=== PATIENT | male | born 1950 | race Caucasian/White ===

== ENCOUNTER 2018-09-22 13:51 | Inpatient (IN) | payer MEDICARE ==
[~2018-09-22] VITALS: Ht 170.2 cm; Wt 103.4 kg
[2018-09-22] MEDS ORDERED: ALBUTEROL/IPRATROPIUM 3 ML NEB ONE (14:19)
[2018-09-22] MEDS ORDERED: METHYLPREDNISOLONE SOD SUCC 125 MG/2ML VIAL IV ONE (14:45)
[2018-09-22] MEDS ORDERED: ALBUTEROL/IPRATROPIUM 3 ML NEB NEB ONE (14:45)
[2018-09-22] MEDS ORDERED: ASPIRIN 81 MG CHEW TAB PO ONE (15:00)
[2018-09-22 15:08] LABS: BASOPHILS % 0.3 % (0.0-1.0); EOSINOPHILS % 0.4 % (0.0-6.0); HEMATOCRIT 51.2 % (38.2-49.6); HEMOGLOBIN 17.2 g/dL (14.0-18.0); LYMPHOCYTES # (AUTO) 0.8 (1.0-3.2); LYMPHOCYTES % 8.3 % (18.0-39.1); MEAN CORPUSCULAR HEMOGLOBIN 30.1 pg (28-32); MEAN CORPUSCULAR HGB CONC 33.6 g/dL (31-35); MEAN CORPUSCULAR VOLUME 89.7 fL (81-99); MONOCYTES # (AUTO) 0.9 (0.2-0.8); MONOCYTES % 9.5 % (4.4-11.3); NEUTROPHILS # (AUTO) 7.4 (2.1-6.9); NEUTROPHILS % 81.2 % (38.7-80.0); PLATELET COUNT 233 x10e3/uL (140-360); RED BLOOD COUNT 5.71 x10e6/uL (4.3-5.7); RED CELL DISTRIBUTION WIDTH 12.4 % (11.7-14.4)
[2018-09-22 15:28] LABS: ALANINE AMINOTRANSFERASE 33 IU/L (0-55); ALBUMIN/GLOBULIN RATIO 1.1 (0.8-2.0); ALKALINE PHOSPHATASE 65 IU/L (40-150); ANION GAP 16.2 mmol/L (8-16); BLOOD UREA NITROGEN 14 mg/dL (7-26); BUN/CREATININE RATIO 16 (6-25); CALCIUM 9.8 mg/dL (8.4-10.2); CARBON DIOXIDE 23 mmol/L (22-29); CHLORIDE 100 mmol/L (98-107); CREATINE KINASE 867 IU/L (30-200); CREATININE, SERUM 0.89 mg/dL (0.72-1.25); EST GLOMERULAR FILTRATION RATE > 60 ML/MIN (60-); GLUCOSE 106 mg/dL (74-118); POTASSIUM 4.2 mmol/L (3.5-5.1); SODIUM 135 mmol/L (136-145)
[2018-09-22] MEDS ORDERED: VANCOMYCIN 1GM/NS 250 ML 250 ML IV ONE (15:30)
[2018-09-22] MEDS: CEFEPIME HCL 1 GM VIAL IV SCH ×2 (16:17→22:30)
--- NOTE | 2018-09-22 16:53 | Diagnostic Imaging Report ---
EXAMINATION: CHEST SINGLE (PORTABLE) INDICATION: ^SHORT OF BREATH ^Y COMPARISON: None available FINDINGS: AP view TUBES and LINES: None. LUNGS: Lungs are well inflated. Mild central vascular congestion. There is no evidence of pneumonia or pulmonary edema. PLEURA: No significant pleural effusion or pneumothorax. HEART AND MEDIASTINUM: The cardiomediastinal silhouette is unremarkable. BONES AND SOFT TISSUES: No acute osseous lesion. Soft tissues are unremarkable. UPPER ABDOMEN: No free air under the diaphragm. IMPRESSION: Mild central vascular congestion. Otherwise, unremarkable. Signed by: Dr. Angel Henriquez MD on 09/22/2018 4:50 PM
[2018-09-22] MEDS: SODIUM CHLORIDE 0.9% 1000ML 1,000 ML IV SCH ×3 (19:30→22:20)
[2018-09-22] MEDS ORDERED: NITROGLYCERIN 0.4 MG SUBL SL PRN (20:45)
[2018-09-22] MEDS ORDERED: MORPHINE SULFATE 2 MG/ML SYR IV PRN (20:45)
[2018-09-22] MEDS ORDERED: ONDANSETRON HCL INJ 2 MG/ML VIAL IV PRN (20:45)
--- OUTSIDE RECORDS SUMMARY | 2018-09-22 21:01 | XMS REPORT ---
Author Author [facility] Address Unknown Phone Unavailable Care Team Providers Care Geotechnical Intern Name Role Phone Jalil LOPEZ Unavailable Unavailable Problems This patient has no known problems. Allergies, Adverse Reactions, Alerts This patient has no known allergies or adverse reactions. Medications This patient has no known medications. Results Test Description Test Time Test Comments Text Results Atomic Results Result Comments CHEST SINGLE (PORTABLE) 2018-09-22 16:49:00 [facility] [address] [address] Patient Name: MICHELLE PITT MR #: [id number] : 1950 Age/Sex: 68/M Req #: [id number] Adm Physician: Ordered by: ANGELES MEANS MACHINE FITTER Report #: [id number] Location: ER Room/Bed: Procedure: [id number] DX/CHEST SINGLE (PORTABLE) Exam Date: Exam Time: REPORT STATUS: Signed EXAMINATION: CHEST SINGLE (PORTABLE) INDICATION: SHORT OF BREATH Y COMPARISON: None available FINDINGS: AP view TUBES and LINES: None. LUNGS: Lungs are well inflated. Mild central vascular congestion. There is no evidence of pneumonia or pulmonary edema. PLEURA: No significant pleural effusion or pneumothorax. HEART AND MEDIASTINUM: The cardiomediastinal silhouette is unremarkable. BONES AND SOFT TISSUES: No acute osseous lesion. Soft tissues are unremarkable. UPPER ABDOMEN: No free air under the diaphragm. IMPRESSION: Mild central vascular congestion. Otherwise, unremarkable. Signed by: Dr. Angel Thompson MD on 09/22/2018 4:50 PM Dictated By: ANGEL THOMPSON MD 48 Transcribed By: DOYLE on 09/22/181649 COPY TO: ANGELES MEANS NP
[2018-09-22 21:40] VITALS: BP 159/100
[2018-09-22 22:00] VITALS: BP 159/100
[2018-09-22 22:02] VITALS: BP 159/104
[2018-09-22] MEDS: LEVALBUTEROL HCL SOLN NEBU 0.63 MG/3 ML NEB INH SCH (22:05)
[2018-09-22] MEDS: IPRATROPIUM BROMIDE 0.02% 2.5 ML NEB NEB SCH (22:05)
[2018-09-22] MEDS: AZITHROMYCIN 500MG/NS 250 ML 250 ML IV SCH (23:10)
[2018-09-22] MEDS: METHYLPREDNISOLONE SOD SUCC 125 MG/2ML VIAL IV SCH (23:22)
[2018-09-23] VITALS (8 sets, daily range): BP systolic 148–167; BP diastolic 73–89
[2018-09-23 01:21] LABS: CREATINE KINASE 1043 IU/L (30-200)
[2018-09-23] MEDS: LEVALBUTEROL HCL SOLN NEBU 0.63 MG/3 ML NEB INH SCH ×3 (01:30→07:38)
[2018-09-23] MEDS: IPRATROPIUM BROMIDE 0.02% 2.5 ML NEB NEB SCH ×5 (01:30→19:00)
[2018-09-23] MEDS: SODIUM CHLORIDE 0.9% 1000ML 1,000 ML IV SCH ×3 (02:28→17:37)
[2018-09-23] MEDS: CEFEPIME HCL 1 GM VIAL IV SCH ×2 (05:44→17:36)
[2018-09-23 05:50] LABS: BASOPHILS % 0.1 % (0.0-1.0); HEMOGLOBIN 17.3 g/dL (14.0-18.0); LYMPHOCYTES # (AUTO) 0.7 (1.0-3.2); LYMPHOCYTES % 8.5 % (18.0-39.1); MEAN CORPUSCULAR HEMOGLOBIN 30.2 pg (28-32); MEAN CORPUSCULAR HGB CONC 32.6 g/dL (31-35); MEAN CORPUSCULAR VOLUME 92.5 fL (81-99); MONOCYTES # (AUTO) 0.1 (0.2-0.8); MONOCYTES % 1.8 % (4.4-11.3); NEUTROPHILS # (AUTO) 6.9 (2.1-6.9); NEUTROPHILS % 87.9 % (38.7-80.0); PLATELET COUNT 249 x10e3/uL (140-360); RED BLOOD COUNT 5.73 x10e6/uL (4.3-5.7); RED CELL DISTRIBUTION WIDTH 12.4 % (11.7-14.4)
[2018-09-23] MEDS: METHYLPREDNISOLONE SOD SUCC 125 MG/2ML VIAL IV SCH ×2 (05:53→17:36)
[2018-09-23 06:25] LABS: CREATINE KINASE 1044 IU/L (30-200)
[2018-09-23 08:16] LABS: ALANINE AMINOTRANSFERASE 36 IU/L (0-55); ALBUMIN 3.9 g/dL (3.5-5.0); ALBUMIN/GLOBULIN RATIO 0.9 (0.8-2.0); ALKALINE PHOSPHATASE 67 IU/L (40-150); ANION GAP 19.3 mmol/L (8-16); BLOOD UREA NITROGEN 22 mg/dL (7-26); BUN/CREATININE RATIO 19 (6-25); CALCIUM 9.9 mg/dL (8.4-10.2); CARBON DIOXIDE 22 mmol/L (22-29); CHLORIDE 100 mmol/L (98-107); CHOL/HDL RATIO 4.7 (3.9-4.7); CHOLESTEROL 210 MD/DL (0-199); CREATININE, SERUM 1.16 mg/dL (0.72-1.25); EST GLOMERULAR FILTRATION RATE > 60 ML/MIN (60-); GLUCOSE 150 mg/dL (74-118); HDL CHOLESTEROL 45 MG/DL (40-60); MAGNESIUM 2.7 MG/DL (1.3-2.1); POTASSIUM 5.3 mmol/L (3.5-5.1); SODIUM 136 mmol/L (136-145)
[2018-09-23 08:32] LABS: LDL CHOLESTEROL 151 MG/DL (60-130); TRIGLYCERIDES 72 MG/DL (0-149)
[2018-09-23] MEDS: AZITHROMYCIN 500MG/NS 250 ML 250 ML IV SCH (08:33)
[2018-09-23] MEDS: ASPIRIN 81 MG ENTERIC COATED PO SCH (08:33)
--- NOTE | 2018-09-23 08:36 | Diagnostic Imaging Report ---
EXAMINATION: CHEST SINGLE (PORTABLE) INDICATION: SOB. Cough. COMPARISON: None FINDINGS: TUBES and LINES: None. LUNGS: Lungs are well inflated. Lungs are clear. There is no evidence of pneumonia or pulmonary edema. PLEURA: No pleural effusion or pneumothorax. HEART AND MEDIASTINUM: The cardiomediastinal silhouette is unremarkable. BONES AND SOFT TISSUES: No acute osseous lesion. UPPER ABDOMEN: Hyperlucency in the left lung base/hemithorax nonspecific. IMPRESSION: No acute thoracic abnormality. Hyperlucency in the left lower hemithorax. Suggest chest PA and lateral views in upright position when patient's condition permits. Signed by: Dr. Yolanda Hidalgo M.D. on 09/23/2018 8:32 AM
[2018-09-23] MEDS ORDERED: FAMOTIDINE 20 MG/2 ML VIAL IV SCH (09:00)
[2018-09-23] MEDS ORDERED: GUAIFENESIN/CODEINE 10 ML CUP PO PRN (09:00)
[2018-09-23] MEDS ORDERED: LEVALBUTEROL HCL SOLN NEBU 0.63 MG/3 ML NEB INH PRN (09:00)
[2018-09-23] MEDS ORDERED: HYDRALAZINE HCL 25 MG TAB PO PRN (09:00)
[2018-09-23] MEDS ORDERED: ACETAMINOPHEN 325 MG TAB PO PRN (09:00)
[2018-09-23] MEDS ORDERED: BENZONATATE 100 MG CAP PO PRN (09:00)
[2018-09-23] MEDS ORDERED: CEFEPIME HCL 1 GM VIAL IV SCH (09:00)
[2018-09-23] MEDS ORDERED: METHYLPREDNISOLONE SOD SUCC 125 MG/2ML VIAL IV SCH (09:15)
[2018-09-23] MEDS: LORATADINE 10 MG TAB PO SCH (10:11)
[2018-09-23] MEDS: DILTIAZEM HCL 180 MG CAP ER PO SCH (10:11)
[2018-09-23] MEDS: BENZONATATE 100 MG CAP PO SCH ×3 (10:11→21:51)
--- NOTE | 2018-09-23 11:27 | History and Physical ---
CHIEF COMPLAINT: Acute exacerbation of COPD, worsening hypoxia and shortness of breath for the past three days. HISTORY: A 68-year-old male with three to four days of increasing shortness of breath and difficulty breathing and failed outpatient nebulizer treatment. Patient was a smoker, quit approximately 5 years ago. He had vrzhfyrp-ij-tgxyrakg stage COPD. Patient is also having increasing shortness of breath chronically, but usually helped with the nebulizer. The patient however, now is with exacerbation. He did receive multiple treatments in the emergency room that did not improve. He has also had multiple steroids given as well. The patient is now on oxygen support. He is on nasal cannula oxygen. PAST MEDICAL HISTORY 1. Yuuxvmvs-dl-ulxjaehd COPD. 2. Overweight. PAST SURGICAL HISTORY: Noncontributory. SOCIAL HISTORY: Patient was a smoker. He quit approximately 4 to 5 years ago. ALLERGIES: NO KNOWN ALLERGIES. HOME MEDICATIONS: Nebulizer medications. REVIEW OF SYSTEMS: Shortness of breath, wheezing. PHYSICAL EXAMINATION VITAL SIGNS: Temperature is 98, blood pressure 164/73, pulse rate 120, respirations 22. GENERAL: The patient is on oxygen support. Nasal cannula oxygen without any distress. HEENT: Normocephalic, atraumatic, and anicteric. NECK: Supple grossly. PULMONARY: Bilateral upper and lower lung field wheezing and . CARDIOVASCULAR: S1 and S2, tachycardia. ABDOMEN: Soft, obese. EXTREMITIES: No cyanosis, no edema. NEUROLOGIC: No gross focal deficits. LABORATORY: Sodium is 135, potassium 4.2, chloride 100, bicarb 23, BUN 14, creatinine 0.89, glucose 106. WBC 7.8, hemoglobin 17.3, hematocrit 53, platelets is 248. Chest x-ray showed some vascular congestion marking. IMPRESSION 1. Acute exacerbation of chronic obstructive pulmonary disease associated with acute hypoxia. 2. Worsening sinus tachycardia. 3. Obesity. PLAN: Continue with nebulizer treatment. I will start the patient on Cardizem gently. I will continue with steroid usage. Add on antibiotics. CT of the chest without contrast. Consultation with . DVT prophylaxis with Lovenox. We will monitor the patient closely. The patient will continue with nebulizer treatments as well, antitussive medication. Job#: [id number] PUN
[2018-09-23] MEDS: LEVALBUTEROL HCL SOLN NEBU 1.25 MG/3 ML NEB INH SCH ×4 (11:30→23:40)
[2018-09-23] MEDS ORDERED: ALPRAZOLAM 0.5 MG TAB PO NR (11:45)
[2018-09-23 12:37] LABS: CREATINE KINASE 1308 IU/L (30-200)
[2018-09-23] MEDS ORDERED: IPRATROPIUM BROMIDE 0.02% 2.5 ML NEB NEB SCH (13:00)
[2018-09-23 16:07] LABS: ABG HCO3 25 mmol/L (23-28); ABG PCO2 46 mmHg (41-51); ABG PH 7.34 (7.31-7.41); ABG PO2 96 mmHg (80-105)
[2018-09-23] MEDS: ENOXAPARIN SOD INJ 40 MG/0.4 ML SYR SC SCH (17:36)
[2018-09-23] MEDS: THEOPHYLLINE 200 MG TABCR PO SCH (17:36)
[2018-09-23] MEDS: MONTELUKAST SODIUM 10 MG TAB PO SCH (21:51)
[2018-09-24] VITALS (8 sets, daily range): BP systolic 130–167; BP diastolic 60–79
[2018-09-24] MEDS: METHYLPREDNISOLONE SOD SUCC 125 MG/2ML VIAL IV SCH (01:42)
[2018-09-24] MEDS: IPRATROPIUM BROMIDE 0.02% 2.5 ML NEB NEB SCH ×7 (03:15→23:00)
[2018-09-24] MEDS: LEVALBUTEROL HCL SOLN NEBU 1.25 MG/3 ML NEB INH SCH ×5 (03:15→21:00)
[2018-09-24] MEDS: SODIUM CHLORIDE 0.9% 1000ML 1,000 ML IV SCH ×2 (04:53→16:47)
[2018-09-24] MEDS: CEFEPIME HCL 1 GM VIAL IV SCH ×2 (05:46→17:55)
[2018-09-24] MEDS ORDERED: ALPRAZOLAM 0.5 MG TAB PO NR ×2 (06:01→18:45)
[2018-09-24 06:25] LABS: BASOPHILS % 0.2 % (0.0-1.0); HEMATOCRIT 50.6 % (38.2-49.6); HEMOGLOBIN 16.1 g/dL (14.0-18.0); LYMPHOCYTES # (AUTO) 0.7 (1.0-3.2); LYMPHOCYTES % 4.1 % (18.0-39.1); MEAN CORPUSCULAR HEMOGLOBIN 29.8 pg (28-32); MEAN CORPUSCULAR HGB CONC 31.8 g/dL (31-35); MEAN CORPUSCULAR VOLUME 93.5 fL (81-99); MONOCYTES # (AUTO) 0.4 (0.2-0.8); MONOCYTES % 2.2 % (4.4-11.3); NEUTROPHILS # (AUTO) 16.7 (2.1-6.9); PLATELET COUNT 272 x10e3/uL (140-360); RED BLOOD COUNT 5.41 x10e6/uL (4.3-5.7); RED CELL DISTRIBUTION WIDTH 12.6 % (11.7-14.4)
[2018-09-24 07:04] LABS: ANION GAP 14.9 mmol/L (8-16); BLOOD UREA NITROGEN 30 mg/dL (7-26); BUN/CREATININE RATIO 29 (6-25); CALCIUM 9.5 mg/dL (8.4-10.2); CARBON DIOXIDE 25 mmol/L (22-29); CHLORIDE 103 mmol/L (98-107); CREATININE, SERUM 1.03 mg/dL (0.72-1.25); EST GLOMERULAR FILTRATION RATE > 60 ML/MIN (60-); GLUCOSE 174 mg/dL (74-118); POTASSIUM 4.9 mmol/L (3.5-5.1); SODIUM 138 mmol/L (136-145); THYROID STIMULATING HORMONE 0.232 uIU/mL (0.350-4.940)
--- NOTE | 2018-09-24 07:26 | Diagnostic Imaging Report ---
EXAMINATION: CT scan of the chest without contrast. TECHNIQUE: Spiral CT images of the chest were performed from the lung apices to the level of the adrenal glands. No intravenous contrast was administered per referring physician request. Coronal and sagittal reformatted images were obtained. COMPARISON: Chest radiograph 09/23/2018 CLINICAL HISTORY:Shortness of breath, history of COPD, bronchitis DISCUSSION: ABSENCE OF INTRAVENOUS CONTRAST DECREASES SENSITIVITY FOR DETECTION OF FOCAL LESIONS AND VASCULAR PATHOLOGY. LINES/TUBES: None. LUNGS AND AIRWAYS: 4 mm right apical pulmonary nodule seen on series 3 image 23. 2 mm nodule laterally right upper lobe series 3 image 29. Linear scar medially within the right middle lobe and in the inferior lingula. Evaluation of the lung bases is slightly limited by respiratory motion artifact. Mild centrilobular emphysematous changes. No airspace consolidation gross fibrotic change, or bronchiectasis. Trachea, mainstem bronchi, and central lobar and segmental bronchi are patent without filling defect. PLEURA: No pneumothorax or pleural effusions. HEART AND MEDIASTINUM: Visualized portions of the thyroid gland are normal. No axillary, hilar, or mediastinal lymphadenopathy. No ectasia or aneurysmal dilatation of the thoracic aorta. Pulmonary outflow tract is of normal caliber. Atherosclerotic calcification of the aortic arch, great vessel origins, and [place] coronary arteries. No pericardial effusion. LYMPH NODES: There is no mediastinal, hilar or axillary lymphadenopathy. ABDOMEN: Visualized portions of the liver, spleen, pancreas, and adrenal glands are unremarkable. 2 cm exophytic simple cyst projects from the upper pole of the left kidney. Nonspecific hyperlucency described over the left lower hemithorax on the comparison examination likely represents air within the gastric fundus. BONES AND SOFT TISSUES: No focal soft tissue abnormalities. Multilevel degenerative disc changes of the thoracolumbar spine. No acute osseous abnormality IMPRESSION: Mild centrilobular emphysematous changes. Scattered foci of linear scar in the lingula and right middle lobe. 4 mm and 2 mm right upper lobe noncalcified pulmonary nodules, likely sequela of prior infectious or inflammatory process. CT scan of the chest without contrast may be considered to assess for stability in 12 months if the patient is at high risk of malignancy per Fleischner Society 2017 guidelines. Atherosclerotic vascular disease. Signed by: Dr. Huy Robbins M.D. on 09/24/2018 7:22 AM
--- NOTE | 2018-09-24 08:26 | Consultation ---
DATE OF CONSULTATION: PULMONARY CONSULTATION PATIENT OF: Dr. uKhn. Charming but unfortunate 68-year-old gentleman admitted with shortness of breath and hypoxic at home, able to walk only 10 feet. 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 He smoked 2 packs a day for 40 years, quit 5 years ago. 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 Has a history of hypertension. Was born in [place], [place]. Anxious white male, sitting upright, declining CT because he is unable to lie supine. Concerned with elevated heart rate, which is apparently be chronic signs of tachycardia. PHYSICAL EXAMINATION VITAL SIGNS: Temperature 96.4, pulse 113, respirations 24, blood pressure 162/66. HEENT: Head normocephalic and atraumatic. Eyes: Extraocular movements are intact. LUNGS: Mildly diminished breath sounds. Bilateral wheezing. HEART: Regular rhythm. ABDOMEN: Nontender, mildly obese. EXTREMITIES: Nonedematous. IMPRESSION: Acute exacerbation of chronic obstructive pulmonary disease and he required home oxygen. We will consider optimize bronchodilators. Elevated CPK, etiology unclear. Patient denies any recent fall. We will attempt optimized bronchodilators, BiPAP at night. Patient may require incentive screening spirometry, arterial blood gas, and CT when patient is bit more comfortable. reported by radiology. Thank you for this kind referral. Job#: [id number] SUB
[2018-09-24 08:50] LABS: FREE T4 (FREE THYROXINE) 1.11 ng/dL (0.9-1.8)
[2018-09-24] MEDS ORDERED: METHYLPREDNISOLONE SOD SUCC 125 MG/2ML VIAL IV SCH (09:00)
[2018-09-24] MEDS: DILTIAZEM HCL 180 MG CAP ER PO SCH (10:15)
[2018-09-24] MEDS: AZITHROMYCIN 500MG/NS 250 ML 250 ML IV SCH (10:15)
[2018-09-24] MEDS: BENZONATATE 100 MG CAP PO SCH ×3 (10:15→21:23)
[2018-09-24] MEDS: LORATADINE 10 MG TAB PO SCH (10:15)
[2018-09-24] MEDS: THEOPHYLLINE 200 MG TABCR PO SCH ×2 (10:15→17:55)
[2018-09-24] MEDS: ASPIRIN 81 MG ENTERIC COATED PO SCH (10:15)
[2018-09-24] MEDS: METHYLPREDNISOLONE SOD SUCC 40 MG/ML VIAL IV SCH ×2 (12:45→21:22)
[2018-09-24] MEDS: ENOXAPARIN SOD INJ 40 MG/0.4 ML SYR SC SCH (17:55)
[2018-09-24] MEDS: MONTELUKAST SODIUM 10 MG TAB PO SCH (21:22)
[2018-09-25] VITALS: BP_SYST 114; BP_SYST 136; BP_DIAS 55; BP_DIAS 75
[2018-09-25] MEDS: LEVALBUTEROL HCL SOLN NEBU 1.25 MG/3 ML NEB INH SCH ×8 (00:30→23:59)
[2018-09-25] MEDS: IPRATROPIUM BROMIDE 0.02% 2.5 ML NEB NEB SCH ×6 (03:00→23:00)
[2018-09-25 04:00] VITALS: BP 162/74
[2018-09-25] MEDS: SODIUM CHLORIDE 0.9% 1000ML 1,000 ML IV SCH (05:15)
[2018-09-25] MEDS: CEFEPIME HCL 1 GM VIAL IV SCH ×2 (06:25→17:13)
[2018-09-25 08:00] VITALS: BP 158/74
[2018-09-25] MEDS: ONDANSETRON HCL 4 MG ORAL DISINTEGRATING TAB PO PRN (08:20)
[2018-09-25] MEDS: THEOPHYLLINE 200 MG TABCR PO SCH ×2 (09:34→17:10)
[2018-09-25] MEDS: DILTIAZEM HCL 180 MG CAP ER PO SCH (09:35)
[2018-09-25] MEDS: ASPIRIN 81 MG ENTERIC COATED PO SCH (09:35)
[2018-09-25] MEDS: BENZONATATE 100 MG CAP PO SCH ×3 (09:35→21:10)
[2018-09-25] MEDS: LORATADINE 10 MG TAB PO SCH (09:35)
[2018-09-25] MEDS: GUAIFENESIN 600 MG TAB PO SCH ×2 (09:35→17:10)
[2018-09-25] MEDS: AZITHROMYCIN 500MG/NS 250 ML 250 ML IV SCH (09:35)
[2018-09-25] MEDS ORDERED: MAGNESIUM HYDROXIDE 30 ML UDC PO ONE (09:45)
[2018-09-25 12:00] VITALS: BP 136/73
--- NOTE | 2018-09-25 15:05 | Pulmonary Function Test ---
DATE OF STUDY: SPIROMETRY REPORT A patient of Dr. Kuhn. Restrictive pattern, pre bronchodilator. Forced vital capacity 0.93 liters, 23% of predicted. FEV1 0.71 liters, 24%. FEV1 FVC ratio 0.76%. FEF 25:75, 25%. There was significant improvement in FVC following inhalation of bronchodilators to 1.06 liters, 27% of predicted. Paradoxical decline in FEV1. FEV1 FVC ratio fell to 0.59 liters. Effort may have been suboptimal. Findings consistent with very severe obstructive pulmonary disease. Concomitant restriction cannot be excluded. Job#: [id number] EV
[2018-09-25] MEDS: METHYLPREDNISOLONE SOD SUCC 40 MG/ML VIAL IV SCH ×2 (15:16→21:10)
[2018-09-25 16:00] VITALS: BP 155/77
[2018-09-25] MEDS: ENOXAPARIN SOD INJ 40 MG/0.4 ML SYR SC SCH (17:12)
[2018-09-25 20:00] VITALS: BP 140/74
[2018-09-25] MEDS: MONTELUKAST SODIUM 10 MG TAB PO SCH (21:10)
[2018-09-26] VITALS (9 sets, daily range): BP systolic 115–162; BP diastolic 68–84
[2018-09-26] MEDS: LEVALBUTEROL HCL SOLN NEBU 1.25 MG/3 ML NEB INH SCH ×6 (02:55→19:55)
[2018-09-26] MEDS: IPRATROPIUM BROMIDE 0.02% 2.5 ML NEB NEB SCH ×6 (03:00→23:00)
[2018-09-26 06:12] LABS: BASOPHILS % 0.2 % (0.0-1.0); HEMOGLOBIN 15.9 g/dL (14.0-18.0); LYMPHOCYTES # (AUTO) 0.7 (1.0-3.2); MEAN CORPUSCULAR HEMOGLOBIN 30.2 pg (28-32); MEAN CORPUSCULAR HGB CONC 33.1 g/dL (31-35); MEAN CORPUSCULAR VOLUME 91.1 fL (81-99); MONOCYTES # (AUTO) 0.7 (0.2-0.8); MONOCYTES % 4.1 % (4.4-11.3); NEUTROPHILS # (AUTO) 14.9 (2.1-6.9); NEUTROPHILS % 90.9 % (38.7-80.0); PLATELET COUNT 240 x10e3/uL (140-360); RED BLOOD COUNT 5.27 x10e6/uL (4.3-5.7); RED CELL DISTRIBUTION WIDTH 12.1 % (11.7-14.4)
[2018-09-26] MEDS: METHYLPREDNISOLONE SOD SUCC 40 MG/ML VIAL IV SCH ×3 (06:35→21:31)
[2018-09-26] MEDS: CEFEPIME HCL 1 GM VIAL IV SCH ×2 (06:35→17:29)
[2018-09-26 07:01] LABS: ANION GAP 11.4 mmol/L (8-16); BLOOD UREA NITROGEN 27 mg/dL (7-26); BUN/CREATININE RATIO 35 (6-25); CARBON DIOXIDE 30 mmol/L (22-29); CHLORIDE 100 mmol/L (98-107); CREATININE, SERUM 0.77 mg/dL (0.72-1.25); EST GLOMERULAR FILTRATION RATE > 60 ML/MIN (60-); GLUCOSE 168 mg/dL (74-118); POTASSIUM 4.4 mmol/L (3.5-5.1); SODIUM 137 mmol/L (136-145)
[2018-09-26] MEDS ORDERED: BISACODYL 10 MG SUPP PR PRN (08:15)
[2018-09-26] MEDS ORDERED: MAGNESIUM HYDROXIDE 30 ML UDC PO ONE (08:15)
[2018-09-26] MEDS ORDERED: MAGNESIUM HYDROXIDE 30 ML UDC PO PRN (08:15)
[2018-09-26] MEDS ORDERED: BISACODYL 10 MG SUPP PR ONE (08:15)
[2018-09-26] MEDS: GUAIFENESIN 600 MG TAB PO SCH ×2 (09:36→17:29)
[2018-09-26] MEDS: THEOPHYLLINE 200 MG TABCR PO SCH ×2 (09:36→17:29)
[2018-09-26] MEDS: DILTIAZEM HCL 180 MG CAP ER PO SCH (09:36)
[2018-09-26] MEDS: SENNOSIDES 8.6 MG TAB PO SCH ×2 (09:36→17:29)
[2018-09-26] MEDS: BENZONATATE 100 MG CAP PO SCH ×3 (09:36→20:43)
[2018-09-26] MEDS: LORATADINE 10 MG TAB PO SCH (09:36)
[2018-09-26] MEDS: ASPIRIN 81 MG ENTERIC COATED PO SCH (09:36)
[2018-09-26] MEDS: AZITHROMYCIN 500MG/NS 250 ML 250 ML IV SCH (09:36)
[2018-09-26] MEDS: ENOXAPARIN SOD INJ 40 MG/0.4 ML SYR SC SCH (17:29)
[2018-09-26] MEDS: MONTELUKAST SODIUM 10 MG TAB PO SCH (20:43)
[2018-09-27] VITALS (7 sets, daily range): BP systolic 132–158; BP diastolic 71–86
[2018-09-27] MEDS: IPRATROPIUM BROMIDE 0.02% 2.5 ML NEB NEB SCH ×5 (03:00→19:00)
[2018-09-27] MEDS: LEVALBUTEROL HCL SOLN NEBU 1.25 MG/3 ML NEB INH SCH ×6 (03:15→23:00)
[2018-09-27] MEDS: METHYLPREDNISOLONE SOD SUCC 40 MG/ML VIAL IV SCH ×3 (05:20→21:28)
[2018-09-27] MEDS: CEFEPIME HCL 1 GM VIAL IV SCH ×2 (05:26→17:30)
[2018-09-27] MEDS: ASPIRIN 81 MG ENTERIC COATED PO SCH (08:00)
[2018-09-27] MEDS: AZITHROMYCIN 500MG/NS 250 ML 250 ML IV SCH (08:00)
[2018-09-27] MEDS: THEOPHYLLINE 200 MG TABCR PO SCH ×2 (08:01→17:30)
[2018-09-27] MEDS: LORATADINE 10 MG TAB PO SCH (08:01)
[2018-09-27] MEDS: GUAIFENESIN 600 MG TAB PO SCH ×2 (08:01→17:00)
[2018-09-27] MEDS: DILTIAZEM HCL 180 MG CAP ER PO SCH (08:01)
[2018-09-27] MEDS: BENZONATATE 100 MG CAP PO SCH ×3 (08:01→21:17)
[2018-09-27] MEDS: SENNOSIDES 8.6 MG TAB PO SCH ×2 (08:01→16:30)
[2018-09-27] MEDS ORDERED: MORPHINE SULFATE INJ 4 MG/ML INJ IV PRN (08:15)
[2018-09-27] MEDS: MAGNESIUM/ALUMINUM/SIMETHICONE 30 ML UDC PO PRN ×2 (09:57→16:30)
[2018-09-27] MEDS ORDERED: FUROSEMIDE INJ 10 MG/ML 2 ML VIAL IV SCH (13:15)
[2018-09-27] MEDS ORDERED: ACETAZOLAMIDE 250 MG TAB PO SCH (13:15)
[2018-09-27] MEDS: ENOXAPARIN SOD INJ 40 MG/0.4 ML SYR SC SCH (17:30)
[2018-09-27] MEDS: MONTELUKAST SODIUM 10 MG TAB PO SCH (21:17)
[2018-09-27] MEDS ORDERED: DIPHENHYDRAMINE HCL INJ 50 MG/ML VIAL IV PRN (21:45)
[2018-09-28] VITALS: BP 148/80
[2018-09-28] MEDS: MAGNESIUM/ALUMINUM/SIMETHICONE 30 ML UDC PO PRN (03:17)
[2018-09-28] MEDS: METHYLPREDNISOLONE SOD SUCC 40 MG/ML VIAL IV SCH (05:52)
[2018-09-28] MEDS: CEFEPIME HCL 1 GM VIAL IV SCH (05:52)
[2018-09-28 06:04] LABS: BASOPHILS # (AUTO) 0.1 (0.0-0.1); BASOPHILS % 0.3 % (0.0-1.0); HEMATOCRIT 49.2 % (38.2-49.6); HEMOGLOBIN 16.6 g/dL (14.0-18.0); LYMPHOCYTES # (AUTO) 0.7 (1.0-3.2); LYMPHOCYTES % 3.2 % (18.0-39.1); MEAN CORPUSCULAR HEMOGLOBIN 30.1 pg (28-32); MEAN CORPUSCULAR HGB CONC 33.7 g/dL (31-35); MEAN CORPUSCULAR VOLUME 89.3 fL (81-99); MONOCYTES # (AUTO) 1.1 (0.2-0.8); NEUTROPHILS # (AUTO) 20.1 (2.1-6.9); NEUTROPHILS % 90.4 % (38.7-80.0); PLATELET COUNT 317 x10e3/uL (140-360); RED BLOOD COUNT 5.51 x10e6/uL (4.3-5.7); RED CELL DISTRIBUTION WIDTH 11.9 % (11.7-14.4)
[2018-09-28 06:05] LABS: ANION GAP 15.2 mmol/L (8-16); BUN/CREATININE RATIO 44 (6-25); CALCIUM 8.9 mg/dL (8.4-10.2); CARBON DIOXIDE 24 mmol/L (22-29); CHLORIDE 102 mmol/L (98-107); CREATININE, SERUM 0.95 mg/dL (0.72-1.25); EST GLOMERULAR FILTRATION RATE > 60 ML/MIN (60-); GLUCOSE 184 mg/dL (74-118); POTASSIUM 4.2 mmol/L (3.5-5.1); SODIUM 137 mmol/L (136-145)
[2018-09-28 06:13] LABS: BLOOD UREA NITROGEN 42 mg/dL (7-26)
[2018-09-28] MEDS: LEVALBUTEROL HCL SOLN NEBU 1.25 MG/3 ML NEB INH SCH ×3 (07:00→15:50)
[2018-09-28] MEDS: ONDANSETRON HCL 4 MG ORAL DISINTEGRATING TAB PO PRN (07:31)
[2018-09-28 09:00] VITALS: BP 159/75
[2018-09-28] MEDS ORDERED: HEPARIN SOD (PORCINE) 5,000 UNIT/ML VIAL SC SCH (09:00)
[2018-09-28] MEDS ORDERED: POTASSIUM CHLORIDE 20 MEQ TAB CR PO SCH (09:00)
[2018-09-28] MEDS: GUAIFENESIN 600 MG TAB PO SCH ×2 (09:00→16:00)
[2018-09-28] MEDS: SENNOSIDES 8.6 MG TAB PO SCH ×2 (09:00→17:00)
[2018-09-28] MEDS ORDERED: METHYLPREDNISOLONE SOD SUCC 40 MG/ML VIAL IV SCH (09:00)
[2018-09-28] MEDS ORDERED: FUROSEMIDE 20 MG TAB PO SCH (09:00)
[2018-09-28 09:18] VITALS: BP 159/75
[2018-09-28] MEDS ORDERED: FLUCONAZOLE 100 MG TAB PO ONE (09:30)
[2018-09-28] MEDS: ASPIRIN 81 MG ENTERIC COATED PO SCH (10:01)
[2018-09-28] MEDS: LORATADINE 10 MG TAB PO SCH (10:01)
[2018-09-28] MEDS: DILTIAZEM HCL 180 MG CAP ER PO SCH (10:02)
[2018-09-28] MEDS: THEOPHYLLINE 200 MG TABCR PO SCH ×2 (10:02→16:00)
[2018-09-28] MEDS: BENZONATATE 100 MG CAP PO SCH ×2 (10:02→16:00)
[2018-09-28 12:00] VITALS: BP 153/95
[2018-09-28] MEDS ORDERED: MINERAL OIL 132 ML BTL PR ONE (12:00)
[2018-09-28] MEDS ORDERED: MINERAL OIL 132 ML BTL PR PRN (12:00)
[2018-09-28] MEDS ORDERED: GUAIFENESIN/CODEINE 10 ML CUP PO PRN (13:00)
[2018-09-28] MEDS ORDERED: TESSALON PERLE100 MG PO (14:29)
[2018-09-28] MEDS ORDERED: SINGULAIR10 MG PO (14:29)
[2018-09-28] MEDS ORDERED: PROAIR HFA INH8.5 GM INH (14:30)
[2018-09-28] MEDS ORDERED: TYLENOL WITH C1 EACH PO (14:30)
[2018-09-28] MEDS ORDERED: SYMBICORT 16010.2 GM INH (14:31)
[2018-09-28] MEDS ORDERED: XOPENEX INH (14:32)
[2018-09-28] MEDS ORDERED: THEOPHYLLINE A200 MG PO (14:32)
[2018-09-28] MEDS ORDERED: DILTIAZEM 24HR180 M1 PO (14:33)
[2018-09-28] MEDS ORDERED: CLARITIN10 MG PO (14:33)
[2018-09-28] MEDS ORDERED: [UNRECOGNIZED DRUG - CODE] PO (14:34)
[2018-09-28] MEDS ORDERED: mucinex PO (14:34)
--- NOTE | 2018-09-28 14:36 | Consultation ---
DATE OF CONSULTATION: WOUND CONSULTATION Thank you, Dr. Kuhn, for asking me to see this patient with blisters to the right foot and bilateral leg edema. HISTORY OF PRESENT ILLNESS: A 68-year-old male patient, history of advanced COPD, cor pulmonale, leg edema, admitted with COPD exacerbation, hypoxemia. Patient is feeling thirsty, drinking copious amount of water. He had some bilateral leg swelling. He developed a blister to the right dorsal foot and right medial ankle. No signs of infection noted. I deroofed the blister and applied Adaptic, ABD, Kerlix and Coban both legs just for gentle compression. Patient advised to restrict the fluid intake. Also complains of constipation. PAST MEDICAL HISTORY: Advanced COPD with possible cor pulmonale. Patient had an echocardiogram, the report pending. MEDICATIONS 1. Theophylline 200 mg b.i.d. 2. Potassium 20 mEq daily. 3. Zofran. 4. Morphine. 5. Bisacodyl. 6. Aspirin. 7. Benzonate. 8. Hydralazine 25 mg q.6 p.r.n. 9. Fluconazole 100 mg daily. 10. Guaifenesin. 11. Acetazolamide 250 mg daily. ALLERGIES: NONE. PHYSICAL EXAMINATION VITAL SIGNS: Height 67 inches, weight 228 pounds. HEENT: Normal. NECK: No JVD. LUNGS: Bilateral air entry diminished. CARDIOVASCULAR: Normal. ABDOMEN: Protuberant. Obese. LOWER EXTREMITIES: Bilateral leg edema present. Right dorsum of the foot patient has a large blister measuring 6 x 6 cm, and right medial ankle patient has a blister opened up. ASSESSMENT: Bullous lesion right leg secondary to edema from most likely pulmonary hypertension, cor pulmonale, chronic obstructive pulmonary disease. PLAN: I deroofed the right foot blister and applied Adaptic, ABD, Kerlix and Coban to both legs. Patient tolerated the procedure. Thank you for consultation. Will follow with you. Discussed with the nurse. Will change the dressing 3 times a week and as needed for saturation. Job#: [id number] EV
--- NOTE | 2018-09-28 14:49 | Discharge Summary ---
STOCK SPECULATOR: Dr. Evelyne Sheikh FINAL DIAGNOSES 1. Acute exacerbation of chronic obstructive pulmonary disease associated with sinus tachycardia, acute hypoxia, obesity and previous smoking. 2. Community-acquired pneumonia with acute bronchitis. 3. Right foot blister. 4. Leukocytosis secondary to steroids given for his chronic obstructive pulmonary disease. 5. Status post rhabdomyolysis, which was mild. SUMMARY: Patient is a 68-year-old male who was having difficulty breathing at home. The patient came in with acute hypoxia, near respiratory failure, and required oxygen support but also multiple nebulizer treatments and high-dose steroids. He also had sinus tachycardia. Diltiazem CD was started, and the patient is doing much better now. The patient is stable. Rhabdomyolysis was mild because he was immobilized due to his difficulty breathing, baseline emphysema and COPD. Patient is doing much better now. He is going to go home today. DISCHARGE MEDICATIONS 1. Tessalon Perles 100 mg t.i.d. 2. Singulair 10 mg nightly. 3. Tylenol No. 3 as needed. 4. ProAir 2 puffs q.6 p.r.n. 5. Symbicort 160 per 4.5 mcg 2 puffs b.i.d. nebulizer for his COPD. 6. Xopenex 1.25-mg nebulizer q.4 p.r.n. 7. Theophylline 200 mg b.i.d. 8. Diltiazem CD 180 mg daily. 9. Claritin 10 mg daily. 10. Senna-S 1 tablet b.i.d. 11. Mucinex 600 mg b.i.d. 12. Diflucan 100 mg daily for 3 days due to yeast secondary to steroids and antibiotic treatment. Patient is stable and will be discharged home today after Dr. Segovia sees the patient for his right foot blister. The patient is stable and discharged home today afterward. Job#: [id number]
[2018-09-28] MEDS ORDERED: CITRATE OF MAGNESIA 300ML BOTTLE PO ONE (16:00)
[2018-09-28] MEDS ORDERED: ENOXAPARIN SOD INJ 40 MG/0.4 ML SYR SC SCH (17:00)
[2018-09-28 17:37] VITALS: BP 143/70
[2018-09-28] MEDS ORDERED: BISACODYL 10 MG SUPP PR NR (18:00)
[2018-09-29] MEDS ORDERED: FLUCONAZOLE 100 MG TAB PO SCH (09:00)
== END 2018-09-28 18:48 | disposition home health service (06) | DRG 190 ==
LOC: ER 13:51 → ERHOLD 20:31 → MED/SURG 21:33
PROVIDERS: ADMIT Internal Medicine; ATTEND Internal Medicine
PROC: 0H9MXZZ Drainage of Right Foot Skin, External Approach (ICD-10-PCS; principal; 2018-09-28)
DX: J44.0 Chronic obstructive pulmonary disease with (acute) lower respiratory infection (principal); J18.9 Pneumonia, unspecified organism; M62.82 Rhabdomyolysis; J44.1 Chronic obstructive pulmonary disease with (acute) exacerbation; J20.9 Acute bronchitis, unspecified; S90.821A Blister (nonthermal), right foot, initial encounter; R09.02 Hypoxemia; E66.9 Obesity, unspecified; Z68.35 Body mass index [BMI] 35.0-35.9, adult; Z79.891 Long term (current) use of opiate analgesic; I27.20 Pulmonary hypertension, unspecified; I27.81 Cor pulmonale (chronic); F10.21 Alcohol dependence, in remission
CPT/HCPCS: 36415; 36600; 71045; 71250; 80048; 80053; 80061; 80198; 82550; 82553; 82805; 83605; 83735; 83880; 84439; 84443; 84479; 84484; 85025; 87040; 87070; 87205; 93005; 93306; 93970; 94060; 94640; 96361; 97139; 99284; J0456; J0692; J1200; J1650; J1940; J2405; J2920; J2930; J3370; J7030

== ENCOUNTER 2019-06-25 09:38 | Inpatient (IN) | payer MEDICARE ==
[~2019-06-25] VITALS: Ht 170.2 cm; Wt 93.5 kg
[~2019-06-25 09:38] MED LIST: CLARITIN10 MG PO; DILTIAZEM 24HR180 M1 PO; PROAIR HFA INH8.5 GM INH; SINGULAIR10 MG PO; SYMBICORT 16010.2 GM INH; TESSALON PERLE100 MG PO; THEOPHYLLINE A200 MG PO; TYLENOL WITH C1 EACH PO; XOPENEX INH; [UNRECOGNIZED DRUG - CODE] PO; mucinex PO
[2019-06-25] MEDS ORDERED: IPRATROPIUM BROMIDE 0.02% 2.5 ML NEB NEB STA (09:56)
[2019-06-25] MEDS ORDERED: METHYLPREDNISOLONE SOD SUCC 125 MG/2ML VIAL IV ONE (10:00)
[2019-06-25 10:27] LABS: BASOPHILS # (AUTO) 0.1 (0.0-0.1); BASOPHILS % 1.3 % (0.0-1.0); EOSINOPHILS # (AUTO) 0.6 (0.0-0.4); EOSINOPHILS % 6.8 % (0.0-6.0); HEMATOCRIT 48.2 % (38.2-49.6); HEMOGLOBIN 15.4 g/dL (14.0-18.0); LYMPHOCYTES % 11.5 % (18.0-39.1); MEAN CORPUSCULAR HEMOGLOBIN 26.3 pg (28-32); MEAN CORPUSCULAR VOLUME 82.4 fL (81-99); MONOCYTES # (AUTO) 0.8 (0.2-0.8); MONOCYTES % 9.4 % (4.4-11.3); NEUTROPHILS # (AUTO) 5.9 (2.1-6.9); NEUTROPHILS % 70.8 % (38.7-80.0); PLATELET COUNT 294 x10e3/uL (140-360); RED BLOOD COUNT 5.85 x10e6/uL (4.3-5.7); RED CELL DISTRIBUTION WIDTH 14.4 % (11.7-14.4)
[2019-06-25] MEDS ORDERED: ALBUTEROL SULF 0.083% NEB SOLN 3 ML NEB NEB ONE (10:30)
[2019-06-25 10:37] LABS: ABG HCO3 27 mmol/L (23-28); ABG PCO2 35 mmHg (41-51); ABG PH 7.48 (7.31-7.41); ABG PO2 209 mmHg (80-105)
[2019-06-25 10:48] LABS: ALANINE AMINOTRANSFERASE 25 IU/L (0-55); ALBUMIN 4.1 g/dL (3.5-5.0); ALBUMIN/GLOBULIN RATIO 1.1 (0.8-2.0); ALKALINE PHOSPHATASE 85 IU/L (40-150); ANION GAP 15.1 mmol/L (8-16); BLOOD UREA NITROGEN 14 mg/dL (7-26); BUN/CREATININE RATIO 14 (6-25); CALCIUM 10.1 mg/dL (8.4-10.2); CARBON DIOXIDE 25 mmol/L (22-29); CHLORIDE 101 mmol/L (98-107); CREATINE KINASE 683 IU/L (30-200); EST GLOMERULAR FILTRATION RATE > 60 ML/MIN (60-); GLUCOSE 113 mg/dL (74-118); POTASSIUM 4.1 mmol/L (3.5-5.1); SODIUM 137 mmol/L (136-145)
--- NOTE | 2019-06-25 11:35 | Diagnostic Imaging Report ---
EXAM: CHEST SINGLE (PORTABLE) DATE: 06/25/2019 9:56 AM INDICATION: Shortness of breath COMPARISON: 09/23/2018 FINDINGS: The trachea is midline. There are mild basilar opacity suggestive of atelectasis. The lungs are otherwise symmetrically expanded without evidence for large focal consolidation, pneumothorax, or significant pleural effusion. The cardiomediastinal silhouette and pulmonary vasculature are within normal limits. No acute osseous abdomen is identified. The surrounding soft tissues are unremarkable. IMPRESSION: No acute cardiopulmonary process identified. Signed by: Dr. Ike Kruse MD on 06/25/2019 11:31 AM
[2019-06-25] MEDS ORDERED: ADVAIR 250-501 EACH INH (11:59)
[2019-06-25] MEDS ORDERED: PREDNISONE20 MG PO (11:59)
[2019-06-25] MEDS ORDERED: ASPIRIN 81 MG CHEW TAB PO ONE (12:15)
--- NOTE | 2019-06-25 12:20 | NUR ---
ambulated patient with personal use o2 tank. patient's sats dropped to 89%. placed patient back on bedside monitor. er md made aware
[2019-06-25] MEDS: AZITHROMYCIN 500MG/SOD CHL 0.9% 250ML BAG IV SCH (12:38)
--- NOTE | 2019-06-25 13:52 | NUR ---
Report Given to LUTHER Pappas Pt hemodynamically stable, speaking in full sentences at time of transfer to [facility]
[2019-06-25] MEDS ORDERED: METHYLPREDNISOLONE SOD SUCC 125 MG/2ML VIAL IV SCH (14:00)
[2019-06-25] MEDS: ALBUTEROL/IPRATROPIUM 3 ML NEB NEB SCH ×3 (14:29→22:35)
--- NOTE | 2019-06-25 15:15 | NUR ---
patient arrived on unit via stretcher. alert and oriented, tele in place. call loving within reach and bed in lowest position.
[2019-06-25 15:28] VITALS: BP 191/90
[2019-06-25] MEDS ORDERED: IPRATROPIU0.2 MG/1 M NEB (15:28)
[2019-06-25] MEDS ORDERED: DIPHENHYDRAMINE25 M2 PO (15:28)
[2019-06-25] MEDS ORDERED: [UNRECOGNIZED DRUG - OTHER] INH (15:28)
[2019-06-25 15:39] VITALS: BP 191/90
[2019-06-25] MEDS: METHYLPREDNISOLONE SOD SUCC 125 MG/2ML VIAL IV SCH (17:13)
[2019-06-25 19:42] LABS: CREATINE KINASE MB 14.8 ng/mL (0-5.0)
[2019-06-25 20:14] VITALS: BP 188/86
[2019-06-25 20:25] VITALS: BP 188/86
[2019-06-26] VITALS (8 sets, daily range): BP systolic 129–164; BP diastolic 77–103
[2019-06-26] MEDS: ALBUTEROL/IPRATROPIUM 3 ML NEB NEB SCH ×2 (02:38→06:49)
[2019-06-26] MEDS: METHYLPREDNISOLONE SOD SUCC 125 MG/2ML VIAL IV SCH ×4 (03:14→20:06)
[2019-06-26 05:29] LABS: BASOPHILS % 0.2 % (0.0-1.0); HEMATOCRIT 46.4 % (38.2-49.6); HEMOGLOBIN 14.5 g/dL (14.0-18.0); LYMPHOCYTES # (AUTO) 0.6 (1.0-3.2); LYMPHOCYTES % 5.1 % (18.0-39.1); MEAN CORPUSCULAR HGB CONC 31.3 g/dL (31-35); MEAN CORPUSCULAR VOLUME 83.3 fL (81-99); MONOCYTES # (AUTO) 0.2 (0.2-0.8); MONOCYTES % 1.8 % (4.4-11.3); NEUTROPHILS # (AUTO) 11.3 (2.1-6.9); NEUTROPHILS % 92.3 % (38.7-80.0); PLATELET COUNT 310 x10e3/uL (140-360); RED BLOOD COUNT 5.57 x10e6/uL (4.3-5.7); RED CELL DISTRIBUTION WIDTH 14.2 % (11.7-14.4)
[2019-06-26 05:49] LABS: ANION GAP 15.1 mmol/L (8-16); BLOOD UREA NITROGEN 21 mg/dL (7-26); BUN/CREATININE RATIO 21 (6-25); CALCIUM 9.9 mg/dL (8.4-10.2); CARBON DIOXIDE 26 mmol/L (22-29); CHLORIDE 98 mmol/L (98-107); CREATININE, SERUM 1.02 mg/dL (0.72-1.25); EST GLOMERULAR FILTRATION RATE > 60 ML/MIN (60-); GLUCOSE 154 mg/dL (74-118); MAGNESIUM 2.2 MG/DL (1.3-2.1); POTASSIUM 4.1 mmol/L (3.5-5.1); SODIUM 135 mmol/L (136-145)
[2019-06-26 06:09] LABS: CREATINE KINASE 598 IU/L (30-200)
--- NOTE | 2019-06-26 09:00 | NUR ---
aware of HR.
[2019-06-26] MEDS ORDERED: BENZONATATE 100 MG CAP PO PRN (09:15)
[2019-06-26] MEDS ORDERED: LEVALBUTEROL HCL SOLN NEBU 1.25 MG/3 ML NEB INH PRN (09:15)
[2019-06-26] MEDS ORDERED: ACETAMINOPHEN/CODEINE 300MG - 30MG TAB PO PRN (09:15)
[2019-06-26] MEDS: LEVALBUTEROL HCL SOLN NEBU 1.25 MG/3 ML NEB INH SCH ×4 (10:05→23:00)
[2019-06-26] MEDS: IPRATROPIUM BROMIDE 0.02% 2.5 ML NEB NEB SCH ×2 (10:05→20:30)
--- NOTE | 2019-06-26 11:08 | Diagnostic Imaging Report ---
CT of the chest, without contrast. History: Shortness of breath, COPD, asthma. Comparison: 09/24/2018. Technique: Multidetector CT scanning of the chest was performed from the level of the apices to the upper abdomen without contrast. Coronal and sagittal multiplanar reformations were obtained. RADIATION DOSE: Total DLP: 488.38 mGy*cm Dose modulation, iterative reconstruction, and/or weight based adjustment of the mA/kV was utilized to reduce the radiation dose to as low as reasonably achievable. FINDINGS: The thyroid and remaining visualized structures within the base of the neck demonstrate no significant abnormalities. The thoracic aorta is normal course and caliber with atherosclerotic calcifications within its course and branch vessels including the coronary arteries. The heart is not enlarged. There is no abnormal pericardial fluid present. There is no abnormal axillary, mediastinal, or hilar lymph node enlargement. The trachea and proximal airways are patent. There are mild centrilobular emphysematous changes present, similar to the prior examination. There is a stable 4 mm pulmonary nodule identified within the right apex (axial image 13). There is an additional stable 3 mm pulmonary nodule identified within the right upper lobe (axial image 17). Stable scarring/atelectasis noted within the right middle lobe and lingula. There is no evidence for consolidation, pneumothorax, new suspicious nodule/mass, or pleural effusion. The visualized upper abdominal contents are unremarkable. There are stable degenerative changes of the thoracolumbar spine. There is no evidence for acute fracture or destructive process. The extrathoracic soft tissues are unremarkable. IMPRESSION: No acute intrathoracic process identified. Stable mild centrilobular emphysematous changes. Stable pulmonary micronodules identified within the right upper lobe. No new nodules identified. Signed by: Dr. Ike Kruse MD on 06/26/2019 11:04 AM
[2019-06-26] MEDS ORDERED: SODIUM CHLORIDE 0.9% 250ML 250 ML ONE (11:23)
[2019-06-26] MEDS: DILTIAZEM HCL 180 MG CAP ER PO SCH (11:29)
[2019-06-26] MEDS: AZITHROMYCIN 500MG/SOD CHL 0.9% 250ML BAG IV SCH (11:29)
[2019-06-26] MEDS: GUAIFENESIN 600 MG TAB PO SCH ×2 (11:29→15:52)
[2019-06-26] MEDS: BENZONATATE 100 MG CAP PO SCH ×2 (15:00→20:06)
[2019-06-26] MEDS: BUDESONIDE/FORMOTEROL 160/4.5MCG INHALER INH SCH (19:00)
--- NOTE | 2019-06-26 19:00 | NUR ---
received report from day nurse. patient is resting comfortably in bed. bed is in lowest position and call loving is within reach. will continue to monitor patient.
--- NOTE | 2019-06-26 19:10 | NUR ---
Report given to oncoming nurse of patient's status. Sitting on recliner. AAOX3 to time, person, place. Respirations even and unlabored. O2 3L NC.Call light within reach.
[2019-06-26] MEDS: MONTELUKAST SODIUM 10 MG TAB PO SCH (20:06)
[2019-06-27] VITALS (8 sets, daily range): BP systolic 133–170; BP diastolic 68–84
[2019-06-27] MEDS: LEVALBUTEROL HCL SOLN NEBU 1.25 MG/3 ML NEB INH SCH ×6 (02:15→23:45)
[2019-06-27] MEDS: IPRATROPIUM BROMIDE 0.02% 2.5 ML NEB NEB SCH ×5 (02:15→23:45)
--- NOTE | 2019-06-27 02:33 | Consultation ---
DATE OF CONSULTATION: Pulmonary Consultation REASON FOR THE CONSULT: Shortness of breath, COPD exacerbation. HISTORY OF PRESENT ILLNESS: Mr. Marquez is a 68-year-old male, presenting to the emergency room with shortness of breath. The patient is a regular patient of Dr. Koenig and has COPD. He reports that the symptoms started 3 days ago, progressively got worse. His last PFT was done in September of 2018, which showed FEV1 of 24% with severe obstructive pulmonary disease. REVIEW OF SYSTEMS: GENERAL: Denies any fever or chills. HEAD: Denies any head trauma. ENT: Denies any earaches. CVS: Denies any chest pain. RESPIRATORY: Shortness of breath. The rest of the review of systems are negative except as in HPI. PAST MEDICAL HISTORY: Hypertension, hyperlipidemia. FAMILY AND SOCIAL HISTORY: He quit smoking 8 years ago, smoked for 40 years, one pack per day. PHYSICAL EXAMINATION: VITAL SIGNS: Temperature 96.7, pulse of 115, blood pressure 151/85, respiratory rate of 18, O2 saturation 94%. HEENT: Head is atraumatic and normocephalic. NECK: Supple. CHEST: Reduced air entry bilaterally and occasional wheezing. HEART: S1 and S2 audible. ABDOMEN: Soft. EXTREMITIES: No pedal edema. NEUROLOGIC: Awake and alert. LABORATORY DATA: White count of 12,000, hemoglobin 14.5, and platelets 310. Chemistries within normal limits. Troponin is zero; however, CK-MB was 14.80. ASSESSMENT AND PLAN: A 68-year-old male with chronic obstructive pulmonary disease exacerbation. CT of the chest, I have reviewed the images. It is not showing any evidence of pneumonia. Continue the patient on IV Solu-Medrol and antibiotics as ordered by you. The patient is improving. I thank, Dr. Kuhn, for this consult. MD VALORIE Leonard/SACHIN /[id number]
[2019-06-27] MEDS: METHYLPREDNISOLONE SOD SUCC 125 MG/2ML VIAL IV SCH ×3 (05:31→20:06)
--- NOTE | 2019-06-27 06:46 | NUR ---
report given to day nurse. patient is resting comfortably in bed. bed is in lowest position and call loving is within reach.
[2019-06-27] MEDS: BUDESONIDE/FORMOTEROL 160/4.5MCG INHALER INH SCH ×2 (07:04→20:00)
[2019-06-27] MEDS: BENZONATATE 100 MG CAP PO SCH ×3 (08:21→20:06)
[2019-06-27] MEDS: GUAIFENESIN 600 MG TAB PO SCH ×2 (08:21→18:23)
[2019-06-27] MEDS: DILTIAZEM HCL 180 MG CAP ER PO SCH (08:21)
[2019-06-27] MEDS: THEOPHYLLINE 200 MG TABCR PO SCH (08:21)
[2019-06-27] MEDS: LORATADINE 10 MG TAB PO SCH (08:21)
[2019-06-27] MEDS: AZITHROMYCIN 500MG/SOD CHL 0.9% 250ML BAG IV SCH (12:21)
--- NOTE | 2019-06-27 19:05 | NUR ---
Report given to oncoming nurse of patient's status. Sitting on recliner. No s/s of acute distress noted.Call light within reach.
[2019-06-27] MEDS: MONTELUKAST SODIUM 10 MG TAB PO SCH (20:06)
[2019-06-28] VITALS (8 sets, daily range): BP systolic 142–156; BP diastolic 72–89
[2019-06-28] MEDS: LEVALBUTEROL HCL SOLN NEBU 1.25 MG/3 ML NEB INH SCH ×6 (03:00→23:10)
[2019-06-28] MEDS: METHYLPREDNISOLONE SOD SUCC 125 MG/2ML VIAL IV SCH (05:12)
[2019-06-28] MEDS: IPRATROPIUM BROMIDE 0.02% 2.5 ML NEB NEB SCH ×4 (06:45→23:10)
--- NOTE | 2019-06-28 06:49 | NUR ---
report given to day nurse. patient is resting comfortably in bed. bed is in lowest position and call light is within reach.
[2019-06-28] MEDS: BUDESONIDE/FORMOTEROL 160/4.5MCG INHALER INH SCH ×2 (06:56→19:49)
[2019-06-28] MEDS: BENZONATATE 100 MG CAP PO SCH (09:00)
[2019-06-28] MEDS: THEOPHYLLINE 200 MG TABCR PO SCH (09:29)
[2019-06-28] MEDS: LORATADINE 10 MG TAB PO SCH (09:29)
[2019-06-28] MEDS: GUAIFENESIN 600 MG TAB PO SCH ×2 (09:29→16:49)
[2019-06-28] MEDS: DILTIAZEM HCL 180 MG CAP ER PO SCH (09:29)
--- NOTE | 2019-06-28 11:26 | NUR ---
EDUCATED ABOUT IMM, SIGNED, FILED IN CHART, WITH COPY LEFT WITH FAMILY AT BEDSIDE.
[2019-06-28] MEDS: AZITHROMYCIN 500MG/SOD CHL 0.9% 250ML BAG IV SCH (14:27)
[2019-06-28] MEDS: METHYLPREDNISOLONE SOD SUCC 40 MG/ML VIAL 1ML IV SCH ×2 (14:27→20:47)
[2019-06-28] MEDS: MONTELUKAST SODIUM 10 MG TAB PO SCH (20:46)
[2019-06-29] VITALS (7 sets, daily range): BP systolic 111–152; BP diastolic 59–88
[2019-06-29] MEDS: LEVALBUTEROL HCL SOLN NEBU 1.25 MG/3 ML NEB INH SCH ×4 (03:00→13:45)
[2019-06-29] MEDS: METHYLPREDNISOLONE SOD SUCC 40 MG/ML VIAL 1ML IV SCH ×2 (06:38→14:27)
[2019-06-29] MEDS: BUDESONIDE/FORMOTEROL 160/4.5MCG INHALER INH SCH (07:10)
[2019-06-29] MEDS: IPRATROPIUM BROMIDE 0.02% 2.5 ML NEB NEB SCH ×2 (07:10→13:45)
[2019-06-29] MEDS: DILTIAZEM HCL 180 MG CAP ER PO SCH (08:55)
[2019-06-29] MEDS: THEOPHYLLINE 200 MG TABCR PO SCH (08:56)
[2019-06-29] MEDS: LORATADINE 10 MG TAB PO SCH (08:56)
[2019-06-29] MEDS: GUAIFENESIN 600 MG TAB PO SCH (08:56)
[2019-06-29] MEDS: AZITHROMYCIN 500MG/SOD CHL 0.9% 250ML BAG IV SCH (14:27)
[2019-06-29] MEDS ORDERED: TRIAMCINOLONE ACET 40 MG/ML VIAL IM ONE (16:15)
[2019-06-29] MEDS ORDERED: TRIAMCINOLONE ACET 40 MG/ML VIAL IM NR (16:30)
[2019-06-29] MEDS ORDERED: LEVAQUIN500 MG PO (16:50)
[2019-06-29] MEDS ORDERED: MEDROL2 MG (16:51)
--- NOTE | 2019-06-30 02:00 | Discharge Summary ---
SCRUBBING MACHINE OPERATOR: Evelyne Sheikh MD. FINAL DIAGNOSES: 1. Acute exacerbation of chronic obstructive pulmonary disease associated with acute hypoxia, cough, and wheezing. 2. Community-acquired pneumonia. SUMMARY: A 68-year-old male came in with hypoxia with wheezing, coughing, and coursing his lung field associated with wheezing on examination. The patient placed on steroids, IV Solu-Medrol, nebulizer treatments. He is doing much better now. The patient is stable. Discharged home with the following medication: 1. Symbicort 160/4.5 mcg two puffs twice a day. 2. Mucinex 600 mg twice a day. 3. Levaquin 250 mg daily for 5 days. 4. Medrol Dosepak take as instructed. The patient is stable. Discharged home today. Follow up with me next week. MD CLIFF Perdue/ANNETTEL /[id number]
== END 2019-06-29 17:21 | disposition home or self-care (01) | DRG 190 ==
LOC: ER 09:38 → ERHOLD 12:23 → MED/SURG2 15:16 → OBSVTOIN 06-26 09:09
PROVIDERS: ADMIT Internal Medicine; ATTEND Internal Medicine
DX: J44.0 Chronic obstructive pulmonary disease with (acute) lower respiratory infection (principal); J18.9 Pneumonia, unspecified organism; J44.1 Chronic obstructive pulmonary disease with (acute) exacerbation; R09.02 Hypoxemia; I10 Essential (primary) hypertension; R00.0 Tachycardia, unspecified
CPT/HCPCS: 36415; 71045; 71250; 80048; 80053; 82550; 82553; 82805; 83605; 83735; 83880; 84484; 85025; 87040; 93005; 94640; 99284; G0378; J0456; J2920; J2930; J3301; J7050

== ENCOUNTER 2019-11-15 19:56 | Inpatient (IN) | payer MEDICARE ==
[~2019-11-15] VITALS: Ht 170.2 cm; Wt 90.3 kg
[~2019-11-15 19:56] MED LIST changes: +ADVAIR 250-501 EACH INH; +DIPHENHYDRAMINE25 M2 PO; +IPRATROPIU0.2 MG/1 M NEB; +LEVAQUIN500 MG PO; +MEDROL2 MG; +PREDNISONE20 MG PO; +[UNRECOGNIZED DRUG - OTHER] INH
[2019-11-15] MEDS ORDERED: ONDANSETRON HCL INJ 2MG/ML 2ML 2 MG/ML VIAL IV STA (20:14)
[2019-11-15] MEDS ORDERED: SODIUM CHLORIDE 0.9% 1000ML 1,000 ML IV STA (20:14)
[2019-11-15] MEDS ORDERED: HYDROMORPHONE 1MG/1ML INJ IV STA (20:14)
[2019-11-15 20:48] LABS: BASOPHILS # (AUTO) 0.1 (0.0-0.1); BASOPHILS % 0.3 % (0.0-1.0); HEMATOCRIT 49.7 % (38.2-49.6); HEMOGLOBIN 16.2 g/dL (14.0-18.0); LYMPHOCYTES # (AUTO) 0.5 (1.0-3.2); LYMPHOCYTES % 3.2 % (18.0-39.1); MEAN CORPUSCULAR HEMOGLOBIN 28.7 pg (28-32); MEAN CORPUSCULAR HGB CONC 32.6 g/dL (31-35); MONOCYTES # (AUTO) 0.9 (0.2-0.8); MONOCYTES % 5.7 % (4.4-11.3); NEUTROPHILS # (AUTO) 13.7 (2.1-6.9); NEUTROPHILS % 90.4 % (38.7-80.0); PLATELET COUNT 277 x10e3/uL (140-360); RED BLOOD COUNT 5.65 x10e6/uL (4.3-5.7)
[2019-11-15 20:56] LABS: BILIRUBIN,URINE 1+ (NEGATIVE); CLARITY,URINE SL CLOUDY (CLEAR); COLOR,URINE YELLOW (YELLOW); KETONES,URINE 2+ (NEGATIVE); LEUKOCYTE ESTERASE ,URINE NEGATIVE (NEGATIVE); NITRITE,URINE NEGATIVE (NEGATIVE); PROTEIN,URINE DIPSTICK TRACE (NEGATIVE); URINE UROBILINOGEN 0.2 mg/dL (0.2 - 1)
[2019-11-15 21:08] LABS: BACTERIA,URINE FEW /HPF
[2019-11-15 21:26] LABS: ALANINE AMINOTRANSFERASE 112 IU/L (0-55); ALBUMIN 3.9 g/dL (3.5-5.0); ALBUMIN/GLOBULIN RATIO 1.4 (0.8-2.0); ALKALINE PHOSPHATASE 86 IU/L (40-150); AMYLASE 1080 U/L (25-125); ANION GAP 19.1 mmol/L (8-16); BLOOD UREA NITROGEN 13 mg/dL (7-26); BUN/CREATININE RATIO 13 (6-25); CALCIUM 9.1 mg/dL (8.4-10.2); CARBON DIOXIDE 21 mmol/L (22-29); CHLORIDE 104 mmol/L (98-107); CREATININE, SERUM 0.98 mg/dL (0.72-1.25); EST GLOMERULAR FILTRATION RATE > 60 ML/MIN (60-); GLUCOSE 135 mg/dL (74-118); POTASSIUM 4.1 mmol/L (3.5-5.1); SODIUM 140 mmol/L (136-145)
[2019-11-15 21:27] LABS: CREATINE KINASE 243 IU/L (30-200)
[2019-11-15 21:47] LABS: LIPASE 1629 U/L (8-78)
--- NOTE | 2019-11-15 23:11 | Diagnostic Imaging Report ---
EXAM: Right Upper Quadrant Ultrasound with Doppler INDICATION: Right upper quadrant pain COMPARISON: None. TECHNIQUE: Transverse and longitudinal images of the right upper abdomen were obtained. Grayscale, color Doppler and spectral waveform analysis of the hepatic vasculature and splenic vein were performed. FINDINGS: Liver: Size: 13.1 cm in the right midclavicular line, normal Appearance: Normal echogenicity, smooth contour Mass: No focal masses Gallbladder: Stones/Sludge: Tiny nonshadowing exophytic cystic focus on the intraluminal aspect of the gallbladder fundal wall is likely a polyp Wall: 0.5 cm, thickened and hyperechoic Appearance: Hydropic, hyperechoic pericholecystic fat. Sonographic Mccrary's Sign: Negative Bile Ducts: Intrahepatic Ducts: Mild intrahepatic dilatation Extrahepatic Ducts: Common bile duct measures 1.1 cm, dilated Pancreas: Not well seen during overlying bowel gas. Right Kidney: Size: 11 cm Echogenicity: Normal Parenchymal thickness: Normal Collecting system: No hydronephrosis Stones: None Cyst/Mass: None Vessels: Main Portal Vein: Diameter: 0.9 cm, normal. Normal flow direction. Aorta: Not well seen due to overlying bowel gas. Inferior Vena Cava: Visualized portions are normal Free Fluid: No ascites or pleural effusion IMPRESSION: Intrahepatic biliary ductal dilation and dilated common bile duct concerning for distal biliary obstruction. Distended gallbladder with gallbladder wall thickening could be due to distal biliary obstruction and/or acute cholecystitis. A 0.5 cm echogenic focus on the intraluminal surface of the gallbladder fundus could be a polyp or an adherent gallstone. Signed by: Junior Shaw DO on 11/15/2019 11:09 PM
[2019-11-15] MEDS: SODIUM CHLORIDE 0.9% 1000ML 1,000 ML IV SCH (23:20)
[2019-11-15] MEDS ORDERED: NASAL SPRAY30 M1 NS (23:27)
[2019-11-15] MEDS ORDERED: IPRAT-ALBUT 0.5-3 ML INH (23:30)
[2019-11-15] MEDS ORDERED: SODIUM CHLORIDE FLUSH 10 ML SYR INJ PRN (23:30)
[2019-11-15] MEDS ORDERED: ASPIRIN325 MG PO (23:32)
[2019-11-15] MEDS: PIPER-TAZ 3.375 GM / NS 50ML IV SCH (23:41)
[2019-11-16] VITALS (9 sets, daily range): BP systolic 125–166; BP diastolic 70–86
--- NOTE | 2019-11-16 00:46 | NUR ---
PATIENT ARRIVED BY HOSPITAL BED TO ROOM 102. PT IS AAOX3, RR EVEN AND NON-LABORED, O2 BY NC AT 3L. ER NURSE AT BEDSIDE REPORTS PATIENT HAS BEEN COUGHING UP PHLEGM, CONNECTED SUCTION FOR THE PATIENT. NO S/SX OF DISTRESS NOTED. ORIENTED PT TO HOSPITAL ROOM, CALL LIGHT, PHONE, BED CONTROLS AND LIGHTS. LEFT PT LAYING SEMI FOWLERS IN BED, BED IN LOW LOCKED POSITION, SIDE RAILS UPX3, CALL LIGHT AND PHONE WITHIN REACH.
[2019-11-16] MEDS: HYDROMORPHONE 1MG/1ML INJ IV PRN ×6 (02:00→23:49)
[2019-11-16] MEDS: ONDANSETRON HCL INJ 2MG/ML 2ML 2 MG/ML VIAL IV PRN ×2 (02:00→06:00)
[2019-11-16] MEDS: SODIUM CHLORIDE 0.9% 1000ML 1,000 ML IV SCH ×4 (04:50→19:15)
[2019-11-16 06:08] LABS: BASOPHILS % 0.2 % (0.0-1.0); EOSINOPHILS % 0.1 % (0.0-6.0); HEMATOCRIT 47.3 % (38.2-49.6); HEMOGLOBIN 15.3 g/dL (14.0-18.0); LYMPHOCYTES # (AUTO) 0.6 (1.0-3.2); LYMPHOCYTES % 2.9 % (18.0-39.1); MEAN CORPUSCULAR HEMOGLOBIN 28.4 pg (28-32); MEAN CORPUSCULAR HGB CONC 32.3 g/dL (31-35); MEAN CORPUSCULAR VOLUME 87.8 fL (81-99); MONOCYTES # (AUTO) 1.2 (0.2-0.8); NEUTROPHILS # (AUTO) 17.6 (2.1-6.9); NEUTROPHILS % 90.2 % (38.7-80.0); PLATELET COUNT 279 x10e3/uL (140-360); RED BLOOD COUNT 5.39 x10e6/uL (4.3-5.7); RED CELL DISTRIBUTION WIDTH 13.2 % (11.7-14.4)
[2019-11-16 06:22] LABS: ALANINE AMINOTRANSFERASE 91 IU/L (0-55); ALBUMIN 3.5 g/dL (3.5-5.0); ALBUMIN/GLOBULIN RATIO 1.3 (0.8-2.0); ALKALINE PHOSPHATASE 76 IU/L (40-150); AMYLASE 828 U/L (25-125); BLOOD UREA NITROGEN 13 mg/dL (7-26); BUN/CREATININE RATIO 15 (6-25); CALCIUM 8.4 mg/dL (8.4-10.2); CARBON DIOXIDE 20 mmol/L (22-29); CHLORIDE 107 mmol/L (98-107); CREATININE, SERUM 0.87 mg/dL (0.72-1.25); EST GLOMERULAR FILTRATION RATE > 60 ML/MIN (60-); GLUCOSE 117 mg/dL (74-118); LIPASE 896 U/L (8-78); SODIUM 139 mmol/L (136-145)
[2019-11-16] MEDS: PIPER-TAZ 3.375 GM / NS 50ML IV SCH ×3 (06:45→22:00)
--- NOTE | 2019-11-16 07:00 | NUR ---
Received patient sitting on the bed. Respiration even and unlabored without SOB. 3L O2 via NC is in used. Family at bedside. Patient is currently NPO at this time. Call light in reach.
--- NOTE | 2019-11-16 08:52 | NUR ---
ASSESSMENT: Spiritual Distress Supervisor [employer] called back because pt requested life skills teacher. Pt fearful concerning procedure. Pt suffering from anxiety because of control issues. Pt states his fears stem from when his father abandoned his family during childhood. Pt's family at bedside. Pt identifies as a "born again Worship." Intervention: Provided unhurried, calming pastoral presence and empathic listening. Facilitated identification of emotions. Provided prayer. Outcome: Pt & family expressed appreciation for support. HONG Guzmán Spiritual Care Department O: [phone] Pager: [phone] ([phone] number calling from)
[2019-11-16] MEDS ORDERED: ALBUTEROL/IPRATROPIUM 3 ML NEB NEB SCH (09:30)
[2019-11-16] MEDS ORDERED: LORAZEPAM INJ 2 MG/ML VIAL IV NR (09:30)
[2019-11-16] MEDS ORDERED: ALBUTEROL/IPRATROPIUM 3 ML NEB NEB PRN (09:30)
--- NOTE | 2019-11-16 09:32 | NUR ---
Orders given by Dr. Cortes, covering for Dr. Gonzalez this weekend to do Stat HIDA scan on this patient.
--- NOTE | 2019-11-16 09:53 | NUR ---
Patient is transported for MRCP at this time.
[2019-11-16] MEDS: BUDESONIDE/FORMOTEROL 160/4.5MCG INHALER INH SCH ×3 (10:00→19:45)
[2019-11-16] MEDS ORDERED: PROMETHAZINE 12.5MG/ NACL 0.9% 12.5 MG/50 ML BAG IV PRN (10:00)
[2019-11-16] MEDS ORDERED: ACETAMINOPHEN 1000 MG/100 ML IV PRN (10:00)
[2019-11-16] MEDS ORDERED: HYDROMORPHONE 1MG/1ML INJ IV PRN (10:15)
--- NOTE | 2019-11-16 10:38 | NUR ---
Patient is back from MRCP at this time.
[2019-11-16] MEDS: PANTOPRAZOLE 40 MG 10ML VIAL IV SCH (11:46)
--- NOTE | 2019-11-16 11:52 | NUR ---
Patient is lying in bed with eyes closed. O2 at 3L NC in placed. Respiration even and unlabored without SOB. Patient responds to verbal command. finger stick blood sugar is 96. Call light in reach.
--- NOTE | 2019-11-16 11:54 | Consultation ---
DATE OF CONSULTATION: 11/16/2019 HISTORY OF PRESENT ILLNESS: The patient is a 69-year-old male with history of chronic obstructive pulmonary disease, presents with complaints of epigastric abdominal pain. The patient says the pain started three days ago. He has associated nausea and vomiting. He says the pain is a little bit less now. Evaluation in the emergency room revealed elevated lipase, suggested of pancreatitis as well as dilated bile ducts and polyp in the gallbladder. The patient denies alcohol use. There is no history of hyperlipidemia. He has not had any fever. PAST MEDICAL HISTORY: Significant for hypertension, chronic obstructive pulmonary disease. MEDICATIONS: At home were aspirin, Symbicort, Cardizem, ipratropium, albuterol, Claritin, Singulair, oxymetazoline and theophylline. ALLERGIES: HE HAS ALLERGY TO LATEX. FAMILY HISTORY: Noncontributory. SOCIAL HISTORY: The patient is a former smoker, but quit many years ago. Does not drink alcohol at all. REVIEW OF SYSTEMS: He has not had any fever. No diarrhea. PHYSICAL EXAMINATION: GENERAL: The patient is awake and alert. VITAL SIGNS: Heart rate around 100. He is afebrile. Blood pressure is normal. HEENT: The sclerae is not icteric. NECK: Had no masses. LUNGS: Decreased breath sounds throughout. CARDIAC: Regular rate and rhythm. ABDOMEN: Tender in the epigastrium and distended. There is no umbilical hernia present. There are no signs of peritonitis. EXTREMITIES: Have no edema. NEUROLOGIC: Grossly intact. LABORATORY DATA: White blood count on arrival was 15,000 repeat today is 19.5, hemoglobin and hematocrit are normal. Chemistries on arrival, amylase is well over 1000, lipase over 1600, bilirubin is 1.1. Repeat showed decrease in amylase and lipase but still elevated. ASSESSMENT: A 69-year-old male with history of chronic obstructive pulmonary disease with pancreatitis likely secondary to gallbladder disease. He is to be evaluated further with MRCP and he likely would benefit from cholecystectomy once his pancreatitis has resolved, this was explained to the patient. PLAN: To consult with Dr. Koenig for management of the chronic obstructive pulmonary disease. There are no signs of peritonitis. No findings that would warrant immediate surgical intervention. Thank you for asking me to see Mr. Marquez. MD DINH Gamez/SACHIN /[id number]
--- NOTE | 2019-11-16 12:04 | Diagnostic Imaging Report ---
EXAM: MRI of the abdomen without contrast with MRCP INDICATION: Choledocholithiasis.. COMPARISON: Correlation with ultrasound gallbladder dated 11/15/2019.. TECHNIQUE: Multiplanar and multisequence imaging was performed of the abdomen. T1 and T2-weighted images were obtained with and without contrast. T1-weighted in and [id number] M.R.C.P. technique: Multiplanar, multisequence MRCP was performed, with sequences including coronal turbo spin-echo T1-weighted scans, [facility] MRCP scans, coronal spin, coronal MPR 2, SMRCP 3D HR, [facility] MRCP JUSTIN. Discussion: Examination severely limited due to image degradation by breathing motion artifact. LOWER THORAX: Unremarkable. HEPATOBILIARY: No focal hepatic lesions. Mild central intrahepatic biliary dilatation. There is moderate dilatation of the common bile duct up to 9 mm in diameter. Linear hyperintense signal within the proximal CBD on coronal image 30 series 9 is likely to represent artifact. No large filling defect within the common bile duct on 3D images, as seen on image 1 series 10. GALLBLADDER: Heterogeneity of the gallbladder and motion artifact limiting evaluation for calculi or wall thickening, however, there appears to be a 5 mm calculus within the gallbladder neck on images 52 and 53 series 4. No wall thickening. SPLEEN: No splenomegaly. PANCREAS: Marked diffuse peripancreatic fat stranding and small volume fluid, consistent with pancreatitis. Cannot evaluate for pancreatic necrosis due to the lack of contrast. ADRENALS: No adrenal nodules KIDNEYS/URETERS: Kidneys enhance symmetrically. No hydronephrosis. 2.4 cm hyperintense lesion exophytic of the anterior upper pole of the left kidney. 6 mm hyperintense lesion in the lower pole of the right kidney. GI TRACT: No abnormal distention to suggest obstruction. LYMPH NODES: No lymphadenopathy. VESSELS: Unremarkable. PERITONEUM / RETROPERITONEUM: No free air or fluid. BONES: Unremarkable. SOFT TISSUES: Unremarkable. IMPRESSION: Markedly limited examination. Within those limitations, no significant choledocholithiasis. Mild diffuse dilatation of the common bile duct and mild central intrahepatic biliary dilatation. Acute edematous pancreatitis Signed by: Dr. Yolanda Hidalgo M.D. on 11/16/2019 12:02 PM
--- NOTE | 2019-11-16 13:38 | NUR ---
Patient is transported for HIDA scan at this time via room bed.
--- NOTE | 2019-11-16 13:58 | Diagnostic Imaging Report ---
EXAMINATION: CHEST SINGLE (PORTABLE) INDICATION: COMPARISON: None FINDINGS: TUBES and LINES: None. LUNGS: Lungs are well inflated. There is mild bibasilar atelectasis left greater than right. There is no evidence of pneumonia or pulmonary edema. PLEURA: No pleural effusion or pneumothorax. HEART AND MEDIASTINUM: The cardiomediastinal silhouette is unremarkable. BONES AND SOFT TISSUES: No acute osseous lesion. 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 UPPER ABDOMEN: No free air beneath the diaphragm. IMPRESSION: Bibasilar subsegmental atelectasis, left greater right. Signed by: Dr. Yolanda Hidalgo M.D. on 11/16/2019 1:56 PM
[2019-11-16] MEDS: ALBUTEROL/IPRATROPIUM 3 ML NEB NEB SCH ×3 (15:00→23:30)
--- NOTE | 2019-11-16 15:20 | NUR ---
patient is back from HIDA scan.
[2019-11-16 15:48] LABS: ABG PH 7.34 (7.31-7.41)
[2019-11-16 15:49] LABS: ABG HCO3 23 mmol/L (23-28); ABG PCO2 42 mmHg (41-51); ABG PO2 105 mmHg (80-105)
--- NOTE | 2019-11-16 16:00 | History and Physical ---
CHIEF COMPLAINT: Acute cholecystitis associated with biliary obstruction, dilated common bile duct and pancreatitis due to stones. HISTORY OF PRESENT ILLNESS: The patient is a 69-year-old male who was in [place] when he developed severe abdominal pain. He went into a local hospital emergency room and was found to have cholecystitis on CT scan associated with evidence of dilated common bile duct and cholecystitis. The patient was recommended to have surgical intervention and evaluation in [place], but the patient refused therefore he wanted to travel back to [place] for evaluation and treatment. The patient arrived here at [facility] and workup pursued. The patient had leukocytosis. He has lab work done showed his WBC was 19,000 along with that his imaging gallbladder ultrasound showed that he has intrahepatic ductal dilatation, dilated common bile duct and also distended gallbladder with gallbladder wall thickening consistent with acute cholecystitis. He has also had 0.5 cm echogenic focus on the intraluminal surface of the gallbladder fundus, maybe adhere gallstone and polyp. The patient was in pain, pain medication was given. He had a temperature of 100. Blood pressure is elevated due to pain. At baseline, the patient is oxygen-dependent with COPD, but otherwise he is stable. PAST MEDICAL HISTORY: 1. COPD. 2. Advanced emphysema with oxygen dependency. 3. Hypertension. PAST SURGICAL HISTORY: Noncontributory. SOCIAL HISTORY: The patient was an ex-smoker. He does not drink alcohol, no regular drug use. ALLERGIES: LATEX. HOME MEDICATIONS: As follows. 1. ProAir. 2. DuoNeb. 3. Aspirin. 4. Symbicort. 5. Diltiazem. 6. Loratadine. 7. Montelukast. 8. Nasal spray. 9. Theophylline. PHYSICAL EXAMINATION: VITAL SIGNS: Temperature was 99.6, blood pressure 173/88, pulse rate 104, and respirations 22. GENERAL: The patient is in pain, but is not in any distress. HEENT: Normocephalic and atraumatic. Anicteric. NECK: Supple grossly. No JVD. PULMONARY: Good air entry bilaterally without any wheezing. The patient has diminished breath sound due to emphysema, but otherwise there are no courses. No rales at the bases. CARDIOVASCULAR: Tachycardia. No S3. ABDOMEN: Soft. Umbilical hernia. Tenderness with palpation. No guarding. EXTREMITIES: No cyanosis or edema. NEUROLOGIC: No gross focal deficit. Awake and alert x4. LABORATORY DATA: WBC 19.5. Hemoglobin 15.3, hematocrit is 47.3, and platelets 279. Sodium is 140, potassium 4.1, chloride 104, bicarb 21, BUN 13, and creatinine 0.9. Glucose is 135. AST 96 and ALT 112. Amylase 1080, lipase 1629, and total bilirubin is 1.1. Imaging as mentioned above. IMPRESSION: 1. Acute cholecystitis. 2. Dilated common bile duct with pancreatitis secondary to gallstone pancreatitis. 3. Stable chronic obstructive pulmonary disease. 4. Stable oxygen dependent. 5. Umbilical hernia. PLAN: MRCP today. Continue with antibiotics. Supportive. N.p.o. except for medication and ice or subsequent clear liquids if stable. Pain control. Repeat lab work. Consultation with Dr. Huy Koenig, Dr. Richardson Gonzalez, and Dr. Huy Camacho. We will monitor the patient closely at this time. The patient is on telemetry. MD CLIFF Perdue/SACHIN /[id number]
--- NOTE | 2019-11-16 16:40 | Consultation ---
DATE OF CONSULTATION: 11/16/2019 CHIEF COMPLAINT: Abdominal pain. HISTORY OF PRESENT ILLNESS: Very pleasant, elderly, 69-year-old white man, who comes with epigastric pain for the last two days. The patient also has some nausea. He had a CT scan done at [place] that showed pancreatitis and possible cholecystitis. He underwent a white count, no fever reported. LFTs are close to normal. PAST MEDICAL HISTORY: See old records, that includes hypertension, COPD, emphysema. MEDICATIONS: See list. ALLERGIES: NO SIGNIFICANT. REVIEW OF SYSTEMS: Abdominal pain, otherwise negative. PHYSICAL EXAMINATION: VITAL SIGNS: Blood pressure 140/80, pulse 70, and temperature 98. GENERAL: Well-nourished white man in no distress. HEENT: No pallor. ABDOMEN: Soft, tender. EXTREMITIES: No edema. ASSESSMENT AND PLAN: Acute pancreatitis, possible cholecystitis, possible bile duct stone. However, MRCP, HIDA scan. Surgical consult, antibiotics. We will consider the ERCP depending on the MRCP results and he probably will also require cholecystectomy. We will do a HIDA scan to assess the possibility of acute cholecystitis or acalculous cholecystitis. Uziel Cortes MD HSO/MODL /[id number] cc: MD Uziel Perdue MD
--- NOTE | 2019-11-16 16:50 | Consultation ---
DATE OF CONSULTATION: 11/16/2019 Pulmonary Consultation The patient of Dr. Kuhn and Dr. Camacho. SUBJECTIVE: Charming but unfortunate 69-year-old gentleman ill in [place] with abdominal pain for approximately three days, went to an outpatient ER and was found to have pancreatitis and cholecystitis. He declined admission there and was driven to the Patients ER. He has a history of severe COPD on home oxygen at baseline. FEV1 was 24% in 2018. History of hypertension, hyperlipidemia. He is able to get out of the house with his oxygen. ALLERGIES: HE IS ALLERGIC TO LATEX ACCORDING TO FAMILY. MEDICATIONS: In addition to supplemental oxygen medications include albuterol, aspirin, DuoNeb, Symbicort, diltiazem, loratadine, montelukast, Afrin, theophylline. PAST SURGICAL HISTORY: He has had wisdom teeth removed, meniscectomy. SOCIAL HISTORY: Ex-smoker, quit in 1999. Smoked two packs a day for 40 years. Worked . PHYSICAL EXAMINATION: GENERAL: He is a burly white male, who is sedated, snoring. VITAL SIGNS: Temperature 97.7, pulse 122, respirations 20, blood pressure 147/70. HEAD: Normocephalic, atraumatic. LUNGS: Few rhonchi posteriorly. HEART: Regular rhythm. ABDOMEN: Obese. Umbilical hernia noted. EXTREMITIES: Nonedematous. IMPRESSION: Pancreatitis, cholecystitis, severe COPD, O2 dependent. The patient does represent increased surgical risk. Check arterial blood gases. Chest x-ray. Theophylline level. Reduced dose of Dilaudid. Consider prophylactic heparin if surgery is not imminent. Thank you for this kind referral. Huy Koenig MD DS/MODL /[id number]
--- NOTE | 2019-11-16 16:53 | Diagnostic Imaging Report ---
Hepatobiliary Scan with Gallbladder Ejection Fraction Clinical information: R10.11: RUQ pain Technique: Following intravenous administration of 6.1 millicuries of Tc-99m mebrofenin, dynamic images of the abdomen in the anterior projection were obtained through 40 minutes. Sincalide (CCK analog) 1.9 micrograms was administered intravenously over 30 minutes with additional imaging for determination of gallbladder ejection fraction. Discussion: Perfusion of the liver is normal. Extraction of tracer by the liver parenchyma is normal. Tracer appears promptly within the biliary tract. The gallbladder begins to fill by 24 minutes post injection of tracer and fills adequately. Tracer is seen in the small bowel during the sincalide infusion. The gallbladder ejection fraction with sincalide is 35% (normal greater than 40%). Impression: 1. Filling of the gallbladder excludes acute cystic duct obstruction/acute cholecystitis. 2. The decreased gallbladder ejection fraction of 35% supports the clinical diagnosis of chronic cholecystitis/gallbladder dyskinesia. Signed by: Dr. Jeana Mathew M.D. on 11/16/2019 4:51 PM
[2019-11-16] MEDS: THEOPHYLLINE 200 MG TABCR PO SCH (17:00)
--- NOTE | 2019-11-16 19:00 | NUR ---
Report given to maintenance technician 2nd shift. Respiration even and unlabored, patient is sitting at the side of the bed. O2 3L NC. Call light in reach.Family at bedside.
--- NOTE | 2019-11-16 19:54 | NUR ---
RECEIVED PT IN BED AOX3 .RESPIRATIONS ARE EVEN AND UNLABORED C/O PAIN .CALL LIGHT WITH IN REACH FAMILY AT THE BEDSIDE.CONTINUE TO MONITOR
[2019-11-16] MEDS: HEPARIN SOD (PORCINE) 5,000 UNIT/ML VIAL SC SCH (21:00)
[2019-11-16] MEDS: MONTELUKAST SODIUM 10 MG TAB PO SCH (21:00)
[2019-11-16] MEDS: OXYMETAZOLINE HCL 0.05% NAS 1 SPRAY BTL SCH (22:33)
[2019-11-17] VITALS (8 sets, daily range): BP systolic 139–153; BP diastolic 72–96
[2019-11-17] MEDS: SODIUM CHLORIDE 0.9% 1000ML 1,000 ML IV SCH ×4 (00:15→18:48)
[2019-11-17] MEDS: ALBUTEROL/IPRATROPIUM 3 ML NEB NEB SCH ×6 (03:45→19:45)
--- NOTE | 2019-11-17 05:52 | NUR ---
PT C/O PAIN AND GIVEN ORDERED PAIN MEDICATION .CALL LIGHT WITH IN REACH .CONTINUE TO MONITOR
[2019-11-17 05:53] LABS: HEMATOCRIT 44.1 % (38.2-49.6); HEMOGLOBIN 13.7 g/dL (14.0-18.0); MEAN CORPUSCULAR HEMOGLOBIN 28.4 pg (28-32); MEAN CORPUSCULAR HGB CONC 31.1 g/dL (31-35); MEAN CORPUSCULAR VOLUME 91.3 fL (81-99); PLATELET COUNT 216 x10e3/uL (140-360); RED BLOOD COUNT 4.83 x10e6/uL (4.3-5.7); RED CELL DISTRIBUTION WIDTH 13.4 % (11.7-14.4)
[2019-11-17] MEDS: PIPER-TAZ 3.375 GM / NS 50ML IV SCH ×3 (06:00→22:00)
[2019-11-17 06:16] LABS: ALANINE AMINOTRANSFERASE 61 IU/L (0-55); ALBUMIN 3.1 g/dL (3.5-5.0); ALBUMIN/GLOBULIN RATIO 1.1 (0.8-2.0); ALKALINE PHOSPHATASE 66 IU/L (40-150); ANION GAP 14.1 mmol/L (8-16); BLOOD UREA NITROGEN 19 mg/dL (7-26); BUN/CREATININE RATIO 18 (6-25); CALCIUM 8.8 mg/dL (8.4-10.2); CARBON DIOXIDE 23 mmol/L (22-29); CHLORIDE 108 mmol/L (98-107); CREATININE, SERUM 1.07 mg/dL (0.72-1.25); EST GLOMERULAR FILTRATION RATE > 60 ML/MIN (60-); GLUCOSE 102 mg/dL (74-118); LIPASE 264 U/L (8-78); POTASSIUM 4.1 mmol/L (3.5-5.1); SODIUM 141 mmol/L (136-145)
[2019-11-17] MEDS: BUDESONIDE/FORMOTEROL 160/4.5MCG INHALER INH SCH ×2 (07:00→19:25)
--- NOTE | 2019-11-17 07:00 | NUR ---
Received patient lying in bed with eyes open. Respiration even and unlabored without SOB. Call light in reach. Family at bedside.
--- NOTE | 2019-11-17 07:14 | NUR ---
BEDSIDE REPORT GIVEN TO THE ONCOMING NURSE
--- NOTE | 2019-11-17 07:14 | NUR ---
BEDSIDE REPORT GIVEN TO THE ONCOMING NURSE
[2019-11-17] MEDS: LEVALBUTEROL HCL SOLN NEBU 0.63 MG/3 ML NEB INH PRN ×4 (07:28→23:05)
[2019-11-17] MEDS: PANTOPRAZOLE 40 MG 10ML VIAL IV SCH (08:05)
[2019-11-17] MEDS: HYDROMORPHONE 1MG/1ML INJ IV PRN ×4 (08:06→20:25)
[2019-11-17] MEDS: DILTIAZEM HCL 180 MG CAP ER PO SCH (09:13)
[2019-11-17] MEDS: HEPARIN SOD (PORCINE) 5,000 UNIT/ML VIAL SC SCH ×2 (09:14→20:25)
[2019-11-17] MEDS: LORATADINE 10 MG TAB PO SCH (09:14)
[2019-11-17] MEDS: THEOPHYLLINE 200 MG TABCR PO SCH ×2 (09:17→16:33)
--- NOTE | 2019-11-17 15:15 | NUR ---
Visit made by the Spiritual Care Department Pastoral Visitor, Paul Hinkle. PV provided pastoral presence, hospitality, and supportive listening. Pastoral Visitor informed pt/family of the scope of [employer] and availability. HONG SAVAGE Senior Business Broker Spiritual Care Department O: [phone] Pager: [phone] ([phone] number calling from)
[2019-11-17] MEDS: MAGNESIUM/ALUMINUM/SIMETHICONE 30 ML UDC PO PRN (17:25)
--- NOTE | 2019-11-17 19:00 | NUR ---
Report given to night nurse. Respiration even and unlabored without SOB. O2 3L via NC in placed. Call light tin reach.
--- NOTE | 2019-11-17 19:27 | NUR ---
RECEIVED PT IN BED AOX3 . REQUESTED PAIN MEDICATION AT 8PM .CALL LIGHT WITH IN REACH.CONTINUE TO MONITOR
[2019-11-17] MEDS: MONTELUKAST SODIUM 10 MG TAB PO SCH (20:24)
[2019-11-17] MEDS: OXYMETAZOLINE HCL 0.05% NAS 1 SPRAY BTL SCH (20:24)
[2019-11-18] VITALS (8 sets, daily range): BP systolic 122–155; BP diastolic 59–75
[2019-11-18] MEDS: HYDROMORPHONE 1MG/1ML INJ IV PRN ×7 (00:13→21:35)
[2019-11-18] MEDS: SODIUM CHLORIDE 0.9% 1000ML 1,000 ML IV SCH ×2 (02:48→08:14)
[2019-11-18] MEDS: ALBUTEROL/IPRATROPIUM 3 ML NEB NEB SCH ×2 (03:00→06:50)
[2019-11-18] MEDS: LEVALBUTEROL HCL SOLN NEBU 0.63 MG/3 ML NEB INH PRN (03:55)
[2019-11-18] MEDS: PIPER-TAZ 3.375 GM / NS 50ML IV SCH ×3 (05:39→21:45)
[2019-11-18 05:44] LABS: BASOPHILS % 0.2 % (0.0-1.0); EOSINOPHILS % 0.3 % (0.0-6.0); HEMATOCRIT 37.9 % (38.2-49.6); HEMOGLOBIN 12.2 g/dL (14.0-18.0); LYMPHOCYTES # (AUTO) 0.5 (1.0-3.2); LYMPHOCYTES % 3.1 % (18.0-39.1); MEAN CORPUSCULAR HEMOGLOBIN 29.3 pg (28-32); MEAN CORPUSCULAR HGB CONC 32.2 g/dL (31-35); MEAN CORPUSCULAR VOLUME 90.9 fL (81-99); MONOCYTES # (AUTO) 1.2 (0.2-0.8); MONOCYTES % 7.8 % (4.4-11.3); NEUTROPHILS # (AUTO) 13.7 (2.1-6.9); NEUTROPHILS % 87.8 % (38.7-80.0); PLATELET COUNT 184 x10e3/uL (140-360); RED BLOOD COUNT 4.17 x10e6/uL (4.3-5.7); RED CELL DISTRIBUTION WIDTH 13.2 % (11.7-14.4)
--- NOTE | 2019-11-18 06:03 | NUR ---
PT C/O PAIN AND GIVEN ORDERED PAIN MEDICATION .CALL LIGHT WITH IN REACH .CONTINUE TO MONITOR
[2019-11-18 06:08] LABS: ALANINE AMINOTRANSFERASE 46 IU/L (0-55); ALBUMIN 2.7 g/dL (3.5-5.0); ALBUMIN/GLOBULIN RATIO 0.9 (0.8-2.0); ALKALINE PHOSPHATASE 68 IU/L (40-150); ANION GAP 14.6 mmol/L (8-16); BLOOD UREA NITROGEN 13 mg/dL (7-26); BUN/CREATININE RATIO 16 (6-25); CALCIUM 8.6 mg/dL (8.4-10.2); CARBON DIOXIDE 23 mmol/L (22-29); CHLORIDE 105 mmol/L (98-107); CREATININE, SERUM 0.82 mg/dL (0.72-1.25); EST GLOMERULAR FILTRATION RATE > 60 ML/MIN (60-); GLUCOSE 76 mg/dL (74-118); LIPASE 39 U/L (8-78); POTASSIUM 3.6 mmol/L (3.5-5.1); SODIUM 139 mmol/L (136-145)
[2019-11-18] MEDS: BUDESONIDE/FORMOTEROL 160/4.5MCG INHALER INH SCH ×2 (07:05→19:19)
--- NOTE | 2019-11-18 07:18 | NUR ---
BEDSIDE REPORT GIVEN TO THE ONCOMING NURSE
--- NOTE | 2019-11-18 07:19 | NUR ---
received bedside shift report from night time nanny RN; pt in stable condition, no signs of distress. will continue to monitor.
[2019-11-18] MEDS ORDERED: METOPROLOL TARTRATE INJ 1 MG/ML VIAL IV PRN (08:30)
--- NOTE | 2019-11-18 09:10 | NUR ---
ASSESSMENT: Spiritual concern Follow up visit. Pt more accepting of procedure. Pt's and daughter at bedside. Pt states his procedure should be "tomorrow." Intervention: Provided empathic listening and prayer. Reminded pt/family of how to reach resident care technician, if needed. Outcome: Pt & family expressed appreciation for visit. No need to follow at this time. HONG SAVAGE Equipment Mechanic Spiritual Care Department O: [phone] Pager: [phone] ([phone] number calling from)
[2019-11-18] MEDS: HEPARIN SOD (PORCINE) 5,000 UNIT/ML VIAL SC SCH (09:50)
[2019-11-18] MEDS: DILTIAZEM HCL 180 MG CAP ER PO SCH (10:24)
[2019-11-18] MEDS: PANTOPRAZOLE 40 MG 10ML VIAL IV SCH (10:24)
[2019-11-18] MEDS: THEOPHYLLINE 200 MG TABCR PO SCH ×2 (10:25→18:26)
[2019-11-18] MEDS: LEVALBUTEROL HCL SOLN NEBU 1.25 MG/3 ML NEB INH SCH ×4 (10:25→23:57)
[2019-11-18] MEDS: LORATADINE 10 MG TAB PO SCH (10:25)
[2019-11-18] MEDS: IPRATROPIUM BROMIDE 0.02% 2.5 ML NEB NEB SCH ×3 (14:50→23:57)
--- NOTE | 2019-11-18 19:00 | NUR ---
RECEIVED PATIENT IN BEDSIDE SHIFT REPORT. PATIENT SITTING ON SIDE OF BED. PAIN 01/30, RECENTLY RECEIVED PAIN MEDICATION. IV RUNNING TO R HAND 20G ASYMPTOMATIC, INTACT, AND PATENT, RUNNING NS AT 50ML/HR. NO S&S OF DISTRESS NOTED. BED LOCKED IN LOWEST POSITION, SIDE RAILS UPX2, CALL LIGHT IN REACH.
[2019-11-18] MEDS: MONTELUKAST SODIUM 10 MG TAB PO SCH (21:35)
[2019-11-18] MEDS: OXYMETAZOLINE HCL 0.05% NAS 1 SPRAY BTL SCH (21:45)
--- NOTE | 2019-11-18 23:47 | NUR ---
PATIENT HEARD TO CALL OUT FOR HELP. UPON ENTERING ROOM, PATIENT FOUND ON HIS KNEES, WITH PANTS AROUND KNEES. PATIENT STATED HE WOKE UP TO URINATE, STOOD UP TO USE THE URINAL, LOST BALANCE AND FELL TO HIS KNEES. PATIENT ASSISTED TO STAND, TURN, AND SIT ON COUCH IN ROOM. CALLED RESPIRATORY FOR EXTENSION TUBING FOR O2, ANOTHER NURSE BROUGHT IN PORTABLE OXYGEN, SET TO 3L, UNTIL EXTENSION TUBING BROUGHT BY RESPIRATORY. UPON ASSESSMENT, IV NOTED TO HAVE PULLED OUT OF HAND, REMOVED, CATHETER TIP INTACT, PRESSURE DRESSING APPLIED. SMALL SKIN TEAR NOTED TO R ELBOW, BLEEDING, CLEANSED WITH NS AND WRAPPED WITH KERLIX AND SECURED WITH TAPE. KNEES CHECKED, NO SKIN TEARING, NO REDNESS NOTED. UPON ATTEMPT TO PUT NON-SKID FOOTWEAR BACK IN PLACE ( PATIENT HAD TAKEN THEM OFF), PATIENT REPORTED HE DOES NOT WANT TO WEAR THEM BECAUSE HE "HAD A BAD EXPERIENCE WITH THEM LAST TIME I WAS IN A HOSPITAL." ASSISTED PATIENT TO PUT HIS SHOES BACK ON. ASSISTED PATIENT BACK TO BED WITH WALKER AND STANDBY ASSIST. BED ALARM PUT BACK ON. TOLD PATIENT HE MUST CALL BEFORE STANDING TO URINATE SO SAFETY CAN BE ASSURED. PATIENT VERBALIZED UNDERSTANDING. PATIENT REPORTED HE DID NOT WANT FAMILY INFORMED OF FALL D/T "PERSONAL ISSUES."
[2019-11-19] VITALS (8 sets, daily range): BP systolic 124–139; BP diastolic 60–87
[2019-11-19] MEDS: LEVALBUTEROL HCL SOLN NEBU 1.25 MG/3 ML NEB INH SCH ×6 (00:05→20:00)
--- NOTE | 2019-11-19 00:11 | NUR ---
CALLED MD VAUGHAN TO INFORM OF PATIENT'S FALL. INSTRUCTED TO PROVIDE ICE PACK TO R ELBOW, NO OTHER ORDERS RECEIVED.
[2019-11-19] MEDS: HYDROMORPHONE 1MG/1ML INJ IV PRN ×3 (01:17→07:37)
--- NOTE | 2019-11-19 02:19 | NUR ---
ASSISTED PATIENT TO STANDING TO USE URINAL. PATIENT BEGAN TO LOSE BALANCE WHEN PULLING UP PANTS. ASSISTED PATIENT TO REMOVE CLOTHING FROM HOME AND CHANGE INTO HOSPITAL GOWN TO MAKE USING URINAL EASIER. PATIENT BACK IN BED, BED ALARM ON.
[2019-11-19] MEDS: SODIUM CHLORIDE 0.9% 1000ML 1,000 ML IV SCH (02:53)
[2019-11-19] MEDS: PIPER-TAZ 3.375 GM / NS 50ML IV SCH ×3 (05:39→21:25)
[2019-11-19 05:48] LABS: ALANINE AMINOTRANSFERASE 38 IU/L (0-55); ALBUMIN 2.6 g/dL (3.5-5.0); ALBUMIN/GLOBULIN RATIO 0.8 (0.8-2.0); ALKALINE PHOSPHATASE 68 IU/L (40-150); ANION GAP 14.7 mmol/L (8-16); BLOOD UREA NITROGEN 10 mg/dL (7-26); BUN/CREATININE RATIO 13 (6-25); CALCIUM 8.7 mg/dL (8.4-10.2); CARBON DIOXIDE 23 mmol/L (22-29); CHLORIDE 104 mmol/L (98-107); CREATININE, SERUM 0.79 mg/dL (0.72-1.25); EST GLOMERULAR FILTRATION RATE > 60 ML/MIN (60-); GLUCOSE 71 mg/dL (74-118); POTASSIUM 3.7 mmol/L (3.5-5.1); SODIUM 138 mmol/L (136-145)
--- NOTE | 2019-11-19 06:30 | NUR ---
HCG BATH PERFORMED AT THIS TIME. DRESSING TO R ELBOW REMOVED, CLEANSED SKIN TEAR, REAPPLIED STERILE 4X4, COVERED WITH TEGADERM. PATIENT TOLERATED BATHING WELL.
[2019-11-19] MEDS: BUDESONIDE/FORMOTEROL 160/4.5MCG INHALER INH SCH ×2 (07:00→19:00)
[2019-11-19] MEDS: IPRATROPIUM BROMIDE 0.02% 2.5 ML NEB NEB SCH ×3 (07:04→20:00)
--- NOTE | 2019-11-19 07:18 | NUR ---
DR. VAUGHAN AT BEDSIDE WITH PT; INFORMED DR VAUGHAN OF PT'S ELEVATED TEMPERATURE. HE STATES GIVE PT ORAL MEDS WITH SIP OF WATER, SURGERY IS SCHEDULED FOR 1100 TODAY.
[2019-11-19] MEDS: DILTIAZEM HCL 180 MG CAP ER PO SCH (08:49)
[2019-11-19] MEDS: LORATADINE 10 MG TAB PO SCH (08:49)
[2019-11-19] MEDS: THEOPHYLLINE 200 MG TABCR PO SCH ×2 (08:49→17:35)
[2019-11-19] MEDS: PANTOPRAZOLE 40 MG 10ML VIAL IV SCH (08:53)
[2019-11-19] MEDS ORDERED: BUPIVACAINE HCL 0.5% INJ 30 ML VIAL INJ ONE (10:02)
--- NOTE | 2019-11-19 10:10 | NUR ---
OR team arrived at bedside; pt taken for surgery via stretcher. pt left in stable condition.
[2019-11-19] MEDS ORDERED: ONDANSETRON HCL INJ 2MG/ML 2ML 2 MG/ML VIAL IV PRN (11:15)
[2019-11-19] MEDS ORDERED: MORPHINE SULFATE INJ 4 MG/ML INJ 1ML IV PRN (11:15)
[2019-11-19] MEDS ORDERED: SUGAMMADEX SODIUM 200 MG/2 ML VIAL IV ONE (11:20)
--- NOTE | 2019-11-19 12:01 | Operative Report ---
DATE OF PROCEDURE: 11/19/2019 SURGEON: Huy Camacho MD PREOPERATIVE DIAGNOSES: Acute pancreatitis, cholelithiasis, and umbilical hernia. POSTOPERATIVE DIAGNOSES: Acute pancreatitis, cholelithiasis, and umbilical hernia. PROCEDURES: Diagnostic laparoscopy, laparoscopic cholecystectomy, repair of umbilical hernia. MARINE EQUIPMENT PRESERVATION INSPECTOR: None. ANESTHESIA: General endotracheal. INDICATIONS AND FINDINGS: The patient is a 69-year-old male, admitted with complaints of abdominal pain. Workup revealed pancreatitis as well as gallstones seen on MRI. Had surgery based on the gallbladder was very distended, somewhat edematous. Cystic duct was about 3 mm in diameter. Common bile duct was about 6 mm in diameter. Liver appeared normal. There were a few areas of fat necrosis, secondary to pancreatitis. The bowel appeared mildly distended. There was umbilical hernia with a fascial defect, approximately 2.5 cm. TECHNIQUE: After adequate general endotracheal anesthesia, the patient in supine position, and the abdomen was prepped and draped in sterile fashion with ChloraPrep solution. Transverse first incision was made just below the umbilicus, carried down through subcutaneous tissue. The umbilicus was dissected free of underlying herniated mass. Herniated mass is dissected free down to the fascia and freed from the fascia throughout circumference of the hernia defect. Hernia sac was opened, Dolores blunt-tipped trocar was introduced through the hernia defect and pneumoperitoneum was then created. Laparoscopic camera was introduced. Initial laparoscopy revealed the gallbladder to be distended, somewhat edematous. Liver appeared normal. There were few areas of fat necrosis. Some bowel appeared moderately dilated. A 10 mm trocar and cannula was placed in the epigastrium and two 5 mm trocars and cannulas were placed in the right upper quadrant, these were placed under direct vision. Fundus of the gallbladder was grasped, retracted superiorly. Neck of the gallbladder was grasped, retracted laterally. Peritoneum over the neck of the gallbladder was incised. The gallbladder cystic duct junction was dissected free. Cystic artery was also dissected free. The neck of the gallbladder completely dissected free. Cystic artery was divided between hemoclips close to the gallbladder. Cystic duct was also divided between hemoclips with three clips being left on the common bile duct side. There was a posterior branch of cystic artery, which was also divided between hemoclips close to the gallbladder. The gallbladder was dissected free from the liver using scissors and electrocautery. Once it was entirely free, it was placed into an Endopouch and brought through the epigastric cannula. There were no stones definitely palpable. Gallbladder bed was inspected for hemostasis, which was seen to be adequate. It was irrigated with saline. All fluid aspirated and inspected once again for hemostasis, which was seen to be adequate. Instruments and cannulas were removed. Pneumoperitoneum was evacuated. Wounds were then closed. The umbilical hernia was repaired, closed transversely, repairing with a running suture of #0 Prolene. The umbilicus was sutured to the fascia using 0 Vicryl. The fascia in the epigastric wounds closed with 0 Vicryl. Skin to all wounds closed with donavon. Sterile dressings applied to each wound. The patient tolerated the procedure well. Estimated blood loss was 20 mL. There were no complications. All counts were correct and the patient was taken to the recovery room in satisfactory condition. MD DINH Gamez/ANNETTEL /[id number] cc: Jose Alberto Kuhn MD
[2019-11-19] MEDS ORDERED: ALBUTEROL SULF 0.083% NEB SOLN 3 ML NEB ONE (12:13)
--- NOTE | 2019-11-19 12:41 | NUR ---
pt returned from surgery, pt awake, talking full sentences, drowsy but oriented X3, speaking full sentences. no signs of distress. will continue to monitor.
[2019-11-19] MEDS ORDERED: SEVOFLURANE INHAL SOLN 250 ML PEN BTL ONE (14:09)
[2019-11-19] MEDS ORDERED: LIDOCAINE HCL 2% LOCAL INJ 5 ML SDV VIAL INJ ONE (14:09)
[2019-11-19] MEDS ORDERED: ACETAMINOPHEN 1000 MG/100 ML IV ONE (14:09)
[2019-11-19] MEDS ORDERED: ROCURONIUM BROMIDE 10 MG/ML 5ML VIAL ONE (14:09)
[2019-11-19] MEDS ORDERED: ONDANSETRON HCL INJ 2MG/ML 2ML 2 MG/ML VIAL ONE (14:09)
[2019-11-19] MEDS ORDERED: PROPOFOL IV EMULSION 10 MG/ML 20 ML VIAL ONE (14:09)
[2019-11-19] MEDS ORDERED: DEXAMETHASONE SOD PHOS INJ 4 MG/ML VIAL ONE (14:09)
[2019-11-19] MEDS: HYDROCODONE/APAP 5MG-325MG TAB PO PRN ×2 (14:28→19:02)
--- NOTE | 2019-11-19 19:00 | NUR ---
RECEIVED PATIENT IN BEDSIDE SHIFT REPORT. PATIENT RESTING IN BED AT THIS TIME, RECEIVING PAIN MEDICATION AT THIS TIME. PATIENT A&OX3. 4 TROCHAR SITES TO ABDOMEN C/D/I. NO S&S OF DISTRESS NOTED. O2@3L VIA NC. IV TO L HAND 20G RUNNING NS @ 50ML/HR. PATIENT REPORTS HE TOLERATED DINNER WELL, NO N/V. BED ALARM ON. BED LOCKED IN LOWEST POSITION, SIDE RAILS UPX2, CALL LIGHT IN REACH. ANTISLIP SOCKS ON. WILL CONTINUE TO MONITOR CLOSELY.
[2019-11-19] MEDS ORDERED: MIDAZOLAM HCL 2 MG/2 ML VIAL INJ ONE (19:13)
[2019-11-19] MEDS ORDERED: FENTANYL CITRATE/PF 100MCG/2 ML INJ IV ONE (19:13)
[2019-11-20] VITALS (8 sets, daily range): BP systolic 107–142; BP diastolic 56–73
[2019-11-20] MEDS: HYDROCODONE/APAP 5MG-325MG TAB PO PRN ×6 (00:25→21:27)
[2019-11-20] MEDS: MONTELUKAST SODIUM 10 MG TAB PO SCH ×2 (00:25→21:26)
[2019-11-20] MEDS: MAGNESIUM/ALUMINUM/SIMETHICONE 30 ML UDC PO PRN (00:25)
[2019-11-20] MEDS: OXYMETAZOLINE HCL 0.05% NAS 1 SPRAY BTL SCH ×2 (00:25→21:25)
[2019-11-20] MEDS: IPRATROPIUM BROMIDE 0.02% 2.5 ML NEB NEB SCH ×4 (03:35→20:10)
[2019-11-20] MEDS: LEVALBUTEROL HCL SOLN NEBU 1.25 MG/3 ML NEB INH SCH ×6 (03:35→23:50)
[2019-11-20] MEDS: SODIUM CHLORIDE 0.9% 1000ML 1,000 ML IV SCH ×2 (04:37→22:48)
[2019-11-20] MEDS: PIPER-TAZ 3.375 GM / NS 50ML IV SCH ×3 (05:34→22:12)
[2019-11-20 05:36] LABS: BASOPHILS % 0.2 % (0.0-1.0); EOSINOPHILS % 0.1 % (0.0-6.0); HEMATOCRIT 38.8 % (38.2-49.6); LYMPHOCYTES # (AUTO) 0.5 (1.0-3.2); MEAN CORPUSCULAR HGB CONC 30.9 g/dL (31-35); MEAN CORPUSCULAR VOLUME 90.4 fL (81-99); MONOCYTES # (AUTO) 0.8 (0.2-0.8); MONOCYTES % 5.4 % (4.4-11.3); NEUTROPHILS # (AUTO) 14.1 (2.1-6.9); NEUTROPHILS % 90.3 % (38.7-80.0); PLATELET COUNT 194 x10e3/uL (140-360); RED BLOOD COUNT 4.29 x10e6/uL (4.3-5.7); RED CELL DISTRIBUTION WIDTH 13.2 % (11.7-14.4)
[2019-11-20 06:00] LABS: ALANINE AMINOTRANSFERASE 48 IU/L (0-55); ALBUMIN 2.5 g/dL (3.5-5.0); ALBUMIN/GLOBULIN RATIO 0.7 (0.8-2.0); ALKALINE PHOSPHATASE 71 IU/L (40-150); ANION GAP 16.5 mmol/L (8-16); BLOOD UREA NITROGEN 14 mg/dL (7-26); BUN/CREATININE RATIO 18 (6-25); CALCIUM 8.8 mg/dL (8.4-10.2); CARBON DIOXIDE 20 mmol/L (22-29); CHLORIDE 106 mmol/L (98-107); CREATININE, SERUM 0.78 mg/dL (0.72-1.25); EST GLOMERULAR FILTRATION RATE > 60 ML/MIN (60-); GLUCOSE 110 mg/dL (74-118); POTASSIUM 3.5 mmol/L (3.5-5.1); SODIUM 139 mmol/L (136-145)
[2019-11-20] MEDS: BUDESONIDE/FORMOTEROL 160/4.5MCG INHALER INH SCH ×2 (06:55→19:00)
--- NOTE | 2019-11-20 07:00 | NUR ---
RECEIVED PATIENT AWAKE RESTING IN BED NO S/S OF DISTRESS. BED LOW, WHEELS LOCKED, SIDE RAILS X2. CALL LIGHT IN REACH WILL CONTINUE TO MONITOR PATIENT.
[2019-11-20] MEDS ORDERED: ONDANSETRON HCL 4 MG ORAL DISINTEGRATING TAB PO PRN (08:45)
[2019-11-20] MEDS: PANTOPRAZOLE SOD 40 MG TABEC PO SCH (09:13)
[2019-11-20] MEDS: THEOPHYLLINE 200 MG TABCR PO SCH ×2 (09:13→16:43)
[2019-11-20] MEDS: LORATADINE 10 MG TAB PO SCH (09:13)
[2019-11-20] MEDS: DILTIAZEM HCL 180 MG CAP ER PO SCH (09:13)
--- NOTE | 2019-11-20 10:15 | NUR ---
PATIENT A/O X3, EVEN RESPIRATIONS ON 3LNC. LUNG SOUNDS DIMINISHED TO AUSCULTATION. BOWEL SOUNDS PRESENT. 4 TROCAR SITES TO ABDOMEN CLEAN, DRY, AND INTACT. PATIENT TOLERATED FULL LIQUID DIET FOR BREAKFAST. SCD'S BILATERALLY. PATIENT NEEDS ASSISTANCE WITH AMBULATION. VOIDS IN URINAL. FAMILY AT BEDSIDE. CALL LIGHT IN REACH WILL CONTINUE TO MONITOR PATIENT.
--- NOTE | 2019-11-20 19:00 | NUR ---
RECEIVED PATIENT IN BEDSIDE SHIFT REPORT. PATIENT RESTING IN BED AT THIS TIME, NO PAIN REPORTED AT THIS TIME. 4 TROCHAR SITES TO ABDOMEN ARE C/D/I. SURROUNDING SKIN NORMAL. PATIENT REPORTS HE HAS PASSED GAS, NO BM YET. SCDS ON, ALTERNATING PRESSURE MATTRESS ACTIVE. BED ALARM ON. PATIENT REFUSES NONSKID SOCKS AT THIS TIME. R HAND 22G IV ASYMPTOMATIC, INTACT, AND PATENT, RUNNING NS @ 50ML/HR. BED LOCKED IN LOWEST POSITION, SIDE RAILS UPX2, CALL LIGHT IN REACH.
[2019-11-21] VITALS (7 sets, daily range): BP systolic 141–157; BP diastolic 72–83
[2019-11-21] MEDS: LEVALBUTEROL HCL SOLN NEBU 1.25 MG/3 ML NEB INH SCH ×6 (00:15→20:20)
[2019-11-21] MEDS: HYDROCODONE/APAP 5MG-325MG TAB PO PRN ×5 (02:20→21:55)
[2019-11-21] MEDS: IPRATROPIUM BROMIDE 0.02% 2.5 ML NEB NEB SCH ×4 (03:15→20:20)
[2019-11-21] MEDS: PIPER-TAZ 3.375 GM / NS 50ML IV SCH ×3 (06:06→21:55)
[2019-11-21] MEDS: BUDESONIDE/FORMOTEROL 160/4.5MCG INHALER INH SCH ×2 (07:00→19:00)
--- NOTE | 2019-11-21 07:00 | NUR ---
RECEIVED PATIENT AWAKE RESTING IN BED NO S/S OF DISTRESS. BED LOW, WHEELS LOCKED, SIDE RAILS X2. CALL LIGHT IN REACH WILL CONTINUE TO MONITOR PATIENT.
[2019-11-21] MEDS ORDERED: BISACODYL 10 MG SUPP PR PRN (08:15)
[2019-11-21] MEDS ORDERED: MAGNESIUM HYDROXIDE 30 ML UDC PO PRN (08:15)
[2019-11-21] MEDS ORDERED: ACETAMINOPHEN 325 MG TAB PO PRN (08:15)
--- NOTE | 2019-11-21 08:15 | NUR ---
NOTIFIED DR. SIMEON OF MORNING TEMPERATURE 101.3 NEW PT EVAL ORDER ENCOURAGE PATIENT TO USE I.S. HAD PATIENT DEMONSTRATE USING I.S. WILL CONTINUE TO MONITOR PATIENT
[2019-11-21] MEDS: LORATADINE 10 MG TAB PO SCH (08:35)
[2019-11-21] MEDS: PANTOPRAZOLE SOD 40 MG TABEC PO SCH (08:35)
[2019-11-21] MEDS: THEOPHYLLINE 200 MG TABCR PO SCH ×2 (08:35→17:00)
[2019-11-21] MEDS: SENNOSIDES 8.6 MG TAB PO SCH ×3 (08:35→17:00)
[2019-11-21] MEDS: DILTIAZEM HCL 180 MG CAP ER PO SCH (08:35)
[2019-11-21] MEDS ORDERED: POTASSIUM CHLORIDE 10MEQ EA PO ONE (09:30)
--- NOTE | 2019-11-21 17:37 | NUR ---
Nutrition Screen Note RD Recommendation for Physician: -Continue current diet as ordered Plan of Care: RD following, monitoring for tolerance and adequacy Nutrition reason for involvement: Length of stay Primary Diagnose(s): pancreatitis due to biliary obstruction PMH: COPD, HTN Ht: 67 in Wt:204 lb BMI: 32 kg/m2 IBW:[address] Assessment: (11/21/2019) Chart reviewed. Labs and meds reviewed. Pt was admitted with pancreatitis due to biliary obstruction. Pt reports he usually eats most of his meals. It is documented that pt has been consuming 50-100% of meals during admission. No N/V or chewing/swallowing issues. Will continue to monitor. Current Diet: Cardiac diet Malnutrition Evaluation (11/21/2019) The patient does not meet criteria for a specified degree of malnutrition at this time. Will re-evaluate at follow-up as appropriate. Diet Education Needs Assessment: Pt was not interested in diet education materials. Nutrition Care Level: low Signed: Selene Singh, RD, LD
[2019-11-21] MEDS: OXYMETAZOLINE HCL 0.05% NAS 1 SPRAY BTL SCH (21:55)
[2019-11-21] MEDS: MONTELUKAST SODIUM 10 MG TAB PO SCH (21:55)
[2019-11-22] VITALS (8 sets, daily range): BP systolic 126–167; BP diastolic 58–81
[2019-11-22] MEDS: LEVALBUTEROL HCL SOLN NEBU 1.25 MG/3 ML NEB INH SCH ×6 (03:20→23:15)
[2019-11-22] MEDS: IPRATROPIUM BROMIDE 0.02% 2.5 ML NEB NEB SCH ×4 (03:20→19:45)
[2019-11-22 05:48] LABS: BASOPHILS # (AUTO) 0.1 (0.0-0.1); BASOPHILS % 0.3 % (0.0-1.0); EOSINOPHILS # (AUTO) 0.1 (0.0-0.4); EOSINOPHILS % 0.4 % (0.0-6.0); HEMATOCRIT 38.9 % (38.2-49.6); HEMOGLOBIN 12.2 g/dL (14.0-18.0); LYMPHOCYTES # (AUTO) 0.7 (1.0-3.2); LYMPHOCYTES % 4.1 % (18.0-39.1); MEAN CORPUSCULAR HEMOGLOBIN 28.1 pg (28-32); MEAN CORPUSCULAR HGB CONC 31.4 g/dL (31-35); MEAN CORPUSCULAR VOLUME 89.6 fL (81-99); MONOCYTES # (AUTO) 1.2 (0.2-0.8); MONOCYTES % 7.1 % (4.4-11.3); NEUTROPHILS # (AUTO) 14.6 (2.1-6.9); NEUTROPHILS % 85.1 % (38.7-80.0); PLATELET COUNT 222 x10e3/uL (140-360); RED BLOOD COUNT 4.34 x10e6/uL (4.3-5.7); RED CELL DISTRIBUTION WIDTH 13.4 % (11.7-14.4)
[2019-11-22] MEDS: PIPER-TAZ 3.375 GM / NS 50ML IV SCH (05:49)
[2019-11-22 06:23] LABS: ANION GAP 14.1 mmol/L (8-16); BLOOD UREA NITROGEN 7 mg/dL (7-26); BUN/CREATININE RATIO 10 (6-25); CALCIUM 8.6 mg/dL (8.4-10.2); CARBON DIOXIDE 27 mmol/L (22-29); CHLORIDE 102 mmol/L (98-107); CREATININE, SERUM 0.69 mg/dL (0.72-1.25); EST GLOMERULAR FILTRATION RATE > 60 ML/MIN (60-); GLUCOSE 107 mg/dL (74-118); POTASSIUM 3.1 mmol/L (3.5-5.1); SODIUM 140 mmol/L (136-145)
[2019-11-22 06:38] LABS: MAGNESIUM 1.7 MG/DL (1.3-2.1)
[2019-11-22] MEDS: BUDESONIDE/FORMOTEROL 160/4.5MCG INHALER INH SCH ×2 (07:00→19:00)
--- NOTE | 2019-11-22 07:05 | NUR ---
Received patient lying in bed with eyes open. Respiration even and unlabored without SOB. O2 at 3L NC in placed. Call light in reach.
[2019-11-22] MEDS ORDERED: MAGNESIUM SULFATE 2GM/50ML IV ONE (09:15)
[2019-11-22] MEDS: DILTIAZEM HCL 180 MG CAP ER PO SCH (09:30)
[2019-11-22] MEDS: PANTOPRAZOLE SOD 40 MG TABEC PO SCH (09:31)
[2019-11-22] MEDS: THEOPHYLLINE 200 MG TABCR PO SCH ×2 (09:31→17:12)
[2019-11-22] MEDS: SENNOSIDES 8.6 MG TAB PO SCH ×2 (09:31→17:12)
[2019-11-22] MEDS: LORATADINE 10 MG TAB PO SCH (09:31)
[2019-11-22] MEDS: POTASSIUM CHLORIDE 10MEQ EA PO SCH ×2 (09:37→17:00)
--- NOTE | 2019-11-22 09:48 | NUR ---
Patient is transported for radiology at this time.
[2019-11-22] MEDS ORDERED: MAGNESIUM SULFATE 2GM/50ML 50 ML IV ONE ×2 (10:00→15:00)
[2019-11-22] MEDS ORDERED: POTASSIUM PHOSPHATE 20 MM in SODIUM CHLORIDE 0.9% 250ML 250 ML IV ONE (10:00)
--- NOTE | 2019-11-22 10:08 | NUR ---
Patient is back from radiology.
--- NOTE | 2019-11-22 10:56 | Diagnostic Imaging Report ---
Abdomen, 1 view. History: Ileus. Findings: Air is scattered throughout nondilated small and large bowel. Cholecystectomy clips are noted in the right upper quadrant. Surgical donavon are present in the lower abdomen. There are no masses or abnormal calcifications. Degenerative changes are present throughout the lumbar spine. The osseous structures are intact. IMPRESSION: Non-specific bowel gas pattern. Signed by: Will Francois on 11/22/2019 10:53 AM
[2019-11-22] MEDS: POLYETHYLENE GLYCOL 3350 17 GM PACK PO SCH (18:01)
--- NOTE | 2019-11-22 19:20 | NUR ---
Report given to vocational rehabilitation administrator. Respiration even and unlabored without SOb. Call llight in reach.
[2019-11-22] MEDS: OXYMETAZOLINE HCL 0.05% NAS 1 SPRAY BTL SCH (20:40)
[2019-11-22] MEDS: MONTELUKAST SODIUM 10 MG TAB PO SCH (20:40)
[2019-11-22] MEDS ORDERED: POTASSIUM CHLORIDE 10MEQ EA PO ONE (21:00)
[2019-11-23] VITALS (9 sets, daily range): BP systolic 112–176; BP diastolic 53–94
[2019-11-23] MEDS: IPRATROPIUM BROMIDE 0.02% 2.5 ML NEB NEB SCH ×5 (03:14→23:16)
[2019-11-23] MEDS: LEVALBUTEROL HCL SOLN NEBU 1.25 MG/3 ML NEB INH SCH ×6 (03:14→23:25)
[2019-11-23 05:32] LABS: BASOPHILS # (AUTO) 0.1 (0.0-0.1); BASOPHILS % 0.4 % (0.0-1.0); EOSINOPHILS # (AUTO) 0.1 (0.0-0.4); EOSINOPHILS % 0.6 % (0.0-6.0); HEMOGLOBIN 12.5 g/dL (14.0-18.0); LYMPHOCYTES # (AUTO) 0.7 (1.0-3.2); LYMPHOCYTES % 4.5 % (18.0-39.1); MEAN CORPUSCULAR HEMOGLOBIN 28.3 pg (28-32); MEAN CORPUSCULAR HGB CONC 31.3 g/dL (31-35); MEAN CORPUSCULAR VOLUME 90.5 fL (81-99); MONOCYTES # (AUTO) 1.3 (0.2-0.8); MONOCYTES % 7.8 % (4.4-11.3); NEUTROPHILS # (AUTO) 13.5 (2.1-6.9); NEUTROPHILS % 83.8 % (38.7-80.0); PLATELET COUNT 233 x10e3/uL (140-360); RED BLOOD COUNT 4.42 x10e6/uL (4.3-5.7); RED CELL DISTRIBUTION WIDTH 13.5 % (11.7-14.4)
[2019-11-23 05:50] LABS: ALBUMIN 2.3 g/dL (3.5-5.0); BILIRUBIN,DIRECT 0.3 mg/dL (0.0-0.5)
[2019-11-23 05:50] LABS: ANION GAP 15.9 mmol/L (8-16); BLOOD UREA NITROGEN 8 mg/dL (7-26); BUN/CREATININE RATIO 12 (6-25); CALCIUM 8.8 mg/dL (8.4-10.2); CARBON DIOXIDE 26 mmol/L (22-29); CHLORIDE 103 mmol/L (98-107); CREATININE, SERUM 0.67 mg/dL (0.72-1.25); EST GLOMERULAR FILTRATION RATE > 60 ML/MIN (60-); GLUCOSE 107 mg/dL (74-118); POTASSIUM 3.9 mmol/L (3.5-5.1); SODIUM 141 mmol/L (136-145)
[2019-11-23 06:06] LABS: MAGNESIUM 2.1 MG/DL (1.3-2.1); PHOSPHORUS 2.4 MG/DL (2.3-4.7)
[2019-11-23] MEDS: BUDESONIDE/FORMOTEROL 160/4.5MCG INHALER INH SCH ×2 (06:55→19:00)
--- NOTE | 2019-11-23 07:00 | NUR ---
bedside rounds done. pt is alert resting in bed and receiving breathing treatment. no s/s of distress. call light within reach and instructed pt to call RN for help.
[2019-11-23] MEDS: SENNOSIDES 8.6 MG TAB PO SCH ×2 (09:00→17:00)
[2019-11-23] MEDS: THEOPHYLLINE 200 MG TABCR PO SCH ×2 (09:24→17:10)
[2019-11-23] MEDS: PANTOPRAZOLE SOD 40 MG TABEC PO SCH (09:24)
[2019-11-23] MEDS: LORATADINE 10 MG TAB PO SCH (09:24)
[2019-11-23] MEDS: DILTIAZEM HCL 180 MG CAP ER PO SCH (09:24)
[2019-11-23] MEDS: POLYETHYLENE GLYCOL 3350 17 GM PACK PO SCH ×2 (09:28→17:00)
[2019-11-23] MEDS: SPIRONOLACTONE 25 MG TAB PO SCH (17:10)
[2019-11-23] MEDS: FUROSEMIDE INJ 10 MG/ML 2 ML VIAL IV SCH (17:10)
--- NOTE | 2019-11-23 19:12 | NUR ---
Received bedside report from day nurse. Patient resting in bed, no s/s of distress or c/o pain at this time. All safety measures in place. Will continue to monitor.
--- NOTE | 2019-11-23 20:25 | NUR ---
Patient refusing bed alarm at this time. Provided education on safety precautions including proper use of call light. Demonstrated and verbalized understanding. All safety measures in place. Bed locked and in low position, side rails up x3, call light placed within reach. Instructed to call for assistance if needed. Verbalized understanding. Will continue to monitor.
[2019-11-23] MEDS: MONTELUKAST SODIUM 10 MG TAB PO SCH (21:12)
[2019-11-23] MEDS: OXYMETAZOLINE HCL 0.05% NAS 1 SPRAY BTL SCH (21:12)
--- NOTE | 2019-11-23 21:24 | NUR ---
Bed alarm on. Patient instructed to call for assistance if needed. All safety measures in place. Will continue to monitor.
[2019-11-23] MEDS: HYDROCODONE/APAP 5MG-325MG TAB PO PRN (23:20)
[2019-11-24] VITALS (8 sets, daily range): BP systolic 120–153; BP diastolic 69–89
[2019-11-24] MEDS: LEVALBUTEROL HCL SOLN NEBU 1.25 MG/3 ML NEB INH SCH ×6 (03:14→23:06)
[2019-11-24] MEDS: IPRATROPIUM BROMIDE 0.02% 2.5 ML NEB NEB SCH ×4 (06:30→23:06)
[2019-11-24] MEDS: BUDESONIDE/FORMOTEROL 160/4.5MCG INHALER INH SCH ×2 (06:45→19:00)
[2019-11-24 06:48] LABS: INR 1.01; PROTHROMBIN TIME 13.5 seconds (11.9-14.5)
--- NOTE | 2019-11-24 07:00 | NUR ---
BEDSIDE ROUNDS DONE. PT IS ALERT RESTING IN BED, NO S/S OF DISTRESS. CALL LIGHT WITHIN REACH AND INSTRUCTED PT TO CALL RN FOR HELP
--- NOTE | 2019-11-24 07:04 | NUR ---
Report given to day nurse. Patient resting in bed, no s/s of distress or c/o pain at this time. All safety measures in place.
[2019-11-24 07:12] LABS: ALANINE AMINOTRANSFERASE 55 IU/L (0-55); ALBUMIN 2.2 g/dL (3.5-5.0); ALBUMIN/GLOBULIN RATIO 0.6 (0.8-2.0); ALKALINE PHOSPHATASE 77 IU/L (40-150); ANION GAP 17.1 mmol/L (8-16); CALCIUM 8.9 mg/dL (8.4-10.2); CARBON DIOXIDE 27 mmol/L (22-29); CHLORIDE 101 mmol/L (98-107); EST GLOMERULAR FILTRATION RATE > 60 ML/MIN (60-); GLUCOSE 103 mg/dL (74-118); POTASSIUM 4.1 mmol/L (3.5-5.1); SODIUM 141 mmol/L (136-145)
[2019-11-24 07:31] LABS: BLOOD UREA NITROGEN 10 mg/dL (7-26); BUN/CREATININE RATIO 14 (6-25)
[2019-11-24] MEDS: FUROSEMIDE INJ 10 MG/ML 2 ML VIAL IV SCH ×2 (08:26→17:01)
[2019-11-24] MEDS: SPIRONOLACTONE 25 MG TAB PO SCH ×2 (08:26→17:01)
[2019-11-24] MEDS: SENNOSIDES 8.6 MG TAB PO SCH ×2 (08:27→17:00)
[2019-11-24] MEDS: LORATADINE 10 MG TAB PO SCH (08:27)
[2019-11-24] MEDS: POLYETHYLENE GLYCOL 3350 17 GM PACK PO SCH ×2 (08:27→17:00)
[2019-11-24] MEDS: THEOPHYLLINE 200 MG TABCR PO SCH ×2 (08:27→17:01)
[2019-11-24] MEDS: PANTOPRAZOLE SOD 40 MG TABEC PO SCH (08:27)
[2019-11-24] MEDS: DILTIAZEM HCL 180 MG CAP ER PO SCH (08:27)
[2019-11-24] MEDS: HYDROCODONE/APAP 5MG-325MG TAB PO PRN ×2 (13:00→21:32)
--- NOTE | 2019-11-24 14:45 | NUR ---
Visit made by the Spiritual Care Department Pastoral Visitor, Paul Hinkle. PV provided pastoral presence, hospitality, and supportive listening. Pastoral Visitor reminded pt/family of the scope of [employer] and availability. [employer] Spiritual Care Department O: [phone] Pager: [phone] ([phone] number calling from)
[2019-11-24] MEDS: OXYMETAZOLINE HCL 0.05% NAS 1 SPRAY BTL SCH (21:32)
[2019-11-24] MEDS: MONTELUKAST SODIUM 10 MG TAB PO SCH (21:32)
[2019-11-25 00:26] VITALS: BP 117/53
[2019-11-25] MEDS: LEVALBUTEROL HCL SOLN NEBU 1.25 MG/3 ML NEB INH SCH ×4 (03:45→14:45)
[2019-11-25 04:00] VITALS: BP 136/65
[2019-11-25 06:02] LABS: BASOPHILS # (AUTO) 0.1 (0.0-0.1); BASOPHILS % 0.6 % (0.0-1.0); EOSINOPHILS # (AUTO) 0.3 (0.0-0.4); EOSINOPHILS % 1.6 % (0.0-6.0); HEMOGLOBIN 13.6 g/dL (14.0-18.0); LYMPHOCYTES # (AUTO) 1.1 (1.0-3.2); LYMPHOCYTES % 7.1 % (18.0-39.1); MEAN CORPUSCULAR HEMOGLOBIN 28.4 pg (28-32); MEAN CORPUSCULAR HGB CONC 32.4 g/dL (31-35); MEAN CORPUSCULAR VOLUME 87.7 fL (81-99); MONOCYTES # (AUTO) 1.4 (0.2-0.8); MONOCYTES % 8.9 % (4.4-11.3); NEUTROPHILS # (AUTO) 12.5 (2.1-6.9); PLATELET COUNT 319 x10e3/uL (140-360); RED BLOOD COUNT 4.79 x10e6/uL (4.3-5.7); RED CELL DISTRIBUTION WIDTH 13.3 % (11.7-14.4)
[2019-11-25 06:21] LABS: ANION GAP 16.4 mmol/L (8-16); BLOOD UREA NITROGEN 10 mg/dL (7-26); BUN/CREATININE RATIO 14 (6-25); CALCIUM 9.3 mg/dL (8.4-10.2); CARBON DIOXIDE 27 mmol/L (22-29); CHLORIDE 98 mmol/L (98-107); CREATININE, SERUM 0.72 mg/dL (0.72-1.25); EST GLOMERULAR FILTRATION RATE > 60 ML/MIN (60-); GLUCOSE 112 mg/dL (74-118); POTASSIUM 3.4 mmol/L (3.5-5.1); SODIUM 138 mmol/L (136-145)
[2019-11-25] MEDS: HYDROCODONE/APAP 5MG-325MG TAB PO PRN (06:29)
--- NOTE | 2019-11-25 06:55 | NUR ---
Received patient lying in bed with eyes open. Respiration even and unlabored without SOB. Call light in reach. Denies pain at this time.
--- NOTE | 2019-11-25 07:15 | NUR ---
Bedside report given to day nurse. Patient resting in bed, no s/s of distress or c/o pain at this time. All safety measures in place.
[2019-11-25] MEDS: IPRATROPIUM BROMIDE 0.02% 2.5 ML NEB NEB SCH ×2 (07:44→14:45)
[2019-11-25 07:56] VITALS: BP 123/67
[2019-11-25] MEDS: BUDESONIDE/FORMOTEROL 160/4.5MCG INHALER INH SCH (08:01)
[2019-11-25] MEDS: SENNOSIDES 8.6 MG TAB PO SCH ×2 (09:00→09:21)
[2019-11-25] MEDS: POLYETHYLENE GLYCOL 3350 17 GM PACK PO SCH ×2 (09:00→09:20)
[2019-11-25 09:05] VITALS: BP 123/67
[2019-11-25] MEDS: SPIRONOLACTONE 25 MG TAB PO SCH (09:18)
[2019-11-25] MEDS: FUROSEMIDE INJ 10 MG/ML 2 ML VIAL IV SCH (09:18)
[2019-11-25] MEDS: DILTIAZEM HCL 180 MG CAP ER PO SCH (09:20)
[2019-11-25] MEDS: LORATADINE 10 MG TAB PO SCH (09:20)
[2019-11-25] MEDS: THEOPHYLLINE 200 MG TABCR PO SCH (09:21)
[2019-11-25] MEDS: PANTOPRAZOLE SOD 40 MG TABEC PO SCH (09:21)
--- NOTE | 2019-11-25 10:00 | NUR ---
Patient is to transfer to room 208. Report given to LUTHER Hall.
--- NOTE | 2019-11-25 10:24 | NUR ---
Transported patient via wheelchair to room 208. All personal belongings are taken by spouse. Received by LUTHER Hall.
[2019-11-25 11:00] VITALS: BP 123/67
--- NOTE | 2019-11-25 11:24 | NUR ---
ARRIVED FROM 1ST FLOOR WITH AT BEDSIDE. IN [employer], STATES HE IS GOING HOME TODAY. AWAITING MD TO VISIT FOR D/C ORDERS.
[2019-11-25 12:09] VITALS: BP 116/76
[2019-11-25] MEDS ORDERED: CIPRO500 MG PO (14:50)
[2019-11-25] MEDS ORDERED: FLAGYL250 MG PO (14:52)
--- NOTE | 2019-11-26 06:32 | Discharge Summary ---
FINAL DISCHARGE DIAGNOSES: 1. Gallstone pancreatitis status post laparoscopic cholecystectomy. 2. Status post umbilical hernia repair. 3. Ileus-resolved. 4. Leukocytosis, presumed to be secondary to underlying antibiotics-the patient is afebrile, normotensive, tolerating diet well, ambulating, has no complaints. This is all likely secondary to be reactive and possibly underlying antibiotics. Also could be due to resolving inflammation of the pancreas. CONSULTANTS: Pulmonary, General Surgery, and GI. VITAL SIGNS: Temperature is 97.9, pulse 97, respiratory rate is 20, blood pressure 116/76, and pulse ox 98% on room air. LABORATORY DATA: Labs show white count is 15, hemoglobin 13, hematocrit 42, and platelets of 319. Sodium 138, potassium is 3.4, chloride 98, bicarb 27, anion gap is 10, BUN is 0.72, PT is 13.5, INR is 1. LFT shows a total bilirubin is 0.4, AST is 62, ALT is 55, and alk phos is 97. Troponins were negative. Lipase was 33. Urine cultures were found to be negative. Theophylline level was low. MICROBIOLOGY: Urine cultures were negative. IMAGING STUDIES: Gallbladder ultrasound shows intrahepatic biliary duct dilatation and dilated common bile duct concerning for distal biliary obstruction. Distended gallbladder with gallbladder wall thickening could be due to distal biliary obstruction and/or acute cholecystitis. There is evidence of gallstones. HIDA scan shows a filling of the gallbladder excludes the acute cystic duct obstruction or acute cholecystitis. The EF of 35% shows evidence of gallbladder dyskinesia. Chest x-ray shows bibasilar subsegmental atelectasis, left greater than right. MRCP shows markedly limited examination. Within those limitations, no significant choledocholithiasis. Mild diffuse dilatation of the common bile duct and mild intrahepatic biliary dilatation. There is some acute edematous pancreatitis. Abdominal x-ray shows nonspecific bowel gas pattern. HOSPITAL COURSE: This is a 69-year-old male, morbidly obese, who apparently came into the emergency room on 11/16/2019 with complaints of underlying abdominal pain, found to have concerns for acute cholecystitis and dilated common bile duct on imaging studies as well as pancreatitis in which was admitted in which GI and General surgery were consulted. As per General surgery, the patient underwent status post laparoscopic cholecystectomy after a HIDA scan showed biliary dyskinesia. The patient also underwent an umbilical hernia repair that was performed simultaneously during the operation of the cholecystectomy. GI was consulted as well and further imaging studies were performed. MRCP was performed shows concerns for underlying acute cholecystitis. There is also evidence of acute pancreatitis as well. The patient's white count was slightly elevated, and despite that continued to maintain at a plateau of a white count of 15 upon discharge. The patient was on antibiotics. The patient's white count despite being here several days, stayed, maintained at 15, but has been afebrile, normotensive, eating well, has no complaints. The patient was cleared for discharge by also Pulmonary including GI and General Surgery. There was no other workup needed by all the consultants. Postoperatively, the patient was doing well. He had no complaints. He was cleared for discharge by all consultants. I spoke with the patient at bedside including the with the nursing staff present. Since he is afebrile and has been afebrile for several days now, tolerating diet well, blood pressure is stable, all his electrolytes are stable and he is ambulating with no complications and also complains of no pain that his white count could be all reactive secondary to pancreatitis, possible also underlying antibiotics and since he is doing well and he is ready to be discharged, he can be discharged, but will need a repeat CBC in the next 2-3 days. I will go ahead and just discharge him on some underlying antibiotics as well in which he will follow up with his PCP in 2-3 days, Dr. Kuhn. I did discuss this with him very thoroughly despite that he did not want to stay any longer and he was cleared with me that he wanted to be discharged as well as his and they seem to be very reliable in which they will follow up and I told them in the event if there is any fever or any symptoms, please come back to the ER for further evaluation. He stated that he is fine and he is okay to be discharged and he has been cleared by the consultants and he wants to go home. I educated him. He will be discharged since he has been cleared by the consultants. On the day of discharge, vital signs were stable, labs reviewed and stable. The patient was seen, evaluated, examined thoroughly on the day of discharge. No other complaints. The patient verbalized understanding and agrees to plan of care to follow up accordingly as an outpatient with primary care physician in 2-3 days. Repeat CBC as well as the consultants in the next 1 week time. MEDICATIONS: See med reconciliation form. DISPOSITION: Home. CONDITION: Stable. DIET: Heart healthy. In the event of any worsening symptoms, the patient was advised to come back to the ED for further evaluation. Discharge summary took greater than 35 minutes. Once again, the patient was eager to being discharged. He has been cleared for discharge by all consultants. I tried to convince him that he may need to stay another day to monitor white count, but he has been afebrile, doing well and his white count has been pretty consistent while he is here in the hospital. Despite that he does not want to stay. His does not want to stay and they seem to be very responsible in which I will discharge him with oral antibiotics and he will follow up with the PCP in 2-3 days for repeat CBC. Nurse was present throughout the entire conversation, Isabel, during this whole entire conversation. He verbalized understanding as well as the and understands recommendations. MD AMANDA Gomez/SACHIN /[id number]
== END 2019-11-25 15:03 | disposition home or self-care (01) | DRG 418 ==
LOC: ER 19:56 → ERHOLD 23:32 → MED/SURG 11-16 00:47 → MED/SURG2 11-25 10:27
PROVIDERS: ADMIT Internal Medicine; ATTEND Internal Medicine
PROC: 0FT44ZZ Resection of Gallbladder, Percutaneous Endoscopic Approach (ICD-10-PCS; principal; 2019-11-19 12:30)
PROC: 0WQF4ZZ Repair Abdominal Wall, Percutaneous Endoscopic Approach (ICD-10-PCS; 2019-11-19 12:30)
DX: K85.10 Biliary acute pancreatitis without necrosis or infection (principal); K80.12 Calculus of gallbladder with acute and chronic cholecystitis without obstruction; K56.7 Ileus, unspecified; K42.9 Umbilical hernia without obstruction or gangrene; D72.828 Other elevated white blood cell count; T36.95XA Adverse effect of unspecified systemic antibiotic, initial encounter; E78.5 Hyperlipidemia, unspecified; Z99.81 Dependence on supplemental oxygen; J43.9 Emphysema, unspecified; K82.8 Other specified diseases of gallbladder
CPT/HCPCS: 36415; 36600; 71045; 74018; 74181; 76705; 78227; 80048; 80053; 80076; 80198; 81001; 82150; 82550; 82553; 82805; 82948; 83690; 83735; 84100; 84484; 85007; 85025; 85027; 85610; 87086; 88304; 93005; 94640; 94664; 96374; 97139; 99284; A9537; J1100; J1170; J1644; J1940; J2001; J2060; J2250; J2405; J2543; J3010; J3475; J7030; J7050

== ENCOUNTER 2019-11-27 07:13 | Inpatient (IN) | payer MEDICARE ==
[2019-11-27] VITALS (17 sets, daily range): BP systolic 106–146; BP diastolic 65–85
[~2019-11-27] VITALS: Ht 170.2 cm; Wt 94.8 kg
[~2019-11-27 07:13] MED LIST changes: +ASPIRIN325 MG PO; +CIPRO500 MG PO; +FLAGYL250 MG PO; +IPRAT-ALBUT 0.5-3 ML INH; +NASAL SPRAY30 M1 NS
[2019-11-27] MEDS ORDERED: SODIUM CHLORIDE 0.9% 1000ML 1,000 ML IV STA (07:27)
[2019-11-27] MEDS ORDERED: ACETAMINOPHEN 325 MG TAB PO ONE (07:30)
[2019-11-27] MEDS ORDERED: CEFEPIME 2 GM/NS 0.9% 100 ML 100 ML IV SCH (07:45)
--- NOTE | 2019-11-27 07:48 | Diagnostic Imaging Report ---
EXAMINATION: CHEST SINGLE (PORTABLE) INDICATION: Fever and cough. Shortness of breath. COMPARISON: 11/16/2019 FINDINGS: TUBES and LINES: None. LUNGS: Increasing patchy density in the left lung base may reflect developing pneumonia. PLEURA: No pleural effusion or pneumothorax. HEART AND MEDIASTINUM: The cardiomediastinal silhouette is unremarkable. BONES AND SOFT TISSUES: No acute osseous lesion. Soft tissues are unremarkable. UPPER ABDOMEN: Hyperlucency in the left lung base/hemithorax nonspecific. IMPRESSION: Increasing patchy density in the left lung base may reflect developing pneumonia in this clinical setting. Signed by: Dr. Yolanda Hidalgo M.D. on 11/27/2019 7:46 AM
[2019-11-27 07:50] LABS: BASOPHILS # (AUTO) 0.1 (0.0-0.1); BASOPHILS % 0.3 % (0.0-1.0); HEMATOCRIT 42.9 % (38.2-49.6); HEMOGLOBIN 13.9 g/dL (14.0-18.0); LYMPHOCYTES # (AUTO) 0.3 (1.0-3.2); LYMPHOCYTES % 1.4 % (18.0-39.1); MEAN CORPUSCULAR HEMOGLOBIN 28.3 pg (28-32); MEAN CORPUSCULAR HGB CONC 32.4 g/dL (31-35); MEAN CORPUSCULAR VOLUME 87.4 fL (81-99); MONOCYTES % 4.2 % (4.4-11.3); NEUTROPHILS # (AUTO) 21.5 (2.1-6.9); NEUTROPHILS % 91.8 % (38.7-80.0); PLATELET COUNT 362 x10e3/uL (140-360); RED BLOOD COUNT 4.91 x10e6/uL (4.3-5.7); RED CELL DISTRIBUTION WIDTH 13.4 % (11.7-14.4)
[2019-11-27] MEDS ORDERED: IBUPROFEN 800MG/ 200ML 200 ML IV ONE (08:00)
[2019-11-27 08:02] LABS: INR 1.07; PROTHROMBIN TIME 14.2 seconds (11.9-14.5)
[2019-11-27 08:03] LABS: PARTIAL THROMBOPLASTIN TIME 29.7 seconds (23.8-35.5)
[2019-11-27 08:12] LABS: ALANINE AMINOTRANSFERASE 62 IU/L (0-55); ALBUMIN 2.6 g/dL (3.5-5.0); ALBUMIN/GLOBULIN RATIO 0.6 (0.8-2.0); ALKALINE PHOSPHATASE 84 IU/L (40-150); AMYLASE 50 U/L (25-125); ANION GAP 17.8 mmol/L (8-16); BLOOD UREA NITROGEN 11 mg/dL (7-26); BUN/CREATININE RATIO 10 (6-25); CALCIUM 8.9 mg/dL (8.4-10.2); CARBON DIOXIDE 22 mmol/L (22-29); CHLORIDE 101 mmol/L (98-107); CREATINE KINASE 175 IU/L (30-200); CREATININE, SERUM 1.09 mg/dL (0.72-1.25); EST GLOMERULAR FILTRATION RATE > 60 ML/MIN (60-); GLUCOSE 136 mg/dL (74-118); LIPASE 43 U/L (8-78); MAGNESIUM 1.7 MG/DL (1.3-2.1); POTASSIUM 3.8 mmol/L (3.5-5.1); SODIUM 137 mmol/L (136-145)
[2019-11-27] MEDS ORDERED: LEVALBUTEROL HCL SOLN NEBU 1.25 MG/3 ML NEB INH ONE (08:15)
[2019-11-27] MEDS ORDERED: DEXAMETHASONE SOD PHOS 10 MG/1 ML VIAL INH ONE (08:15)
[2019-11-27] MEDS ORDERED: LEVOFLOXACIN 750MG/D5W 150ML 150 ML IV SCH (08:30)
[2019-11-27] MEDS ORDERED: IPRATROPIUM BROMIDE 0.02% 2.5 ML NEB NEB SCH (08:30)
[2019-11-27] MEDS ORDERED: ACETAMINOPHEN 325 MG TAB PO PRN (08:30)
[2019-11-27 08:43] LABS: STREPTOCOCCUS GRP A ANTIGEN NEGATIVE (NEGATIVE)
[2019-11-27 08:52] LABS: LYMPHOCYTES % (MANUAL) 2 % (19-48); MONOCYTES % (MANUAL) 6 % (3.4-9.0); NEUTROPHILS % (MANUAL) 92 % (40-74); PLATELET ESTIMATE ADEQUATE; PLATELET MORPHOLOGY COMMENT NORMAL; RBC MORPHOLOGY COMMENT NORMAL
[2019-11-27 08:55] LABS: INFLUENZAE A&B ANTIGEN (RAPID) POSITIVE FLU A (NEGATIVE)
[2019-11-27] MEDS ORDERED: VANCOMYCIN 1GM/NS 250 ML 250 ML IV SCH (09:00)
[2019-11-27] MEDS ORDERED: IPRATROPIUM BROMIDE 0.02% 2.5 ML NEB NEB ONE (09:00)
[2019-11-27] MEDS ORDERED: DEXAMETHASONE SOD PHOS 10 MG/1 ML VIAL IV ONE (09:00)
[2019-11-27] MEDS: OSELTAMIVIR PHOSPHATE 75 MG CAP PO SCH ×2 (09:41→17:26)
[2019-11-27 09:43] LABS: ABG PCO2 33 mmHg (41-51); ABG PH 7.48 (7.31-7.41)
[2019-11-27 09:44] LABS: ABG HCO3 24 mmol/L (23-28); ABG PO2 83 mmHg (80-105)
--- NOTE | 2019-11-27 10:37 | Diagnostic Imaging Report ---
CT of the chest, abdomen, and pelvis, with contrast, 11/27/2019. History: Shortness of breath, fever, cough, abdominal distention. Abnormal chest x-ray. Comparison: Chest x-ray from earlier today. CT chest 06/26/2019. Technique: Technique: Multidetector CT scanning of the chest, abdomen, and pelvis was performed from the level of the lung apices to the inferior pubic rami after intravenous administration of contrast. No oral contrast was given. Coronal and sagittal multiplanar reformations were obtained. RADIATION DOSE: Total DLP: 1294 mGy*cm Dose modulation, iterative reconstruction, and/or weight based adjustment of the mA/kV was utilized to reduce the radiation dose to as low as reasonably achievable. Discussion: CHEST: The atria, ventricles, aorta, and main pulmonary artery are normal in size. There is calcification of the coronary arteries. The thyroid is unremarkable. There is no evidence of axillary or mediastinal adenopathy. There is patchy consolidation in the posterior and medial aspect of the left lower lobe. Linear opacities are present in the lingula, right middle lobe, and right lower lobe. There is no pleural effusion. ABDOMEN: There is diffuse ill-defined peripancreatic fat stranding and fluid. There is normal enhancement of the pancreas. Cholecystectomy clips are present. There is no biliary or pancreatic ductal dilatation. A simple benign 2.6 cm left renal cyst is present. Additional 4 to 6 mm cortical hypodensities are noted in both kidneys which are too small to characterize. A 4 mm stone is present in the lower pole of the left kidney. There is no evidence of hydronephrosis. The liver, biliary tree, spleen, and adrenal glands are normal. The hepatic vein, portal vein, and splenic vein are patent. The abdominal aorta is calcified but within normal limits for size. Evaluation of bowel is limited without oral contrast. There is no bowel dilatation. Multiple colonic diverticuli are present without evidence of adjacent inflammation. There is no evidence of adenopathy or free fluid. PELVIS: The bladder, prostate, and seminal vesicles are normal in appearance. There is no evidence of free fluid or adenopathy. BONES AND SOFT TISSUES: Degenerative changes are present throughout the lumbar spine without evidence of lytic or sclerotic lesion. IMPRESSION: 1. Left lower lobe patchy consolidation consistent with pneumonia. 2. Findings consistent with acute pancreatitis without evidence of pancreatic necrosis or pseudocyst. Correlate with laboratory values. 3. Simple benign left renal cyst with additional subcentimeter hypodensities which are too small to characterize. A 4 mm nonobstructing left renal calculus is also noted. 4. Colonic diverticulosis without evidence of diverticulitis. Signed by: Will Francois on 11/27/2019 10:34 AM
[2019-11-27] MEDS: SODIUM CHLORIDE 0.9% 1000ML 1,000 ML IV SCH ×2 (10:39→22:31)
[2019-11-27] MEDS: ALBUTEROL/IPRATROPIUM 3 ML NEB NEB SCH ×4 (11:00→23:00)
[2019-11-27] MEDS ORDERED: IOPAMIDOL 370 MG/ML 200 ML INFUS..BTL INJ ONE (11:01)
[2019-11-27] MEDS ORDERED: SODIUM CHLORIDE 0.9% 50ML 50 ML ONE (11:01)
[2019-11-27] MEDS: HYDROCODONE/APAP 10MG-325MG TAB PO PRN ×2 (15:18→22:04)
[2019-11-27 15:19] LABS: CLARITY,URINE CLEAR (CLEAR); COLOR,URINE YELLOW (YELLOW); LEUKOCYTE ESTERASE ,URINE NEGATIVE (NEGATIVE); NITRITE,URINE NEGATIVE (NEGATIVE)
[2019-11-27 15:20] LABS: BILIRUBIN,URINE NEGATIVE (NEGATIVE); KETONES,URINE 1+ (NEGATIVE); PROTEIN,URINE DIPSTICK NEGATIVE (NEGATIVE); URINE UROBILINOGEN 0.2 mg/dL (0.2 - 1)
--- NOTE | 2019-11-27 15:23 | NUR ---
CASSANDRA REMOVED FROM ABDOMEN AT THIS TIME STERI STRIP APPLIED. PT TOLERATED WELL
[2019-11-27 15:34] LABS: EPITHELIAL CELLS,URINE RARE /LPF; RBC,URINE 0-5 /HPF (0-5)
[2019-11-27 17:19] LABS: CREATINE KINASE MB 8.2 ng/mL (0-5.0)
[2019-11-27] MEDS: METHYLPREDNISOLONE SOD SUCC 40 MG/ML VIAL 1ML IV SCH ×2 (17:26→22:12)
[2019-11-27] MEDS: MEROPENEM 1GM 100 ML IV SCH ×2 (17:26→23:44)
--- NOTE | 2019-11-27 19:00 | NUR ---
Report received. Assumed care. Assessment done. See interventions. O2 per NC @ 3L. Awaiting PICC line insertion.
--- NOTE | 2019-11-27 21:11 | Consultation ---
DATE OF CONSULTATION: 11/27/2019 HISTORY OF PRESENT ILLNESS: The patient is a 69-year-old male known to me. He was admitted to the hospital with pancreatitis. About two weeks ago, he underwent laparoscopic cholecystectomy, repair of umbilical hernia eight days ago. He was discharged in the hospital recently, but apparently was developed fever with generalized weakness and cough. He came back to the emergency room. CT of the abdomen and pelvis was done, which revealed some mild residual inflammation around the pancreas, but findings of a left lower lobe infiltrate suggestive of pneumonia. The patient has no complaints of abdominal pain at this time. No nausea or vomiting. PAST MEDICAL HISTORY: Significant for chronic obstructive pulmonary disease, hypertension. MEDICATIONS: Listed in the chart. SURGERIES: As above. ALLERGIES: HE HAS ALLERGY TO LATEX. FAMILY HISTORY: Noncontributory. SOCIAL HISTORY: The patient is a former cigarette smoker does not smoke now. Does not drink alcohol. REVIEW OF SYSTEMS: As above, otherwise was negative. He denies any chest pain or abdominal pain. PHYSICAL EXAMINATION: GENERAL: The patient is awake and alert. VITAL SIGNS: At this time are normal. Temperature 102 on arrival. HEENT: Sclerae is not icteric. NECK: No masses. LUNGS: Decreased breath sounds at the bases bilaterally. CARDIAC: Regular rate and rhythm. ABDOMEN: Soft. There is slight distention. Surgical wounds are clean. There is no tenderness, no mass. EXTREMITIES: No edema. NEUROLOGIC: Grossly intact. ASSESSMENT: A 69-year-old male with findings suggestive of pneumonia seems to be healing adequately from surgery with no signs of a significant intraabdominal process. There are some inflammatory changes seen on CT of the abdomen around the pancreas. This is likely some residual inflammation from the pancreatitis that he had on arrival. There is no signs of a pancreatic necrosis or abscess or pseudocyst development. I think the patient is started on liquid diet. Recommend continue the patient on antibiotics. There are no findings that would warrant surgical intervention at this time. Thank you for asking me to see Mr. Marquez. MD DINH Gamez/SACHIN /[id number]
--- NOTE | 2019-11-27 22:05 | NUR ---
medicated for c/o pain.
--- NOTE | 2019-11-27 22:19 | Diagnostic Imaging Report ---
EXAMINATION: CHEST SINGLE (PORTABLE) INDICATION: PICC placement. COMPARISON: 11/27/2019. FINDINGS: TUBES and LINES: Interval placement of a right upper extremity PICC with distal tip projected on the SVC proximal to the cavoatrial junction, which is an adequate position. LUNGS: Patchy density in the left lung base again observed. PLEURA: No pleural effusion or pneumothorax. HEART AND MEDIASTINUM: The cardiomediastinal silhouette is unremarkable. BONES AND SOFT TISSUES: No acute osseous lesion. Soft tissues are unremarkable. UPPER ABDOMEN: Hyperlucency in the left lung base/hemithorax nonspecific. IMPRESSION: Interval placement of a right upper extremity PICC with distal tip projected on the SVC proximal to the cavoatrial junction, which is an adequate position. Left basilar patchy consolidation again observed. Signed by: Dr. Yolanda Hidalgo M.D. on 11/27/2019 10:17 PM
--- NOTE | 2019-11-27 22:22 | History and Physical ---
PRIMARY CARE PHYSICIAN: Jose Alberto Kuhn MD CONSULTING PHYSICIANS: 1. Huy Camacho MD. 2. Huy Koenig MD. 3. Alisha Chavis MD. CHIEF COMPLAINT: Respiratory insufficiency, coughing, high fever, influenza A, left lower lobe consolidation. HISTORY OF PRESENT ILLNESS: The patient is a 69-year-old male, recently discharged from the hospital after he has gallstone pancreatitis and subsequent laparoscopic cholecystectomy. The patient also has status post umbilical hernia repair. He was discharged home on November 25, 2019. The patient was seen yesterday on November 26, 2019 on followup visit. He was doing well, breathing much better. The patient has some loose stool, but nothing major. The patient now came into the hospital with high-grade fever, influenza A positive, and then CT scan of the chest showing that the patient had left lower lobe consolidation. The patient is stable. He is in the ICU now. IV antibiotic initiated. The patient is admitted for healthcare-acquired pneumonia, recent hospitalization, and an influenza A positive as well. The patient is given nebulizer treatment and antibiotics and some IV fluids. He is feeling slightly better. His abdomen is much soft compared to previously prior to his discharge from the hospital. PAST MEDICAL HISTORY: Status post ileus. Status post laparoscopic cholecystectomy and status post umbilical hernia repair. Leukocytosis previously resolved. COPD with oxygen dependency. SOCIAL HISTORY: The patient was a smoker. He quit. He does not drink alcohol. No regular drugs. ALLERGIES: LATEX. HOME MEDICATIONS: List is reviewed. REVIEW OF SYSTEMS: Cough, fever, shortness of breath even with oxygen support. PHYSICAL EXAMINATION: VITAL SIGNS: Temperature is 101, blood pressure 126/64, pulse rate is 138, respirations 22. GENERAL: The patient is not in acute distress. HEENT: Normocephalic and atraumatic. Sclerae anicteric. NECK: Supple grossly. PULMONARY: Diminished breath sounds bilaterally without any courses, but there is some wheezing and fine rhonchi. No rales at the bases. CARDIOVASCULAR: S1 and S2. Tachycardia. ABDOMEN: Softer than previously. No rebound tenderness. No guarding. EXTREMITIES: No cyanosis or edema. NEUROLOGIC: No gross focal deficit. LABORATORY DATA: WBC 23.4, hemoglobin 13.9, hematocrit is 42.9, and platelets 362. Urinalysis unremarkable. Chemistry; sodium 137, potassium 3.8, chloride 101, bicarb 22. BUN is 11, creatinine 1.1, glucose is 136. Strep A screen negative. Influenza A positive. Coagulation 1.07, INR. IMAGING TESTS: Abdominal and pelvic CT and chest CT showed left lower lobe consolidation. There was some inflammatory pancreas, secondary to previous pancreatitis, but no cyst or complication. IMPRESSION: 1. Healthcare-acquired pneumonia associated with fever and leukocytosis, much elevation compared to previously. 2. Influenza A. 3. Respiratory insufficiency, secondary to above, improving. 4. Recent laparoscopic cholecystectomy, umbilical hernia repair. 5. Baseline chronic obstructive pulmonary disease with mild acute exacerbation due to pneumonia and influenza. 6. Baseline oxygen dependency and mildly obese. 7. Medical debility. PLAN: Consultation with Dr. Chavis, Dr. Sheikh, and Dr. Camacho for surgical followup. Continue to monitor the patient closely. Repeated lab work. Pain control. Nebulizer treatment. Meropenem, antibiotics. Tamiflu influenza treatment. Oxygen support. Incentive spirometry. PT, OT starting tomorrow. Check the patient's blood culture. We will monitor the patient closely. MD CLIFF Perdue/ANNETTEL /[id number]
[2019-11-28] VITALS (23 sets, daily range): BP systolic 117–158; BP diastolic 76–99
--- NOTE | 2019-11-28 01:37 | Consultation ---
DATE OF CONSULTATION: Pulmonary Consultation REASON FOR CONSULT: Shortness of breath. HISTORY OF PRESENT ILLNESS: Mr. Marquez is a 69-year-old male was discharged from the hospital on November 25, came in because of worsening shortness of breath. He has severe COPD and uses home oxygen. He denies any complaints of chest pain, nausea, vomiting. His CT of the chest showed left lower lobe consolidation with pneumonia. He developed hospital-acquired pneumonia. The patient also was tested positive for influenza. IV antibiotics, the patient was started on meropenem and he received a dose of vancomycin. He denies any complaints of chest pain, nausea, vomiting. His breathing has improved. He reports that he was extremely weak, lethargic, shortness of breath was getting worse on exertion, was not relieved by anything associated with cough. REVIEW OF SYSTEMS: GENERAL: Having fever, chills. HEAD: Denies any head trauma. ENT: Denies any earaches. CVS: Denies any chest pain. RESPIRATORY: Shortness of breath. GI: Denies any nausea or vomiting. The rest of the review of systems are negative except as in HPI. PAST MEDICAL HISTORY: COPD. FAMILY AND SOCIAL HISTORY: He is an ex-smoker. Does not drink. PHYSICAL EXAMINATION: VITAL SIGNS: Temperature 99, pulse of 102, blood pressure 133/73. CHEST: Decreased air entry bilaterally. HEART: S1, S2 audible. ABDOMEN: Soft. EXTREMITIES: No pedal edema. NEUROLOGIC: Awake, alert. No focal neurologic deficits. LABORATORY DATA: [place] [address] Chemistry [address] chest reviewed consistent with pneumonia. ASSESSMENT: Mr. Marquez was recently discharged after laparoscopic cholecystectomy. He has history of chronic obstructive pulmonary disease, came in with worsening shortness of breath. CT chest consistent with pneumonia. PLAN: Continue the patient on IV meropenem. Vancomycin two doses were given. We will resume vancomycin, low-dose IV steroids, oxygen as needed. The patient has developed healthcare associated pneumonia. Thank you for this consult. MD VALORIE Leonard/SACHIN /[id number]
[2019-11-28] MEDS: ALBUTEROL/IPRATROPIUM 3 ML NEB NEB SCH ×6 (02:30→23:30)
[2019-11-28] MEDS: HYDROCODONE/APAP 10MG-325MG TAB PO PRN ×2 (04:07→21:04)
--- NOTE | 2019-11-28 04:07 | NUR ---
Medicated for c/o pain.
[2019-11-28] MEDS: METHYLPREDNISOLONE SOD SUCC 40 MG/ML VIAL 1ML IV SCH ×3 (05:42→21:04)
[2019-11-28 06:01] LABS: BASOPHILS % 0.1 % (0.0-1.0); HEMATOCRIT 38.4 % (38.2-49.6); HEMOGLOBIN 12.2 g/dL (14.0-18.0); LYMPHOCYTES # (AUTO) 0.3 (1.0-3.2); LYMPHOCYTES % 2.1 % (18.0-39.1); MEAN CORPUSCULAR HEMOGLOBIN 27.9 pg (28-32); MEAN CORPUSCULAR HGB CONC 31.8 g/dL (31-35); MEAN CORPUSCULAR VOLUME 87.9 fL (81-99); MONOCYTES # (AUTO) 0.4 (0.2-0.8); MONOCYTES % 2.6 % (4.4-11.3); NEUTROPHILS # (AUTO) 13.1 (2.1-6.9); NEUTROPHILS % 93.2 % (38.7-80.0); PLATELET COUNT 319 x10e3/uL (140-360); RED BLOOD COUNT 4.37 x10e6/uL (4.3-5.7); RED CELL DISTRIBUTION WIDTH 13.2 % (11.7-14.4)
--- NOTE | 2019-11-28 06:10 | Diagnostic Imaging Report ---
EXAMINATION: CHEST SINGLE (PORTABLE) INDICATION: Fever, cough. Pneumonia. COMPARISON: 11/27/2019. FINDINGS: TUBES and LINES: Right upper extremity PICC with distal tip projected on the SVC proximal to the cavoatrial junction, which is an adequate position. LUNGS: Patchy density in the left lung base again observed. PLEURA: No pleural effusion or pneumothorax. HEART AND MEDIASTINUM: The cardiomediastinal silhouette is unremarkable. Mild prominence of the pulmonary hilum bilaterally suggestive of enlarged pulmonary arteries. BONES AND SOFT TISSUES: No acute osseous lesion. Soft tissues are unremarkable. UPPER ABDOMEN: Unremarkable. IMPRESSION: No significant interval change. Patchy density in the left lung base. Signed by: Dr. Yolanda Hidalgo M.D. on 11/28/2019 6:07 AM
[2019-11-28 06:20] LABS: ALANINE AMINOTRANSFERASE 54 IU/L (0-55); ALBUMIN 2.2 g/dL (3.5-5.0); ALBUMIN/GLOBULIN RATIO 0.6 (0.8-2.0); ALKALINE PHOSPHATASE 68 IU/L (40-150); ANION GAP 14.8 mmol/L (8-16); BLOOD UREA NITROGEN 15 mg/dL (7-26); BUN/CREATININE RATIO 20 (6-25); CALCIUM 8.5 mg/dL (8.4-10.2); CARBON DIOXIDE 22 mmol/L (22-29); CHLORIDE 107 mmol/L (98-107); CREATININE, SERUM 0.76 mg/dL (0.72-1.25); EST GLOMERULAR FILTRATION RATE > 60 ML/MIN (60-); GLUCOSE 157 mg/dL (74-118); POTASSIUM 3.8 mmol/L (3.5-5.1); SODIUM 140 mmol/L (136-145)
[2019-11-28 07:52] LABS: CREATINE KINASE MB 7.5 ng/mL (0-5.0)
[2019-11-28] MEDS: MEROPENEM 1GM 100 ML IV SCH ×2 (08:00→16:00)
[2019-11-28] MEDS: OSELTAMIVIR PHOSPHATE 75 MG CAP PO SCH ×2 (09:00→17:00)
[2019-11-28] MEDS ORDERED: DILTIAZEM HCL 180 MG CAP ER PO ONE (12:32)
[2019-11-28] MEDS: DILTIAZEM HCL 180 MG CAP ER PO SCH (12:35)
[2019-11-28] MEDS: ENOXAPARIN SOD INJ 40 MG/0.4 ML SYR SC SCH (17:00)
--- NOTE | 2019-11-28 19:26 | Consultation ---
DATE OF CONSULTATION: REASON FOR CONSULTATION: Influenza, pneumonia; recommendation antibiotic. HISTORY OF PRESENT ILLNESS: Unfortunately, the computer systems are down. The patient was seen and examined. The patient is currently in the intensive care unit. The patient is lying in bed comfortably. The patient tells me he has been sick for a few days when he came here with shortness of breath, fever, chills, not feeling well, generalized aches and pain. Earlier, he saw his physician, who gave him some oral antibiotic as an outpatient without any improvement. The patient was admitted and started on antibiotic. I am asked to see him. He is currently lying in bed comfortably. PAST MEDICAL HISTORY: As above. PAST SURGICAL HISTORY: As above. ALLERGIES: NKA. SOCIAL HISTORY: There is no smoking, drug abuse, or alcohol abuse. FAMILY HISTORY: Otherwise unremarkable. REVIEW OF SYSTEMS: HEENT: Negative. PULMONARY: Negative. CARDIAC: Negative. : Negative. SKIN: There is no other rash. The patient's laboratory data reviewed, chart reviewed in the chart. Please refer to the note in the chart. Also, refer to what was available to me. PHYSICAL EXAMINATION: GENERAL: He is currently alert and oriented. Does not seem to be in acute distress. VITAL SIGNS: Stable, currently afebrile. HEENT: He is not icteric. NECK: Supple. CHEST: Clear. HEART: S1 and S2. No S3, S4, or murmur. ABDOMEN: Soft. Bowel sounds present. No tenderness. EXTREMITIES: No edema. SKIN: No rash. IMPRESSION: Influenza. Recommend Tamiflu 75 mg p.o. b.i.d. for at least 7 days. Concerned about superimposed bacterial infection. Recommend Rocephin and azithromycin. Recheck chest x-ray. Check CBC and check chem panel. We will follow with you. Discussed with medical team. Discussed with the patient at length. Discussed with the primary care. MD VIOLETTA Cho/SACHIN /[id number]
[2019-11-29] VITALS (16 sets, daily range): BP systolic 112–152; BP diastolic 62–99
[2019-11-29] MEDS: MEROPENEM 1GM 100 ML IV SCH ×4 (00:06→23:46)
[2019-11-29] MEDS: HYDROCODONE/APAP 10MG-325MG TAB PO PRN ×3 (02:47→20:40)
[2019-11-29] MEDS: ALBUTEROL/IPRATROPIUM 3 ML NEB NEB SCH ×6 (03:18→23:25)
[2019-11-29] MEDS: METHYLPREDNISOLONE SOD SUCC 40 MG/ML VIAL 1ML IV SCH (05:20)
[2019-11-29] MEDS: DILTIAZEM HCL 180 MG CAP ER PO SCH (08:19)
[2019-11-29] MEDS: OSELTAMIVIR PHOSPHATE 75 MG CAP PO SCH ×2 (08:19→17:22)
--- NOTE | 2019-11-29 09:02 | NUR ---
PATIENT SITTING TO EDGE OF BED FOR BREAKFAST INDEPENDENTLY.
--- NOTE | 2019-11-29 09:33 | NUR ---
PATIENT AMBULATED TO BATHROOM WITH WALKER INDEPENDENTLY
[2019-11-29] MEDS: BUDESONIDE/FORMOTEROL 160/4.5MCG INHALER INH SCH ×2 (11:38→18:45)
[2019-11-29] MEDS: VANCOMYCIN 1GM/NS 250 ML 250 ML IV SCH (12:32)
[2019-11-29] MEDS: ENOXAPARIN SOD INJ 40 MG/0.4 ML SYR SC SCH (17:22)
--- NOTE | 2019-11-29 18:36 | Consultation ---
DATE OF CONSULTATION: ADDENDUM: Mr. Marquez, who was seen on November 28 for shortness of breath and cough and pneumonia. He is a very pleasant 69-year-old. He was recently in the hospital and discharged. He comes in with shortness of breath and cough. He does have underlying history of COPD. He was diagnosed with pneumonia. The patient was diagnosed with influenza. When I saw him, the computer system was down. The patient recently underwent laparoscopic cholecystectomy. He has history of COPD, history of cholecystitis. The patient with no shortness of breath. When I saw him, he said he is feeling better, but the review of system continued to have shortness of breath and cough and some back pain. PAST MEDICAL HISTORY: 1. Cholecystitis. 2. COPD. 3. Respiratory insufficiency. 4. Pneumonia. 5. Status post recent laparoscopic cholecystectomy. 6. Hernia repair. 7. Obesity. 8. Debility. PAST SURGICAL HISTORY: As above. ALLERGIES: NKA. SOCIAL HISTORY: There is no smoking, drug abuse, or alcohol abuse. FAMILY HISTORY: Noncontributory. REVIEW OF SYSTEMS: At present time, he has shortness of breath and cough. IMPRESSION: 1. Healthcare-associated pneumonia. He is currently on meropenem. We will add Vanco. 2. Pancreatitis, continue with meropenem. 3. Influenza, continue with Tamiflu as ordered. 4. Debility. 5. History of chronic obstructive pulmonary disease. 6. Recheck CBC and recheck Chem panel. 7. We will follow with you. MD VIOLETTA Cho/SACHIN /[id number]
--- NOTE | 2019-11-29 19:29 | NUR ---
walking rounds complete, pt stable at this time.
[2019-11-29] MEDS ORDERED: SODIUM CHLORIDE 0.9% 250ML 250 ML ONE (23:52)
[2019-11-30] VITALS (9 sets, daily range): BP systolic 126–148; BP diastolic 72–86
[2019-11-30] MEDS: VANCOMYCIN 1GM/NS 250 ML 250 ML IV SCH ×2 (00:30→11:36)
[2019-11-30] MEDS: ALBUTEROL/IPRATROPIUM 3 ML NEB NEB SCH ×5 (02:40→19:55)
[2019-11-30] MEDS: HYDROCODONE/APAP 10MG-325MG TAB PO PRN ×3 (03:25→21:08)
[2019-11-30] MEDS: BUDESONIDE/FORMOTEROL 160/4.5MCG INHALER INH SCH ×2 (06:45→19:55)
--- NOTE | 2019-11-30 07:08 | NUR ---
Received bedside report from LUTHER Gray. Patient awake, sitting up in chair at bedside. Denies pain with no visible signs of distress or discomfort noted. Call light within reach.
[2019-11-30] MEDS: MEROPENEM 1GM 100 ML IV SCH ×3 (09:23→23:58)
[2019-11-30] MEDS: OSELTAMIVIR PHOSPHATE 75 MG CAP PO SCH ×2 (09:24→17:44)
[2019-11-30] MEDS: DILTIAZEM HCL 180 MG CAP ER PO SCH (09:24)
[2019-11-30] MEDS: FUROSEMIDE INJ 10 MG/ML 4 ML VIAL IV SCH (11:35)
[2019-11-30] MEDS: ENOXAPARIN SOD INJ 40 MG/0.4 ML SYR SC SCH (17:44)
--- NOTE | 2019-11-30 19:25 | NUR ---
SBAR REPORT RECEIVED FROM DAYSHIFT PT REMAINS ON DROPLET PRECAUTIONS, PATIENT SEEN SITTING IN CHAIR IN ROOM, ADVISED FROM RN THAT PATIENT COMPLETED TAMIFLU FULL DOSE AND POSSIBLE DISCONTINUATION OF ISOLATION PENDING MD ORDER, PATIENT MADE AWARE AT SHIFT REPORT, AOX3, NO DISTRESS NOTED, SKIN WARM DRY, NO DISTRESS NOTED, CALL LIGHT WITHIN REACH
[2019-12-01] VITALS (14 sets, daily range): BP systolic 110–159; BP diastolic 66–107
--- NOTE | 2019-12-01 00:13 | NUR ---
SCHEDULED IV ABX GIVEN VIA OVI PICC LINE TRIPLE LUMEN, ALL LUMENS FLUSH WELL, GOOD BLOOD RETURN, DRESSING C/D/I PATIENT DENIES PAIN AT SITE
--- NOTE | 2019-12-01 00:14 | NUR ---
IV ABT CONTINUED VIA MD ORDER VANCOMYCIN q12h, AND MERREM q8h, PATIENT TOLERATING WELL, NO REACTION NOTED
[2019-12-01] MEDS: VANCOMYCIN 1GM/NS 250 ML 250 ML IV SCH ×2 (00:45→12:17)
[2019-12-01] MEDS: ALBUTEROL/IPRATROPIUM 3 ML NEB NEB SCH ×7 (03:55→23:40)
--- NOTE | 2019-12-01 06:17 | NUR ---
LUIS MCINTYRE REPORTING TEMP 96.6, VITALS RETAKEN, TEMP 97.1, PATIENT REPORTS DRINKING WATER PRIOR TO VITALS, WILL CONTINUE TO MONITOR
[2019-12-01 06:39] LABS: BASOPHILS % 0.2 % (0.0-1.0); HEMATOCRIT 42.7 % (38.2-49.6); HEMOGLOBIN 13.4 g/dL (14.0-18.0); LYMPHOCYTES # (AUTO) 0.6 (1.0-3.2); LYMPHOCYTES % 4.4 % (18.0-39.1); MEAN CORPUSCULAR HEMOGLOBIN 28.2 pg (28-32); MEAN CORPUSCULAR HGB CONC 31.4 g/dL (31-35); MEAN CORPUSCULAR VOLUME 89.7 fL (81-99); MONOCYTES # (AUTO) 0.7 (0.2-0.8); MONOCYTES % 5.4 % (4.4-11.3); NEUTROPHILS # (AUTO) 11.4 (2.1-6.9); NEUTROPHILS % 89.3 % (38.7-80.0); PLATELET COUNT 385 x10e3/uL (140-360); RED BLOOD COUNT 4.76 x10e6/uL (4.3-5.7); RED CELL DISTRIBUTION WIDTH 13.2 % (11.7-14.4)
[2019-12-01] MEDS: BUDESONIDE/FORMOTEROL 160/4.5MCG INHALER INH SCH ×2 (07:00→19:55)
[2019-12-01 07:05] LABS: ANION GAP 14.2 mmol/L (8-16); BLOOD UREA NITROGEN 19 mg/dL (7-26); BUN/CREATININE RATIO 25 (6-25); CALCIUM 9.2 mg/dL (8.4-10.2); CARBON DIOXIDE 27 mmol/L (22-29); CHLORIDE 100 mmol/L (98-107); CREATININE, SERUM 0.75 mg/dL (0.72-1.25); EST GLOMERULAR FILTRATION RATE > 60 ML/MIN (60-); GLUCOSE 128 mg/dL (74-118); POTASSIUM 4.2 mmol/L (3.5-5.1); SODIUM 137 mmol/L (136-145)
--- NOTE | 2019-12-01 07:10 | NUR ---
BSSR GIVEN TO ONCOMING SHIFT RN, PATIENT IN BED, NO DISTRESS NOTED, SKIN WARM DRY CALL LIGHT WITHIN REACH, UPDATED WITH PATIENT PLAN OF CARE
--- NOTE | 2019-12-01 07:45 | NUR ---
Received patient, alert and responsive, no apparent distress at this time, call light within reach, bed alarms in place, will monitor.
[2019-12-01] MEDS: MEROPENEM 1GM 100 ML IV SCH ×3 (08:00→23:09)
[2019-12-01] MEDS: FUROSEMIDE INJ 10 MG/ML 4 ML VIAL IV SCH (09:20)
[2019-12-01] MEDS: DILTIAZEM HCL 180 MG CAP ER PO SCH (09:20)
[2019-12-01] MEDS: OSELTAMIVIR PHOSPHATE 75 MG CAP PO SCH ×2 (09:20→16:51)
--- NOTE | 2019-12-01 10:21 | NUR ---
Patient continues on O2 at 2.5 L NC, scattered wheezing bilaterally, no resp distress, OOB and ambulating, Picc in place, tolerated IV abx, no reaction, will monitor.
[2019-12-01] MEDS: HYDROCODONE/APAP 10MG-325MG TAB PO PRN (10:42)
[2019-12-01] MEDS ORDERED: INFLUENZA VIRUS VAC SPLIT INJ 0.5 ML SYR IM SCH (11:00)
--- NOTE | 2019-12-01 12:18 | NUR ---
Reported Vanco trough to MAO Michael and to continue same dose of vancomycin
[2019-12-01] MEDS: ENOXAPARIN SOD INJ 40 MG/0.4 ML SYR SC SCH (16:51)
--- NOTE | 2019-12-01 18:30 | NUR ---
Patient still presenting with some cough, bilateral wheezing, no resp distress, continues on O2 3L NC, afebrile, continues on abx, OOB and ambulating in the room, will monitor.
--- NOTE | 2019-12-01 23:21 | NUR ---
SEEN SLEEPING, DENIES PAIN AT THIS TIME, IV ABT GIVEN SCHEDULED
[2019-12-02] VITALS (13 sets, daily range): BP systolic 109–151; BP diastolic 69–89
[2019-12-02] MEDS: VANCOMYCIN 1GM/NS 250 ML 250 ML IV SCH ×2 (00:30→15:21)
[2019-12-02] MEDS: ALBUTEROL/IPRATROPIUM 3 ML NEB NEB SCH ×6 (03:45→23:35)
[2019-12-02] MEDS: HYDROCODONE/APAP 10MG-325MG TAB PO PRN ×3 (04:10→23:57)
[2019-12-02] MEDS: BUDESONIDE/FORMOTEROL 160/4.5MCG INHALER INH SCH ×2 (06:43→19:47)
--- NOTE | 2019-12-02 07:20 | NUR ---
bedside shift report received from shift boss RN. pt sitting up in bed, awake, alert, no signs of distress noted. pt has no complaints at this time.
[2019-12-02] MEDS: MEROPENEM 1GM 100 ML IV SCH ×3 (09:55→23:57)
[2019-12-02] MEDS: DILTIAZEM HCL 180 MG CAP ER PO SCH (09:56)
[2019-12-02] MEDS: FUROSEMIDE INJ 10 MG/ML 4 ML VIAL IV SCH (11:08)
--- NOTE | 2019-12-02 11:17 | NUR ---
ASSESSMENT: Spiritual concern Pt feels vulnerable concerning illness. Pt desires to return to "security" of home. Pt states illness has caused loss of strength. Intervention: Provided unhurried empathic listening. Facilitated illness review and review of resources. Provided prayer. Outcome: Will continue to follow as able. HONG SAVAGE Shirt Creaser Spiritual Care Department O: [phone]
[2019-12-02] MEDS: ENOXAPARIN SOD INJ 40 MG/0.4 ML SYR SC SCH (16:34)
--- NOTE | 2019-12-02 19:12 | NUR ---
BEDSIDE SHIFT REPORT GIVEN TO DONATO RN, PATIENT SEEN SITTING IN CHAIR, NO DISTRESS NOTED, REPORT PAIN LEVEL 3/10, TOLERABLE, NO PAIN MEDICATION NEEDED FOR CHRONIC BACK PAIN AT THIS TIME, SKIN WARM DRY, GAIT UNSTEADY, WALKER USED FOR AMBULATION, CALL LIGHT WITHIN REACH, PLAN OF CARE DISCUSSED WITH PATIENT
--- NOTE | 2019-12-02 19:15 | NUR ---
BSSR RECEIVED FROM LUTHER SEWELL, PATIENT SEEN SITTING IN CHAIR IN ROOM, AOX3, NO DISTRESS NOTED, REPORT PAIN LEVEL 6/10, PRN PAIN MEDICATION GIVEN BY LUTHER SEWELL, PATIENT INFORMED OF THE NEXT PRN DOSE AVAILABLE TIME, CALL LIGHT PLACED WITHIN REACH
[2019-12-03] VITALS (12 sets, daily range): BP systolic 100–143; BP diastolic 75–91
[2019-12-03] MEDS: ONDANSETRON HCL INJ 2MG/ML 2ML 2 MG/ML VIAL IV PRN
--- NOTE | 2019-12-03 00:05 | NUR ---
SCHEDULE IV ABT THERAPY GIVEN ORDERED VIA PICC, OVI PICC LINE PATENT, GOOD BLOOD RETURN NOTED, DRESSING C/D/I,
[2019-12-03] MEDS: ALBUTEROL/IPRATROPIUM 3 ML NEB NEB SCH ×6 (03:20→22:30)
[2019-12-03] MEDS: BUDESONIDE/FORMOTEROL 160/4.5MCG INHALER INH SCH ×2 (06:40→19:00)
[2019-12-03] MEDS: HYDROCODONE/APAP 10MG-325MG TAB PO PRN ×2 (10:37→19:40)
[2019-12-03] MEDS: MEROPENEM 1GM 100 ML IV SCH ×2 (10:38→17:29)
[2019-12-03] MEDS: DILTIAZEM HCL 180 MG CAP ER PO SCH (10:38)
[2019-12-03] MEDS: FUROSEMIDE INJ 10 MG/ML 4 ML VIAL IV SCH (11:49)
[2019-12-03 12:24] LABS: BASOPHILS % 0.1 % (0.0-1.0); EOSINOPHILS # (AUTO) 0.1 (0.0-0.4); EOSINOPHILS % 0.6 % (0.0-6.0); HEMATOCRIT 47.9 % (38.2-49.6); HEMOGLOBIN 15.3 g/dL (14.0-18.0); LYMPHOCYTES % 5.1 % (18.0-39.1); MEAN CORPUSCULAR HEMOGLOBIN 28.1 pg (28-32); MEAN CORPUSCULAR HGB CONC 31.9 g/dL (31-35); MEAN CORPUSCULAR VOLUME 88.1 fL (81-99); NEUTROPHILS # (AUTO) 17.2 (2.1-6.9); NEUTROPHILS % 88.4 % (38.7-80.0); PLATELET COUNT 425 x10e3/uL (140-360); RED BLOOD COUNT 5.44 x10e6/uL (4.3-5.7); RED CELL DISTRIBUTION WIDTH 13.1 % (11.7-14.4)
[2019-12-03] MEDS: VANCOMYCIN 1GM/NS 250 ML 250 ML IV SCH ×2 (13:54)
--- NOTE | 2019-12-03 13:55 | NUR ---
Nutrition Screen Note RD Recommendation for Physician: - Continue Cardiac diet Plan of Care: RD following, monitoring for tolerance and adequacy Nutrition reason for involvement: LOS Primary Diagnose(s): COPD exacerbation, PNA, Flu A PMH: COPD, cholecystectomy Ht: 67 in Wt: 198 lb BMI: 31 kg/m2 IBW: [address] Assessment: (12/03) 69 YOM admitted for COPD exacerbation, PNA, and Flu A. Pt seen today for LOS. 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 Noted fluctuating po intake since admit, pt reports taste changes 2/2 IV medications and flushes given. Pt declined all supplements offered, stated "this happens every time I come to the hospital." Pt with no questions or concerns at time of visit. Chart reviewed. Labs and meds reviewed. Will continue to monitor. Current Diet: Cardiac Malnutrition Evaluation (12/02/19) The patient does not meet criteria for a specified degree of malnutrition at this time. Will re-evaluate at follow-up as appropriate. Diet Education Needs Assessment: Diet education not indicated. Diet tolerance: tolerating po, however reports significant taste changes due to medication Nutrition Care Level: low Signed: Salud Escobar RD, LD, CNSC
--- NOTE | 2019-12-03 14:10 | Progress Note ---
DATE: SUBJECTIVE: Mr. Marquez is feeling better. He is still having some abdominal discomfort. There is no pain. His breathing is better. REVIEW OF SYSTEMS: Otherwise unremarkable. LABORATORY DATA: His white count last time was 12.74, down from 23. Cultures remain negative. PHYSICAL EXAMINATION: GENERAL: He is currently alert, oriented, does not seem to be in acute distress. VITAL SIGNS: Stable, currently afebrile. HEENT: Not icteric. NECK: Supple. No JVD. No lymphadenopathy. No thyromegaly. CHEST: Clear bilateral. HEART: S1, S2. No S3, S4, or murmur. ABDOMEN: Soft and distended. Bowel sounds present. No tenderness. EXTREMITIES: No edema. SKIN: No rash. IMPRESSION: 1. Influenza. Clinically, better treated to finish seven days of Tamiflu. 2. Superimposed bacterial pneumonia. Also, clinically seems to be doing better. 3. Pancreatitis, the plan is to check chest x-ray. Recheck CBC, continue IV antibiotic as ordered, low-fat diet. We will follow. MD VIOLETTA Cho/SACHIN /[id number]
[2019-12-03] MEDS: ENOXAPARIN SOD INJ 40 MG/0.4 ML SYR SC SCH (17:29)
--- NOTE | 2019-12-03 19:08 | NUR ---
Bedside shift report is complete with day nurse. Patient is resting on the chair by the bedside. Patient has complaint of indigestion. Will follow up with MD.
--- NOTE | 2019-12-03 19:53 | NUR ---
Patient is complaining of indigestion. MD paged, and voice message left on MD's phone awaiting call back from MD.
--- NOTE | 2019-12-03 19:56 | NUR ---
has returned call and given orders for maalox 30cc every 6 hours as needed for indigestion.
[2019-12-03] MEDS: MAGNESIUM/ALUMINUM/SIMETHICONE 30 ML UDC PO PRN (20:24)
--- NOTE | 2019-12-03 23:27 | NUR ---
Received report from nurse. Walking rounds completed.
[2019-12-04] VITALS (7 sets, daily range): BP systolic 129–153; BP diastolic 77–97
--- NOTE | 2019-12-04 00:30 | NUR ---
Report on this patient received from Yovani SLOAN. Care of this patient taken over at this time. patient received lying quietly in bed. no signs of pain/discomfort noted at this time. ivf continue to infuse without difficulty. ngt remains to liws with drk green secretions noted. hob elevated 40 degrees. respirations even and unlabored. close monitoring continues. bed alarm remains on for safety and call loving placed within reach.
[2019-12-04] MEDS: ALBUTEROL/IPRATROPIUM 3 ML NEB NEB SCH ×6 (02:30→23:00)
--- NOTE | 2019-12-04 04:36 | NUR ---
Patient sitting up in chair sleeping. C/O nausea and vomitting. Called Dr Kuhn received order for augusto. aware of patient condition. Continue monitor.
[2019-12-04] MEDS: ONDANSETRON HCL INJ 2MG/ML 2ML 2 MG/ML VIAL IV PRN ×2 (05:20)
[2019-12-04 05:24] LABS: BASOPHILS % 0.2 % (0.0-1.0); EOSINOPHILS # (AUTO) 0.1 (0.0-0.4); EOSINOPHILS % 0.5 % (0.0-6.0); HEMATOCRIT 48.5 % (38.2-49.6); HEMOGLOBIN 14.9 g/dL (14.0-18.0); LYMPHOCYTES # (AUTO) 0.7 (1.0-3.2); LYMPHOCYTES % 3.6 % (18.0-39.1); MEAN CORPUSCULAR HEMOGLOBIN 27.6 pg (28-32); MEAN CORPUSCULAR HGB CONC 30.7 g/dL (31-35); MONOCYTES # (AUTO) 1.1 (0.2-0.8); MONOCYTES % 5.6 % (4.4-11.3); NEUTROPHILS # (AUTO) 17.1 (2.1-6.9); NEUTROPHILS % 89.4 % (38.7-80.0); PLATELET COUNT 358 x10e3/uL (140-360); RED BLOOD COUNT 5.39 x10e6/uL (4.3-5.7); RED CELL DISTRIBUTION WIDTH 13.1 % (11.7-14.4)
--- NOTE | 2019-12-04 05:40 | NUR ---
Patient received zofran x2. He states that it last for short period of time but continue to have vomitting episodes. Called Dr hernandez to request other med.. Left message for MD to return call.
[2019-12-04 05:47] LABS: ANION GAP 21.1 mmol/L (8-16); BLOOD UREA NITROGEN 23 mg/dL (7-26); BUN/CREATININE RATIO 28 (6-25); CALCIUM 9.1 mg/dL (8.4-10.2); CARBON DIOXIDE 24 mmol/L (22-29); CHLORIDE 96 mmol/L (98-107); CREATININE, SERUM 0.82 mg/dL (0.72-1.25); EST GLOMERULAR FILTRATION RATE > 60 ML/MIN (60-); GLUCOSE 103 mg/dL (74-118); POTASSIUM 4.1 mmol/L (3.5-5.1); SODIUM 137 mmol/L (136-145)
[2019-12-04] MEDS: BUDESONIDE/FORMOTEROL 160/4.5MCG INHALER INH SCH ×2 (07:00→20:00)
--- NOTE | 2019-12-04 07:05 | NUR ---
RCD PT AT BED PT IS ALERT AND ORIENTED PT RESTING ON BED IV PATENT BY SALINE FLUSH FAMILY AT BED SIDE BED LOW AND LOCKED CALL LIGHT IN REACH
[2019-12-04] MEDS ORDERED: MAGNESIUM HYDROXIDE 30 ML UDC PO PRN (08:00)
[2019-12-04] MEDS: MEROPENEM 1GM 100 ML IV SCH ×3 (08:00→16:00)
--- NOTE | 2019-12-04 08:45 | NUR ---
AC TO RADIOLOGY NURSE PAGED AND TALKED DR VAUGHAN AND ASKED REGARDING IV CONTRAST FOR CT ABDOMEN HE SAID NO IV CONTRAST NOTIFIED RADIOLOGY
[2019-12-04] MEDS ORDERED: PANTOPRAZOLE 40 MG 10ML VIAL IV ONE (08:55)
[2019-12-04] MEDS: DILTIAZEM HCL 180 MG CAP ER PO SCH (09:00)
[2019-12-04] MEDS ORDERED: BISACODYL 10 MG SUPP PR ONE (09:00)
[2019-12-04] MEDS: PROMETHAZINE 12.5MG/ NACL 0.9% 12.5 MG/50 ML BAG IV PRN ×2 (09:10→19:49)
--- NOTE | 2019-12-04 09:39 | NUR ---
PT WENT TO PROCEDURE IN SAFE CONDITION
--- NOTE | 2019-12-04 10:18 | NUR ---
ASSESSMENT: Spiritual concern Pt not feeling well and unable to hold conversation. Pt's at bedside. Intervention: Provided prayer. Outcome: Pt & expressed appreciation for visit. Will follow as able. HONG SAVAGE Processing Technologist Spiritual Care Department O: [phone]
--- NOTE | 2019-12-04 11:03 | Diagnostic Imaging Report ---
EXAM: CT Abdomen and Pelvis WITHOUT contrast INDICATION: Nausea and vomiting COMPARISON: CT abdomen pelvis 11/27/2019 TECHNIQUE: Abdomen and pelvis were scanned utilizing a multidetector helical scanner from the lung base to the pubic symphysis without administration of IV contrast. Absence of intravenous contrast decreases sensitivity for detection of focal lesions and vascular pathology. Coronal and sagittal reformations were obtained. Routine protocol was performed. IV CONTRAST: None ORAL CONTRAST: None COMPLICATIONS: None RADIATION DOSE: Total DLP: 650 mGy*cm Estimated effective dose: (DLP x 0.015 x size factor) mSv CTDIvol has been reviewed. It is below the limits set by the Radiation Protocol Committee (RPC). Dose modulation, iterative reconstruction, and/or weight based adjustment of the mA/kV was utilized to reduce the radiation dose to as low as reasonably achievable. FINDINGS: LINES and TUBES: None. LOWER THORAX: Interval improvement in left lower lobe airspace disease. Only a small amount of patchy consolidation persists. Now visible is an 8 mm ill-defined nodular opacity within the left lower lobe (image 13). No pleural effusion. HEPATOBILIARY: Grossly unremarkable when allowing for lack of intravenous contrast. GALLBLADDER: Surgically absent. SPLEEN: No splenomegaly. PANCREAS: Suboptimal evaluation due to lack of intravenous contrast. Persistent edematous appearance of the pancreas with ill-defined peripancreatic fat stranding and patchy fluid. No discrete solid pancreatic mass. No ductal dilatation. ADRENALS: No adrenal nodules KIDNEYS/URETERS: Unchanged appearance. No hydronephrosis. Unchanged left renal simple cyst and small nonobstructing calculus. GI TRACT: Interval development of multiple loops of dilated small bowel that measure up to 3.7 cm in maximum caliber, with associated air-fluid levels. There is transition from dilated small bowel to decompressed small bowel within the right abdomen. The stomach is distended with air and fluid. No pneumatosis. Colonic diverticulosis again noted. PELVIC ORGANS/BLADDER: The urinary bladder is distended. The prostate gland is grossly unremarkable. LYMPH NODES: No gross adenopathy. VESSELS: Scattered basilar calcifications. PERITONEUM / RETROPERITONEUM: No distinct free intraperitoneal air or fluid. Unchanged nodular stranding in the right retroperitoneum. BONES: No acute osseous abnormality. SOFT TISSUES: Unremarkable. IMPRESSION: 1. Interval development of a high-grade small bowel obstruction since the previous CT scan on 11/27/2019, with a transition point located in the right abdomen. Continued follow-up is recommended. 2. Persistent pancreatic inflammatory changes and peripancreatic fluid consistent with acute pancreatitis. No drainable fluid collection. 3. Interval improvement in left lower lobe aspiration or pneumonia. A residual 8 mm left lower lobe nodular opacity likely reflects residual infection; however, a follow-up chest CT is recommended in 3 to 6 months to document full resolution. Signed by: Flavio Tan MD on 12/04/2019 11:00 AM
--- NOTE | 2019-12-04 11:39 | Progress Note ---
DATE: SUBJECTIVE: Mr. Marquez has been having abdominal discomfort, nausea, vomiting, bowel type of material. CAT scan of abdomen and pelvis. The at the bedside, discussed with her. LABORATORY DATA: Reviewed. White count 19.12. His sodium 137, potassium of 4.1, creatinine 0.82. PHYSICAL EXAMINATION: GENERAL: He is currently alert, complaining of nausea, abdominal discomfort. There is no fever. VITAL SIGNS: Stable otherwise. HEENT: Not icteric. NECK: Supple. CHEST: Few crackles. COR: S1, S2. No S3, S4 or murmur. ABDOMEN: Soft. Bowel sounds present. Diffuse discomfort. IMPRESSION: 1. Nausea, vomiting, concerned about small-bowel obstruction. Agree with CT scan. 2. Influenza. 3. Pneumonia, bacterial. 4. Pancreatitis. 5. Debility. We will reassess. Continue with antibiotic for the time being. We will see what the CT scan show. MD VIOLETTA Cho/MODLudin /[id number]
[2019-12-04] MEDS: VANCOMYCIN 1GM/NS 250 ML 250 ML IV SCH ×3 (11:56→23:38)
--- NOTE | 2019-12-04 12:15 | NUR ---
PAGED DR VAUGHAN TO NOTIFY THE CT ABDOMEN AND PELVIS REPORT AND LEFT THE MESSAGE
--- NOTE | 2019-12-04 12:33 | NUR ---
AC TO THE CHARGE NURSE PAGED DR SIMEON TO NOTIFY THE CT REPORT
--- NOTE | 2019-12-04 12:41 | NUR ---
DR SIMEON RETURNED THE CALL GOT NEW ORDERS
--- NOTE | 2019-12-04 13:00 | NUR ---
NG TUBE IS WORKING WELL STOMACH CONTENTS DRAINED ALL OVER THE ROOM
--- NOTE | 2019-12-04 13:15 | NUR ---
14 FR NG TUBE ON THE RIGHT NOSTRIL
--- NOTE | 2019-12-04 14:54 | NUR ---
AGAIN PAGED AND TALKED DR VAUGHAN HE SAID NO IV FLUID AND GOT THE ORDER FOR PAIN MEDS
--- NOTE | 2019-12-04 15:00 | NUR ---
NG TUBE CONNECTED TO LOW INTERMITTENT SUCTION WORKING GOOD
[2019-12-04] MEDS: MORPHINE SULFATE INJ 4 MG/ML INJ 1ML IV PRN (15:07)
--- NOTE | 2019-12-04 15:44 | Diagnostic Imaging Report ---
Exam: KUB Clinical history: NG tube placement Findings: Moderately dilated small bowel loops are noted in the upper mid abdomen with air-fluid level which may represent obstruction. Per history the patient has an NG tube, however, it is not visualized on the KUB. Clinical correlation is recommended to confirm its placement. Signed by: Dr. Richardson Bullard MD on 12/04/2019 3:41 PM
[2019-12-04] MEDS: DEXTROSE 5%/0.45% SOD CHL 1,000 ML IV SCH (16:00)
[2019-12-04] MEDS: ENOXAPARIN SOD INJ 40 MG/0.4 ML SYR SC SCH (17:00)
--- NOTE | 2019-12-04 18:30 | NUR ---
600 ML GREEN COLOR STOMACH CONTENTS IN THE SUCTION BOTTLE
--- NOTE | 2019-12-04 18:46 | NUR ---
PT RESTING ON BED BED SIDE REPORT GIVEN TO ONCOMING NURSE
--- NOTE | 2019-12-04 19:52 | NUR ---
Received report from AM nurse. Walkiing rounds completed.
--- NOTE | 2019-12-04 20:00 | NUR ---
Patient requested pain and nausea med. Meds given as ordered by .
--- NOTE | 2019-12-04 20:40 | NUR ---
Dr Sheikh on the floor to see patient. Patient is very depressed. S/W MD regarding the depression. MD agree.
--- NOTE | 2019-12-04 23:30 | NUR ---
Report on this patient received from Yovani SLOAN. Care of this patient taken over by me at this time. ivf continue to infuse without difficulty. ngt to liws draining green drainage. patient denies pain at this time. bed alarm on for safety and call loving within reach. close monitoring continues.
[2019-12-05] VITALS (9 sets, daily range): BP systolic 124–146; BP diastolic 67–90
[2019-12-05] MEDS: ALBUTEROL/IPRATROPIUM 3 ML NEB NEB SCH ×6 (02:45→23:15)
--- NOTE | 2019-12-05 03:00 | NUR ---
patient ambulates to bathroom with walker with standby assistance. patient voids without difficulty. no bm noted.
[2019-12-05] MEDS: MORPHINE SULFATE INJ 4 MG/ML INJ 1ML IV PRN ×3 (03:20→20:55)
--- NOTE | 2019-12-05 03:20 | NUR ---
patient medicated with morphine 3 mg ivp for throat pain 05/01 at this time.
[2019-12-05 05:28] LABS: BASOPHILS % 0.2 % (0.0-1.0); EOSINOPHILS # (AUTO) 0.1 (0.0-0.4); EOSINOPHILS % 0.7 % (0.0-6.0); HEMATOCRIT 43.6 % (38.2-49.6); LYMPHOCYTES # (AUTO) 0.5 (1.0-3.2); LYMPHOCYTES % 4.1 % (18.0-39.1); MEAN CORPUSCULAR HEMOGLOBIN 28.6 pg (28-32); MEAN CORPUSCULAR HGB CONC 32.1 g/dL (31-35); MONOCYTES # (AUTO) 1.1 (0.2-0.8); MONOCYTES % 8.8 % (4.4-11.3); NEUTROPHILS # (AUTO) 10.4 (2.1-6.9); NEUTROPHILS % 85.8 % (38.7-80.0); PLATELET COUNT 379 x10e3/uL (140-360); RED CELL DISTRIBUTION WIDTH 13.1 % (11.7-14.4)
[2019-12-05] MEDS: PANTOPRAZOLE 40 MG 10ML VIAL IV SCH (05:35)
[2019-12-05 05:46] LABS: ALANINE AMINOTRANSFERASE 61 IU/L (0-55); ALBUMIN 2.7 g/dL (3.5-5.0); ALBUMIN/GLOBULIN RATIO 0.8 (0.8-2.0); ALKALINE PHOSPHATASE 82 IU/L (40-150); ANION GAP 13.2 mmol/L (8-16); BLOOD UREA NITROGEN 26 mg/dL (7-26); BUN/CREATININE RATIO 26 (6-25); CALCIUM 9.1 mg/dL (8.4-10.2); CARBON DIOXIDE 32 mmol/L (22-29); CHLORIDE 96 mmol/L (98-107); CREATININE, SERUM 0.99 mg/dL (0.72-1.25); EST GLOMERULAR FILTRATION RATE > 60 ML/MIN (60-); GLUCOSE 163 mg/dL (74-118); MAGNESIUM 2.4 MG/DL (1.3-2.1); POTASSIUM 4.2 mmol/L (3.5-5.1); SODIUM 137 mmol/L (136-145)
[2019-12-05] MEDS: BUDESONIDE/FORMOTEROL 160/4.5MCG INHALER INH SCH ×2 (06:35→20:00)
--- NOTE | 2019-12-05 07:00 | NUR ---
RCD PT AT BED PT IS ALERT AND ORIENTED PT RESTING ON BED IV PATENT AND RUNNING 100 ML /HR PT ON NG TUBE WORKING WELL AND NPO FAMILY AT BED SIDE BED LOW AND LOCKED CALL LIGHT IN REACH
[2019-12-05] MEDS: MEROPENEM 1GM 100 ML IV SCH ×4 (08:00→23:15)
[2019-12-05] MEDS: DILTIAZEM HCL 180 MG CAP ER PO SCH (09:00)
--- NOTE | 2019-12-05 09:00 | NUR ---
PT HAVE NO BOWEL MOVEMENT FOR LAST 4 DAYS HE REFUSED SUPPOSITORY
--- NOTE | 2019-12-05 09:00 | NUR ---
Patient has refused physical therapy for 3 consecutive days (12/03/19, 12/04/19, and 12/05/19). He was educated on the benefits of mobility and detriments of prolonged bed rest. Pt repeatedly refused. Per RN, pt is getting up and walking to the bathroom for toileting with supervision from nursing. Placed recliner chair next to bed and encouraged pt to sit up to minimize the risk of developing pneumonia. Pt will be discharge from PT services due to 3 consecutive refusals to participate. This was explained to the pt and he verbalized agreement and understanding. Addendum: 12/05/19 at 0903 by Ghazala Donahue PT Amended: Links added.
[2019-12-05] MEDS: DEXTROSE 5%/0.45% SOD CHL 1,000 ML IV SCH (10:59)
--- NOTE | 2019-12-05 11:09 | Diagnostic Imaging Report ---
EXAM: ABDOMEN 2 VIEW DATE: 12/05/2019 6:35 AM INDICATION: Small bowel traction COMPARISON: Radiograph from 12/04/2019, CT/pelvis from 12/04/2019. FINDINGS: Enteric tube identified are stable the diaphragm with distal tip terminating within the left upper quadrant at the level of the gastric body. Again identified are diffusely distended air-filled loops of small bowel measuring up to 6 cm. No intraperitoneal free air is appreciated. No abnormal intra-abdominal calcification is appreciated. Cholecystectomy clips noted within the right upper quadrant. No acute osseous abnormality is identified. IMPRESSION: Diffusely distended loops of small bowel identified compatible with the patient's history of small bowel obstruction. Signed by: Dr. Ike Kruse MD on 12/05/2019 11:06 AM
--- NOTE | 2019-12-05 11:44 | NUR ---
PAGED TO DR CAMACHO AND NOTIFIED THE [facility] LEVEL 13.5 GOT THE ORDER TO CONTINUE THE SAME
[2019-12-05] MEDS: VANCOMYCIN 1GM/NS 250 ML 250 ML IV SCH (12:00)
[2019-12-05] MEDS: ONDANSETRON HCL INJ 2MG/ML 2ML 2 MG/ML VIAL IV PRN (12:22)
--- NOTE | 2019-12-05 13:12 | NUR ---
ASSESSMENT: Spiritual distress Pt lamenting regrets in life. Pt recounting poor decisions and their consequences. Intervention: Provided unhurried pastoral presence. Facilitated storytelling. Provided prayer. Outcome: Pt states "your visits are a ray of sunshine on a gloomy day." Will continue to follow as able. HONG SAVAGE Life Scientist Spiritual Care Department O: [phone] Pager: [phone] ([phone] number calling from)
--- NOTE | 2019-12-05 16:00 | NUR ---
PT REQUESTED TO TAKE THE NG TUBE OUT HIS THROAT IS HURTING PAGED AND NOTIFIED DR SIMEON ABOUT BOWEL MOVEMENT AND PASSING OF GAS NO HE DIDN'T DO ANYTHING HE ASKED ABDOMEN XRAY REPORT NOTIFIED HE SAID HE CANNOT ORDER TO DC THE NG TUBE NOTIFIED THE PT AND FAMILY
[2019-12-05] MEDS: BISACODYL 10 MG SUPP PR PRN (17:51)
--- NOTE | 2019-12-05 18:50 | NUR ---
PT RESTING ON BED BED SIDE REPORT GIVEN TO ONCOMING NURSE
[2019-12-06] VITALS (10 sets, daily range): BP systolic 125–161; BP diastolic 73–96
[2019-12-06] MEDS: VANCOMYCIN 1GM/NS 250 ML 250 ML IV SCH ×2 (00:50→12:45)
[2019-12-06] MEDS: DEXTROSE 5%/0.45% SOD CHL 1,000 ML IV SCH ×2 (03:17→15:15)
[2019-12-06] MEDS: MORPHINE SULFATE INJ 4 MG/ML INJ 1ML IV PRN ×4 (03:40→23:45)
[2019-12-06] MEDS: ALBUTEROL/IPRATROPIUM 3 ML NEB NEB SCH ×6 (03:40→23:03)
[2019-12-06] MEDS: PANTOPRAZOLE 40 MG 10ML VIAL IV SCH (05:13)
--- NOTE | 2019-12-06 06:41 | NUR ---
0550 - MD SIMEON ROUNDING, PLAN OF CARE FOR TODAY, FU CXR, AND AM LABS, PATIENT TALKED WITH MD, BUT AFTER HE LEFT STATED "I WANNA KNOW IF I CAN HAVE FLUID A CUP OR SOMETHING, IM DYING" 0600 SEARCH UNABLE TO FIND MD SIMEON IN FACILITY, WILL ENDORSE TO NEXT SHIFT TO FU ON FLUID REQUEST, FOR NOW ORDERED PATIENT NPO, PATIENT SEEN ASKING OTHER STAFF FOR ICE AND WATER I.E. RT, SENIOR DRUPAL DEVELOPER, HEALTH SCIENCES PROGRAM COORDINATOR, REEDUCATED PATIENT ON IMPORTANCE OF BOWEL REST
[2019-12-06 06:45] LABS: HEMATOCRIT 42.4 % (38.2-49.6); HEMOGLOBIN 13.1 g/dL (14.0-18.0); MEAN CORPUSCULAR HEMOGLOBIN 27.9 pg (28-32); MEAN CORPUSCULAR HGB CONC 30.9 g/dL (31-35); MEAN CORPUSCULAR VOLUME 90.4 fL (81-99); PLATELET COUNT 352 x10e3/uL (140-360); RED BLOOD COUNT 4.69 x10e6/uL (4.3-5.7); RED CELL DISTRIBUTION WIDTH 13.2 % (11.7-14.4)
[2019-12-06] MEDS: BUDESONIDE/FORMOTEROL 160/4.5MCG INHALER INH SCH ×2 (07:00→19:00)
[2019-12-06 07:02] LABS: ANION GAP 16.1 mmol/L (8-16); BLOOD UREA NITROGEN 18 mg/dL (7-26); BUN/CREATININE RATIO 22 (6-25); CALCIUM 8.9 mg/dL (8.4-10.2); CARBON DIOXIDE 30 mmol/L (22-29); CHLORIDE 99 mmol/L (98-107); CREATININE, SERUM 0.81 mg/dL (0.72-1.25); EST GLOMERULAR FILTRATION RATE > 60 ML/MIN (60-); GLUCOSE 116 mg/dL (74-118); POTASSIUM 4.1 mmol/L (3.5-5.1); SODIUM 141 mmol/L (136-145)
--- NOTE | 2019-12-06 07:26 | NUR ---
SBBR GIVEN TO DAYSHIFT RN, PATIENT SEEN IN BED AOX3, ASSISTED TO BEDSIDE CHAIR PER HIS REQUEST, REQUESTING PAIN MEDICATION, ONCOMING SHIFT WILL GIVEN IV PRN PAIN MEDICATION WHEN APPROPRIATE PER MD ORDER, PATIENT NG PATENT, INTERMITTENT LOW SUCTIONING GREEN BILE, OUTPUT THIS SHIFT NOTED @1000CC, PATIENT REMAINS NPO, CONTINUE TO ASK ALL STAFF FOR WATER, CUP NOTED AT BEDSIDE WITH SMALL AMOUNT OF WATER, PATIENT REFUSING TO THROW OUT, CONTINUES TO ASK FOR MD SIMEON TO BE CONTACTED FOR ORDER FOR WATER FOR ORAL GRATIFICATION, ADVISED PATIENT HE IS NPO UNTIL DOCTOR STATES OTHERWISE, CALL LIGHT WITHIN REACH
[2019-12-06] MEDS: DILTIAZEM HCL 180 MG CAP ER PO SCH (09:00)
[2019-12-06] MEDS: MEROPENEM 1GM 100 ML IV SCH ×3 (09:02→23:21)
--- NOTE | 2019-12-06 09:58 | NUR ---
Pt unavailable at this time. Transporter preparing to take pt for testing. Will follow up as able. HONG SAVAGE Head Baggage Porter Spiritual Care Department O: [phone]
--- NOTE | 2019-12-06 10:18 | Diagnostic Imaging Report ---
Abdomen, 2 views. History: Small bowel obstruction. Comparison: 12/05/2019. Findings: NG tube terminates in the region of the stomach. Multiple dilated air-filled loops of small bowel are again seen diffusely with multiple air-fluid levels. Cholecystectomy clips are present in the right upper quadrant. There is no evidence of free air. There are no masses or abnormal calcifications. Degenerative changes are noted throughout the lumbar spine. IMPRESSION: Persistent small bowel obstruction. Signed by: Will Francois on 12/06/2019 10:15 AM
[2019-12-06] MEDS: ONDANSETRON HCL INJ 2MG/ML 2ML 2 MG/ML VIAL IV PRN (23:45)
[2019-12-07] VITALS (8 sets, daily range): BP systolic 105–140; BP diastolic 60–81
[2019-12-07] MEDS: VANCOMYCIN 1GM/NS 250 ML 250 ML IV SCH ×2 (00:36→12:00)
[2019-12-07] MEDS: ALBUTEROL/IPRATROPIUM 3 ML NEB NEB SCH ×6 (03:00→23:15)
[2019-12-07] MEDS: DEXTROSE 5%/0.45% SOD CHL 1,000 ML IV SCH ×2 (04:35→16:20)
[2019-12-07] MEDS: MORPHINE SULFATE INJ 4 MG/ML INJ 1ML IV PRN ×3 (05:45→19:50)
[2019-12-07] MEDS: ONDANSETRON HCL INJ 2MG/ML 2ML 2 MG/ML VIAL IV PRN (05:45)
[2019-12-07] MEDS: PANTOPRAZOLE 40 MG 10ML VIAL IV SCH (05:59)
[2019-12-07 06:15] LABS: ANION GAP 14.6 mmol/L (8-16); BLOOD UREA NITROGEN 14 mg/dL (7-26); BUN/CREATININE RATIO 20 (6-25); CALCIUM 8.4 mg/dL (8.4-10.2); CARBON DIOXIDE 31 mmol/L (22-29); CHLORIDE 100 mmol/L (98-107); CREATININE, SERUM 0.71 mg/dL (0.72-1.25); EST GLOMERULAR FILTRATION RATE > 60 ML/MIN (60-); GLUCOSE 108 mg/dL (74-118); POTASSIUM 3.6 mmol/L (3.5-5.1); SODIUM 142 mmol/L (136-145)
[2019-12-07 06:57] LABS: PHOSPHORUS 1.7 MG/DL (2.3-4.7)
--- NOTE | 2019-12-07 07:30 | NUR ---
Received patient, a/ox3, rounds completed, in bed, no distress, call light within reach, will monitor.
[2019-12-07] MEDS: BUDESONIDE/FORMOTEROL 160/4.5MCG INHALER INH SCH ×2 (08:30→19:30)
[2019-12-07] MEDS: DILTIAZEM HCL 180 MG CAP ER PO SCH (09:00)
[2019-12-07] MEDS: MEROPENEM 1GM 100 ML IV SCH (10:26)
--- NOTE | 2019-12-07 14:54 | Diagnostic Imaging Report ---
Exam: Abdominal film Clinical History: Small bowel obstruction Comparison: 12/06/2019 DISCUSSION: Enteric tube tip is partially visualized, projecting over the gastric fundus. Multiple dilated loops of small bowel to a maximum caliber of approximately 5 cm are again noted. The degree of distention is similar to 12/06/2019. Regional skeletal structures are intact. Right upper quadrant surgical clips likely related to prior cholecystectomy. IMPRESSION: Stable findings of small bowel obstruction relative to 12/06/2019. Enteric tube tip projects over the gastric fundus. Signed by: Dr. Huy Robbins M.D. on 12/07/2019 2:51 PM
--- NOTE | 2019-12-07 18:19 | Progress Note ---
DATE: SUBJECTIVE: Mr. Marquez is feeling better. NG tube in. He is weak. No new complaints. PHYSICAL EXAMINATION: GENERAL: He is currently alert, oriented, does not seem to be in acute distress. VITAL SIGNS: Stable. Currently afebrile. HEENT: Not icteric. NECK: Supple. CHEST: Clear. HEART: S1 and S2. ABDOMEN: Soft. Bowel sounds present. EXTREMITIES: No edema. IMPRESSION: 1. Small bowel obstruction. The patient is being followed by Surgery. 2. History of pneumonia, better. 3. History of influenza, better. The patient is currently on meropenem and vancomycin for his pneumonia. We will probably stop it on Monday. We will follow. MD VIOLETTA Cho/MODL /[id number]
--- NOTE | 2019-12-07 19:00 | NUR ---
Bedside nursing shift report with morning nurse. Pt alert and oriented to name, sitting in chair at bedside. Denies pain at this time. O2@3L via [place] Call light within reach. Will continue to monitor.
--- NOTE | 2019-12-07 19:20 | NUR ---
Report given to on coming nurse and rounds completed, patient stable and call light within reach,
[2019-12-08] VITALS (8 sets, daily range): BP systolic 112–125; BP diastolic 58–81
[2019-12-08] MEDS: VANCOMYCIN 1GM/NS 250 ML 250 ML IV SCH ×2 (00:30→12:00)
[2019-12-08] MEDS: ALBUTEROL/IPRATROPIUM 3 ML NEB NEB SCH ×6 (02:54→23:28)
[2019-12-08] MEDS: PANTOPRAZOLE 40 MG 10ML VIAL IV SCH (06:00)
[2019-12-08] MEDS: MORPHINE SULFATE INJ 4 MG/ML INJ 1ML IV PRN ×4 (06:20→22:45)
[2019-12-08 06:34] LABS: BASOPHILS % 0.1 % (0.0-1.0); EOSINOPHILS # (AUTO) 0.1 (0.0-0.4); EOSINOPHILS % 0.9 % (0.0-6.0); HEMATOCRIT 38.4 % (38.2-49.6); LYMPHOCYTES # (AUTO) 0.8 (1.0-3.2); LYMPHOCYTES % 5.3 % (18.0-39.1); MEAN CORPUSCULAR HEMOGLOBIN 28.4 pg (28-32); MEAN CORPUSCULAR HGB CONC 31.3 g/dL (31-35); MONOCYTES # (AUTO) 1.2 (0.2-0.8); MONOCYTES % 7.7 % (4.4-11.3); NEUTROPHILS # (AUTO) 12.9 (2.1-6.9); NEUTROPHILS % 85.3 % (38.7-80.0); PLATELET COUNT 244 x10e3/uL (140-360); RED BLOOD COUNT 4.22 x10e6/uL (4.3-5.7); RED CELL DISTRIBUTION WIDTH 13.3 % (11.7-14.4)
[2019-12-08 06:52] LABS: MAGNESIUM 1.9 MG/DL (1.3-2.1)
[2019-12-08 06:53] LABS: ANION GAP 13.6 mmol/L (8-16); BLOOD UREA NITROGEN 11 mg/dL (7-26); BUN/CREATININE RATIO 15 (6-25); CALCIUM 8.6 mg/dL (8.4-10.2); CARBON DIOXIDE 29 mmol/L (22-29); CHLORIDE 100 mmol/L (98-107); CREATININE, SERUM 0.75 mg/dL (0.72-1.25); EST GLOMERULAR FILTRATION RATE > 60 ML/MIN (60-); GLUCOSE 104 mg/dL (74-118); POTASSIUM 3.6 mmol/L (3.5-5.1); SODIUM 139 mmol/L (136-145)
--- NOTE | 2019-12-08 07:15 | NUR ---
received pt, a&o x 3. call light within reach, will continue to monitor
[2019-12-08] MEDS: BUDESONIDE/FORMOTEROL 160/4.5MCG INHALER INH SCH ×2 (07:21→19:42)
--- NOTE | 2019-12-08 07:28 | NUR ---
Bedside nursing shift report to morning nurse. Pt sitting in recliner at bedside. Denies pain at this time. No acute distress noted.
--- NOTE | 2019-12-08 08:14 | Diagnostic Imaging Report ---
EXAM: ABDOMEN-1VIEW (KUB), DATE: 12/08/2019 8:00 AM INDICATION: COMPARISON: 12/07/2019. FINDINGS: LINES/TUBES: NG/orogastric tube with the distal tip projected on the gastric fundus. BOWEL PATTERN: No change in moderate dilatation of multiple bowel loops with air-fluid levels, with posterior bowel gas and rectum. Moderate volume of stool within the colon. SOFT TISSUES: Cholecystectomy clips. LUNG BASES: Clear. BONES: No acute findings. IMPRESSION: No interval change in Exam: Abdominal film Clinical History: Small bowel obstruction Comparison: 12/06/2019 DISCUSSION: Enteric tube tip is partially visualized, projecting over the gastric fundus. Multiple dilated loops of small bowel to a maximum caliber of approximately 5 cm are again noted. The degree of distention is similar to 12/06/2019. Regional skeletal structures are intact. Right upper quadrant surgical clips likely related to prior cholecystectomy. IMPRESSION: No interval change in obstructive bowel gas pattern. Large volume of stool within the colon. Signed by: Dr. Yolanda Hidalgo M.D. on 12/08/2019 8:12 AM
[2019-12-08] MEDS: DEXTROSE 5%/0.45% SOD CHL 1,000 ML IV SCH (09:20)
[2019-12-08] MEDS: DILTIAZEM HCL 180 MG CAP ER PO SCH (09:20)
[2019-12-08] MEDS ORDERED: MINERAL OIL 132 ML BTL PR ONE (11:00)
[2019-12-08] MEDS ORDERED: POTASSIUM PHOSPHATE 20 MM in SODIUM CHLORIDE 0.9% 250ML 250 ML IV ONE (11:00)
--- NOTE | 2019-12-08 11:00 | NUR ---
Dr. Kuhn is here making rounds. I explained that digital forensic examiner is not here on Monday for consultation for TPN and lipid requirement and that it will be on Monday12/09/19. He said t"hat is fine"
[2019-12-08] MEDS: METOPROLOL TARTRATE INJ 1 MG/ML VIAL IV SCH ×2 (12:17→17:31)
--- NOTE | 2019-12-08 13:17 | NUR ---
fleet enema administered. Pt had little liquid stool after 15mins. No bowel discomfort reported. Rectal area is intact
--- NOTE | 2019-12-08 18:08 | Consultation ---
DATE OF CONSULTATION: CHIEF COMPLAINT: Constipation, abdominal distention. HISTORY OF PRESENT ILLNESS: Very pleasant 69-year-old man, coming with abdominal distention. The patient had a KUB consistent with small bowel obstruction. He has small bowel obstruction as well as a lot of stool in his colon. PAST MEDICAL HISTORY: Lung disease. All other medical history, see old records. FAMILY HISTORY: Noncontributory. The patient admitted with pneumonia. MEDICATIONS: See list. SOCIAL HISTORY: The patient lives at home. No toxic habits. He is retired. REVIEW OF SYSTEMS: Abdominal distention and nausea. PHYSICAL EXAMINATION: . GENERAL: Well-nourished white man. HEENT: No pallor. ABDOMEN: Soft, distended. EXTREMITIES: 1+ edema. ASSESSMENT/PLAN: Abdominal distention. He has multiple x-rays consistent with a small bowel obstruction. He has an NG tube in place. I will recommend TPN at this time. He is being on n.p.o. status for over a week. He also needs to be reassessed by Surgery regarding need for an exploration. We also benefit from some enemas, cannot be given any laxatives by mouth as he has a significant small bowel obstruction versus ileus. MD WAYLON GonzalezO/MODL /[id number]
--- NOTE | 2019-12-08 18:55 | NUR ---
Completed bedside nursing shift report with morning nurse. Pt sitting in chair at bedside. c/o moderate lower back. Call light within reach. Will continue to monitor.
--- NOTE | 2019-12-08 19:17 | NUR ---
report given to britney li in stable condition
[2019-12-09] VITALS (8 sets, daily range): BP systolic 110–148; BP diastolic 53–82
[2019-12-09] MEDS: VANCOMYCIN 1GM/NS 250 ML 250 ML IV SCH
[2019-12-09] MEDS: MORPHINE SULFATE INJ 4 MG/ML INJ 1ML IV PRN ×7 (02:10→21:30)
[2019-12-09] MEDS: ALBUTEROL/IPRATROPIUM 3 ML NEB NEB SCH ×6 (03:05→23:00)
[2019-12-09] MEDS: METOPROLOL TARTRATE INJ 1 MG/ML VIAL IV SCH ×4 (05:34→18:16)
[2019-12-09] MEDS: PANTOPRAZOLE 40 MG 10ML VIAL IV SCH (05:34)
[2019-12-09] MEDS: DEXTROSE 5%/0.45% SOD CHL 1,000 ML IV SCH ×2 (06:03→19:45)
--- NOTE | 2019-12-09 06:55 | NUR ---
Bedside nursing shift report to morning nurse. Pt sitting in chair. No acute distress noted.
[2019-12-09] MEDS: BUDESONIDE/FORMOTEROL 160/4.5MCG INHALER INH SCH ×2 (07:02→21:15)
--- NOTE | 2019-12-09 07:20 | NUR ---
PATIENT OUT OF BED TO RECLINING CHAIR WATCHING TV, NO DISTRESS NOTED. NG TUBE TO RIGHT NARE TO SUCTION. CALL LIGHT AT EASY REACH.
--- NOTE | 2019-12-09 09:10 | NUR ---
Nutrition Intervention Note RD Recommendation(s) for Physician: Standard Central TPN recommendation via PICC line: Rate at 42 ml/hr, 1008 ml/day, Dextrose 30% 500 ml/day (150 grams a day), AA 10% 500 ml (50 g/day), Lipids 25 g/day, Sodium chloride 60 mEq/L, potassium chloride 20 mEq/liter, potassium phosphate 12 mM/liter, calcium gluconate 4.6 mEq/liter, magnesium sulfate 12 mEq/liter. Addition of trace elements and M/ (to provide 935 kcal, 50 grams protein). Advance TPN as tolerated. -Recommend to d/c current IVF when TPN is initiated. - Additional fluid/IVF management per MD. -Please monitor BMP with Mag and Phos daily and replace low lytes as needed. -Check TF and LFTs weekly-draw LFTs, Mg, Phos with next AM labs. -ADAT to cardiac , Gi soft per MD. Plan of Care: RD following, monitoring for tolerance and adequacy. TPN recs. Monitor for adequacy and tolerance. Nutrition reason for involvement: MD Consult-TPN RD Assessment (12/09): Follow up/Consult: Received consult to initiate TPN and lipids. Pt had a KUB that showed a SBO and a lot of stool in his colon per MD. MD recommended TPN, pt has been NPO since 12/04 (5 days). Recommendations are provided above and reported to nurse. Pts labs appear WNL from 12/08 besides a low phos, will recommend starting the pt on standard and changing to custom if necessary and advancing as appropriate. Phos was replaced yesterday. Pt has NGT in place and has a PICC line per EMR, TPN is appropriate. No new labs recorded for 12/09. MD also reported within his note to use enemas for constipation. Pt reported he is hungry and he denies N/V, and state he had a small bowel movement. Surgery scheduled for tmrw per nurse. Will continue to monitor. (12/03) 69 YOM admitted for COPD exacerbation, PNA, and Flu A. Pt seen today for LOS. Pt reports good appetite and po intake [employer] and denies any wt loss. Noted fluctuating po intake since admit, pt reports taste changes 2/2 IV medications and flushes given. Pt declined all supplements offered, stated "this happens every time I come to the hospital." Pt with no questions or concerns at time of visit. Chart reviewed. Labs and meds reviewed. Will continue to monitor. Principal Problems/Diagnoses: COPD exacerbation, PNA, and Flu PMH: Status post ileus. Status post laparoscopic cholecystectomy and status post umbilical hernia repair. Leukocytosis previously resolved. COPD with oxygen dependency, Lung disease GI: Abd: round, distended, NG Tube (output 600 ml), LBM: not recorded Skin: no pressure ulcer recorded Labs: 12/08: Na 139, K 3.6, Cl 100, CO2 29, BUN 13.6, Creat 11, Gluc 104, Phos 2.0, Mg 1.9, tbili, 0.8 Meds: protonix, abx, zofran, dulcolax, milk of magnesium, potassium phos given), enema given IVF: D51/2NS at 75 ml/hr (90 grams of dex, 309 kcal) Ht: 67 in Wt: 198 lbs BMI: 31.0 kg/m^2 IBW:148lbs Malnutrition Evaluation 12/09 The patient does not meet criteria for a specified degree of malnutrition at this time. Will re-evaluate at follow-up as appropriate. Energy intake: <50% of estimated energy requirements for >5 days Weight loss: -no weight loss recorded Nutrition Prescription (Diet Order): NPO Estimated Nutritional Needs: Calories: 1478-1680kcal/day (22-25 kcal/kg/day) Weight used : IBW (67.2 kg) Protein : 80-134protein/day (1.2-2 gram/kg/day ) Weight used: IBW Diet Adequacy: Not meeting calorie needs, Not meeting protein needs Diet Education Needs Assessment: Diet education not indicated, patient on temporary/transition diet. Nutrition Care Level: high Nutrition Diagnosis: Inadequate energy intake related to medical condition as evidenced by the pt having SBO, need for NGT and TPN (Npo for 5 days) Goal: Patient will meet 75-100% of estimated needs by follow up Progress: N/A Interventions: - sodium mineral, fiber, fat, cholesterol. -modified diet, Composition, Rate, Route, IVF, Prescription medications, Collaboration with other providers Monitoring/Evaluation: Total energy intake, Total protein intake, Formula/Solution, IVF, Prescription medication, Modified diet Signed: Sussy Abbott RD, LD
[2019-12-09] MEDS ORDERED: BENZOCAINE 20% SPR 60 ML CAN MT ONE (10:15)
[2019-12-09] MEDS ORDERED: LIDOCAINE VISC 2% SOLN 15 ML UDC PO ONE (10:15)
--- NOTE | 2019-12-09 12:14 | NUR ---
PATIENT PULLED HIS NG TUBE OUT. NOTIFIED, NEW ORDER RECEIVED TO REINSERT IT. ORDER IMPLEMENTED ORDERED. IN CHAIR WITH CALL LIGHT AT REACH.
--- NOTE | 2019-12-09 12:21 | Diagnostic Imaging Report ---
Exam: KUB - 2 views Indication: Enteric tube placement Comparison: KUB of 12/08/2019 Findings: No enteric tube is visualized in the [id number]. If the tube has been recently placed, it is likely in the esophagus or coiled more superiorly. Again seen are dilated loops of small bowel, now measuring up to 6 cm maximum diameter. No acute osseous injury. Degenerative changes of the visualized spine. No free air. Status post cholecystectomy. Impression: Enteric tube not visualized in the [id number] and likely terminates or is coiled more superiorly. Findings of small bowel obstruction with dilated loops measuring up to 6 cm. No free air. Signed by: Alethea Ferguson MD on 12/09/2019 12:19 PM
[2019-12-09] MEDS: MAGNESIUM/ALUMINUM/SIMETHICONE 30 ML UDC PO PRN (14:08)
--- NOTE | 2019-12-09 16:02 | NUR ---
CONSENT SIGNED FOR TOMORROW PROCEDURE. PATIENT SITTING IN RECLINING CHAIR TALKING TO FAMILY MEMBER VISITING. CALL LIGHT AT REACH.
--- NOTE | 2019-12-09 16:32 | NUR ---
SPOKE TO INFECTION CONTROL NURSE REGARDING PATIENT ON ISOLATION FOR FLU AFTER TREATMENT. NO S/S OF DISCOMFORT, NO FEVER. ORDER RECEIVED TO TAKE PATIENT OFF ISOLATION.
--- NOTE | 2019-12-09 18:33 | Progress Note ---
DATE: SUBJECTIVE: Mr. Marquez is feeling better. There is no new complaint. He still has an NG tube in, it fell earlier, but now it is back in. His abdominal pain is improving. PHYSICAL EXAMINATION: GENERAL: He is currently alert, oriented, does not seem to be in acute distress. VITAL SIGNS: Stable, currently afebrile. HEENT: Normocephalic, not icteric. NECK: Supple. CHEST: Clear. HEART: S1-S2. No S4 or murmur. ABDOMEN: Soft and distended. Bowel sounds hypoactive. EXTREMITIES: No edema. IMPRESSION AND PLAN: 1. Small bowel obstruction. 2. History of pancreatitis. 3. History of pneumonia, probably aspiration. 4. Debility. 5. Leukocytosis is getting worse today at 15.1 with recheck. 6. He is currently off antibiotic. We will observe him clinically. Reassess. MD VIOLETTA Cho/SACHIN /[id number]
--- NOTE | 2019-12-09 19:26 | NUR ---
BED SIDE SHIFT REPORT GIVEN TO ON COMING NURSE.
[2019-12-09] MEDS: CENTRAL TPN FORMULA 1 BAG IV SCH (20:55)
[2019-12-10] VITALS (16 sets, daily range): BP systolic 95–127; BP diastolic 56–81
[2019-12-10] MEDS: METOPROLOL TARTRATE INJ 1 MG/ML VIAL IV SCH ×5 (00:30→23:30)
[2019-12-10] MEDS: MORPHINE SULFATE INJ 4 MG/ML INJ 1ML IV PRN ×2 (00:45→07:26)
[2019-12-10] MEDS: ALBUTEROL/IPRATROPIUM 3 ML NEB NEB SCH ×6 (03:50→23:12)
[2019-12-10] MEDS: PANTOPRAZOLE 40 MG 10ML VIAL IV SCH (06:00)
[2019-12-10] MEDS: BUDESONIDE/FORMOTEROL 160/4.5MCG INHALER INH SCH ×2 (07:00→19:00)
--- NOTE | 2019-12-10 07:10 | NUR ---
Bedside nursing shift report to morning nurse. Pt sitting in chair at bedside. Informed of surgery scheduled today. No acute distress noted.
--- NOTE | 2019-12-10 09:30 | NUR ---
GOT READY FOR SURGERY, FAMILY AT BEDSIDE. TPN CONTINUES, IN NO APPARENT DISTRESS.
[2019-12-10] MEDS ORDERED: BUPIVACAINE HCL 0.5% INJ 30 ML VIAL INJ ONE (09:31)
[2019-12-10] MEDS ORDERED: ALBUTEROL SULF 0.083% NEB SOLN 3 ML NEB ONE (09:35)
[2019-12-10] MEDS: SODIUM CHLORIDE 0.9% 250ML IRRIG IR SCH ×4 (11:15→23:41)
[2019-12-10] MEDS ORDERED: ONDANSETRON HCL INJ 2MG/ML 2ML 2 MG/ML VIAL IV PRN (11:15)
[2019-12-10] MEDS: CEFOXITIN SODIUM 2 G in SODIUM CHLORIDE 0.9% 50ML 50 ML IV SCH ×2 (11:54→17:18)
[2019-12-10] MEDS ORDERED: CEFOXITIN 2GM/ D5W 50ML 50 ML IV SCH (12:00)
[2019-12-10] MEDS: DEXTROSE 5%/0.45% SOD CHL 1,000 ML IV SCH (12:35)
[2019-12-10] MEDS ORDERED: FENTANYL CITRATE INJ 2,000 MCG in SODIUM CHLORIDE 0.9% 250ML 210 ML IV PRN (13:00)
[2019-12-10] MEDS ORDERED: PROPOFOL IV EMULSION 10MG/ML 100 ML IV PRN (13:00)
[2019-12-10] MEDS ORDERED: MIDAZOLAM HCL 2 MG/2 ML VIAL ONE ×2 (13:18→18:19)
[2019-12-10] MEDS ORDERED: SODIUM CHLORIDE 0.9% 1000ML 1,000 ML ONE (13:36)
[2019-12-10] MEDS ORDERED: ROCURONIUM BROMIDE 10 MG/ML 5ML VIAL ONE (13:59)
[2019-12-10] MEDS ORDERED: LIDOCAINE HCL 2% LOCAL INJ 5 ML SDV VIAL INJ ONE (13:59)
[2019-12-10] MEDS ORDERED: PHENYLEPHRINE HCL 1% 10 MG/ML VIAL ONE (13:59)
[2019-12-10] MEDS ORDERED: PROPOFOL IV EMULSION 10 MG/ML 20 ML VIAL ONE (13:59)
[2019-12-10] MEDS ORDERED: ONDANSETRON HCL INJ 2MG/ML 2ML 2 MG/ML VIAL ONE (13:59)
[2019-12-10] MEDS ORDERED: DEXAMETHASONE SOD PHOS INJ 4 MG/ML VIAL ONE (13:59)
[2019-12-10] MEDS ORDERED: SUCCINYLCHOLINE CHLORIDE 20 MG/ML 10ML VIAL ONE (13:59)
[2019-12-10] MEDS ORDERED: SEVOFLURANE INHAL SOLN 250 ML PEN BTL ONE (13:59)
--- NOTE | 2019-12-10 14:07 | Diagnostic Imaging Report ---
EXAMINATION: CHEST SINGLE (PORTABLE) INDICATION: Intubation COMPARISON: None FINDINGS: LINES/TUBES:Endotracheal tube terminates approximately 6.5 cm above the guevara. Enteric tube with tip and side-port in the stomach. EKG leads overlie the chest. LUNGS:The lungs are moderately inflated. No focal consolidation or pulmonary edema. Mild bibasilar subsegmental atelectasis. PLEURA:No pleural effusion or pneumothorax. MEDIASTINUM:The cardiomediastinal silhouette appears normal in size and shape. BONES/SOFT TISSUES:No acute osseous injury. ABDOMEN:No free air under the diaphragm. IMPRESSION: Lines and tubes as above. No focal pneumonia or pulmonary edema. Bibasilar subsegmental atelectasis. Signed by: Alethea Ferguson MD on 12/10/2019 2:04 PM
[2019-12-10 14:28] LABS: ABG HCO3 28 mmol/L (23-28); ABG PCO2 47 mmHg (41-51); ABG PH 7.38 (7.31-7.41); ABG PO2 99 mmHg (80-105)
--- NOTE | 2019-12-10 16:18 | Operative Report ---
DATE OF PROCEDURE: 12/10/2019 SURGEON: Huy Camacho MD PREOPERATIVE DIAGNOSIS: Small bowel obstruction. POSTOPERATIVE DIAGNOSIS: Small bowel obstruction secondary to adhesions PROCEDURES: Diagnostic laparoscopy, exploratory laparotomy, lysis of adhesions with release of small bowel obstruction. ANESTHESIA: General endotracheal. INDICATIONS AND FINDINGS: The patient is a 69-year-old male, admitted to the hospital with pneumonia, developed abdominal distention with nausea and vomiting. Workup revealed small bowel obstruction. Symptoms persisted. Surgery was found to have a small bowel obstruction with dilated proximal bowel, collapsed distal bowel with the point of obstruction being adhesive band at the root of the transverse mesocolon area, where he had previous pancreatitis. The bowel all appeared viable during the course of the dissection. Enterotomy was made requiring open surgery and repair. TECHNIQUE: After adequate general endotracheal anesthesia, the patient in supine position, the abdomen was prepped and draped in sterile fashion with ChloraPrep solution on the left side of the abdomen away from the area of previous surgeries. Transverse incision was made, carried down through the subcutaneous tissue to the fascia was seen under direct vision. The fascia was opened. The peritoneal cavity entered and Dolores blunt-tipped trocar was introduced. Pneumoperitoneum was then created. Laparoscopic camera was introduced. Initial laparoscopy revealed dilated small bowel. There was a small amount of free fluid in the abdomen. The bowel all appeared viable. A 5 mm trocar and cannula was placed in the left lower quadrant under direct vision. The dilated bowel was retracted away and distal bowel was noted to be collapsed. Additional 5 mm trocar and cannula was placed in the left upper quadrant. This distal bowel was followed, however, the point of obstruction could not be identified. The dilated bowel also was retracted away from the lower abdomen, but the point of obstruction could not be easily identified and as the bowel was being retracted, there was found to be a small enterotomy. Because of this, surgery was changed to open surgery. A lower midline incision was made. The peritoneal cavity entered. The small bowel delivered up into the wound. The enterotomy was identified, repaired in 2 layers using 3-0 Vicryl and 3-0 silk. Once this was done, the distal bowel was followed starting at the terminal ileum. This was followed proximally and the point of obstruction identified at the base of the transverse mesocolon, where the patient had previous pancreatitis. There was an adhesive band, which was lysed freeing the bowel completely, where the adhesion had been. There was a seromuscular tear. This was repaired with interrupted sutures of 3-0 silk. This was the point of obstruction. The bowel proximal at this point was dilated. Distal bowel was collapsed. Small bowel was then examined in its entirety. There were no other enterotomies. The bowel all appeared viable. No other points of obstruction. The peritoneal cavity was irrigated with large volume of warm saline. Inspected for hemostasis, which was seen to be adequate. Irrigated once again with saline. All fluid aspirated. Inspected for hemostasis, which was seen to be adequate. The fascia in the lower midline wound was closed with running suture of #1 PDS. Subcutaneous tissue was irrigated with saline. Fascia at the larger trocar wound site was closed with a [id number] suture of 0 Vicryl. Skin to all wounds closed with donavon. Sterile dressings applied to each wound. The patient tolerated the procedure well. Estimated blood loss was 40 mL. There were no complications. All counts were correct and the patient was taken to the recovery room in satisfactory condition. Huy Camacho MD DWG/MODL /[id number] cc: MD Alisha Perdue MD David Stein, MD
[2019-12-10] MEDS: SODIUM CHLORIDE 0.9% 1000ML 1,000 ML IV SCH ×2 (17:18→21:04)
[2019-12-10] MEDS ORDERED: MORPHINE SULFATE INJ 10 MG/ML ONE (18:19)
[2019-12-10] MEDS ORDERED: FENTANYL CITRATE/PF 100MCG/2 ML INJ ONE (18:19)
[2019-12-10] MEDS ORDERED: MIDAZOLAM HCL 5MG/ML 2ML VIAL ONE (18:19)
[2019-12-10] MEDS: CENTRAL TPN FORMULA 1 BAG IV SCH (20:14)
[2019-12-11] VITALS (21 sets, daily range): BP systolic 101–153; BP diastolic 60–89
[2019-12-11] MEDS: CEFOXITIN SODIUM 2 G in SODIUM CHLORIDE 0.9% 50ML 50 ML IV SCH ×2 (00:22→06:00)
[2019-12-11] MEDS: METOPROLOL TARTRATE INJ 1 MG/ML VIAL IV SCH ×6 (00:40→23:30)
[2019-12-11] MEDS: DEXTROSE 5%/0.45% SOD CHL 1,000 ML IV SCH ×2 (01:09→15:15)
[2019-12-11] MEDS: SODIUM CHLORIDE 0.9% 250ML IRRIG IR SCH ×6 (03:30→23:30)
[2019-12-11] MEDS: ALBUTEROL/IPRATROPIUM 3 ML NEB NEB SCH ×6 (03:42→23:00)
[2019-12-11 05:07] LABS: BASOPHILS % 0.2 % (0.0-1.0); HEMATOCRIT 38.1 % (38.2-49.6); HEMOGLOBIN 11.8 g/dL (14.0-18.0); LYMPHOCYTES # (AUTO) 0.9 (1.0-3.2); LYMPHOCYTES % 4.7 % (18.0-39.1); MEAN CORPUSCULAR HEMOGLOBIN 27.8 pg (28-32); MEAN CORPUSCULAR VOLUME 89.9 fL (81-99); MONOCYTES # (AUTO) 1.7 (0.2-0.8); MONOCYTES % 9.2 % (4.4-11.3); NEUTROPHILS # (AUTO) 15.9 (2.1-6.9); NEUTROPHILS % 85.1 % (38.7-80.0); PLATELET COUNT 290 x10e3/uL (140-360); RED BLOOD COUNT 4.24 x10e6/uL (4.3-5.7); RED CELL DISTRIBUTION WIDTH 13.3 % (11.7-14.4)
[2019-12-11 05:31] LABS: ANION GAP 12.1 mmol/L (8-16); BLOOD UREA NITROGEN 10 mg/dL (7-26); BUN/CREATININE RATIO 13 (6-25); CALCIUM 8.1 mg/dL (8.4-10.2); CARBON DIOXIDE 25 mmol/L (22-29); CHLORIDE 108 mmol/L (98-107); CREATININE, SERUM 0.76 mg/dL (0.72-1.25); EST GLOMERULAR FILTRATION RATE > 60 ML/MIN (60-); GLUCOSE 137 mg/dL (74-118); POTASSIUM 4.1 mmol/L (3.5-5.1); SODIUM 141 mmol/L (136-145)
[2019-12-11] MEDS: PANTOPRAZOLE 40 MG 10ML VIAL IV SCH (06:01)
[2019-12-11] MEDS: BUDESONIDE/FORMOTEROL 160/4.5MCG INHALER INH SCH ×2 (07:00→20:00)
--- NOTE | 2019-12-11 07:00 | Diagnostic Imaging Report ---
EXAMINATION: CHEST SINGLE (PORTABLE) COMPARISON: Chest x-ray 12/10/2019 INDICATION: ^intubated ^[id number] ^[id number] DISCUSSION: Frontal view of the chest obtained at 0557 hours. HEART AND MEDIASTINUM: The cardiomediastinal silhouette is unremarkable. LINES: Endotracheal tube tip is poorly visualized due to underpenetration of the image and superimposed medical devices. Enteric tube extends past the diaphragm LUNGS: Symmetric inflation and better aeration of the lung bases. No consolidation. No interstitial edema. PLEURA: No pleural effusion or pneumothorax. BONES AND SOFT TISSUES: No focal osseous lesion. The soft tissues are normal. IMPRESSION: Poor visualization of endotracheal tube. Improved bibasilar atelectasis. Signed by: Dr. Vika Garza MD on 12/11/2019 6:58 AM
[2019-12-11] MEDS: SODIUM CHLORIDE 0.9% 1000ML 1,000 ML IV SCH ×2 (09:01→19:10)
[2019-12-11] MEDS ORDERED: CEFEPIME HCL 1 GM VIAL IV SCH (09:15)
[2019-12-11] MEDS: MORPHINE SULFATE INJ 4 MG/ML INJ 1ML IV PRN ×5 (09:51→22:35)
--- NOTE | 2019-12-11 10:20 | NUR ---
ASSESSMENT: Spiritual distress Pt feels powerless and overwhelmed following procedure. Pt's at bedside. Pt states "If I'm not going to get better I'd just as soon go on." Intervention: Provided non-judgemental empathic listening and pastoral presence. Provided prayer and encouragement. Outcome: Will continue to follow as able. HONG SAVAGE Radioisotope Technician Spiritual Care Department O: [phone] Pager: [phone] ([phone] number calling from)
[2019-12-11] MEDS: CEFEPIME 1GM/NS 0.9% 50 ML 50 ML IV SCH ×2 (11:57→23:30)
[2019-12-11] MEDS: METRONIDAZOLE 500MG/NS 100ML 100 ML IV SCH ×2 (11:57→17:30)
--- NOTE | 2019-12-11 12:26 | Progress Note ---
DATE: SUBJECTIVE: Mr. Marquez is currently in the intensive care unit. He had surgery done by Dr. Camacho on . The patient underwent surgery for small bowel obstruction, had exploratory laparotomy, lysis of adhesions, and release of small bowel obstruction. Today, he is in intensive care unit. He looks comfortable. His white count went up to 18.66 with hemoglobin of 11.8. Sodium 141, potassium 4.1 with a creatinine 0.76. Urine cultures and blood cultures are negative. PHYSICAL EXAMINATION: GENERAL: He is currently alert, comfortable. VITAL SIGNS: Stable. Temperature 100.2, heart rate 101, respirations 13, and blood pressure 119/62. HEENT: He is not icteric. NECK: Supple. CHEST: Few crackles. COR: S1 and S2. ABDOMEN: Soft. IMPRESSION: Peritonitis, sepsis, concerned about new infection. We will put him on cefepime 1 g q.12 and Flagyl 500 q.6. Recheck CBC. Recheck chem panel. Follow up clinically. We will follow. MD VIOLETTA Cho/MODL /[id number]
--- NOTE | 2019-12-11 14:21 | NUR ---
Nutrition Intervention Note RD Recommendation(s) for Physician: - TPN Rec's: Increase rate to 65 ml/hr, add lipids 25 g/day, and add thiamine. Continue dextrose and AA percentage, lytes, MVI, and trace per current order. - Recommend converting to non dextrose IVF and decreasing rate of IVF with increase in TPN rate. - Please monitor BMP with Mag and Phos daily and replace low lytes as needed. Check Phos and Mg with am labs. - Check TF and LFTs weekly. - When feasible, ADAT to cardiac, GI soft per surgery discretion. Plan of Care: RD following, monitoring for tolerance and adequacy. TPN recs. Monitor for adequacy and tolerance. Nutrition reason for involvement: follow up RD Assessment 12/11: Follow up. Pt on TPN at 43 ml/hr and continues with NGT in place. Pt denies any abdominal pain, nausea, or hunger. Pt POD#1 for small bowel obstruction, exploratory laparotomy, lysis of adhesions, and release of small bowel obstruction. TPN discussed with RN and rec's placed in chart, ordered TPN for this evening. TPN per current rec's to meet > 75% of kcal and protein needs. Chart reviewed. Will continue to monitor. (12/09): Follow up/Consult: Received consult to initiate TPN and lipids. Pt had a KUB that showed a SBO and a lot of stool in his colon per MD. MD recommended TPN, pt has been NPO since 12/04 (5 days). Recommendations are provided above and reported to nurse. Pts labs appear WNL from 12/08 besides a low phos, will recommend starting the pt on standard and changing to custom if necessary and advancing as appropriate. Phos was replaced yesterday. Pt has NGT in place and has a PICC line per EMR, TPN is appropriate. No new labs recorded for 12/09. MD also reported within his note to use enemas for constipation. Pt reported he is hungry and he denies N/V, and state he had a small bowel movement. Surgery scheduled for tmrw per nurse. Will continue to monitor. (12/03) 69 YOM admitted for COPD exacerbation, PNA, and Flu A. Pt seen today for LOS. 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 Noted fluctuating po intake since admit, pt reports taste changes 2/2 IV medications and flushes given. Pt declined all supplements offered, stated "this happens every time I come to the hospital." Pt with no questions or concerns at time of visit. Chart reviewed. Labs and meds reviewed. Will continue to monitor. Principal Problems/Diagnoses: COPD exacerbation, PNA, and Flu PMH: Status post ileus. Status post laparoscopic cholecystectomy and status post umbilical hernia repair. Leukocytosis previously resolved. COPD with oxygen dependency, Lung disease GI: Abd: round, distended, NG Tube 450 ml output yesterday, LBM: not recorded Skin: no pressure ulcer recorded Labs: 12/11: Na 141, K 4.1, Cl 108, CO2 25, BUN 10, Cr 0.76, Gluc 137 12/08: Na 139, K 3.6, Cl 100, CO2 29, BUN 13.6, Creat 11, Gluc 104, Phos 2.0, Mg 1.9, tbili, 0.8 Meds: protonix, abx, zofran, dulcolax IVF: D51/2NS at 75 ml/hr (90 grams of dex, 309 kcal) Ht: 67 in Wt: 198 lbs BMI: 31.0 kg/m^2 IBW:148lbs Malnutrition Evaluation 12/09 The patient does not meet criteria for a specified degree of malnutrition at this time. Will re-evaluate at follow-up as appropriate. Energy intake: <50% of estimated energy requirements for >5 days Weight loss: -no weight loss recorded Nutrition Prescription (Diet Order): NPO TPN: 1032 ml, Dextrose 30%/500 ml, AA10%/500 ml, NaCl 60 mEq/L, KCl 20 mEq/L, KPhos 12 mmol/L, Ca Gluconate 4.6 mEq/L, Mg Sulfate 10 mEq/L, MVi, trace. 155 gm dextrose, 52 gm protein, 733 kcal. Estimated Nutritional Needs: Calories: 1478-1680kcal/day (22-25 kcal/kg/day) Weight used : IBW (67.2 kg) Protein : 80-134protein/day (1.2-2 gram/kg/day ) Weight used: IBW Diet Adequacy: Not meeting calorie needs, Not meeting protein needs Diet Education Needs Assessment: Diet education not indicated, patient on temporary/transition diet. Nutrition Care Level: high Nutrition Diagnosis: Inadequate energy intake related to medical condition as evidenced by the pt having SBO, need for NGT and TPN (Npo for 5 days) Goal: Patient will meet 75-100% of estimated needs by follow up Progress: Progressing Interventions: - sodium mineral, fiber, fat, cholesterol. -modified diet, Composition, Rate, Route, IVF, Prescription medications, Collaboration with other providers Monitoring/Evaluation: Total energy intake, Total protein intake, Formula/Solution, IVF, Prescription medication, Modified diet Signed: Salud Escobar RD, LD, [facility]
[2019-12-11] MEDS ORDERED: ALTEPLASE RECOMBINANT 2 MG/2 ML VIAL IV PRN (18:45)
--- NOTE | 2019-12-11 20:06 | NUR ---
Notified Dr. Camacho of fever 102.3 and HR 120- New orders received.
[2019-12-11] MEDS ORDERED: ACETAMINOPHEN 325 MG SUPP PR PRN (20:15)
--- NOTE | 2019-12-11 20:25 | NUR ---
Notified Dr. Chavis of fever 102.3, HR 120s, and positive sepsis screen. New orders received.
[2019-12-11] MEDS ORDERED: ACETAMINOPHEN 650 MG SUPP PR PRN (20:30)
[2019-12-11] MEDS ORDERED: VANCOMYCIN 1GM/NS 250 ML 250 ML IV ONE (20:35)
[2019-12-11] MEDS: CENTRAL TPN FORMULA 1 BAG IV SCH (21:31)
[2019-12-12] VITALS (16 sets, daily range): BP systolic 98–134; BP diastolic 59–86
[2019-12-12] MEDS: METRONIDAZOLE 500MG/NS 100ML 100 ML IV SCH ×3 (00:37→16:44)
[2019-12-12] MEDS: MORPHINE SULFATE INJ 4 MG/ML INJ 1ML IV PRN ×2 (01:30→07:37)
[2019-12-12] MEDS: ALBUTEROL/IPRATROPIUM 3 ML NEB NEB SCH ×6 (02:30→23:30)
[2019-12-12] MEDS: SODIUM CHLORIDE 0.9% 250ML IRRIG IR SCH ×6 (03:15→23:00)
[2019-12-12] MEDS: DEXTROSE 5%/0.45% SOD CHL 1,000 ML IV SCH (04:35)
[2019-12-12] MEDS: SODIUM CHLORIDE 0.9% 1000ML 1,000 ML IV SCH (05:21)
[2019-12-12 05:30] LABS: BASOPHILS # (AUTO) 0.1 (0.0-0.1); BASOPHILS % 0.3 % (0.0-1.0); EOSINOPHILS # (AUTO) 0.3 (0.0-0.4); EOSINOPHILS % 1.6 % (0.0-6.0); HEMATOCRIT 33.2 % (38.2-49.6); HEMOGLOBIN 10.2 g/dL (14.0-18.0); LYMPHOCYTES # (AUTO) 1.1 (1.0-3.2); LYMPHOCYTES % 7.1 % (18.0-39.1); MEAN CORPUSCULAR HEMOGLOBIN 28.1 pg (28-32); MEAN CORPUSCULAR HGB CONC 30.7 g/dL (31-35); MEAN CORPUSCULAR VOLUME 91.5 fL (81-99); MONOCYTES # (AUTO) 1.4 (0.2-0.8); MONOCYTES % 8.9 % (4.4-11.3); NEUTROPHILS % 81.1 % (38.7-80.0); PLATELET COUNT 212 x10e3/uL (140-360); RED BLOOD COUNT 3.63 x10e6/uL (4.3-5.7); RED CELL DISTRIBUTION WIDTH 13.7 % (11.7-14.4)
[2019-12-12 06:02] LABS: ANION GAP 8.5 mmol/L (8-16); BLOOD UREA NITROGEN 8 mg/dL (7-26); BUN/CREATININE RATIO 12 (6-25); CALCIUM 7.8 mg/dL (8.4-10.2); CARBON DIOXIDE 27 mmol/L (22-29); CHLORIDE 108 mmol/L (98-107); CREATININE, SERUM 0.67 mg/dL (0.72-1.25); EST GLOMERULAR FILTRATION RATE > 60 ML/MIN (60-); GLUCOSE 114 mg/dL (74-118); MAGNESIUM 1.9 MG/DL (1.3-2.1); PHOSPHORUS 2.4 MG/DL (2.3-4.7); POTASSIUM 3.5 mmol/L (3.5-5.1); SODIUM 140 mmol/L (136-145)
[2019-12-12] MEDS: PANTOPRAZOLE 40 MG 10ML VIAL IV SCH (06:02)
[2019-12-12] MEDS: METOPROLOL TARTRATE INJ 1 MG/ML VIAL IV SCH ×4 (06:02→23:31)
[2019-12-12] MEDS: BUDESONIDE/FORMOTEROL 160/4.5MCG INHALER INH SCH ×2 (07:17→19:15)
[2019-12-12] MEDS: CEFEPIME 1GM/NS 0.9% 50 ML 50 ML IV SCH ×2 (08:50→22:00)
[2019-12-12] MEDS: VANCOMYCIN 1GM/NS 250 ML 250 ML IV SCH ×2 (10:18→21:15)
[2019-12-12] MEDS: HYDROMORPHONE 1MG/1ML INJ IV PRN ×5 (10:57→23:30)
[2019-12-12] MEDS: MICAFUNGIN SODIUM 100 ML IV SCH (12:30)
[2019-12-12] MEDS: CENTRAL TPN FORMULA 1 BAG IV SCH (20:30)
[2019-12-12] MEDS: HEPARIN SOD (PORCINE) 5,000 UNIT/ML VIAL SC SCH (20:30)
[2019-12-12] MEDS ORDERED: SODIUM CHLORIDE 0.9% 1000ML 1,000 ML ONE (20:32)
[2019-12-13] VITALS (24 sets, daily range): BP systolic 110–165; BP diastolic 61–100
[2019-12-13] MEDS: METRONIDAZOLE 500MG/NS 100ML 100 ML IV SCH ×3 (00:50→18:13)
[2019-12-13] MEDS: HYDROMORPHONE 1MG/1ML INJ IV PRN ×7 (02:53→21:13)
[2019-12-13] MEDS: SODIUM CHLORIDE 0.9% 250ML IRRIG IR SCH ×4 (03:00→15:15)
[2019-12-13] MEDS: ALBUTEROL/IPRATROPIUM 3 ML NEB NEB SCH ×6 (03:15→22:40)
[2019-12-13 05:04] LABS: BASOPHILS # (AUTO) 0.1 (0.0-0.1); BASOPHILS % 0.4 % (0.0-1.0); EOSINOPHILS # (AUTO) 0.6 (0.0-0.4); EOSINOPHILS % 3.8 % (0.0-6.0); HEMATOCRIT 33.7 % (38.2-49.6); HEMOGLOBIN 10.4 g/dL (14.0-18.0); LYMPHOCYTES # (AUTO) 0.8 (1.0-3.2); LYMPHOCYTES % 5.5 % (18.0-39.1); MEAN CORPUSCULAR HGB CONC 30.9 g/dL (31-35); MEAN CORPUSCULAR VOLUME 90.8 fL (81-99); MONOCYTES # (AUTO) 1.1 (0.2-0.8); MONOCYTES % 7.2 % (4.4-11.3); NEUTROPHILS # (AUTO) 12.6 (2.1-6.9); NEUTROPHILS % 82.4 % (38.7-80.0); PLATELET COUNT 172 x10e3/uL (140-360); RED BLOOD COUNT 3.71 x10e6/uL (4.3-5.7); RED CELL DISTRIBUTION WIDTH 13.6 % (11.7-14.4)
[2019-12-13 05:35] LABS: ALANINE AMINOTRANSFERASE 22 IU/L (0-55); ALBUMIN 1.6 g/dL (3.5-5.0); ALBUMIN/GLOBULIN RATIO 0.4 (0.8-2.0); ALKALINE PHOSPHATASE 63 IU/L (40-150); ANION GAP 7.5 mmol/L (8-16); BLOOD UREA NITROGEN 8 mg/dL (7-26); BUN/CREATININE RATIO 11 (6-25); CALCIUM 7.9 mg/dL (8.4-10.2); CARBON DIOXIDE 27 mmol/L (22-29); CHLORIDE 106 mmol/L (98-107); EST GLOMERULAR FILTRATION RATE > 60 ML/MIN (60-); GLUCOSE 117 mg/dL (74-118); MAGNESIUM 1.9 MG/DL (1.3-2.1); PHOSPHORUS 2.7 MG/DL (2.3-4.7); POTASSIUM 3.5 mmol/L (3.5-5.1); SODIUM 137 mmol/L (136-145)
[2019-12-13] MEDS: METOPROLOL TARTRATE INJ 1 MG/ML VIAL IV SCH ×3 (05:57→18:13)
[2019-12-13] MEDS: PANTOPRAZOLE 40 MG 10ML VIAL IV SCH (05:57)
--- NOTE | 2019-12-13 06:03 | Diagnostic Imaging Report ---
EXAMINATION: CHEST SINGLE (PORTABLE) COMPARISON: Chest x-ray 12/01/2019 INDICATION: ^PNA ^[id number] ^0525 ^Y DISCUSSION: Frontal view of the chest obtained at 0537 hours. HEART AND MEDIASTINUM: The cardiomediastinal silhouette is unremarkable. LINES: Endotracheal tube terminates 3 to 4 cm above the guevara. Right PICC line terminates in the SVC. LUNGS: Diffuse hyperinflation consistent with small airways disease. New airspace opacity in the base of the left lung. PLEURA: No pleural effusion or pneumothorax. BONES AND SOFT TISSUES: No focal osseous lesion. The soft tissues are normal. IMPRESSION: Endotracheal tube as described above. New left basilar airspace opacity may represent atelectasis or pneumonia. Signed by: Dr. Vika Garza MD on 12/13/2019 6:00 AM
[2019-12-13] MEDS: BUDESONIDE/FORMOTEROL 160/4.5MCG INHALER INH SCH ×2 (07:00→18:30)
[2019-12-13] MEDS: HEPARIN SOD (PORCINE) 5,000 UNIT/ML VIAL SC SCH ×2 (09:29→22:00)
--- NOTE | 2019-12-13 09:50 | NUR ---
Pt sleeping soundly and no family present. HONG SAVAGE Studio Coordinator Spiritual Care Department O: [phone] Pager: [phone] ([phone] number calling from)
[2019-12-13] MEDS: CEFEPIME 1GM/NS 0.9% 50 ML 50 ML IV SCH ×2 (10:37→22:14)
[2019-12-13] MEDS: VANCOMYCIN 1GM/NS 250 ML 250 ML IV SCH ×2 (10:38→21:55)
[2019-12-13] MEDS: MICAFUNGIN SODIUM 100 ML IV SCH (15:14)
--- NOTE | 2019-12-13 15:25 | NUR ---
dr. spaulding rounded. removed ngt and okayed for patient to have ice chips. I notified dr. spaulding of abdominal dressing drainage and dsg change. dr. spaulding stated okay to change dsg bid. dry dsg change bid to abdominal wound
--- NOTE | 2019-12-13 18:26 | NUR ---
Nutrition Intervention Note RD Recommendation(s) for Physician: - Recommend to continue standard TPN @ goal rate of 65 mL/hr and lipids 25 g/day (1560 mL total volume, Dextrose 30% 500 ml/day (234 grams a day), AA 10% 500 ml (78 g/day), with standard electrolytes and thiamine. (provides 1332 kcal and 78 g protein) . Plan of Care: RD following, monitoring for tolerance and adequacy. TPN recs. Monitor for adequacy and tolerance. Nutrition reason for involvement: follow up RD Assessment 12/13: Follow up. Pt continues to receive TPN and it was increased to 65 mL/hr today. Pt was discussed during rounds and RN reported pts abdomen is still distended. Current TPN order meets > 75% of estimated kcal and protein needs. Will continue to monitor. 12/11: Follow up. Pt on TPN at 43 ml/hr and continues with NGT in place. Pt denies any abdominal pain, nausea, or hunger. Pt POD#1 for small bowel obstruction, exploratory laparotomy, lysis of adhesions, and release of small bowel obstruction. TPN discussed with RN and rec's placed in chart, MD ordered TPN for this evening. TPN per current rec's to meet > 75% of kcal and protein needs. Chart reviewed. Will continue to monitor. (12/09): Follow up/Consult: Received consult to initiate TPN and lipids. Pt had a KUB that showed a SBO and a lot of stool in his colon per MD. MD recommended TPN, pt has been NPO since 12/04 (5 days). Recommendations are provided above and reported to nurse. Pts labs appear WNL from 12/08 besides a low phos, will recommend starting the pt on standard and changing to custom if necessary and advancing as appropriate. Phos was replaced yesterday. Pt has NGT in place and has a PICC line per EMR, TPN is appropriate. No new labs recorded for 12/09. MD also reported within his note to use enemas for constipation. Pt reported he is hungry and he denies N/V, and state he had a small bowel movement. Surgery scheduled for tmrw per nurse. Will continue to monitor. (12/03) 69 YOM admitted for COPD exacerbation, PNA, and Flu A. Pt seen today for LOS. 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 Noted fluctuating po intake since admit, pt reports taste changes 2/2 IV medications and flushes given. Pt declined all supplements offered, stated "this happens every time I come to the hospital." Pt with no questions or concerns at time of visit. Chart reviewed. Labs and meds reviewed. Will continue to monitor. Principal Problems/Diagnoses: COPD exacerbation, PNA, and Flu PMH: Status post ileus. Status post laparoscopic cholecystectomy andstatus post umbilical hernia repair. Leukocytosis previously resolved. COPD with oxygen dependency, Lung disease GI: soft, large, distended abdomen, Gastric drainage output of 650 ml recorded this morning, LBM: not recorded Skin: no pressure ulcer recorded Labs: 12/13: Na 137, K 3.5, BUN , Cr 0.70, Glu 117 12/11: Na 141, K 4.1, Cl 108, CO2 25, BUN 10, Cr 0.76, Gluc 137 12/08: Na 139, K 3.6, Cl 100, CO2 29, BUN 13.6, Creat 11, Gluc 104, Phos 2.0, Mg 1.9, tbili, 0.8 Meds: NaCl, vancomycin, heparin, metroprolol, zofran, milk of magnesia Ht: 67 in Wt: 196 lbs (12/13), 198 lbs (12/10) BMI: 30.7 kg/m^2 IBW:148lbs Malnutrition Evaluation 12/09 The patient does not meet criteria for a specified degree of malnutrition at this time. Will re-evaluate at follow-up as appropriate. Energy intake: <50% of estimated energy requirements for >5 days Weight loss: -no weight loss recorded Nutrition Prescription (Diet Order): NPO Standard TPN @ goal rate of 65 mL/hr and lipids 25 g/day (1560 mL total volume, Dextrose 30% 500 ml/day (234 grams a day), AA 10% 500 ml (78 g/day), with standard electrolytes and thiamine. (provides 1332 kcal and 78 g protein) Estimated Nutritional Needs: Calories: 7403-1844 kcal/day (22-25 kcal/kg/day) Weight used : IBW (67.2 kg) Protein : 80-134 protein/day (1.2-2 gram/kg/day ) Weight used: IBW Diet Adequacy: Current TPN order meets >75% of estimated needs Diet Education Needs Assessment: Diet education not indicated, patient on temporary/transition diet. Nutrition Care Level: high Nutrition Diagnosis: Altered GI function related to SBO as evidenced by need for TPN Goal: Patient will meet 75-100% of estimated needs by follow up Progress: Progressing Interventions: - TPN - Composition, Rate, Route, Collaboration with other providers Monitoring/Evaluation: Total energy intake, Total protein intake, Formula/Solution Signed: Selene Singh RD, LD
[2019-12-13] MEDS ORDERED: CENTRAL TPN FORMULA 1 BAG IV SCH (20:00)
--- NOTE | 2019-12-13 22:00 | NUR ---
INFORMED DR PLEITEZ OF ELEVATED TEMP, NO CHANGES TO MEDS. ORDERS TO GET BLOOD CULTURES IN AM.
[2019-12-14] VITALS (21 sets, daily range): BP systolic 94–148; BP diastolic 50–101
[2019-12-14] MEDS: METOPROLOL TARTRATE INJ 1 MG/ML VIAL IV SCH ×3 (00:03→12:42)
[2019-12-14] MEDS: METRONIDAZOLE 500MG/NS 100ML 100 ML IV SCH ×3 (00:31→17:44)
[2019-12-14] MEDS: ALBUTEROL/IPRATROPIUM 3 ML NEB NEB SCH ×6 (03:10→22:35)
[2019-12-14] MEDS: HYDROMORPHONE 1MG/1ML INJ IV PRN ×4 (03:27→18:11)
[2019-12-14 05:10] LABS: BASOPHILS # (AUTO) 0.1 (0.0-0.1); BASOPHILS % 0.3 % (0.0-1.0); EOSINOPHILS # (AUTO) 0.5 (0.0-0.4); EOSINOPHILS % 3.7 % (0.0-6.0); HEMATOCRIT 34.6 % (38.2-49.6); HEMOGLOBIN 10.7 g/dL (14.0-18.0); LYMPHOCYTES # (AUTO) 0.7 (1.0-3.2); LYMPHOCYTES % 4.6 % (18.0-39.1); MEAN CORPUSCULAR HEMOGLOBIN 27.9 pg (28-32); MEAN CORPUSCULAR HGB CONC 30.9 g/dL (31-35); MEAN CORPUSCULAR VOLUME 90.3 fL (81-99); MONOCYTES # (AUTO) 0.9 (0.2-0.8); MONOCYTES % 6.3 % (4.4-11.3); NEUTROPHILS # (AUTO) 12.2 (2.1-6.9); NEUTROPHILS % 84.1 % (38.7-80.0); PLATELET COUNT 185 x10e3/uL (140-360); RED BLOOD COUNT 3.83 x10e6/uL (4.3-5.7); RED CELL DISTRIBUTION WIDTH 13.5 % (11.7-14.4)
[2019-12-14 05:32] LABS: ALANINE AMINOTRANSFERASE 15 IU/L (0-55); ALBUMIN 1.6 g/dL (3.5-5.0); ALBUMIN/GLOBULIN RATIO 0.4 (0.8-2.0); ALKALINE PHOSPHATASE 100 IU/L (40-150); ANION GAP 9.5 mmol/L (8-16); BLOOD UREA NITROGEN 8 mg/dL (7-26); BUN/CREATININE RATIO 11 (6-25); CARBON DIOXIDE 27 mmol/L (22-29); CHLORIDE 106 mmol/L (98-107); EST GLOMERULAR FILTRATION RATE > 60 ML/MIN (60-); GLUCOSE 150 mg/dL (74-118); PHOSPHORUS 2.6 MG/DL (2.3-4.7); POTASSIUM 3.5 mmol/L (3.5-5.1); SODIUM 139 mmol/L (136-145)
[2019-12-14] MEDS: PANTOPRAZOLE 40 MG 10ML VIAL IV SCH (06:06)
--- NOTE | 2019-12-14 06:12 | Diagnostic Imaging Report ---
EXAMINATION: CHEST SINGLE (PORTABLE) COMPARISON: Chest x-ray 12/13/2019 INDICATION: ^PNA ^[id number] ^0500 ^Y DISCUSSION: Frontal view of the chest obtained at 0527 hours. HEART AND MEDIASTINUM: The cardiomediastinal silhouette is unremarkable. LINES: Right PICC line terminus in the SVC. Endotracheal tube is no longer visualized. LUNGS: Left basilar airspace opacity is similar. No new findings in the right lung. PLEURA: No pleural effusion or pneumothorax. BONES AND SOFT TISSUES: No focal osseous lesion. The soft tissues are normal. IMPRESSION: Stable left basilar airspace opacity. No new cardiopulmonary findings. Signed by: Dr. Vika Garza MD on 12/14/2019 6:10 AM
--- NOTE | 2019-12-14 07:22 | NUR ---
offered to assist patient to get out of bed into a chair. pt declined at this time. "i am in no pain right now" wound dsg changed to abdominal incision. pain medication given per patient request for "severe back pain" .
--- NOTE | 2019-12-14 07:25 | NUR ---
pt getting forgetful at times. calling for assistance multiple times in short periods of time for same request(pt states he forgot)
[2019-12-14] MEDS: HEPARIN SOD (PORCINE) 5,000 UNIT/ML VIAL SC SCH ×2 (09:45→21:00)
[2019-12-14] MEDS: BISACODYL 5 MG TAB EC PO PRN (10:00)
[2019-12-14] MEDS: VANCOMYCIN 1GM/NS 250 ML 250 ML IV SCH ×2 (10:16→21:52)
[2019-12-14] MEDS: HYDROCODONE/APAP 5MG-325MG TAB PO SCH ×3 (10:16→21:52)
[2019-12-14] MEDS: CEFEPIME 1GM/NS 0.9% 50 ML 50 ML IV SCH ×2 (10:16→21:52)
[2019-12-14] MEDS: KETOROLAC TROMETHAMINE 30 MG/ML VIAL IV PRN ×2 (10:17→17:45)
[2019-12-14] MEDS: POTASSIUM CHLORIDE 20MEQ/100ML 100 ML IV SCH ×2 (10:27→12:42)
[2019-12-14] MEDS: BISACODYL 10 MG SUPP PR PRN (10:32)
[2019-12-14] MEDS: BUDESONIDE/FORMOTEROL 160/4.5MCG INHALER INH SCH ×2 (10:50→18:55)
[2019-12-14] MEDS: MICAFUNGIN SODIUM 100 ML IV SCH (12:47)
--- NOTE | 2019-12-14 14:55 | NUR ---
attempted to discontinue rachel catheter this morning and again this afternoon. pt refusing to remove rachel at this time due to his incontinence. pt stated he "cant feel when he has to urinate" and he does not feel strong enough to have linens changed every time he urinates. pt declines brief. and prefers to wait another 24hr to remove rachel.
--- NOTE | 2019-12-14 17:09 | NUR ---
pt refusing 2 x today but was assisted to sit uic , f/u on monday Addendum: 12/14/19 at 1709 by Jose Alberto Casey PTA Amended: Links added.
[2019-12-14] MEDS ORDERED: SODIUM CHLORIDE 0.9% 250ML 250 ML ONE (17:14)
[2019-12-14] MEDS ORDERED: CENTRAL TPN FORMULA 1 BAG IV SCH (20:00)
[2019-12-14] MEDS: METOPROLOL TARTRATE 50 MG TAB PO SCH (21:00)
[2019-12-15] VITALS (7 sets, daily range): BP systolic 114–146; BP diastolic 64–83
[2019-12-15] MEDS: HYDROMORPHONE 1MG/1ML INJ IV PRN ×3 (01:45→20:45)
[2019-12-15] MEDS: METRONIDAZOLE 500MG/NS 100ML 100 ML IV SCH ×3 (01:47→18:03)
[2019-12-15] MEDS: ALBUTEROL/IPRATROPIUM 3 ML NEB NEB SCH ×6 (03:00→23:00)
[2019-12-15] MEDS: KETOROLAC TROMETHAMINE 30 MG/ML VIAL IV PRN ×2 (03:07→18:03)
[2019-12-15 05:06] LABS: BASOPHILS # (AUTO) 0.1 (0.0-0.1); BASOPHILS % 0.4 % (0.0-1.0); EOSINOPHILS # (AUTO) 1.5 (0.0-0.4); EOSINOPHILS % 8.9 % (0.0-6.0); HEMATOCRIT 33.7 % (38.2-49.6); HEMOGLOBIN 10.4 g/dL (14.0-18.0); LYMPHOCYTES # (AUTO) 0.6 (1.0-3.2); LYMPHOCYTES % 3.5 % (18.0-39.1); MEAN CORPUSCULAR HGB CONC 30.9 g/dL (31-35); MEAN CORPUSCULAR VOLUME 90.6 fL (81-99); MONOCYTES # (AUTO) 0.8 (0.2-0.8); MONOCYTES % 4.7 % (4.4-11.3); NEUTROPHILS # (AUTO) 13.6 (2.1-6.9); NEUTROPHILS % 81.7 % (38.7-80.0); PLATELET COUNT 157 x10e3/uL (140-360); RED BLOOD COUNT 3.72 x10e6/uL (4.3-5.7); RED CELL DISTRIBUTION WIDTH 13.5 % (11.7-14.4)
[2019-12-15 05:22] LABS: ALANINE AMINOTRANSFERASE 22 IU/L (0-55); ALBUMIN 1.6 g/dL (3.5-5.0); ALBUMIN/GLOBULIN RATIO 0.4 (0.8-2.0); ALKALINE PHOSPHATASE 76 IU/L (40-150); ANION GAP 9.5 mmol/L (8-16); BLOOD UREA NITROGEN 14 mg/dL (7-26); BUN/CREATININE RATIO 21 (6-25); CALCIUM 7.9 mg/dL (8.4-10.2); CARBON DIOXIDE 25 mmol/L (22-29); CHLORIDE 107 mmol/L (98-107); CREATININE, SERUM 0.67 mg/dL (0.72-1.25); EST GLOMERULAR FILTRATION RATE > 60 ML/MIN (60-); GLUCOSE 153 mg/dL (74-118); MAGNESIUM 2.2 MG/DL (1.3-2.1); POTASSIUM 3.5 mmol/L (3.5-5.1); SODIUM 138 mmol/L (136-145)
[2019-12-15] MEDS: HYDROCODONE/APAP 5MG-325MG TAB PO SCH (06:03)
[2019-12-15] MEDS: PANTOPRAZOLE 40 MG 10ML VIAL IV SCH (06:03)
--- NOTE | 2019-12-15 06:19 | Diagnostic Imaging Report ---
EXAMINATION: CHEST SINGLE (PORTABLE) COMPARISON: Chest x-ray 12/14/2019 INDICATION: Pneumonia ^PNA ^[id number] ^0530 ^Y DISCUSSION: Frontal view of the chest obtained at 0553 hours. HEART AND MEDIASTINUM: The cardiomediastinal silhouette is unremarkable. LINES: None. LUNGS: Stable left basilar airspace opacity. No new findings in the right lung. No pneumonia or pulmonary edema. PLEURA: No pleural effusion or pneumothorax. BONES AND SOFT TISSUES: No focal osseous lesion. The soft tissues are normal. IMPRESSION: Stable left basilar airspace opacity. Recommend correlation with PA and lateral chest x-ray if clinically feasible to exclude atelectasis. Signed by: Dr. Vika Garza MD on 12/15/2019 6:17 AM
[2019-12-15] MEDS: BUDESONIDE/FORMOTEROL 160/4.5MCG INHALER INH SCH ×2 (07:55→20:10)
[2019-12-15] MEDS: METOPROLOL TARTRATE 50 MG TAB PO SCH ×2 (09:08→20:04)
[2019-12-15] MEDS: HEPARIN SOD (PORCINE) 5,000 UNIT/ML VIAL SC SCH ×2 (09:09→21:00)
[2019-12-15] MEDS: CEFEPIME 1GM/NS 0.9% 50 ML 50 ML IV SCH ×2 (10:32→22:30)
[2019-12-15] MEDS: VANCOMYCIN 1GM/NS 250 ML 250 ML IV SCH ×2 (10:32→22:00)
[2019-12-15] MEDS ORDERED: HYDROCODONE/APAP 10MG-325MG TAB PO SCH (12:00)
[2019-12-15] MEDS: MICAFUNGIN SODIUM 100 ML IV SCH (12:28)
[2019-12-15] MEDS: HYDROCODONE/APAP 10MG-325MG TAB PO SCH ×2 (13:48→22:00)
--- NOTE | 2019-12-15 14:05 | NUR ---
informed dr hicks of patients elevated temperature and heart rate. orders received and entered
[2019-12-15 14:12] LABS: AMYLASE 21 U/L (25-125); LIPASE 19 U/L (8-78)
[2019-12-15 15:33] LABS: BASOPHILS % 0.2 % (0.0-1.0); EOSINOPHILS # (AUTO) 1.2 (0.0-0.4); EOSINOPHILS % 7.1 % (0.0-6.0); HEMATOCRIT 34.8 % (38.2-49.6); LYMPHOCYTES # (AUTO) 0.4 (1.0-3.2); LYMPHOCYTES % 2.3 % (18.0-39.1); MEAN CORPUSCULAR HEMOGLOBIN 28.3 pg (28-32); MEAN CORPUSCULAR HGB CONC 31.6 g/dL (31-35); MEAN CORPUSCULAR VOLUME 89.5 fL (81-99); MONOCYTES # (AUTO) 0.6 (0.2-0.8); MONOCYTES % 3.6 % (4.4-11.3); NEUTROPHILS # (AUTO) 14.5 (2.1-6.9); NEUTROPHILS % 86.2 % (38.7-80.0); PLATELET COUNT 173 x10e3/uL (140-360); RED BLOOD COUNT 3.89 x10e6/uL (4.3-5.7); RED CELL DISTRIBUTION WIDTH 13.7 % (11.7-14.4)
--- NOTE | 2019-12-15 15:46 | Progress Note ---
DATE: SUBJECTIVE: Mr. Marquez is not feeling well. He is having some abdominal discomfort still. He is out of ICU and telemetry. Having lots of gas. All his cultures so far have been negative. LABORATORY DATA: Reviewed. His white count is 16.6, hemoglobin of 10.4, hematocrit 33 with a platelet of 457. His vancomycin trough was 8.2. Sodium 138, potassium 3.5, and creatinine 0.67. Total protein 5.5 and albumin of 1.6. Chest x-ray showed stable left basilar airspace opacity. REVIEW OF SYSTEMS: He is still weak, not feeling well. A lot of gas as mentioned above, diffuse abdominal discomfort. PHYSICAL EXAMINATION: GENERAL: He is currently alert, comfortable. VITAL SIGNS: Stable, currently afebrile. T-max 100.0, 102.5 on December 13, but nothing since then. HEENT: He is not icteric. Normocephalic. NECK: Supple. CHEST: Few crackles at the bases. COR: S1 and S2. No S3, S4, or murmur. ABDOMEN: Soft. Bowel sounds present. No tenderness. EXTREMITIES: No edema. IMPRESSION: 1. Healthcare-associated pneumonia with probably aspiration pneumonia. Clinically doing better. 2. Small bowel obstruction, status post diagnostic laparoscopy, exploratory laparotomy with lysis of adhesion and release of small bowel obstruction on December [address] Camacho. Seems little bit better. 3. History of pneumonia, on admission; history of influenza, present on admission, treated. 4. Debility. 5. Malnutrition with albumin of 1.6. Currently on vancomycin, micafungin, cefepime, and metronidazole. His fever has resolved. PLAN: To give him 5 days of current choice of antibiotic. Consider PT, OT, and ambulation. Concerned that he is still having sensation of gas. We will get KUB. Recheck CBC. Recheck chem panel, amylase, lipase, and liver enzyme. Alisha Chavis MD ZS/MODL /[id number]
[2019-12-15] MEDS ORDERED: IOPAMIDOL 370 MG/ML 200 ML INFUS..BTL INJ ONE (16:48)
[2019-12-15] MEDS ORDERED: SODIUM CHLORIDE 0.9% 50ML 50 ML ONE (16:48)
--- NOTE | 2019-12-15 18:07 | Diagnostic Imaging Report ---
EXAM: CT Abdomen and Pelvis WITH contrast INDICATION: ^pain,fever ^[id number] ^1655 ^Y COMPARISON: None. TECHNIQUE: Abdomen and pelvis were scanned utilizing a multidetector helical scanner from the lung base to the pubic symphysis after administration of IV contrast. Coronal and sagittal reformations were obtained. Dose modulation, iterative reconstruction, and/or weight based adjustment of the mA/kV was utilized to reduce the radiation dose to as low as reasonably achievable. Routine protocol was performed. Scan was performed when during portal venous phase. IV CONTRAST: 150 mL of Omnipaque 300 ORAL CONTRAST: Water COMPLICATIONS: None RADIATION DOSE: Total DLP: 650.02 mGy-cm Estimated effective dose: (DLP x 0.015 x size factor) mSv CTDIvol has been reviewed. It is below the limits set by the Radiation Protocol Committee (RPC). FINDINGS: LINES and TUBES: None. LOWER THORAX: Subsegmental atelectasis/consolidations are seen in lung bases. HEPATOBILIARY: No focal hepatic lesions. No biliary ductal dilation. GALLBLADDER: There are cholecystectomy clips. SPLEEN: No splenomegaly. PANCREAS: There is a slight hazy infiltration surrounding the pancreatic head (series 2, image 37) with adjacent inflammatory stranding and fluid compatible with focal pancreatitis. ADRENALS: No adrenal nodules KIDNEYS/URETERS: Kidneys enhance symmetrically. No hydronephrosis. There are scattered too small to characterize hypodensities, likely benign. There is a 2.6 cm simple cyst arising from the upper pole of the left kidney. No stones. GI TRACT: There is dilatation of multiple loops of small bowel with a transition point seen in the right lower quadrant (series 2, image 72) compatible with obstruction. . PELVIC ORGANS/BLADDER: The urinary bladder is collapsed around a Stevens catheter.. LYMPH NODES: No lymphadenopathy. VESSELS: Unremarkable. PERITONEUM /MESENTERY: There is hazy infiltration of mesentery which could be postoperative or due to inflammation. BONES: Unremarkable. SOFT TISSUES: Skin donavon are seen in the ventral abdominal wall related to closure of recent surgery. There is underlying trauma loop of small bowel which is obstructed (series 300, image 61). IMPRESSION: 1. Status post surgery with closure of ventral abdominal wall surgery which contains loop of obstructive bowel. 2. Additionally there is dilatation of multiple loops of small bowel with a transition point seen in the right lower quadrant compatible with obstruction. 3. Slight hazy infiltration surrounding the pancreatic head with adjacent inflammatory stranding and fluid compatible with focal pancreatitis. 4. Subsegmental atelectasis/consolidations are seen in lung bases. Signed by: Ming Coelho MD on 12/15/2019 6:04 PM
--- NOTE | 2019-12-15 18:48 | NUR ---
informed dr hicks of CT results, orders given to insert NGT to LIWS and keep patient NPO if ok with Dr. Camacho, call placed to Dr. Camacho at this time
--- NOTE | 2019-12-15 18:54 | NUR ---
received call from Dr. Camacho and informed of CT results. orders received to keep patient NPO at this time.
--- NOTE | 2019-12-15 19:00 | NUR ---
Received patient from day nurse, patient is alert and oriented x3. patient was made aware of his npo status by day nurse and was emphasized during shift change. safety and fall precautions maintained, patient in a recliner and refusing to go into his bed at this time, patient encouraged to call for help.
[2019-12-15] MEDS ORDERED: CENTRAL TPN FORMULA 1 BAG IV SCH (20:00)
--- NOTE | 2019-12-15 22:00 | NUR ---
Patient uses the call light but when I go into his room he states he has forgotten what he wants.
[2019-12-16] VITALS (8 sets, daily range): BP systolic 110–132; BP diastolic 66–76
--- NOTE | 2019-12-16 | NUR ---
patient stated the room is too cold and needs blankets, gave him warm blanket and the temp. in the room was reduced.
--- NOTE | 2019-12-16 01:00 | NUR ---
PATIENT ENCOURAGED TO GO TO BED, HE REFUSED, ANGRY AND FURIOUSLY REFUSED
[2019-12-16] MEDS: METRONIDAZOLE 500MG/NS 100ML 100 ML IV SCH ×3 (01:35→17:43)
[2019-12-16] MEDS: HYDROMORPHONE 1MG/1ML INJ IV PRN ×5 (01:45→22:56)
--- NOTE | 2019-12-16 02:00 | NUR ---
patient called and angry, using f word that rn is frying him. The temp in the room was reduced and blankets was removed.
[2019-12-16] MEDS: ALBUTEROL/IPRATROPIUM 3 ML NEB NEB SCH ×6 (02:45→23:25)
--- NOTE | 2019-12-16 04:00 | NUR ---
PATIENT IN CHAIR
[2019-12-16 05:28] LABS: BASOPHILS # (AUTO) 0.1 (0.0-0.1); BASOPHILS % 0.3 % (0.0-1.0); EOSINOPHILS # (AUTO) 1.2 (0.0-0.4); EOSINOPHILS % 7.5 % (0.0-6.0); HEMATOCRIT 34.3 % (38.2-49.6); HEMOGLOBIN 10.6 g/dL (14.0-18.0); LYMPHOCYTES # (AUTO) 0.6 (1.0-3.2); LYMPHOCYTES % 3.7 % (18.0-39.1); MEAN CORPUSCULAR HEMOGLOBIN 27.5 pg (28-32); MEAN CORPUSCULAR HGB CONC 30.9 g/dL (31-35); MEAN CORPUSCULAR VOLUME 89.1 fL (81-99); MONOCYTES # (AUTO) 0.6 (0.2-0.8); MONOCYTES % 3.6 % (4.4-11.3); NEUTROPHILS # (AUTO) 13.1 (2.1-6.9); PLATELET COUNT 170 x10e3/uL (140-360); RED BLOOD COUNT 3.85 x10e6/uL (4.3-5.7); RED CELL DISTRIBUTION WIDTH 13.8 % (11.7-14.4)
[2019-12-16 05:51] LABS: ALANINE AMINOTRANSFERASE 30 IU/L (0-55); ALBUMIN 1.6 g/dL (3.5-5.0); ALBUMIN/GLOBULIN RATIO 0.4 (0.8-2.0); ALKALINE PHOSPHATASE 120 IU/L (40-150); ANION GAP 9.8 mmol/L (8-16); BLOOD UREA NITROGEN 12 mg/dL (7-26); BUN/CREATININE RATIO 17 (6-25); CALCIUM 7.5 mg/dL (8.4-10.2); CARBON DIOXIDE 22 mmol/L (22-29); CHLORIDE 107 mmol/L (98-107); CREATININE, SERUM 0.72 mg/dL (0.72-1.25); EST GLOMERULAR FILTRATION RATE > 60 ML/MIN (60-); GLUCOSE 129 mg/dL (74-118); MAGNESIUM 2.1 MG/DL (1.3-2.1); PHOSPHORUS 2.6 MG/DL (2.3-4.7); POTASSIUM 3.8 mmol/L (3.5-5.1); SODIUM 135 mmol/L (136-145)
[2019-12-16] MEDS: HYDROCODONE/APAP 10MG-325MG TAB PO SCH ×3 (06:00→22:00)
--- NOTE | 2019-12-16 06:00 | NUR ---
Patient had elevated temp, Dr. Chavis office was called and made aware.
--- NOTE | 2019-12-16 06:16 | NUR ---
sputum collected and sent to lab
--- NOTE | 2019-12-16 07:20 | NUR ---
0720: Dr. Chavis CONSULTING TECHNICAL MANAGER was here and ordered tylenol iv
[2019-12-16] MEDS: PANTOPRAZOLE 40 MG 10ML VIAL IV SCH (07:33)
[2019-12-16] MEDS: BUDESONIDE/FORMOTEROL 160/4.5MCG INHALER INH SCH ×2 (07:35→19:00)
[2019-12-16] MEDS ORDERED: ACETAMINOPHEN 1000 MG/100 ML 100 ML IV ONE (07:36)
[2019-12-16] MEDS ORDERED: ACETAMINOPHEN 1000 MG/100 ML IV ONE (07:55)
--- NOTE | 2019-12-16 08:50 | NUR ---
MD VAUGHAN INTO SEE PT, DISCUSSED POC
[2019-12-16] MEDS: METOPROLOL TARTRATE 50 MG TAB PO SCH ×2 (09:00→21:00)
[2019-12-16] MEDS ORDERED: GUAIFENESIN/CODEINE 10 ML CUP PO PRN (09:15)
--- NOTE | 2019-12-16 09:17 | NUR ---
SITTING IN CHAIR, REFUSES TO GET UP AT THIS TIME FOR NURSE TO ASSESS HIS BOTTOM, MEDICATED PER MD ORDER FOR 9 "SACRAL, BOTTOM" PAIN, DENIES ABDOMINAL PAIN AT THIS TIME, ABDOMINAL DRESSING HANGING HALF OFF, REMOVED, AND PLACED NEW DRESSING OVER OPEN INCISION ON BOTTOM OF INCISION, PT TOLERATED WELL, CALL LIGHT WITHIN REACH, TELEPHONED PT'S HENRIQUE @ [phone] TO MAKE AWARE THAT PT IS GOING BACK TO SURGERY TODAY TO CLOSE OPEN INCISION SITE, PT VERBALIZED UNDERSTANDING
[2019-12-16] MEDS: VANCOMYCIN 1GM/NS 250 ML 250 ML IV SCH ×2 (10:00→22:57)
[2019-12-16] MEDS: CEFEPIME 1GM/NS 0.9% 50 ML 50 ML IV SCH ×2 (10:30→22:04)
--- NOTE | 2019-12-16 11:14 | NUR ---
WHEELED OFF UNIT VIA WC FOR XRAY, NO CHANGE IN CONDITION
--- NOTE | 2019-12-16 11:33 | Diagnostic Imaging Report ---
EXAMINATION: CHEST 2 VIEWS INDICATION: Cough COMPARISON: Chest radiograph 12/15/2019 FINDINGS: LINES/TUBES:Right PICC line terminates in the superior vena cava. EKG leads overlie the chest. LUNGS:The lungs are hyperinflated. There is perihilar fullness and indistinctness of the pulmonary vasculature. Left basilar subsegmental atelectasis. PLEURA:Trace left pleural effusion. No pneumothorax. MEDIASTINUM:The cardiomediastinal silhouette appears unchanged in size and shape. BONES/SOFT TISSUES:No acute osseous injury. ABDOMEN:No free air under the diaphragm. IMPRESSION: No significant interval change. Signed by: Alethea Ferguson MD on 12/16/2019 11:31 AM
[2019-12-16] MEDS ORDERED: SODIUM CHLORIDE 0.9% 250ML 250 ML ONE (11:42)
--- NOTE | 2019-12-16 11:45 | NUR ---
Follow-up visit Pt's at bedside. Pt expressed frustration concerning illness. Provided emotional/spiritual support. Facilitated illness review and storytelling. Provided prayer. 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 Will continue to follow as able. HONG SAVAGE Area Coordinator Spiritual Care Department O: [phone] Pager: [phone] ([phone] number calling from)
[2019-12-16] MEDS ORDERED: BACITRACIN 50,000 UNIT VIAL ONE (11:52)
--- NOTE | 2019-12-16 11:55 | NUR ---
WHEELED OFF UNIT VIA BED FOR OR, FAMILY AT SIDE
[2019-12-16] MEDS: MICAFUNGIN SODIUM 100 ML IV SCH (12:00)
[2019-12-16] MEDS: BENZONATATE 100 MG CAP PO SCH ×2 (12:00→18:00)
[2019-12-16] MEDS ORDERED: ALBUTEROL SULF 0.083% NEB SOLN 3 ML NEB ONE ×2 (12:40→13:53)
--- NOTE | 2019-12-16 15:26 | NUR ---
BACK IN ROOM VIA BED, AWAKE, BIPAP IN PLACE NOW DUE TO "TROUBLE BREATHING WELL AFTER SURGERY", PT MADE AWARE HE IS NPO PENDING MD ORDER, PT SHAKING HEAD, VERBALIZING UNDERSTANDING, ABD DRESSING CDI, ABD BINDER IN PLACE, MONTALVO STILL INTACT DRAINING DARK URINE, VS WNL , CALL LIGHT WITHIN REACH, AT BEDSIDE
--- NOTE | 2019-12-16 15:28 | NUR ---
Pt will be placed on PT hold now that pt is in surgery for abdominal incision dehiscence. Pt will need new PT orders to resume skilled PT. Thank you. Addendum: 12/16/19 at 1533 by DALLAS OLSON PTA Amended: Links added.
[2019-12-16 15:44] LABS: ABG PCO2 45 mmHg (41-51); ABG PH 7.33 (7.31-7.41)
[2019-12-16 15:45] LABS: ABG HCO3 24 mmol/L (23-28); ABG PO2 130 mmHg (80-105)
--- NOTE | 2019-12-16 17:30 | NUR ---
PT AWAKENS EASILY TO VOICE, BIPAP IN PLACE, CALL TPN INFUSING , CALL LIGHT WITHIN REACH
[2019-12-16] MEDS ORDERED: ROCURONIUM BROMIDE 10 MG/ML 5ML VIAL ONE (18:10)
[2019-12-16] MEDS ORDERED: SUCCINYLCHOLINE CHLORIDE 20 MG/ML 10ML VIAL ONE (18:10)
[2019-12-16] MEDS ORDERED: MIDAZOLAM HCL 2 MG/2 ML VIAL ONE (18:10)
[2019-12-16] MEDS ORDERED: NEOSTIGMINE 1 MG/ML 10ML VIAL ONE (18:10)
[2019-12-16] MEDS ORDERED: DEXAMETHASONE SOD PHOS INJ 4 MG/ML VIAL ONE (18:10)
[2019-12-16] MEDS ORDERED: ATROPINE SULFATE 1 MG/ML VIAL ONE (18:10)
[2019-12-16] MEDS ORDERED: PROPOFOL IV EMULSION 10 MG/ML 20 ML VIAL ONE (18:10)
[2019-12-16] MEDS ORDERED: SEVOFLURANE INHAL SOLN 250 ML PEN BTL ONE (18:10)
[2019-12-16] MEDS ORDERED: LIDOCAINE HCL 2% LOCAL INJ 5 ML SDV VIAL INJ ONE (18:10)
[2019-12-16] MEDS ORDERED: KETOROLAC TROMETHAMINE 30 MG/ML VIAL ONE (18:10)
[2019-12-16] MEDS ORDERED: FENTANYL CITRATE/PF 100MCG/2 ML INJ ONE (18:10)
[2019-12-16] MEDS ORDERED: ONDANSETRON HCL INJ 2MG/ML 2ML 2 MG/ML VIAL ONE (18:10)
--- NOTE | 2019-12-16 18:30 | NUR ---
ICU CHARGE ASSESSED PT WITH NURSE, AWAKENS EASILY TO VOICE, BIPAP IN PLACE, CALL LIGHT WITHIN REACH
--- NOTE | 2019-12-16 19:12 | Operative Report ---
DATE OF PROCEDURE: 12/16/2019 SURGEON: Huy Camacho MD PREOPERATIVE DIAGNOSIS: Abdominal wound dehiscence. POSTOPERATIVE DIAGNOSIS: Abdominal wound dehiscence. PROCEDURE: Closure of abdominal wound dehiscence. DIE SETTER: None. ANESTHESIA: General endotracheal. INDICATIONS AND FINDINGS: The patient is a 69-year-old male, who had surgery about a week ago for small bowel obstruction. He had some drainage from the wound, where the wound was opened initially, but fascia was intact, but today it was found to have that the fascia had dehisced with bowel at the base of the wound, but no evisceration. At surgery, the patient had bile that was within the wound to the level of fascia where the fascia had dehisced. All appeared viable within the abdomen. There were some thin adhesions, but no obstruction. The bowel all appeared viable. No abscess. No evidence of any perforation. The small bowel was completely free all the way to the cecum. TECHNIQUE: After adequate general endotracheal anesthesia, the abdomen was prepped and draped in sterile fashion with Betadine solution. The donavon were removed from the midline wound. There was a bowel that was adherent to the fascia, not eviscerated. The bowel was freed from the thin adhesions and examined throughout his length. There was no point of obstruction. The bowel was mildly dilated and all appeared viable. There was no evidence of perforation. Peritoneal cavity was irrigated with antibiotic solution and the wound was then closed using #1 Mersilene sutures. Vertical mattress retention sutures were placed interrupted along the length of the wound. Total of four were used. The fascia was then closed with running suture of #1 PDS. Retention suture each tied over bolsters of Xeroform gauze. Skin and subcutaneous tissue were left open and wound was dressed with a dry sterile dressing. The patient tolerated the procedure well. Estimated blood loss was 10 mL. There were no complications. All counts were correct. The patient was taken to the recovery room in satisfactory condition. MD IVETH GamezG/MODL /[id number]
[2019-12-16] MEDS: CENTRAL TPN FORMULA 1 BAG IV SCH (19:47)
--- NOTE | 2019-12-16 21:14 | NUR ---
DRAW BLOOD, AND SENT TO LAB FOR VANCO TROUGH.PATIENT IS AWAKEN, BUT STILL LOOKS DROWSY.
--- NOTE | 2019-12-16 22:45 | NUR ---
PATIENT CALLED AND ASKED FOR PAIN MEDICINE. CALLED AND SPOKE TO DR PLEITEZ, PER MD CEDILLO TO GIVE PRN DILAUDID.
[2019-12-17] VITALS (8 sets, daily range): BP systolic 102–151; BP diastolic 65–85
[2019-12-17] MEDS: ALBUTEROL/IPRATROPIUM 3 ML NEB NEB SCH ×6 (00:20→23:15)
[2019-12-17] MEDS: METRONIDAZOLE 500MG/NS 100ML 100 ML IV SCH ×3 (01:36→18:01)
[2019-12-17 05:18] LABS: BASOPHILS % 0.2 % (0.0-1.0); EOSINOPHILS # (AUTO) 0.1 (0.0-0.4); EOSINOPHILS % 0.5 % (0.0-6.0); HEMATOCRIT 32.9 % (38.2-49.6); LYMPHOCYTES # (AUTO) 0.5 (1.0-3.2); LYMPHOCYTES % 3.1 % (18.0-39.1); MEAN CORPUSCULAR HEMOGLOBIN 27.8 pg (28-32); MEAN CORPUSCULAR HGB CONC 30.4 g/dL (31-35); MEAN CORPUSCULAR VOLUME 91.4 fL (81-99); MONOCYTES # (AUTO) 0.6 (0.2-0.8); MONOCYTES % 3.8 % (4.4-11.3); NEUTROPHILS # (AUTO) 15.4 (2.1-6.9); NEUTROPHILS % 91.4 % (38.7-80.0); PLATELET COUNT 169 x10e3/uL (140-360)
[2019-12-17] MEDS: PANTOPRAZOLE 40 MG 10ML VIAL IV SCH (05:22)
[2019-12-17] MEDS: HYDROMORPHONE 1MG/1ML INJ IV PRN ×5 (05:23→21:05)
[2019-12-17] MEDS: HYDROCODONE/APAP 10MG-325MG TAB PO SCH ×3 (06:00→22:33)
[2019-12-17] MEDS: BENZONATATE 100 MG CAP PO SCH ×4 (06:00→18:04)
[2019-12-17 06:32] LABS: ANION GAP 6.5 mmol/L (8-16); BLOOD UREA NITROGEN 15 mg/dL (7-26); BUN/CREATININE RATIO 22 (6-25); CALCIUM 7.6 mg/dL (8.4-10.2); CARBON DIOXIDE 27 mmol/L (22-29); CHLORIDE 109 mmol/L (98-107); CREATININE, SERUM 0.68 mg/dL (0.72-1.25); EST GLOMERULAR FILTRATION RATE > 60 ML/MIN (60-); GLUCOSE 157 mg/dL (74-118); SODIUM 138 mmol/L (136-145)
[2019-12-17 06:34] LABS: POTASSIUM 4.5 mmol/L (3.5-5.1)
[2019-12-17] MEDS: BUDESONIDE/FORMOTEROL 160/4.5MCG INHALER INH SCH ×2 (08:37→20:15)
[2019-12-17] MEDS: METOPROLOL TARTRATE 50 MG TAB PO SCH ×2 (09:00→20:08)
[2019-12-17] MEDS: VANCOMYCIN HCL 1.25 GM in SODIUM CHLORIDE 0.9% 250ML 250 ML IV SCH ×2 (09:56→22:30)
[2019-12-17] MEDS ORDERED: SODIUM CHLORIDE 0.9% 250ML 250 ML ONE (10:17)
--- NOTE | 2019-12-17 13:11 | NUR ---
Nutrition Intervention Note RD Recommendation(s) for Physician: - TPN Rec's: Increase TPN rate to 75 ml/hr. To provide 270 gm Dextrose, 90 gm protein, and 1528 kcal. - Please check Mg and Phos with am lab draw. Monitor BMP with Mg and Phos closely. Check TG and LFTs weekly. - Additional IVF/fluid management per MD. - When feasible, ADAT to goal of GI Soft. Plan of Care: RD following, monitoring for tolerance and adequacy. TPN recs. Monitor for adequacy and tolerance. Nutrition reason for involvement: follow up RD Assessment 12/17: Follow up. Pt continues on TPN at 65 ml/hr and remains NPO. Pt discussed during am MDR, per RN plan to start clear liquid diet today. TPN rec's placed in chart for , RN notified of recommendations. Pt with surgery yesterday, resting at time of visit. Chart reviewed. Will continue to monitor. 12/13: Follow up. Pt continues to receive TPN and it was increased to 65 mL/hr today. Pt was discussed during rounds and RN reported pts abdomen is still distended. Current TPN order meets > 75% of estimated kcal and protein needs. Will continue to monitor. 12/11: Follow up. Pt on TPN at 43 ml/hr and continues with NGT in place. Pt denies any abdominal pain, nausea, or hunger. Pt POD#1 for small bowel obstruction, exploratory laparotomy, lysis of adhesions, and release of small bowel obstruction. TPN discussed with RN and rec's placed in chart, ordered TPN for this evening. TPN per current rec's to meet > 75% of kcal and protein needs. Chart reviewed. Will continue to monitor. (12/09): Follow up/Consult: Received consult to initiate TPN and lipids. Pt had a KUB that showed a SBO and a lot of stool in his colon per MD. MD recommended TPN, pt has been NPO since 12/04 (5 days). Recommendations are provided above and reported to nurse. Pts labs appear WNL from 12/08 besides a low phos, will recommend starting the pt on standard and changing to custom if necessary and advancing as appropriate. Phos was replaced yesterday. Pt has NGT in place and has a PICC line per EMR, TPN is appropriate. No new labs recorded for 12/09. also reported within his note to use enemas for constipation. Pt reported he is hungry and he denies N/V, and state he had a small bowel movement. Surgery scheduled for tmrw per nurse. Will continue to monitor. (12/03) 69 YOM admitted for COPD exacerbation, PNA, and Flu A. Pt seen today for LOS. 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 Noted fluctuating po intake since admit, pt reports taste changes 2/2 IV medications and flushes given. Pt declined all supplements offered, stated "this happens every time I come to the hospital." Pt with no questions or concerns at time of visit. Chart reviewed. Labs and meds reviewed. Will continue to monitor. Principal Problems/Diagnoses: COPD exacerbation, PNA, and Flu PMH: Status post ileus. Status post laparoscopic cholecystectomy andstatus post umbilical hernia repair. Leukocytosis previously resolved. COPD with oxygen dependency, Lung disease GI: LBM: not recorded Skin: abdominal incision Labs: 12/17: Na 138, K 4.5, Cl 109, CO2 27, BUN 15, Cr 0.68, Gluc 157, POC Gluc 138-145 Meds: abx, norco, dilaudid, protonix, dulcolax, micafungin (no + blood cultures for fungemia/candidemia noted) Ht: 67 in Wt: 196 lbs (12/13), 198 lbs (12/10) BMI: 30.7 kg/m^2 IBW:148lbs Malnutrition Evaluation 12/09 The patient does not meet criteria for a specified degree of malnutrition at this time. Will re-evaluate at follow-up as appropriate. Energy intake: <50% of estimated energy requirements for >5 days Weight loss: -no weight loss recorded Nutrition Prescription (Diet Order): NPO Standard TPN @ goal rate of 65 mL/hr and lipids 25 g/day (1560 mL total volume, Dextrose 30% 500 ml/day (234 grams a day), AA 10% 500 ml (78 g/day), with standard electrolytes and thiamine. (provides 1332 kcal and 78 g protein) Estimated Nutritional Needs: Calories: 8313-0051 kcal/day (22-25 kcal/kg/day) Weight used : IBW (67.2 kg) Protein : 80-134 protein/day (1.2-2 gram/kg/day ) Weight used: IBW Diet Adequacy: Current TPN order meets >75% of estimated needs Diet Education Needs Assessment: Diet education not indicated, patient on temporary/transition diet. Nutrition Care Level: high Nutrition Diagnosis: Altered GI function related to SBO as evidenced by need for TPN Goal: Patient will meet 75-100% of estimated needs by follow up Progress: Progressing Interventions: - TPN - Composition, Rate, Route, Collaboration with other providers Monitoring/Evaluation: Total energy intake, Total protein intake, Formula/Solution Signed: Salud Escobar RD, LD, CNSC
--- NOTE | 2019-12-17 13:25 | NUR ---
placed call to Dr. Kuhn to obtain orders for TPN and per nutrition recommendations to increase TPN to 75cc/hr, wating test preparation tutor back
[2019-12-17] MEDS: MICAFUNGIN SODIUM 100 ML IV SCH (13:29)
[2019-12-17] MEDS: CEFEPIME 1GM/NS 0.9% 50 ML 50 ML IV SCH ×2 (13:38→21:46)
[2019-12-17] MEDS: CENTRAL TPN FORMULA 1 BAG IV SCH (19:56)
[2019-12-17] MEDS: ACETAMINOPHEN 325 MG TAB PO PRN (20:09)
[2019-12-18] VITALS (12 sets, daily range): BP systolic 91–153; BP diastolic 56–85
[2019-12-18] MEDS: BENZONATATE 100 MG CAP PO SCH ×4 (01:13→17:09)
[2019-12-18] MEDS: METRONIDAZOLE 500MG/NS 100ML 100 ML IV SCH ×3 (01:13→17:09)
[2019-12-18] MEDS: HYDROMORPHONE 1MG/1ML INJ IV PRN ×4 (01:14→12:17)
[2019-12-18] MEDS: ALBUTEROL/IPRATROPIUM 3 ML NEB NEB SCH (03:15)
[2019-12-18] MEDS: ACETAMINOPHEN 325 MG TAB PO PRN ×2 (03:59→11:40)
[2019-12-18] MEDS: HYDROCODONE/APAP 10MG-325MG TAB PO SCH ×3 (06:03→21:57)
[2019-12-18] MEDS: PANTOPRAZOLE 40 MG 10ML VIAL IV SCH (06:03)
[2019-12-18] MEDS: BUDESONIDE/FORMOTEROL 160/4.5MCG INHALER INH SCH ×2 (07:30→19:00)
[2019-12-18 08:36] LABS: BASOPHILS % 0.3 % (0.0-1.0); EOSINOPHILS # (AUTO) 1.1 (0.0-0.4); HEMOGLOBIN 10.1 g/dL (14.0-18.0); LYMPHOCYTES # (AUTO) 0.5 (1.0-3.2); MEAN CORPUSCULAR HEMOGLOBIN 27.8 pg (28-32); MEAN CORPUSCULAR HGB CONC 30.6 g/dL (31-35); MEAN CORPUSCULAR VOLUME 90.9 fL (81-99); MONOCYTES # (AUTO) 0.6 (0.2-0.8); MONOCYTES % 4.2 % (4.4-11.3); NEUTROPHILS # (AUTO) 12.8 (2.1-6.9); NEUTROPHILS % 84.3 % (38.7-80.0); PLATELET COUNT 237 x10e3/uL (140-360); RED BLOOD COUNT 3.63 x10e6/uL (4.3-5.7); RED CELL DISTRIBUTION WIDTH 14.3 % (11.7-14.4)
[2019-12-18 08:38] LABS: ALANINE AMINOTRANSFERASE 52 IU/L (0-55); ALBUMIN 1.6 g/dL (3.5-5.0); ALBUMIN/GLOBULIN RATIO 0.4 (0.8-2.0); ALKALINE PHOSPHATASE 170 IU/L (40-150); ANION GAP 9.4 mmol/L (8-16); BLOOD UREA NITROGEN 17 mg/dL (7-26); BUN/CREATININE RATIO 23 (6-25); CALCIUM 7.8 mg/dL (8.4-10.2); CARBON DIOXIDE 24 mmol/L (22-29); CHLORIDE 108 mmol/L (98-107); CREATININE, SERUM 0.74 mg/dL (0.72-1.25); EST GLOMERULAR FILTRATION RATE > 60 ML/MIN (60-); GLUCOSE 115 mg/dL (74-118); POTASSIUM 4.4 mmol/L (3.5-5.1); SODIUM 137 mmol/L (136-145)
[2019-12-18] MEDS ORDERED: ALPRAZOLAM 0.25 MG TAB PO PRN (08:45)
[2019-12-18] MEDS ORDERED: LEVALBUTEROL HCL SOLN NEBU 1.25 MG/3 ML NEB INH PRN (08:45)
--- NOTE | 2019-12-18 09:00 | NUR ---
PT REFUSING BIPAP, ONLY WANTS NC
--- NOTE | 2019-12-18 09:30 | NUR ---
ASSESSMENT: Spiritual distress Pt anxious and worried concerning illness. Intervention: Provided calming pastoral presence and empathic listening. Provided prayer. Outcome: Pt expressed appreciation for support. Followed up with RN and pt's . Will continue to follow as able. HONG SAVAGE [employer] Technician Spiritual Care Department O: [phone] Pager: [phone] ([phone] number calling from)
[2019-12-18] MEDS: METOPROLOL TARTRATE 50 MG TAB PO SCH ×2 (10:14→21:00)
[2019-12-18] MEDS: CEFEPIME 1GM/NS 0.9% 50 ML 50 ML IV SCH ×2 (10:48→22:04)
[2019-12-18] MEDS: VANCOMYCIN HCL 1.25 GM in SODIUM CHLORIDE 0.9% 250ML 250 ML IV SCH ×2 (10:48→22:52)
--- NOTE | 2019-12-18 10:54 | Diagnostic Imaging Report ---
EXAM: ABDOMEN-1VIEW (KUB), CHEST 2 VIEWS DATE: 12/18/2019 8:13 AM INDICATION: Shortness of breath, abdominal distention COMPARISON: Chest radiograph from 12/16/2019, CT abdomen/pelvis from 12/15/2019 FINDINGS: Right PICC line identified in stable position. The trachea is midline. There is minimal left basilar opacity suggestive of atelectasis, improved from the prior examination. There is no evidence for large focal consolidation, pneumothorax, or significant pleural effusion. The cardiomediastinal silhouette is stable in appearance. Diffusely distended air-filled loops of bowel are identified throughout the abdomen measuring up to 5.8 cm in caliber. No intraperitoneal free air is appreciated on this single view examination. No abnormal intra-abdominal calcification is identified. Cholecystectomy clips noted within the right upper quadrant. No acute osseous abnormality is identified. IMPRESSION: No acute cardiopulmonary process. Diffusely distended air-filled loops small bowel identified throughout the abdomen compatible with obstruction as noted on the prior CT examination. Signed by: Dr. Ike Kruse MD on 12/18/2019 10:51 AM
[2019-12-18] MEDS: IPRATROPIUM BROMIDE 0.02% 2.5 ML NEB NEB SCH ×4 (11:20→23:25)
[2019-12-18] MEDS: LEVALBUTEROL HCL SOLN NEBU 1.25 MG/3 ML NEB INH SCH ×4 (11:20→23:25)
--- NOTE | 2019-12-18 12:00 | NUR ---
pt remains tachycardic and increased respirations. ed on bipap. pt refusing. had respiratory assess. was placed on nonrebreather. o2 sats and vs remained stable.
[2019-12-18] MEDS: MICAFUNGIN SODIUM 100 ML IV SCH (12:16)
[2019-12-18] MEDS ORDERED: LEVALBUTEROL HCL SOLN NEBU 1.25 MG/3 ML NEB INH ONE (18:00)
[2019-12-18] MEDS ORDERED: METHYLPREDNISOLONE SOD SUCC 40 MG/ML VIAL 1ML IV SCH (18:00)
[2019-12-18] MEDS ORDERED: DEXTROSE 10% 1,000 ML IV SCH (18:15)
[2019-12-18 18:27] LABS: ABG PCO2 51 mmHg (41-51); ABG PO2 248 mmHg (80-105)
[2019-12-18 18:28] LABS: ABG HCO3 25 mmol/L (23-28)
[2019-12-18] MEDS ORDERED: IPRATROPIUM BROMIDE 0.02% 2.5 ML NEB NEB ONE (18:30)
[2019-12-18] MEDS: METHYLPREDNISOLONE SOD SUCC 40 MG/ML VIAL 1ML IV SCH ×2 (18:30→22:04)
--- NOTE | 2019-12-18 18:43 | NUR ---
Attempted to call patients x3, no answer. Notified primary RN
[2019-12-18] MEDS ORDERED: HEPARIN SOD (PORCINE) 5,000 UNIT/ML VIAL IV ONE (18:45)
--- NOTE | 2019-12-18 19:00 | NUR ---
Limited bedside report received from Ebonie SLOAN as pt is just returning from CT scans. Ebonie SLOAN to call pts and document the MDs that were notified. Ebonie SLOAN changed pts ABD dressing at this time. Glidesheet and paper pads changed at this time and meatal care provided. Pt repositioned per protocol. Bed in lowest and locked position, call light in reach of the pt, bed alarm engaged, yellow socks on the pt. Pts chart to be reviewed.
--- NOTE | 2019-12-18 19:18 | NUR ---
pt was assessed throughout shift by all MDs. MDs made aware of pt status. at approx 1700 pt was requesting items and was sob. ed pt he is to work with PT, IS, and to participate in recovery. assisted pt to bedside at request. pt was stable but sob. pt demanded he go to bathroom for bm. ed pt he was possible fall risk at this time due to weakness and sob but would get bedpan. pt was at bedside with table to assist for support. when returned to room, pt was on floor. pt was able to be placed in sitting condition but unable to stand, AAOx4, remained on o2. went for assistance and returned to pt hunched over on floor. pt has remained with distended abdomen. unable to sit up or turn on back without further assistance and pt noticebly becoming dusky/blue to face and non responsive. rapid response called. pt was placed on bipap and regained orientation, stable vs, continued sob. ER MD placed orders, he also spoke with Dr Purdy regarding pt status and events. Dr Koenig rounded for MD. orders placed. left for Dr Kuhn and Dr Camacho regarding pt change in status and moving to ICU. Per Dr Purdy, pt is not to be downgraded from ICU without his approval. accompanied pt with RT to CT, report given to ICU nurse. pt alert and vs stable. also called to update, no answer.
[2019-12-18] MEDS: KETOROLAC TROMETHAMINE 30 MG/ML VIAL IV PRN (19:25)
[2019-12-18] MEDS: ACETYLCYSTEINE 200 MG/ML 4ML VIAL INH SCH (19:35)
--- NOTE | 2019-12-18 19:50 | Diagnostic Imaging Report ---
History:Fall Comparison studies:None Technique: Axial images were obtained from the skull base to the vertex. Coronal and sagittal images reconstructed from the axial data. Intravenous contrast: None Dose modulation, iterative reconstruction, and/or weight based adjustment of the mA/kV was utilized to reduce the radiation dose to as low as reasonably achievable. Findings: Scalp/skull: No abnormalities. Extra-axial spaces: No masses. No fluid collections. Brain sulci: Mildly prominent. Ventricles: Moderate compensatory dilatation. No hydrocephalus. Parenchyma: Subtle hypodensities in the supratentorial white matter are small vessel ischemic changes. No masses, hemorrhage, acute or chronic cortical vascular insults. Sellar/suprasellar region: No abnormalities. Craniocervical junction: Patent foramen magnum. No Chiari one malformation. Incidental findings: Atherosclerotic calcifications in the carotid siphons . Partial opacification of the right mastoid air cells. Impression: No acute abnormalities. Chronic findings: 1. Moderate ventriculomegaly out of portion for widening of subarachnoid space, this could be related to central volume loss or normal pressure hydrocephalus. 2. Mild supratentorial white matter small vessel ischemic changes. Signed by: DR Benito Barton M.D. on 12/18/2019 7:47 PM
--- NOTE | 2019-12-18 19:53 | Diagnostic Imaging Report ---
EXAMINATION: CT scan of the chest without contrast. TECHNIQUE: Spiral CT images of the chest were performed from the lung apices to the level of the adrenal glands. No intravenous contrast was administered per physician's request. Coronal and sagittal reformatted images were obtained. COMPARISON: None. CLINICAL HISTORY:Postop abdominal surgery, COPD exacerbation, shortness of breath DISCUSSION: ABSENCE OF INTRAVENOUS CONTRAST DECREASES SENSITIVITY FOR DETECTION OF FOCAL LESIONS AND VASCULAR PATHOLOGY. Exam limited as the scan was acquired during expiratory phase, patient unable to hold breath. LINES/TUBES: None. LUNGS AND AIRWAYS: Increased attenuation of the pulmonary parenchyma, secondary to scan obtained during expiratory phase. Patchy nodular and groundglass opacities scattered in the upper lobes (for example series 4, images 23, 27 and 42) and to a lesser degree lower lobes (series 4, images 56) and lingula (series 4, image 72). Ill-defined 8 mm pulmonary nodule in the medial right upper lobe (series 4, image 41). 1.2 cm pulmonary nodule in the posterior right upper lobe (series 4, image 42). 6 mm pulmonary nodule in the lingula (series 4, image 72). 6 and 7 mm pulmonary nodules in the left lower lobe (series 4, image 64). Scattered areas of tree-in-bud opacities in the posterior lower lobes (example series 4, images 62). Intralobular septal thickening noted predominantly in the upper lobes (for example series 4, image 26). Mild compressive atelectasis of bilateral lower lobes, right greater than left. Multiple linear opacities in bilateral lower lungs system with subsegmental atelectasis or scarring. Bilateral upper and lower lobe bronchial wall thickening. Focal triangular-shaped opacity extending along the bronchovascular bundle in the superior segment of the right lower lobe (series 4, image 56). Central airways are clear, without endobronchial lesions. PLEURA: Small bilateral pleural effusions, right greater than left. HEART AND MEDIASTINUM: The thyroid gland is normal. Heart size is normal. No pericardial effusion. Atherosclerotic calcification of the coronary arteries and thoracic aorta. Aorta is nonaneurysmal. Main pulmonary artery is enlarged, measuring 3.1 cm. LYMPH NODES: Enlarged right upper paratracheal lymph node, which measures 1.2 cm in short axis. Enlarged subcarinal lymph node which measures 1.1 cm in short axis. No axillary adenopathy. Difficult to assess for hilar adenopathy given the lack of intravenous contrast. ABDOMEN: Please see CT abdomen and pelvis performed same day for further detail. BONES AND SOFT TISSUES: No aggressive lytic lesions. Degenerative changes in the thoracic spine. Soft tissues are grossly unremarkable. IMPRESSION: 1. Limited exam, as it was acquired during expiratory phase, as the patient was unable to breath. 2. Findings in bilateral lungs including patchy nodular and groundglass opacities, areas of tree-in-bud opacities in the posterior lower lobes and a focal triangular-shaped opacity extending along the bronchovascular bundle in the superior segment of the right lower lobe are suspicious for infectious etiology. No definite consolidation is identified. 3. Indeterminate pulmonary nodules as described. These may also be infectious, however, follow-up chest CT in 3-6 months is recommended to document stability or resolution. 4. Intralobular septal thickening predominantly in the upper lobes, which may reflect mild fluid overload. 5. Small bilateral pleural effusions and compressive atelectasis of bilateral lower lobes. 6. Enlarged right upper paratracheal and subcarinal lymph nodes, likely reactive. Signed by: Dr. Pteer Espinoza M.D. on 12/18/2019 7:51 PM
[2019-12-18 20:00] LABS: BASOPHILS % 0.3 % (0.0-1.0); EOSINOPHILS # (AUTO) 0.5 (0.0-0.4); EOSINOPHILS % 4.7 % (0.0-6.0); HEMATOCRIT 26.9 % (38.2-49.6); HEMOGLOBIN 8.2 g/dL (14.0-18.0); LYMPHOCYTES # (AUTO) 0.5 (1.0-3.2); LYMPHOCYTES % 4.1 % (18.0-39.1); MEAN CORPUSCULAR HEMOGLOBIN 27.9 pg (28-32); MEAN CORPUSCULAR HGB CONC 30.5 g/dL (31-35); MEAN CORPUSCULAR VOLUME 91.5 fL (81-99); MONOCYTES # (AUTO) 0.7 (0.2-0.8); MONOCYTES % 5.9 % (4.4-11.3); NEUTROPHILS # (AUTO) 9.4 (2.1-6.9); PLATELET COUNT 221 x10e3/uL (140-360); RED BLOOD COUNT 2.94 x10e6/uL (4.3-5.7); RED CELL DISTRIBUTION WIDTH 14.5 % (11.7-14.4)
[2019-12-18 20:13] LABS: INR 1.25; PROTHROMBIN TIME 16.5 seconds (11.9-14.5)
[2019-12-18 20:14] LABS: PARTIAL THROMBOPLASTIN TIME 34.9 seconds (23.8-35.5)
[2019-12-18 20:15] LABS: ALANINE AMINOTRANSFERASE 46 IU/L (0-55); ALBUMIN 1.4 g/dL (3.5-5.0); ALBUMIN/GLOBULIN RATIO 0.3 (0.8-2.0); ALKALINE PHOSPHATASE 137 IU/L (40-150); ANION GAP 9.5 mmol/L (8-16); BLOOD UREA NITROGEN 17 mg/dL (7-26); BUN/CREATININE RATIO 23 (6-25); CALCIUM 7.7 mg/dL (8.4-10.2); CARBON DIOXIDE 24 mmol/L (22-29); CHLORIDE 109 mmol/L (98-107); CREATININE, SERUM 0.73 mg/dL (0.72-1.25); EST GLOMERULAR FILTRATION RATE > 60 ML/MIN (60-); GLUCOSE 129 mg/dL (74-118); POTASSIUM 4.5 mmol/L (3.5-5.1); SODIUM 138 mmol/L (136-145)
--- NOTE | 2019-12-18 20:31 | Diagnostic Imaging Report ---
EXAMINATION: CT of the abdomen and pelvis without contrast. TECHNIQUE: Spiral CT images of the abdomen and pelvis were performed from the lung bases to the lesser trochanters. No intravenous contrast was given per physician's request. Coronal and sagittal reformatted images were obtained. COMPARISON: CT abdomen and pelvis 12/15/2019, 12/04/2019 CLINICAL HISTORY:Status post fall, status post surgery DISCUSSION: ABSENCE OF INTRAVENOUS CONTRAST DECREASES SENSITIVITY FOR DETECTION OF FOCAL LESIONS AND VASCULAR PATHOLOGY. ABDOMEN/PELVIS: LOWER THORAX: Please see CT chest performed same day for further detail HEPATOBILIARY: No focal hepatic lesions. No intra or extrahepatic biliary ductal dilation. GALLBLADDER: Cholecystectomy clips. SPLEEN: No splenomegaly. PANCREAS: No ductal dilation. No interval change in ill-defined peripancreatic fluid density structures adjacent to the pancreatic body (for example axial images 38 and 37). There is mild associated peripancreatic surrounding stranding ADRENALS: No adrenal nodules. KIDNEYS/URETERS: Stable 5 mm nonobstructing calculus in the left inferior pole (axial image 48). No ureteral calculi, hydronephrosis or obstruction. Stable 2.4 cm mostly exophytic left superior pole simple cyst. Stable mild bilateral perinephric stranding. PELVIC ORGANS/BLADDER: Bladder is decompressed and there is a Stevens catheter in place. PERITONEUM/RETROPERITONEUM: No free air or fluid. LYMPH NODES: No intra-abdominal,retroperitoneal, pelvic or inguinal lymphadenopathy. VESSELS: Moderate atherosclerotic calcification of the abdominal aorta and proximal iliac vessels. GI TRACT: No significant interval change in multiple mildly dilated loops of small bowel with a maximal measurement of 4 cm, with transition point in the right lower quadrant (axial image 76). Rest of the bowel shows normal caliber. Descending and sigmoid colon diverticulosis, without diverticulitis. BONES AND SOFT TISSUES: No aggressive lytic lesions. Multilevel degenerative disks in the lower thoracic and lumbosacral spine. No acute, displaced fracture or dislocation. Moderate generalized soft tissue edema. Open abdominal wound in the infraumbilical midline region. IMPRESSION: 1. No significant interval change in small bowel obstruction with transition point in the right lower quadrant, which may be due to adhesions. 2. No acute, displaced fracture or dislocation. 3. No interval change in ill-defined peripancreatic fluid density structures, which may represent developing pseudocysts. Normal 4. Stable 5 mm nonobstructing left renal calculus. Signed by: Dr. Peter Espinoza M.D. on 12/18/2019 8:28 PM
--- NOTE | 2019-12-18 20:33 | Diagnostic Imaging Report ---
Examination: Single AP view of the chest. COMPARISON: Chest two views 12/18/2019 INDICATION: Status post rapid response, low O2 sats IMPRESSION: 1. Lines and Tubes: Right-sided PICC line. Tip is not clearly visualized. 2. Central venous congestion and perihilar interstitial edema. No definite consolidation. 3. Stable cardiac silhouette. 4. No acute bony abnormalities. Signed by: Dr. Peter Espinoza M.D. on 12/18/2019 8:30 PM
--- NOTE | 2019-12-18 20:35 | NUR ---
Pts called and notified her of the pts fall. She was upset that she hadn't been previously notified and I explained to her that we had taken the pt for CT scans of his head/chest/ and pelvis and completed additional lab work and that is why I was previously occupied with the pts direct care. Pts state she is going to see if her son can drive her up here to see the pt. Addendum: 12/19/19 at 0316 by Kiah Foster RN Pts called the hospital, upon receiving her call I updated her and notified her of the pts fall. Per previous shifts nurse, attempts to contact the pts were made and no one answered the phone.
--- NOTE | 2019-12-18 21:00 | NUR ---
Dr. Koenig notified of the pts CT head/chest/pelvis and labs results. He said okay to starting the heparin gtt per his previous order.
--- NOTE | 2019-12-18 21:15 | NUR ---
Pt and 2 other family members present at the bedside. Discussed pt fall, post fall testing and results, and updated plan of care. No family plans to stay the night at this time. Bed alarm engaged, bed in lowest and locked position, call light in reach of the pt, yellow socks on the pt.
[2019-12-18] MEDS ORDERED: HEPARIN 25,000 UNIT DRIP IV ONE (21:17)
[2019-12-18] MEDS: HEPARIN 25,000 UNIT 1,400 UNIT in DEXTROSE 5% 250ML 250 ML IV SCH (21:38)
[2019-12-18 22:17] LABS: CREATINE KINASE MB 4.9 ng/mL (0-5.0)
[2019-12-19] VITALS (25 sets, daily range): BP systolic 101–161; BP diastolic 57–121
[2019-12-19] MEDS: CENTRAL TPN FORMULA 1 BAG IV SCH ×2 (00:12→20:57)
[2019-12-19] MEDS: METRONIDAZOLE 500MG/NS 100ML 100 ML IV SCH ×3 (01:12→16:29)
--- NOTE | 2019-12-19 01:20 | NUR ---
Pt awake and calling for nurse. Noted improvement in pts alertness and speech. Pt oriented to situation post fall/loss of consciousness. Pts questions appropriate. Pt updated on care plan for the rest of then night and MD request to keep him on BIPAP until in the morning.
[2019-12-19] MEDS: KETOROLAC TROMETHAMINE 30 MG/ML VIAL IV PRN (01:37)
[2019-12-19] MEDS: IPRATROPIUM BROMIDE 0.02% 2.5 ML NEB NEB SCH ×6 (02:40→22:50)
[2019-12-19] MEDS: LEVALBUTEROL HCL SOLN NEBU 1.25 MG/3 ML NEB INH SCH ×6 (02:40→22:50)
--- NOTE | 2019-12-19 02:40 | NUR ---
Heparin gtt on hold for 1 hour d/t current aPTT level. After the 1 hour the drip is to be restarted with a decrease of 200 units/hr, new rate will be 1200 units/hr or 12ml/hr.
--- NOTE | 2019-12-19 03:00 | NUR ---
Pt resting with eyes closed. VSS to pt. Bed in lowest and locked position, call light in reach of the pt, and bed alarm engaged.
--- NOTE | 2019-12-19 05:00 | NUR ---
Bed bath completed with CHG wipes and shower cap. Dressing change to ABD per Dr. Camacho's order for dry sterile dressing. New [employer] Life Sacral Patch applied to pts sacrum. Linens and gown changed.
[2019-12-19] MEDS: HYDROCODONE/APAP 10MG-325MG TAB PO SCH ×3 (05:33→21:54)
[2019-12-19] MEDS: BENZONATATE 100 MG CAP PO SCH ×4 (05:33→17:06)
[2019-12-19] MEDS: SODIUM CHLORIDE 0.9% 250ML IRRIG IR SCH ×5 (06:00→21:53)
--- NOTE | 2019-12-19 06:00 | NUR ---
Pt refusing insertion of NGT at this time stating, "That damn thing hurts too much and you ain't putting another one in me!" Pt did allow me to explain why the doctor wanted us to insert one but the pt stated, "If I ain't eating or drinking then there is nothing in my stomach."
[2019-12-19] MEDS: PANTOPRAZOLE 40 MG 10ML VIAL IV SCH (06:08)
[2019-12-19] MEDS: HYDROMORPHONE 1MG/1ML INJ IV PRN ×4 (07:09→23:30)
[2019-12-19] MEDS: ACETYLCYSTEINE 200 MG/ML 4ML VIAL INH SCH ×2 (07:10→19:00)
[2019-12-19] MEDS: BUDESONIDE/FORMOTEROL 160/4.5MCG INHALER INH SCH ×2 (07:15→19:00)
[2019-12-19 07:22] LABS: BASOPHILS % 0.2 % (0.0-1.0); EOSINOPHILS # (AUTO) 0.1 (0.0-0.4); EOSINOPHILS % 0.5 % (0.0-6.0); HEMATOCRIT 29.9 % (38.2-49.6); HEMOGLOBIN 9.3 g/dL (14.0-18.0); LYMPHOCYTES # (AUTO) 0.4 (1.0-3.2); LYMPHOCYTES % 3.2 % (18.0-39.1); MEAN CORPUSCULAR HEMOGLOBIN 28.2 pg (28-32); MEAN CORPUSCULAR HGB CONC 31.1 g/dL (31-35); MEAN CORPUSCULAR VOLUME 90.6 fL (81-99); MONOCYTES # (AUTO) 0.3 (0.2-0.8); MONOCYTES % 2.3 % (4.4-11.3); NEUTROPHILS # (AUTO) 12.3 (2.1-6.9); NEUTROPHILS % 92.9 % (38.7-80.0); PLATELET COUNT 237 x10e3/uL (140-360); RED CELL DISTRIBUTION WIDTH 14.4 % (11.7-14.4)
[2019-12-19 07:40] LABS: CREATINE KINASE 33 IU/L (30-200)
[2019-12-19 07:55] LABS: ALANINE AMINOTRANSFERASE 50 IU/L (0-55); ALBUMIN 1.4 g/dL (3.5-5.0); ALBUMIN/GLOBULIN RATIO 0.3 (0.8-2.0); ALKALINE PHOSPHATASE 138 IU/L (40-150); ANION GAP 9.6 mmol/L (8-16); BLOOD UREA NITROGEN 19 mg/dL (7-26); BUN/CREATININE RATIO 27 (6-25); CALCIUM 8.2 mg/dL (8.4-10.2); CARBON DIOXIDE 24 mmol/L (22-29); CHLORIDE 110 mmol/L (98-107); CREATININE, SERUM 0.71 mg/dL (0.72-1.25); EST GLOMERULAR FILTRATION RATE > 60 ML/MIN (60-); GLUCOSE 240 mg/dL (74-118); POTASSIUM 4.6 mmol/L (3.5-5.1); SODIUM 139 mmol/L (136-145)
[2019-12-19] MEDS: METHYLPREDNISOLONE SOD SUCC 40 MG/ML VIAL 1ML IV SCH ×4 (08:12→21:00)
[2019-12-19] MEDS: METOPROLOL TARTRATE 50 MG TAB PO SCH ×2 (08:17→21:00)
[2019-12-19] MEDS: VANCOMYCIN HCL 1.25 GM in SODIUM CHLORIDE 0.9% 250ML 250 ML IV SCH ×2 (09:28→21:53)
--- NOTE | 2019-12-19 09:48 | NUR ---
Holding skilled PT services since patient is moved to higher level of care ( from IMCU to ICU). Please write new PT orders when appropriate. Thank you. Addendum: 12/19/19 at 0949 by Brian bell PT Amended: Links added.
--- NOTE | 2019-12-19 11:03 | NUR ---
Follow Up Visit Provided calming presence and prayer. Will continue to visit as able. Reminded pt of availability of bread jockey. HONG SAVAGE [employer] Spiritual Care Department O: [phone] Pager: [phone] ([phone] number calling from)
[2019-12-19] MEDS: CEFEPIME 1GM/NS 0.9% 50 ML 50 ML IV SCH ×2 (11:06→21:54)
--- NOTE | 2019-12-19 12:34 | NUR ---
dr mckoy notified that pt refused vqscan
--- NOTE | 2019-12-19 13:00 | NUR ---
WOUND CARE CONSULT FOR 69 YO MALE HX OF_COPD, PNEUMONIA, RESPIRATORY DISTRESS NYLA 11 ON MODERATE PUP STATUS AND INTERVENTIONS AND ALTERNATING PRESSURE MATTRESS LABS: WBC-11.11 HGB_8.2 GLUCOSE-129 SKIN ASSESSMENT COMPLETE PATIENT PRESENTS WITH RIGHT LATERAL ABDOMINAL PARTIAL THICKNESS WOUND R/T TAPE DERMATITIS 8CM X4CM X.1CM POST SURGICAL SCOPE SITES WITH XEROFORM IN PLACE X4 MID QUAD ABDOMEN LEFT LATERAL ABDOMINAL PARTIAL THICKNESS WOUND R/T TAPE DERMATITIS 10CM X5CM X.1CM MIDLINE OPEN INCISION GLANDULAR 14CM X 2CM X 2CM RIGHT BUTTOCKS STAGE 2 ULCERATION .5CM X.5CM X.1CM RECOMMENDATIONS: NURSING TO CONTINUE TO MAINTAIN MODERATE PUP STATUS AND INTERVENTIONS AND ALTERNATING_ MATTRESS NURSING TO CONTINUE TO ASSIST PATIENT OUT OF BED FOR MEALS AND MUCH TOLERATED NURSING TO CONTINUE TO ASSIST PATIENT NEEDED WITH MEALS AND NUTRITIONAL SUPPLEMENTS TO ENSURE PROPER REQUIREMENTS FOR HEALING NURSING TO CONTINUE TO OFFLOAD FEET AND HEELS NEEDED WITH PILLOW SUSPENSION WHEN IN BED NURSING TO CLEAN RIGHT BUTTOCKS WITH NORMAL SALINE DAILY AND APPLY VENELEX OINTMENT AND ALLEVYN FOAM DRESSING NURSING TO CLEAN RIGHT AND LEFT LATERAL ABDOMEN PARTIAL THICKNESS WOUNDS WITH NORMAL SALINE DAILY AND APPLY XEROFORM ZOYA AND ALLEVYN FOAM DRESSING NURSING TO CLEAN MIDLINE OPEN SURGICAL WOUND WITH NORMAL SALINE DAILY AND PACK WITH MAXSORB [employer] COVER WITH 4X4S AND ABD PAD USE MINIMAL TAPE ON SKIN JUST TO PREVENT DISPLACEMENT OF TOP COVER SECURE WITH ABDOMINAL BINDER Addendum: 12/19/19 at 1329 by Miguel A Prajapati RN Amended: Links added.
--- NOTE | 2019-12-19 17:09 | Progress Note ---
DATE: SUBJECTIVE: Mr. Marquez remains in intensive care unit. However, he is feeling better. He has no complaints. The patient have the following chronic medical problems, COPD. He was here with influenza A complicated with pneumonia, bacteria, and then had small bowel obstruction, had pancreatitis, COPD with COPD exacerbation, currently in intensive care unit. He is currently on Tylenol, DuoNeb, Xanax, Symbicort, cefepime, Lasix, Dilaudid, Atrovent, Xopenex, milk of magnesia, Solu-Medrol, and Lopressor. His blood cultures, sputum cultures, all remained negative. Reviewed all of them. His white count today is 13.2, hemoglobin 9.3, hematocrit 29 with a platelet 237. His sodium 139, potassium 4.6, creatinine 0.71, total bilirubin 0.4. MEDICATION LIST: Today, he is on methylprednisolone 40 q.i.d., Xopenex, cefepime 1 g q.12, vancomycin 1.25 q.12 hours and Flagyl 500 q.6. Also he is on TPN, heparin subcu, and Zofran. PHYSICAL EXAMINATION: GENERAL: He is currently alert, comfortable, does not seem to be in acute distress. VITALS: Stable. Afebrile. Temperature 97. HEENT: Normocephalic. NECK: Supple. CHEST: Few rhonchi bilateral at the bases. HEART: S1, S2. No S3, S4, or murmur. ABDOMEN: Soft. Bowel sounds present. No tenderness. EXTREMITIES: No edema. His last chest x-ray showed stable. IMPRESSION: 1. Sepsis, clinically seems to be getting better. 2. Status post small bowel obstruction, status post surgery on December 16 for abdominal wound dehiscence with close abdominal wound by Dr. Camacho. 3. Status post pancreatitis. 4. Status post Healthcare associated pneumonia with aspiration. 5. Small bowel obstruction that was diagnostic laparoscopic exploratory laparotomy on December 10, seems better. 6. Debility. 7. Nutrition. 8. Influenza A treated. 9. Pneumonia treated. 10. Anemia of chronic disease. PLAN: To finish 14 days of the current choice of antibiotic discussed with medical team. We will follow. MD VIOLETTA Cho/SACHIN /[id number]
[2019-12-19] MEDS ORDERED: HEPARIN 25,000 UNIT DRIP IV ONE (20:28)
[2019-12-19] MEDS: HEPARIN 25,000 UNIT 1,400 UNIT in DEXTROSE 5% 250ML 250 ML IV SCH (20:57)
[2019-12-19 21:31] LABS: CREATINE KINASE 34 IU/L (30-200)
[2019-12-20] VITALS (26 sets, daily range): BP systolic 121–170; BP diastolic 68–105
[2019-12-20] MEDS: METRONIDAZOLE 500MG/NS 100ML 100 ML IV SCH ×3 (00:11→16:09)
[2019-12-20] MEDS: BENZONATATE 100 MG CAP PO SCH ×5 (00:11→23:28)
[2019-12-20] MEDS: SODIUM CHLORIDE 0.9% 250ML IRRIG IR SCH ×3 (01:17→08:06)
[2019-12-20] MEDS: HYDROMORPHONE 1MG/1ML INJ IV PRN ×4 (02:33→16:10)
[2019-12-20] MEDS: IPRATROPIUM BROMIDE 0.02% 2.5 ML NEB NEB SCH ×6 (03:00→22:05)
[2019-12-20] MEDS: LEVALBUTEROL HCL SOLN NEBU 1.25 MG/3 ML NEB INH SCH ×6 (03:00→23:08)
[2019-12-20] MEDS: PANTOPRAZOLE 40 MG 10ML VIAL IV SCH (05:21)
[2019-12-20] MEDS: HYDROCODONE/APAP 10MG-325MG TAB PO SCH ×3 (05:21→21:57)
[2019-12-20] MEDS: ACETYLCYSTEINE 200 MG/ML 4ML VIAL INH SCH ×2 (07:25→18:56)
[2019-12-20] MEDS: METHYLPREDNISOLONE SOD SUCC 40 MG/ML VIAL 1ML IV SCH ×4 (08:06→21:36)
[2019-12-20] MEDS: METOPROLOL TARTRATE 50 MG TAB PO SCH ×2 (08:06→21:36)
[2019-12-20] MEDS: VANCOMYCIN HCL 1.25 GM in SODIUM CHLORIDE 0.9% 250ML 250 ML IV SCH ×2 (09:39→23:00)
[2019-12-20] MEDS: BUDESONIDE/FORMOTEROL 160/4.5MCG INHALER INH SCH ×2 (09:44→18:56)
[2019-12-20] MEDS: CEFEPIME 1GM/NS 0.9% 50 ML 50 ML IV SCH ×2 (09:49→21:40)
[2019-12-20] MEDS: MAGNESIUM/ALUMINUM/SIMETHICONE 30 ML UDC PO PRN (10:02)
--- NOTE | 2019-12-20 10:45 | NUR ---
ASSESSMENT: Spiritual concern Follow up visit. Pt's at bedside. Pt frustrated and insecure from illness. Intervention: Provided non-judgemental empathic presence, scripture reading and prayer. Outcome: Will continue to follow as able. HONG SAVAGE Supervisor [employer] Spiritual Care Department O: [phone] Pager: [phone] ([phone] number calling from)
[2019-12-20] MEDS: ACETAMINOPHEN 325 MG TAB PO PRN (10:46)
[2019-12-20] MEDS: ONDANSETRON HCL 4 MG ORAL DISINTEGRATING TAB PO PRN (11:50)
[2019-12-20] MEDS: INSULIN LISPRO 100 UNIT/1 ML 3ML VIAL SQ SCH ×3 (12:15→21:34)
[2019-12-20] MEDS ORDERED: DEXTROSE 50% SYRINGE 50 ML IV PRN (12:15)
[2019-12-20] MEDS ORDERED: CENTRAL TPN FORMULA 1 BAG IV SCH ×2 (13:00→20:00)
--- NOTE | 2019-12-20 14:38 | NUR ---
CALLED HENRIQUE SHE AGREED VIA PHONE TO [facility], FAXED CLINICALS CALL AND CONFIRMED WITH [place] THE WERE IN PROCESS OF COMING THROUGH.
[2019-12-20] MEDS: PROMETHAZINE 12.5MG/ NACL 0.9% 12.5 MG/50 ML BAG IV PRN (15:00)
--- NOTE | 2019-12-20 15:01 | NUR ---
Nutrition Intervention Note RD Recommendation(s) for Physician: - Continue TPN @ 75 ml/hr and 25 g/day lipids with standard electrolytes as medically appropriate (1800 mL total volume, Dextrose 30% 500 ml/day, 270 gm Dextrose, AA 10% 500 ml, 90 gm protein/day) -provides 1528 kcal and 90 g protein - Additional IVF/fluid management per MD. - When medically appropriate, advance to GI soft diet Plan of Care: RD following, monitoring for tolerance and adequacy. TPN recs. Monitor for adequacy and tolerance. Nutrition reason for involvement: follow up RD Assessment 12/20: Follow up. Pt is still on TPN at a rate of 75 mL/hr. Pt is also on a clear liquid diet, pt but reports he has been having N/V. Insulin was ordered due to elevated blood glucose. Will continue to monitor. 12/17: Follow up. Pt continues on TPN at 65 ml/hr and remains NPO. Pt discussed during am MDR, per RN plan to start clear liquid diet today. TPN rec's placed in chart for , RN notified of recommendations. Pt with surgery yesterday, resting at time of visit. Chart reviewed. Will continue to monitor. 12/13: Follow up. Pt continues to receive TPN and it was increased to 65 mL/hr today. Pt was discussed during rounds and RN reported pts abdomen is still distended. Current TPN order meets > 75% of estimated kcal and protein needs. Will continue to monitor. 12/11: Follow up. Pt on TPN at 43 ml/hr and continues with NGT in place. Pt denies any abdominal pain, nausea, or hunger. Pt POD#1 for small bowel obstruction, exploratory laparotomy, lysis of adhesions, and release of small bowel obstruction. TPN discussed with RN and rec's placed in chart, ordered TPN for this evening. TPN per current rec's to meet > 75% of kcal and protein needs. Chart reviewed. Will continue to monitor. (12/09): Follow up/Consult: Received consult to initiate TPN and lipids. Pt had a KUB that showed a SBO and a lot of stool in his colon per MD. MD recommended TPN, pt has been NPO since 12/04 (5 days). Recommendations are provided above and reported to nurse. Pts labs appear WNL from 12/08 besides a low phos, will recommend starting the pt on standard and changing to custom if necessary and advancing as appropriate. Phos was replaced yesterday. Pt has NGT in place and has a PICC line per EMR, TPN is appropriate. No new labs recorded for 12/09. also reported within his note to use enemas for constipation. Pt reported he is hungry and he denies N/V, and state he had a small bowel movement. Surgery scheduled for tmrw per nurse. Will continue to monitor. (12/03) 69 YOM admitted for COPD exacerbation, PNA, and Flu A. Pt seen today for LOS. Pt reports good appetite and po intake [employer]TE [employer] and denies any wt loss. Noted fluctuating po intake since admit, pt reports taste changes 2/2 IV medications and flushes given. Pt declined all supplements offered, stated "this happens every time I come to the hospital." Pt with no questions or concerns at time of visit. Chart reviewed. Labs and meds reviewed. Will continue to monitor. Principal Problems/Diagnoses: COPD exacerbation, PNA, and Flu PMH: Status post ileus. Status post laparoscopic cholecystectomy andstatus post umbilical hernia repair. Leukocytosis previously resolved. COPD with oxygen dependency, Lung disease GI: LBM: not recorded Skin: abdominal incision Labs: 12/19 Na 139, K 4.6, Cl 110, BUN 19, Cr 0.71, Glu 240: 12/17: Na 138, K 4.5, Cl 109, CO2 27, BUN 15, Cr 0.68, Gluc 157, POC Gluc 138-145 Meds: insulin, zofran, vancomycin, metroprolol, protonix, dulcolax, milk of magnesia Ht: 67 in Wt: 207 lbs (12/20) 196 lbs (12/13), 198 lbs (12/10) BMI: 32.5 kg/m^2 IBW:148lbs Malnutrition Evaluation 12/20 The patient does not meet criteria for a specified degree of malnutrition at this time. Will re-evaluate at follow-up as appropriate. Energy intake: TPN is meeting >75% of estimated energy needs Weight loss: -no weight loss recorded Nutrition Prescription (Diet Order): clear liquids TPN @ 75 ml/hr and 25 g/day lipids with standard electrolytes (1800 mL total volume, Dextrose 30% 500 ml/day, 270 gm Dextrose, AA 10% 500 ml, 90 gm protein/day) - provides 1528 kcal and 90 g protein Estimated Nutritional Needs: Calories: 4920-6078 kcal/day (22-25 kcal/kg/day) Weight used : IBW (67.2 kg) Protein : 80-134 g protein/day (1.2-2 gram/kg/day ) Weight used: IBW Diet Adequacy: Current TPN order meets >75% of estimated needs Diet Education Needs Assessment: Diet education not indicated, patient on temporary/transition diet. Nutrition Care Level: high Nutrition Diagnosis: Altered GI function related to SBO as evidenced by need for TPN Goal: Patient will meet 75-100% of estimated needs by follow up Progress: Progressing Interventions: - TPN - Composition, Rate, Route, Collaboration with other providers Monitoring/Evaluation: Total energy intake, Total protein intake, Formula/Solution Signed: Selene Singh RD, LD
[2019-12-20] MEDS: ENOXAPARIN SOD INJ 40 MG/0.4 ML SYR SC SCH (16:09)
--- NOTE | 2019-12-20 16:31 | Consultation ---
DATE OF CONSULTATION: Wound Consultation Thank you, Dr. Kuhn, for asking me to see this patient. HISTORY OF PRESENT ILLNESS: A 69-year-old male patient, history of longstanding smoking, stopped 8 years back, COPD, had previous umbilical hernia repair, developed small bowel obstruction secondary to adhesion, admitted to hospital on November 27. Also, admitted for left lower lobe pneumonia and pancreatitis. During the hospital course, the patient developed vomiting and abdominal pain. Workup was positive for small bowel obstruction with a dilated proximal bowel, collapsed distal bowel with point of obstruction secondary to adhesive band at the root of the transverse mesocolon area. The patient had surgery on 12/10/2019. Following surgery, the patient developed abdominal wall dehiscence. On 12/16, the patient had surgery for abdominal wound dehiscence and closure of the abdominal wound dehiscence through fascia. The patient still has postsurgical wound at the lower abdomen. Wound consult was called. Abdominal wall wound is 11 cm x 2.5 x 2.5 cm. No signs of infection noted. The patient has obese abdomen and also slightly distended from ileus and showed COPD. Discussed with the family. Recommend wound VAC. PAST MEDICAL HISTORY: COPD and obesity. PERSONAL HISTORY: Smoked several years. Stopped smoking 8 years back. PAST SURGICAL HISTORY: Cholecystectomy, umbilical hernia repair, and vasectomy. PHYSICAL EXAMINATION: VITAL SIGNS: Height 67 inches, weight 207.5 pounds, and BMI of 32.5. HEENT: Normal. NECK: No JVD. LUNGS: Diminished air entry. CVS: Normal. ABDOMEN: Protuberant. Postsurgical wound noted to the mid lower abdomen and skin abrasion and surgical donavon seen on the side of the abdomen. EXTREMITIES: Lower extremities, no edema. Buttock area, there is stage II on the right buttock healing and abdominal wall wound measures 11.5 x 2.5 x 2.5 cm with exposed muscle and subcutaneous tissue. 100% pink. No infection noted at this time. ASSESSMENT: Abdominal ulcer, postsurgical wound dehiscence, multiple comorbid conditions including chronic obstructive pulmonary disease, obesity, previous history of smoking, and also having high blood sugar now. PLAN: We will apply black foam KCI wound VAC at 100 mmHg continuous negative pressure. We will continue to monitor. Thank you for consultation. Thandavarajan Sabine, MD TG/MODL /[id number] Hospital don't have KCI, will apply Will and Nephe VAC at 60 mmhg pressure d/w Wound care Nurse. YOLIE
--- NOTE | 2019-12-20 17:14 | NUR ---
WOUND CARE CONSULT FOR 69 YO MALE HX OF_COPD, PNEUMONIA, RESPIRATORY DISTRESS NYLA 11 ON MODERATE PUP STATUS AND INTERVENTIONS AND ALTERNATING PRESSURE MATTRESS SKIN ASSESSMENT COMPLETE PATIENT PRESENTS WITH RIGHT LATERAL ABDOMINAL PARTIAL THICKNESS WOUND R/T TAPE DERMATITIS 8CM X4CM X.1CM POST SURGICAL SCOPE SITES WITH XEROFORM IN PLACE X4 MID QUAD ABDOMEN LEFT LATERAL ABDOMINAL PARTIAL THICKNESS WOUND R/T TAPE DERMATITIS 10CM X5CM X.1CM MIDLINE ABDOMEN OPEN INCISION MEASURING 13.8 CM X 2.7CM X 3CM RIGHT BUTTOCKS STAGE 2 ULCERATION .5CM X.5CM X.1CM RECOMMENDATIONS: NURSING TO CONTINUE TO MAINTAIN MODERATE PUP STATUS AND INTERVENTIONS AND ALTERNATING_ MATTRESS NURSING TO CONTINUE TO ASSIST PATIENT OUT OF BED FOR MEALS AND MUCH TOLERATED NURSING TO CONTINUE TO ASSIST PATIENT NEEDED WITH MEALS AND NUTRITIONAL SUPPLEMENTS TO ENSURE PROPER REQUIREMENTS FOR HEALING NURSING TO CONTINUE TO OFFLOAD FEET AND HEELS NEEDED WITH PILLOW SUSPENSION WHEN IN BED NURSING TO CLEAN RIGHT BUTTOCKS WITH NORMAL SALINE DAILY AND APPLY VENELEX OINTMENT AND ALLEVYN FOAM DRESSING NURSING TO CLEAN RIGHT AND LEFT LATERAL ABDOMEN PARTIAL THICKNESS WOUNDS WITH NORMAL SALINE DAILY AND APPLY XEROFORM ZOYA AND ALLEVYN FOAM DRESSING NURSING TO CLEAN MIDLINE OPEN SURGICAL WOUND WITH NORMAL SALINE DAILY, PROTECT PERIWOUND WITH PLASTIC DRAPE, APPLY ADAPTIC TO WOUND BED, PACK ABDOMINAL WALL WOUND WITH BLACK FOAM NUNES AND NEPHEW VAC AT 70 [facility] CONTINUOUS NEGATIVE PRESSURE TO BE CHANGED THREE TIMES A WEEK AND PRN. NURSING TO MAINTAIN SEALING AND CONTINUOS SUCTION AT 70 [facility]; SUPPLIES PRESENT AT PT BEDSIDE. NURSING TO MAINTAIN NEGATIVE PRESSURE WOUND VAC CONNECTED AT ALL TIMES; DISCONNECT UPON AMBULATION WITH ASSISTANCE. NURSING AND PT TO KEEP SEALING AND WOUND VAC DRY. NURSING TO REMOVE WOUND VAC IF UNABLE TO MAINTAIN SEALING, A LEAK IS PRESENT AND WOUND VAC IS OFF FOR MORE THAN TWO HOURS, TO APPLY A WET TO DRY, NOTIFY WOUND CARE DEPARTMENT AND MD. PT IS INSTRUCTED TO NOTIFY BEDSIDE NURSE IF WOUND VAC START TO ALARM. RECONSULT WOUND CARE NEEDED. THANK YOU. Addendum: 12/20/19 at 1724 by Rhonda Townsend RN Amended: Links added.
--- NOTE | 2019-12-20 17:28 | NUR ---
Pt stated this morning he wants to sit in chair. RN asked pt if he would work with physical therapy if it was ordered, pt stated yes he would. Dr. Kuhn notified and gave orders for PT. Dr. Kuhn notified of elevated BG, orders given for sliding scale insulin and TPN orders given for rate of 75ml/hr which dietary recommended previously. Dr. Sheikh informed of pt's elevated blood pressures. Pt worked with Physical therapy and insisting on sitting in chair but pt unable to stand steadily on feet at this time. Pt appears very deconditioned, and was sweating profusely and vomiting during physical therapy. Wound care doctor consulted and gave orders for wound vac, however the hospital does not have the specific wound vac requested. MD notified and informed pressure settings for the wound vac are different. MD updated orders. Wound care nurse came and placed wound vac to abdomen. RN changed dressing's to abdomen. Will continue to monitor the patient.
[2019-12-21] VITALS (25 sets, daily range): BP systolic 129–167; BP diastolic 75–123
[2019-12-21] MEDS: METRONIDAZOLE 500MG/NS 100ML 100 ML IV SCH ×2 (01:40→08:06)
[2019-12-21] MEDS: LEVALBUTEROL HCL SOLN NEBU 1.25 MG/3 ML NEB INH SCH ×6 (02:52→23:40)
[2019-12-21] MEDS: IPRATROPIUM BROMIDE 0.02% 2.5 ML NEB NEB SCH ×6 (02:52→23:40)
[2019-12-21 05:21] LABS: BASOPHILS % 0.2 % (0.0-1.0); HEMATOCRIT 29.3 % (38.2-49.6); LYMPHOCYTES # (AUTO) 0.6 (1.0-3.2); LYMPHOCYTES % 3.3 % (18.0-39.1); MEAN CORPUSCULAR HEMOGLOBIN 27.7 pg (28-32); MEAN CORPUSCULAR HGB CONC 30.7 g/dL (31-35); MEAN CORPUSCULAR VOLUME 90.2 fL (81-99); MONOCYTES # (AUTO) 0.7 (0.2-0.8); MONOCYTES % 3.5 % (4.4-11.3); NEUTROPHILS # (AUTO) 17.2 (2.1-6.9); NEUTROPHILS % 91.8 % (38.7-80.0); PLATELET COUNT 416 x10e3/uL (140-360); RED BLOOD COUNT 3.25 x10e6/uL (4.3-5.7); RED CELL DISTRIBUTION WIDTH 14.4 % (11.7-14.4)
[2019-12-21] MEDS: PANTOPRAZOLE 40 MG 10ML VIAL IV SCH (05:37)
[2019-12-21] MEDS: HYDROCODONE/APAP 10MG-325MG TAB PO SCH ×3 (05:37→22:10)
[2019-12-21] MEDS: BENZONATATE 100 MG CAP PO SCH ×3 (05:37→18:10)
[2019-12-21 05:43] LABS: ANION GAP 10.4 mmol/L (8-16); CALCIUM 8.3 mg/dL (8.4-10.2); CARBON DIOXIDE 25 mmol/L (22-29); CHLORIDE 107 mmol/L (98-107); CREATININE, SERUM 0.79 mg/dL (0.72-1.25); EST GLOMERULAR FILTRATION RATE > 60 ML/MIN (60-); GLUCOSE 215 mg/dL (74-118); POTASSIUM 4.4 mmol/L (3.5-5.1); SODIUM 138 mmol/L (136-145)
[2019-12-21 06:09] LABS: BLOOD UREA NITROGEN 32 mg/dL (7-26); BUN/CREATININE RATIO 41 (6-25)
[2019-12-21] MEDS: ACETYLCYSTEINE 200 MG/ML 4ML VIAL INH SCH ×2 (06:58→18:40)
[2019-12-21] MEDS: BUDESONIDE/FORMOTEROL 160/4.5MCG INHALER INH SCH ×2 (06:59→18:55)
[2019-12-21] MEDS: METOPROLOL TARTRATE 50 MG TAB PO SCH ×2 (08:06→21:11)
[2019-12-21] MEDS: METHYLPREDNISOLONE SOD SUCC 40 MG/ML VIAL 1ML IV SCH ×4 (08:06→21:11)
[2019-12-21] MEDS: INSULIN LISPRO 100 UNIT/1 ML 3ML VIAL SQ SCH ×4 (08:06→21:28)
[2019-12-21] MEDS: HYDROMORPHONE 1MG/1ML INJ IV PRN ×5 (08:07→21:12)
--- NOTE | 2019-12-21 08:24 | NUR ---
PT NOTED WITH DRIED UP SCRATCH TO L KNEE, SMALL SCAB OVER IT DRIED BLOOD AROUND AREA. PT STATES IT IS OLD CAME IN ROOM AND STATES IT WAS NOT THERE BEFORE AND CONTINUES TO ASK IF PATIENT HAD FALL LAST NIGHT, THIS RN INFORMED THAT NO FALL HAD BEEN REPORTED FROM PREVIOUS NIGHT STATES WELL IT WAS NOT THERE BEFORE, PT STATES YES IT WAS BUT THERE WAS A BANDAGE OVER IT BEFORE STATES NO THERE WAS NOT. THIS RN ASSESSED ARE APPEARS TO BE AN OLD SCRATCH , WITH OLD DRIED BLOOD REASSURED THAT NO FALL WAS REPORTED WILL MONITOR
[2019-12-21] MEDS: VANCOMYCIN HCL 1.25 GM in SODIUM CHLORIDE 0.9% 250ML 250 ML IV SCH (09:27)
--- NOTE | 2019-12-21 14:00 | NUR ---
THIS RN ATTEMPTED PUT PT BACK IN BED PT STATES HE WANTS TO STAY IN THE CHAIR THAT HE IS COMFORTABLE
[2019-12-21] MEDS: ENOXAPARIN SOD INJ 40 MG/0.4 ML SYR SC SCH (16:20)
--- NOTE | 2019-12-21 16:25 | NUR ---
pt refusing to participate with therapy bc he is now comfortable in the recliner, f/u on monday Addendum: 12/21/19 at 1626 by Jose Alberto Casey PTA Amended: Links added.
[2019-12-21] MEDS: BISACODYL 5 MG TAB EC PO PRN (18:32)
[2019-12-21] MEDS ORDERED: CENTRAL TPN FORMULA 1 BAG IV SCH (20:00)
[2019-12-21] MEDS: VANCOMYCIN 1GM/NS 250 ML 250 ML IV SCH (21:58)
[2019-12-22] VITALS (25 sets, daily range): BP systolic 137–173; BP diastolic 73–99
[2019-12-22] MEDS: HYDROMORPHONE 1MG/1ML INJ IV PRN ×7 (00:12→22:51)
[2019-12-22] MEDS: BENZONATATE 100 MG CAP PO SCH ×4 (00:21→17:59)
[2019-12-22] MEDS: LEVALBUTEROL HCL SOLN NEBU 1.25 MG/3 ML NEB INH SCH ×6 (03:00→22:55)
[2019-12-22] MEDS: IPRATROPIUM BROMIDE 0.02% 2.5 ML NEB NEB SCH ×6 (03:00→22:55)
[2019-12-22 05:16] LABS: BASOPHILS % 0.2 % (0.0-1.0); HEMATOCRIT 30.1 % (38.2-49.6); HEMOGLOBIN 9.2 g/dL (14.0-18.0); LYMPHOCYTES # (AUTO) 0.7 (1.0-3.2); LYMPHOCYTES % 3.8 % (18.0-39.1); MEAN CORPUSCULAR HEMOGLOBIN 27.9 pg (28-32); MEAN CORPUSCULAR HGB CONC 30.6 g/dL (31-35); MEAN CORPUSCULAR VOLUME 91.2 fL (81-99); MONOCYTES # (AUTO) 0.8 (0.2-0.8); MONOCYTES % 4.2 % (4.4-11.3); NEUTROPHILS # (AUTO) 15.8 (2.1-6.9); NEUTROPHILS % 89.2 % (38.7-80.0); PLATELET COUNT 400 x10e3/uL (140-360); RED CELL DISTRIBUTION WIDTH 14.2 % (11.7-14.4)
[2019-12-22 05:41] LABS: ANION GAP 11.6 mmol/L (8-16); BLOOD UREA NITROGEN 30 mg/dL (7-26); BUN/CREATININE RATIO 43 (6-25); CALCIUM 8.3 mg/dL (8.4-10.2); CARBON DIOXIDE 26 mmol/L (22-29); CHLORIDE 106 mmol/L (98-107); EST GLOMERULAR FILTRATION RATE > 60 ML/MIN (60-); GLUCOSE 187 mg/dL (74-118); POTASSIUM 4.6 mmol/L (3.5-5.1); SODIUM 139 mmol/L (136-145)
[2019-12-22] MEDS: HYDROCODONE/APAP 10MG-325MG TAB PO SCH ×3 (06:13→22:15)
[2019-12-22] MEDS: PANTOPRAZOLE 40 MG 10ML VIAL IV SCH (06:14)
[2019-12-22] MEDS: ACETYLCYSTEINE 200 MG/ML 4ML VIAL INH SCH ×2 (07:02→19:00)
[2019-12-22] MEDS: BUDESONIDE/FORMOTEROL 160/4.5MCG INHALER INH SCH ×2 (07:02→19:15)
[2019-12-22] MEDS: INSULIN LISPRO 100 UNIT/1 ML 3ML VIAL SQ SCH ×4 (07:12→21:31)
--- NOTE | 2019-12-22 07:20 | NUR ---
SPOKE TO PATIENT REGARDING KUB REFUSAL, PT STATES WELL WHY COULDNT THEY JUST DO IT IN THE CHAIR, THIS RN EXPLAINED THAT WAS NOT POSSIBLE FOR KUB NEEDED TO SEE ABLE TO SEE FULL ABDOMEN, PT STATES WELL I JUST DIDNT WANT TO ILL TELL THE DOCTOR MYSELF WHEN HE COMES, THIS RN EXPLAINED THE IMPORTANCE OF THE KUB PERTAINING TO HIS TREATMENT. ATTEMPTED TO ENCOURAGE PATIENT TO LAY BACK IN BED SO THAT WE CAN GE THE KUB, PT REFUSED
--- NOTE | 2019-12-22 07:27 | Diagnostic Imaging Report ---
Examination: Single AP view of the chest. COMPARISON: CT chest December 18, 2019 INDICATION: COPD exacerbation DISCUSSION: Lines/tubes: None. Lungs: Mild lung base atelectasis. Pleura: Small effusions. Heart and mediastinum: The heart and the mediastinum are unremarkable. Bones and soft tissues: No acute bony abnormalities. IMPRESSION: 1. Mild lung base atelectasis and small effusions. Refer to CT chest for prior described nodular opacities. Signed by: Dr. Chaparro Rosario M.D. on 12/22/2019 7:24 AM
--- NOTE | 2019-12-22 07:56 | NUR ---
PT REFUSING SCDS AT THIS TIME PT STATES HE IS GETTING A BLISTER AND IF WE DO NOT TAKE THEM OFF HE WILL YO NO BLISTER NOTED BUT PT LEGS ARE EDEMATOUS THIS RN EDUCATED PT ON IMPORTANCE OF ELEVATING LEGS AND THAT IN THE BED WE COULD ELEVATE THEM ON PILLOWS PT STILL REFUSING STATES YOURE GONNA BE LOSING MONEY IF ANYTHING ELSE HAPPENS TO MY LEGS. THIS RN ELEVATED LEGS IN RECLINER PT STATES HE IS NOT HAPPY ABOUT HAVING LEGS OUT IN RECLINER, THIS RN EXPLAINED THAT WAS THE ONLY WAY TO ELEVATE LEGS WHILE HE IS SITTING IN THE RECLINER. PT STATES " FINE WHATEVER JUST LEAVE THEM THERE"
[2019-12-22] MEDS: METHYLPREDNISOLONE SOD SUCC 40 MG/ML VIAL 1ML IV SCH ×2 (08:24→21:25)
[2019-12-22] MEDS: METOPROLOL TARTRATE 50 MG TAB PO SCH ×2 (08:24→21:26)
[2019-12-22] MEDS: VANCOMYCIN 1GM/NS 250 ML 250 ML IV SCH ×2 (09:04→22:51)
[2019-12-22] MEDS ORDERED: FUROSEMIDE INJ 10 MG/ML 4 ML VIAL IV ONE (11:00)
[2019-12-22] MEDS ORDERED: KETOROLAC TROMETHAMINE 30 MG/ML VIAL IV PRN (11:00)
--- NOTE | 2019-12-22 12:01 | Diagnostic Imaging Report ---
Exam:CT December 18, 2019 History:Obstruction Comparison: None available Findings:Multiple dilated loops of small bowel throughout the abdomen. No visualized free air or pneumatosis. Impression: Persistent small bowel obstruction Signed by: Dr. Chaparro Rosario M.D. on 12/22/2019 11:59 AM
[2019-12-22] MEDS ORDERED: GUAIFENESIN/CODEINE 10 ML CUP PO PRN (13:15)
--- NOTE | 2019-12-22 13:54 | NUR ---
SEE NOTE [id number] MPRESSION: 1. Sepsis, clinically seems to be getting better. 2. Status post small bowel obstruction, status post surgery on December 16 for abdominal wound dehiscence with close abdominal wound by Dr. Camacho. 3. Status post pancreatitis. 4. Status post Healthcare associated pneumonia with aspiration. 5. Small bowel obstruction that was diagnostic laparoscopic exploratory laparotomy on December 10, seems better. 6. Debility. 7. Nutrition. 8. Influenza A treated. 9. Pneumonia treated. 10. Anemia of chronic disease.
--- NOTE | 2019-12-22 14:00 | NUR ---
NOTIFIED OF KUB RESULTS NO ORDERS AT THIS TIME
[2019-12-22] MEDS: ENOXAPARIN SOD INJ 40 MG/0.4 ML SYR SC SCH (16:09)
[2019-12-22] MEDS: CENTRAL TPN FORMULA 1 BAG IV SCH (20:31)
[2019-12-22] MEDS: MAGNESIUM/ALUMINUM/SIMETHICONE 30 ML UDC PO PRN (21:25)
[2019-12-23] VITALS (26 sets, daily range): BP systolic 112–173; BP diastolic 60–114
[2019-12-23] MEDS: BENZONATATE 100 MG CAP PO SCH ×4 (01:03→17:06)
[2019-12-23] MEDS: HYDROMORPHONE 1MG/1ML INJ IV PRN ×4 (01:51→18:44)
--- NOTE | 2019-12-23 02:10 | NUR ---
PAIN MEDICATION GIVEN PER PT REQUEST, PT SCORES PAIN 8/10, DILAUDID GIVEN PER ORDER. SHORTLY AFTER WHILE REASSESSING PAIN, PT STATES IT IS A 9/10 AND GRABBING ABDOMINAL SURGICAL SITE. WOUND VAC INTACT & WORKING PROPERLY, SUTURES INTACT, NO DRAINAGE NOTED, MINIMAL REDNESS NOTED AROUND LEFT LOWER STAPLE, AGAIN THIS RN REINFORCED PT EDUCATION REGARDING INCREASED REQUESTS FOR PAIN MEDICATIONS AND THE SN[facility] OUTCOME WITH HIS PERSISTENT BOWEL OBSTRUCTION, PT BECAME UPSET AND EMOTIONAL AND STATES "I CAN'T TAKE THIS PAIN, JUST KILL ME ALREADY. PLEASE JUST KILL ME". PT CONTINUES TO CALL OUT "HELP, PLEASE JUST KILL ME". CHARGE NURSE NOTIFIED AND SPOKE TO PATIENT. PATIENT IS WILLING TO CONSIDER HIS OPTIONS AND WOULD LIKE TO SPEAK TO HIS AT THIS TIME. WAS CALLED & VACUUM TESTER CANS DISCUSSED PLAN OF CARE AND GOALS. CALL TRANSFERRED TO PTS ROOM PER REQUEST TO SPEAK TO HIS . SPIRITUAL CONSULTATION WAS PLACED YESTERDAY, CONCERNS WILL BE RELATED TO MULTIDISCIPLINARY TEAM.
[2019-12-23] MEDS: LEVALBUTEROL HCL SOLN NEBU 1.25 MG/3 ML NEB INH SCH ×6 (03:00→23:00)
[2019-12-23] MEDS: IPRATROPIUM BROMIDE 0.02% 2.5 ML NEB NEB SCH ×6 (03:00→23:00)
--- NOTE | 2019-12-23 03:20 | NUR ---
THROUGHOUT SHIFT PT HAS C/O INCREASED ABD PAIN WITH NO RELIEF FROM SCHEDULED & PRN PAIN MEDICATIONS, STATING "THE PAIN IS SO EXTREME". PT IS MOANING & GRABBING AT SURGICAL SITE, STATING HE "FELT A RIP" NEAR ABDOMINAL WOUND VAC. ASSESSING THE PT, BILE/STOOL & BLOOD CONTENTS ARE LEAKING FROM WOUND VAC DRESSING. VS WNL. WOUND VAC DRAINAGE AMOUNT HAS INCREASED WITH A NEW RED WINE-TINT COLOR. CHARGE NURSE NOTIFIED. DR. CHAO PAGED @ 0250, CALL RETURNED IMMEDIATELY, NEW ORDER TO D/C WOUND VAC AND APPLY WET-TO-DRY DRESSING AND OKAY TO TYPE & CROSS PATIENT IF AM LABS REVEAL LOW HGB. WHEN ASKED IF HE WANTED TO ORDER ANY DIAGNOSTIC IMAGES, DR. CHAO DECLINED. IS AT BEDSIDE AT THIS TIME. PT SEEMS TO BE MORE COMFORTABLE & CALM WITH HER PRESENT. WITH ASSIST FROM ANOTHER RN, WOUND VAC WAS REMOVED. SURGICAL WOUND WAS NOTED TO BE CONTINUOUSLY LEAKING BILE/STOOL & BLOOD CONTENTS. ABDOMINAL WOUND PACKED WITH STERILE WET GAUZE, COVERED WITH DRY ABDOMINAL DRESSING & BORDER REINFORCED WITH ADHESIVE MICROFOAM TAPE. CONTENTS HAVE STARTED TO SATURATE DRESSING & LINENS, PT C/O SEVERE ABDOMINAL PAIN. DR. PLEITEZ PAGED AT 0350, AWAITING CALL BACK. Addendum: 12/23/19 at 0662 by Isabel Chew RN WHILE DISCUSSING POC WITH DR. CHAO, ASKED HIM IF HE WOULD LIKE TO CULTURE WOUND DRAINAGE AND HE DECLINED. STATED "DR. SIMEON WILL BE ROUNDING AT 7".
--- NOTE | 2019-12-23 05:44 | Diagnostic Imaging Report ---
Examination: Single AP view of the chest. COMPARISON: 12/22/2019 INDICATION: Change in status DISCUSSION: See impression IMPRESSION: 1. Small left pleural effusion has improved. Otherwise stable appearance of the heart and lungs with trace bilateral effusions and bibasilar atelectasis. No overt pulmonary edema. 2. Stable position of right upper extremity PICC. Signed by: Dr. Huy Robbins M.D. on 12/23/2019 5:41 AM
--- NOTE | 2019-12-23 05:46 | Diagnostic Imaging Report ---
Exam: Abdominal film Clinical History: Change in status Comparison: 12/22/2019 DISCUSSION: Persistent diffuse dilatation of the small bowel. No donny pneumoperitoneum. No mass effect or organomegaly. Regional skeletal structures grossly intact. IMPRESSION: Persistent findings of small bowel obstruction. Signed by: Dr. Huy Robbins M.D. on 12/23/2019 5:43 AM
[2019-12-23 05:48] LABS: BASOPHILS # (AUTO) 0.1 (0.0-0.1); BASOPHILS % 0.3 % (0.0-1.0); EOSINOPHILS % 0.1 % (0.0-6.0); HEMATOCRIT 34.6 % (38.2-49.6); HEMOGLOBIN 10.8 g/dL (14.0-18.0); LYMPHOCYTES # (AUTO) 0.8 (1.0-3.2); LYMPHOCYTES % 3.3 % (18.0-39.1); MEAN CORPUSCULAR HGB CONC 31.2 g/dL (31-35); MEAN CORPUSCULAR VOLUME 89.6 fL (81-99); MONOCYTES # (AUTO) 0.9 (0.2-0.8); MONOCYTES % 3.8 % (4.4-11.3); NEUTROPHILS # (AUTO) 21.3 (2.1-6.9); NEUTROPHILS % 88.9 % (38.7-80.0); PLATELET COUNT 596 x10e3/uL (140-360); RED BLOOD COUNT 3.86 x10e6/uL (4.3-5.7); RED CELL DISTRIBUTION WIDTH 14.2 % (11.7-14.4)
[2019-12-23] MEDS: HYDROCODONE/APAP 10MG-325MG TAB PO SCH ×3 (06:00→22:09)
[2019-12-23 06:08] LABS: ANION GAP 10.5 mmol/L (8-16); BLOOD UREA NITROGEN 26 mg/dL (7-26); BUN/CREATININE RATIO 37 (6-25); CARBON DIOXIDE 29 mmol/L (22-29); CHLORIDE 102 mmol/L (98-107); CREATININE, SERUM 0.71 mg/dL (0.72-1.25); EST GLOMERULAR FILTRATION RATE > 60 ML/MIN (60-); GLUCOSE 132 mg/dL (74-118); POTASSIUM 4.5 mmol/L (3.5-5.1); SODIUM 137 mmol/L (136-145)
[2019-12-23] MEDS ORDERED: SODIUM CHLORIDE 0.9% 50ML 50 ML ONE (06:28)
[2019-12-23] MEDS ORDERED: IOPAMIDOL 370 MG/ML 200 ML INFUS..BTL INJ ONE (06:28)
--- NOTE | 2019-12-23 06:30 | NUR ---
Spoke to Dr. Bob Kuhn regarding patient's change in status at 0610. Orders obtained for Cat-Scan of Abdomen/Pelvis with contrast and IV Zosyn 3.375gm Q8H. Orders entered and implemented by 0630.
[2019-12-23] MEDS: ACETYLCYSTEINE 200 MG/ML 4ML VIAL INH SCH ×2 (06:50→18:50)
[2019-12-23] MEDS: PANTOPRAZOLE 40 MG 10ML VIAL IV SCH (06:56)
[2019-12-23] MEDS: PIPER-TAZ 3.375 GM 50 ML IV SCH ×3 (06:57→17:06)
[2019-12-23] MEDS: BUDESONIDE/FORMOTEROL 160/4.5MCG INHALER INH SCH ×2 (07:00→18:48)
--- NOTE | 2019-12-23 07:14 | NUR ---
PAGED DR. SIMEON @5847 TO COMMUNICATE PATIENT UPDATES THROUGHOUT SHIFT AND RELAY RESULTS OF THE CURRENT CT W/ CONTRAST. WHILE RELAYING UPDATES AND RESULT OF CT, DR. SIMEON INTERRUPTED AND STATED "WHY DOES HE HAVE A WOUND VAC? WHO ORDERED THAT? THAT WAS NOT A GOOD IDEA. IS HE STABLE?" THIS RN STATED THE PATIENTS CURRENT VITAL SIGNS OFF MONITOR WHICH READ: HR 90, 02 98% ON 4LNC, RR 21, BP 141/81 AND PT HAS REMAINED AFEBRILE. DR. SIMEON STATED "OKAY, I WILL BE BY LATER TO SEE HIM." NIGHT & DAY CHARGE NURSE AND PRIMARY DAY SHIFT NURSE TAKING REPORT NOTIFIED OF RESULTS AND PHONE CALL WITH DR. SIMEON.
--- NOTE | 2019-12-23 07:15 | NUR ---
Received phone call from Radiologist regarding patient's Cat Scan performed at [address] Huy Robbins asked if the patient had recently been to surgery. When he was informed that the last surgical procedure was on 12/10/2019. Dr. Robbins stated that he is "very concerned that the patient has a bowel perforation" and stated that the CT showed a "Pneumoperitoneum in the Left Lower Quadrant." Then he asked if RN would convey the message to the surgeon. RN informed bedside nurse, LUTHER Hall, of results. This RN was standing next to LUTHER Hall when she called Dr. Camacho's number and spoke with him immediately at 0715. See other entry regarding call.
--- NOTE | 2019-12-23 07:15 | NUR ---
ASSESSMENT: Spiritual Distress Consult requested: Pt frustrated and overwhelmed concerning recent development. Pt's at bedside. Pt's states [id number] will come to provide support later today. Intervention: Provided calming pastoral presence and compassionate touch. Facilitated illness review. Provided prayer. Outcome: Will continue to follow as able. Pt & expressed appreciation for support. HONG SAVAGE Unit Nurse Spiritual Care Department O: [phone]
--- NOTE | 2019-12-23 07:19 | Diagnostic Imaging Report ---
EXAMINATION: CT of the abdomen and pelvis with contrast. TECHNIQUE: Spiral CT images of the abdomen and pelvis were performed from the lung bases to the lesser trochanters after the intravenous administration of 100 cc Isovue-370. Coronal and sagittal reformatted images were obtained. COMPARISON: 12/15/2019 CLINICAL HISTORY:Change in status DISCUSSION: ABDOMEN/PELVIS: LOWER THORAX:Interval development of small bilateral pleural effusions. Dependent atelectasis of the lower lobes. HEPATOBILIARY: No focal hepatic lesions. No intra-or extrahepatic biliary ductal dilation. Gallbladder has been removed. SPLEEN: No splenomegaly or focal splenic lesion. PANCREAS: No focal masses or ductal dilatation. Small peripancreatic collections are unchanged and may reflect developing pseudocysts as previously discussed. ADRENALS: No adrenal nodules. KIDNEYS/URETERS: Unchanged left renal cyst and nonobstructing left lower pole renal calculus. Subcentimeter hypoattenuating lesion in the right lower pole is also unchanged. PELVIC ORGANS/BLADDER: Urinary bladder is collapsed around a Stevens catheter. PERITONEUM/RETROPERITONEUM: Decreased free pelvic fluid. New pneumoperitoneum in the left lower quadrant for example on series 2 image 75. LYMPH NODES: No pelvic sidewall, retroperitoneal, or mesenteric lymphadenopathy. VESSELS: Atherosclerotic calcification of the abdominal aorta, major branch vessels, and iliac arterial systems without aneurysmal dilatation. Portal vein, splenic vein, and central superior mesenteric vein are patent. GI TRACT: Persistent dilatation of multiple loops of small bowel with a right lower quadrant transition point in keeping with obstruction. Innumerable descending and sigmoid colon diverticula without wall thickening or adjacent inflammatory change.. BONES AND SOFT TISSUE: No osseous destructive lesions. Midline laparotomy incision with packing. IMPRESSION: New left lower quadrant pneumoperitoneum in keeping with perforation, probably of an obstructed left lower quadrant small bowel loop. (Patient has not been to the operating room for reexploration between the examination 12/18/2019 and the current examination by report). Persistent findings of small bowel obstruction. Interval development of small bilateral pleural effusions with passive lower lobe atelectasis. Otherwise stable abdominopelvic findings. Findings were communicated to ICU nurse Lele at 7:10 AM 12/23/2019. RN verbalized understanding and agreed to urgently communicate findings to the referring surgeon Dr. Camacho. Signed by: Dr. Huy Robbins M.D. on 12/23/2019 7:16 AM
--- NOTE | 2019-12-23 08:09 | NUR ---
TEXTED [facility] TO SEE WHERE WE ARE IN APPROVAL FOR TRANSFER, PENDING APPROVAL.
[2019-12-23] MEDS: METHYLPREDNISOLONE SOD SUCC 40 MG/ML VIAL 1ML IV SCH (08:11)
[2019-12-23] MEDS: VANCOMYCIN 1GM/NS 250 ML 250 ML IV SCH ×2 (08:11→22:09)
[2019-12-23] MEDS ORDERED: ALPRAZOLAM 0.25 MG TAB PO PRN (08:15)
[2019-12-23] MEDS: METOPROLOL TARTRATE 50 MG TAB PO SCH ×2 (09:00→21:30)
[2019-12-23] MEDS ORDERED: ACETAMINOPHEN 1000 MG/100 ML IV PRN (09:15)
--- NOTE | 2019-12-23 10:22 | NUR ---
FAXED UPDATED TO [phone]
[2019-12-23] MEDS: INSULIN LISPRO 100 UNIT/1 ML 3ML VIAL SQ SCH ×2 (11:52→17:33)
--- NOTE | 2019-12-23 14:50 | NUR ---
Per Dr. Kelley pt ok to go home if Dr. Herrmann is ok with discharge. Dr. Herrmann informed, would like pt to stay until he assess pt. Dr. Herrmann left prescriptions for lantus, humalog and pen needles. Pt educated on importance of diabetic diet, monitoring blood sugars and administering insulin. RN monitored pt giving herself insulin injection this afternoon, pt administered medication correctly. Pharmacist Brenden came and educated pt on discharge medication as well. Pt informed to follow up with Dr. Herrmann in 10 days at [facility]. Pt discharged at 1450 with to take her home, no s/s of distress at this time. Addendum: 12/23/19 at 1524 by Syl Portillo RN Please disregard, above note on incorrect patient.
--- NOTE | 2019-12-23 15:37 | NUR ---
WOUND CARE CONSULT FOR FISTULA MANAGEMENT WOUND SENIOR EDITOR TO MIDLINE SURGICAL WOUND ATTACHED TO LOW WALL SUCTION DRAINING LARGE AMOUNTS OF THIN GREEN SECRETIONS Addendum: 12/23/19 at 1540 by Miguel A Prajapati RN Amended: Links added.
[2019-12-23] MEDS: ENOXAPARIN SOD INJ 40 MG/0.4 ML SYR SC SCH (17:06)
--- NOTE | 2019-12-23 17:53 | NUR ---
Pt's abdominal wound draining large amounts of dark bilious drainage. Dr. Camacho aware of CT abdomen results. MD assessed surgical wound and spoke with pts , MD stated he will not being taking pt back to surgery. Pt made NPO per Dr. Camacho. Dr. Segovia gave new wound care orders, can labeler contacted. Wound care nurse placed ostomy dressing over abdominal incision with ngt tube to low continuous suction. can labeler suggested fistulagram to evaluate wound further, Dr. Kuhn informed, no new orders. Pt's wanted to speak with CNO. batter mixer notified and contacted nurse global program manager. Both CNO and Nurse global program manager talked with pt's at the bedside. Will continue to monitor.
[2019-12-23] MEDS: CENTRAL TPN FORMULA 1 BAG IV SCH (20:35)
[2019-12-23] MEDS: LORAZEPAM INJ 2 MG/ML VIAL IV PRN (21:50)
[2019-12-24] VITALS (26 sets, daily range): BP systolic 97–154; BP diastolic 54–94
[2019-12-24] MEDS: BENZONATATE 100 MG CAP PO SCH ×6 (00:19→17:06)
[2019-12-24] MEDS: PIPER-TAZ 3.375 GM 50 ML IV SCH ×4 (00:19→17:05)
[2019-12-24] MEDS: INSULIN LISPRO 100 UNIT/1 ML 3ML VIAL SQ SCH ×4 (00:44→17:16)
[2019-12-24] MEDS: LEVALBUTEROL HCL SOLN NEBU 1.25 MG/3 ML NEB INH SCH ×6 (03:00→23:20)
[2019-12-24] MEDS: IPRATROPIUM BROMIDE 0.02% 2.5 ML NEB NEB SCH ×6 (03:00→23:20)
[2019-12-24] MEDS: PANTOPRAZOLE 40 MG 10ML VIAL IV SCH (05:25)
[2019-12-24 05:50] LABS: BASOPHILS % 0.1 % (0.0-1.0); EOSINOPHILS # (AUTO) 0.1 (0.0-0.4); EOSINOPHILS % 0.3 % (0.0-6.0); HEMATOCRIT 32.1 % (38.2-49.6); HEMOGLOBIN 10.3 g/dL (14.0-18.0); LYMPHOCYTES # (AUTO) 0.7 (1.0-3.2); LYMPHOCYTES % 3.1 % (18.0-39.1); MEAN CORPUSCULAR HEMOGLOBIN 28.6 pg (28-32); MEAN CORPUSCULAR HGB CONC 32.1 g/dL (31-35); MEAN CORPUSCULAR VOLUME 89.2 fL (81-99); MONOCYTES # (AUTO) 0.7 (0.2-0.8); NEUTROPHILS # (AUTO) 21.1 (2.1-6.9); NEUTROPHILS % 91.7 % (38.7-80.0); PLATELET COUNT 460 x10e3/uL (140-360); RED CELL DISTRIBUTION WIDTH 14.5 % (11.7-14.4)
[2019-12-24 06:11] LABS: ANION GAP 7.5 mmol/L (8-16); BLOOD UREA NITROGEN 25 mg/dL (7-26); BUN/CREATININE RATIO 33 (6-25); CALCIUM 7.6 mg/dL (8.4-10.2); CARBON DIOXIDE 30 mmol/L (22-29); CHLORIDE 104 mmol/L (98-107); CREATININE, SERUM 0.76 mg/dL (0.72-1.25); EST GLOMERULAR FILTRATION RATE > 60 ML/MIN (60-); GLUCOSE 137 mg/dL (74-118); POTASSIUM 4.5 mmol/L (3.5-5.1); SODIUM 137 mmol/L (136-145)
[2019-12-24 06:28] LABS: MAGNESIUM 2.1 MG/DL (1.3-2.1)
[2019-12-24] MEDS: HYDROCODONE/APAP 10MG-325MG TAB PO SCH ×3 (06:31→21:49)
[2019-12-24] MEDS: BUDESONIDE/FORMOTEROL 160/4.5MCG INHALER INH SCH ×2 (06:50→18:45)
[2019-12-24] MEDS: ACETYLCYSTEINE 200 MG/ML 4ML VIAL INH SCH ×2 (06:50→18:45)
[2019-12-24] MEDS: LORAZEPAM INJ 2 MG/ML VIAL IV PRN (07:09)
--- NOTE | 2019-12-24 07:15 | NUR ---
ASSESSMENT: Spiritual Distress Pt tired and overwhelmed by extended illness. Pt states, "I can't take much more of this." Intervention: Provided unhurried empathic listening. Facilitated illness review. Outcome: Followed up with RN. Will continue to follow as able. HONG SAVAGE Cambering Machine Operator Spiritual Care Department O: [phone] Pager: [phone] ([phone] number calling from)
[2019-12-24] MEDS: VANCOMYCIN 1GM/NS 250 ML 250 ML IV SCH ×2 (09:11→21:48)
[2019-12-24] MEDS: METOPROLOL TARTRATE 50 MG TAB PO SCH ×2 (09:12→21:09)
--- NOTE | 2019-12-24 11:55 | NUR ---
SPOKE WITH A[place]IN FROM [facility] SHE STATES CASE IS STILL PENDING SHOULD HAVE AN ANSWER BY END OF DAY TODAY OR TOMORROW MORNING.
[2019-12-24] MEDS: HYDROMORPHONE 1MG/1ML INJ IV PRN ×3 (11:59→23:17)
--- NOTE | 2019-12-24 13:35 | NUR ---
NOTIFIED BY BRANDY AT [facility] PT IS DENIED [facility], THEY ARE REACHING OUT TO DR VAUGHAN TO DO A PEER TO PEER.
--- NOTE | 2019-12-24 16:26 | NUR ---
Infectious disease PA Alec notified of patient's temperature overnight. Blood cultures ordered. Dr. Kuhn spent a significant amount of time at the bedside talking with about the plan of care. PICC line dressing changed. New dressing CDI. Abdominal wound ostomy draining less drainage than yesterday, still to low suction with NGT. Patient having intermittent confusion and forgetfulness, pt still requesting frequent pain medication despite education that those medications may be affecting his cognition. Pt was only able to stand with physical therapy long enough for bed linens to be changed. Will continue to monitor.
[2019-12-24] MEDS: ENOXAPARIN SOD INJ 40 MG/0.4 ML SYR SC SCH (17:05)
--- NOTE | 2019-12-24 18:47 | NUR ---
Pt asking for pain medication at 1847. RN informed pt he had his prn pain medication Dilaudid less than 2 hours ago and isn't due yet, as well as he had his scheduled Narco this afternoon. Pt stated "Well should I just then?".
[2019-12-24] MEDS: CENTRAL TPN FORMULA 1 BAG IV SCH (20:47)
[2019-12-24] MEDS ORDERED: ACETAMINOPHEN 1000 MG/100 ML IV SCH ×2 (21:00→22:00)
[2019-12-25] VITALS (25 sets, daily range): BP systolic 95–162; BP diastolic 51–96
[2019-12-25] MEDS: PIPER-TAZ 3.375 GM 50 ML IV SCH ×4 (00:48→18:37)
[2019-12-25] MEDS: INSULIN LISPRO 100 UNIT/1 ML 3ML VIAL SQ SCH ×4 (00:51→18:22)
[2019-12-25] MEDS: LEVALBUTEROL HCL SOLN NEBU 1.25 MG/3 ML NEB INH SCH ×6 (03:25→23:45)
[2019-12-25] MEDS: IPRATROPIUM BROMIDE 0.02% 2.5 ML NEB NEB SCH ×6 (03:25→23:45)
[2019-12-25] MEDS: LORAZEPAM INJ 2 MG/ML VIAL IV PRN (04:00)
[2019-12-25] MEDS: ACETAMINOPHEN 325 MG TAB PO PRN (04:01)
[2019-12-25 05:26] LABS: BASOPHILS % 0.1 % (0.0-1.0); EOSINOPHILS # (AUTO) 0.3 (0.0-0.4); EOSINOPHILS % 1.5 % (0.0-6.0); HEMATOCRIT 29.7 % (38.2-49.6); HEMOGLOBIN 9.2 g/dL (14.0-18.0); LYMPHOCYTES # (AUTO) 0.6 (1.0-3.2); LYMPHOCYTES % 2.7 % (18.0-39.1); MEAN CORPUSCULAR HEMOGLOBIN 27.7 pg (28-32); MEAN CORPUSCULAR VOLUME 89.5 fL (81-99); MONOCYTES # (AUTO) 0.8 (0.2-0.8); MONOCYTES % 3.5 % (4.4-11.3); NEUTROPHILS # (AUTO) 20.8 (2.1-6.9); NEUTROPHILS % 90.6 % (38.7-80.0); PLATELET COUNT 442 x10e3/uL (140-360); RED BLOOD COUNT 3.32 x10e6/uL (4.3-5.7); RED CELL DISTRIBUTION WIDTH 15.2 % (11.7-14.4)
[2019-12-25] MEDS: HYDROCODONE/APAP 10MG-325MG TAB PO SCH ×3 (06:00→19:14)
[2019-12-25] MEDS: BENZONATATE 100 MG CAP PO SCH ×4 (06:09→18:26)
[2019-12-25] MEDS: PANTOPRAZOLE 40 MG 10ML VIAL IV SCH (06:09)
[2019-12-25 06:10] LABS: ANION GAP 11.2 mmol/L (8-16); BLOOD UREA NITROGEN 32 mg/dL (7-26); BUN/CREATININE RATIO 29 (6-25); CALCIUM 7.7 mg/dL (8.4-10.2); CARBON DIOXIDE 27 mmol/L (22-29); CHLORIDE 107 mmol/L (98-107); CREATININE, SERUM 1.09 mg/dL (0.72-1.25); EST GLOMERULAR FILTRATION RATE > 60 ML/MIN (60-); GLUCOSE 141 mg/dL (74-118); POTASSIUM 4.2 mmol/L (3.5-5.1); SODIUM 141 mmol/L (136-145)
--- NOTE | 2019-12-25 06:34 | NUR ---
SPOKE TO GUNJAN WITH SIZE CISNEROS. SPECIALITY BED ORDERED. PER [facility]UNJAN BED HAD NOT BEEN ORDERED YET. CONFIRMATION NUMBER [id number].
[2019-12-25] MEDS: HYDROMORPHONE 1MG/1ML INJ IV PRN ×3 (06:53→22:57)
[2019-12-25] MEDS: ACETYLCYSTEINE 200 MG/ML 4ML VIAL INH SCH ×2 (07:20→18:40)
[2019-12-25] MEDS: BUDESONIDE/FORMOTEROL 160/4.5MCG INHALER INH SCH ×2 (07:40→18:27)
--- NOTE | 2019-12-25 07:43 | NUR ---
NOTIFIED ID ANNALISA Paulino REGARDING VANC TROUGH. ORDER TO REDRAW SPECIMEN. DAY SHIFT RN NOTIFIED.
[2019-12-25] MEDS: MICAFUNGIN SODIUM 100 ML IV SCH (08:53)
--- NOTE | 2019-12-25 08:59 | Diagnostic Imaging Report ---
Exam: KUB - 2 views Clinical History: Abdominal distention, postoperative. Comparison: CT abdomen/pelvis 12/23/2019 and KUB 12/23/2019. Findings: Somewhat limited examination secondary to soft tissue attenuation. Dilated air-filled small bowel loops. There is seen throughout the colon and non-distended rectum. Pneumoperitoneum is better characterized on prior CT from 12/23/2019. Small bilateral pleural effusions with patchy dependent opacities, likely atelectasis. No acute osseous abnormality. Impression: Partial small bowel obstruction versus nonobstructive ileus. Signed by: Dr. Frank Rodríguez MD on 12/25/2019 8:56 AM
--- NOTE | 2019-12-25 09:15 | NUR ---
ASSESSMENT: Spiritual concern Pt contemplating precious and religion practice. Pt's at bedside. Intervention: Provided unhurried pastoral presence. Facilitated discussion concerning precious and tolerance of others. Provided prayer. Outcome: Pt & expressed appreciation for support. Will continue to follow as able. HONG SAVAGE Medical Doctor Md/Medical Director Spiritual Care Department O: [phone]
[2019-12-25] MEDS: VANCOMYCIN 1GM/NS 250 ML 250 ML IV SCH (10:00)
--- NOTE | 2019-12-25 10:40 | NUR ---
Vancomycin trough 23.5. Spoke with Rochelle CAVANAUGH with Dr Chavis. New orders received.
[2019-12-25] MEDS: MAGNESIUM/ALUMINUM/SIMETHICONE 30 ML UDC PO PRN (11:20)
[2019-12-25] MEDS: METOPROLOL TARTRATE 50 MG TAB PO SCH ×2 (12:00→20:53)
--- NOTE | 2019-12-25 12:00 | NUR ---
PICC to right upper arm removed per Dr Camacho instructions to change to PICC site. Removed without complication, tip intact, pressure held, bandaged with 2x2, tape. No hematoma or bleeding noted. PICC to the left arm has been confirmed for use.
--- NOTE | 2019-12-25 12:15 | Diagnostic Imaging Report ---
EXAMINATION: CHEST XRAY LINE PLACEMENT INDICATION: Line placed COMPARISON: Chest radiograph 12/23/2019 FINDINGS: LINES/TUBES:Right and left PICC lines terminate in the superior vena cava. EKG leads overlie the chest. LUNGS:The lungs are moderately inflated. No focal consolidation or pulmonary edema. PLEURA:No pleural effusion or pneumothorax. MEDIASTINUM:The cardiomediastinal silhouette appears unchanged in size and shape. BONES/SOFT TISSUES:No acute osseous injury. ABDOMEN:No free air under the diaphragm. IMPRESSION: Right and left PICC lines terminate in the superior vena cava. Signed by: Alethea Ferguson MD on 12/25/2019 12:12 PM
--- NOTE | 2019-12-25 13:26 | NUR ---
Wound care consult for F/U assessment of wound television station manager to lower abdominal wound with fistula drainage Appliance remains in tact and continues to drain thin bile colored drainage to low wall suction Addendum: 12/25/19 at 1329 by Miguel A Prajapati RN Amended: Links added.
--- NOTE | 2019-12-25 13:38 | NUR ---
Nutrition Intervention Note RD Recommendation(s) for Physician: - Continue TPN @ 75 ml/hr and 25 g/day lipids with standard electrolytes as medically appropriate (1800 mL total volume, Dextrose 30% 500 ml/day, 270 gm Dextrose, AA 10% 500 ml, 90 gm protein/day) -provides 1528 kcal and 90 g protein - Additional IVF/fluid management per MD. - When medically appropriate, advance to GI soft diet Plan of Care: RD following, monitoring for tolerance and adequacy. TPN recs. Monitor for adequacy and tolerance. Nutrition reason for involvement: follow up RD Assessment 12/24: Follow up. Pt continues on TPN at 75 ml/hr, current order is meeting estimated needs. Pt denies N/V. Plan for PICC exchange today. Pt discussed during MDR, pt with new fistula as of 12/22, currently to drainage- dark output noted at time of visit with total output decreasing per I&O documentation. Pt started on micafungin empirically. Pt and with no questions at time of visit. Continue TPN per current order. Will continue to monitor. 12/20: Follow up. Pt is still on TPN at a rate of 75 mL/hr. Pt is also on a clear liquid diet, pt but reports he has been having N/V. Insulin was ordered due to elevated blood glucose. Will continue to monitor. 12/17: Follow up. Pt continues on TPN at 65 ml/hr and remains NPO. Pt discussed during am MDR, per RN plan to start clear liquid diet today. TPN rec's placed in chart for , RN notified of recommendations. Pt with surgery yesterday, resting at time of visit. Chart reviewed. Will continue to monitor. 12/13: Follow up. Pt continues to receive TPN and it was increased to 65 mL/hr today. Pt was discussed during rounds and RN reported pts abdomen is still distended. Current TPN order meets > 75% of estimated kcal and protein needs. Will continue to monitor. 12/11: Follow up. Pt on TPN at 43 ml/hr and continues with NGT in place. Pt denies any abdominal pain, nausea, or hunger. Pt POD#1 for small bowel obstruction, exploratory laparotomy, lysis of adhesions, and release of small bowel obstruction. TPN discussed with RN and rec's placed in chart, ordered TPN for this evening. TPN per current rec's to meet > 75% of kcal and protein needs. Chart reviewed. Will continue to monitor. (12/09): Follow up/Consult: Received consult to initiate TPN and lipids. Pt had a KUB that showed a SBO and a lot of stool in his colon per MD. MD recommended TPN, pt has been NPO since 12/04 (5 days). Recommendations are provided above and reported to nurse. Pts labs appear WNL from 12/08 besides a low phos, will recommend starting the pt on standard and changing to custom if necessary and advancing as appropriate. Phos was replaced yesterday. Pt has NGT in place and has a PICC line per EMR, TPN is appropriate. No new labs recorded for 12/09. MD also reported within his note to use enemas for constipation. Pt reported he is hungry and he denies N/V, and state he had a small bowel movement. Surgery scheduled for tmrw per nurse. Will continue to monitor. (12/03) 69 YOM admitted for COPD exacerbation, PNA, and Flu A. Pt seen today for LOS. 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 Noted fluctuating po intake since admit, pt reports taste changes 2/2 IV medications and flushes given. Pt declined all supplements offered, stated "this happens every time I come to the hospital." Pt with no questions or concerns at time of visit. Chart reviewed. Labs and meds reviewed. Will continue to monitor. Principal Problems/Diagnoses: COPD exacerbation, PNA, and Flu PMH: Status post ileus. Status post laparoscopic cholecystectomy andstatus post umbilical hernia repair. Leukocytosis previously resolved. COPD with oxygen dependency, Lung disease GI: LBM: not recorded, pt with fistula as of 12/22 with tube to drainage- 50 ml output yesterday Skin: abdominal incision- fistula with output Labs: 12/24: Na 141, K 4.2, BUN 32, Cr 1.09, Gluc 141, POC Gluc 163-305 Meds: dilaudid, abx, protonix, dulcolax, zofran, norco, lispro, IV micafungin Ht: 67 in Wt: 207 lbs (12/20) 196 lbs (12/13), 198 lbs (12/10) BMI: 32.5 kg/m^2 IBW:148lbs Malnutrition Evaluation 12/20 The patient does not meet criteria for a specified degree of malnutrition at this time. Will re-evaluate at follow-up as appropriate. Energy intake: TPN is meeting >75% of estimated energy needs Weight loss: -no weight loss recorded Nutrition Prescription (Diet Order): NPO TPN: 75 ml/hr and 25 g/day lipids with standard electrolytes (1800 mL total volume, Dextrose 30% 500 ml/day, 270 gm Dextrose, AA 10% 500 ml, 90 gm protein/day) - provides 1528 kcal and 90 g protein Estimated Nutritional Needs: Calories: 7451-8955 kcal/day (22-25 kcal/kg/day) Weight used : IBW (67.2 kg) Protein : 80-134 g protein/day (1.2-2 gram/kg/day ) Weight used: IBW Diet Adequacy: Current TPN order meets >75% of estimated needs Diet Education Needs Assessment: Diet education not indicated, patient on temporary/transition diet. Nutrition Care Level: high Nutrition Diagnosis: Altered GI function related to SBO as evidenced by need for TPN Goal: Patient will meet 75-100% of estimated needs by follow up Progress: Progressing Interventions: - TPN - Composition, Rate, Route, Collaboration with other providers Monitoring/Evaluation: Total energy intake, Total protein intake, Formula/Solution Signed: Salud Escobar RD, JOI, [facility]
--- NOTE | 2019-12-25 15:30 | NUR ---
Pt has been placed on the Sizewise rotational bed without complications.
[2019-12-25] MEDS: ENOXAPARIN SOD INJ 40 MG/0.4 ML SYR SC SCH (17:56)
[2019-12-25] MEDS: CENTRAL TPN FORMULA 1 BAG IV SCH (20:00)
[2019-12-25] MEDS: VANCOMYCIN 750MG/NS 150ML IVPB 150 ML IV SCH (20:00)
[2019-12-26] VITALS (24 sets, daily range): BP systolic 116–164; BP diastolic 64–111
[2019-12-26] MEDS: IPRATROPIUM BROMIDE 0.02% 2.5 ML NEB NEB SCH ×6 (03:45→22:06)
[2019-12-26] MEDS: LEVALBUTEROL HCL SOLN NEBU 1.25 MG/3 ML NEB INH SCH ×6 (03:45→22:06)
[2019-12-26] MEDS: HYDROMORPHONE 1MG/1ML INJ IV PRN ×3 (04:00→17:30)
[2019-12-26 05:14] LABS: BASOPHILS % 0.1 % (0.0-1.0); EOSINOPHILS # (AUTO) 0.9 (0.0-0.4); EOSINOPHILS % 4.3 % (0.0-6.0); HEMATOCRIT 27.5 % (38.2-49.6); HEMOGLOBIN 8.2 g/dL (14.0-18.0); LYMPHOCYTES # (AUTO) 0.7 (1.0-3.2); LYMPHOCYTES % 3.2 % (18.0-39.1); MEAN CORPUSCULAR HEMOGLOBIN 27.5 pg (28-32); MEAN CORPUSCULAR HGB CONC 29.8 g/dL (31-35); MEAN CORPUSCULAR VOLUME 92.3 fL (81-99); MONOCYTES # (AUTO) 0.9 (0.2-0.8); MONOCYTES % 4.5 % (4.4-11.3); NEUTROPHILS # (AUTO) 17.4 (2.1-6.9); NEUTROPHILS % 86.8 % (38.7-80.0); PLATELET COUNT 426 x10e3/uL (140-360); RED BLOOD COUNT 2.98 x10e6/uL (4.3-5.7); RED CELL DISTRIBUTION WIDTH 15.3 % (11.7-14.4)
[2019-12-26 05:35] LABS: ANION GAP 11.5 mmol/L (8-16); CREATININE, SERUM 1.69 mg/dL (0.72-1.25); POTASSIUM 4.5 mmol/L (3.5-5.1)
[2019-12-26] MEDS: BENZONATATE 100 MG CAP PO SCH ×4 (06:00→17:50)
[2019-12-26] MEDS: HYDROCODONE/APAP 10MG-325MG TAB PO SCH ×3 (06:00→21:52)
[2019-12-26] MEDS: INSULIN LISPRO 100 UNIT/1 ML 3ML VIAL SQ SCH ×4 (06:00→18:47)
[2019-12-26] MEDS: PANTOPRAZOLE 40 MG 10ML VIAL IV SCH (06:00)
[2019-12-26] MEDS: PIPER-TAZ 3.375 GM 50 ML IV SCH ×4 (06:00→17:50)
--- NOTE | 2019-12-26 06:00 | NUR ---
Blood cultures results in, results reported to dr Chavis, left a message with Cabrera
[2019-12-26] MEDS: BUDESONIDE/FORMOTEROL 160/4.5MCG INHALER INH SCH ×2 (07:06→18:51)
[2019-12-26] MEDS: ACETYLCYSTEINE 200 MG/ML 4ML VIAL INH SCH ×2 (07:06→18:34)
[2019-12-26] MEDS: LORAZEPAM INJ 2 MG/ML VIAL IV PRN ×2 (07:16→23:31)
[2019-12-26] MEDS: MICAFUNGIN SODIUM 100 ML IV SCH (07:48)
--- NOTE | 2019-12-26 08:43 | NUR ---
Lab result, yeast in blood. Rochelle CAVANAUGH notified.
[2019-12-26] MEDS: VANCOMYCIN 750MG/NS 150ML IVPB 150 ML IV SCH ×2 (08:51→20:00)
[2019-12-26] MEDS: METOPROLOL TARTRATE 50 MG TAB PO SCH ×2 (08:59→21:52)
--- NOTE | 2019-12-26 13:40 | NUR ---
WOUND CARE CONSULT FOR FISTULA MANAGEMENT OF LOWER ABDOMINAL WOUND MADE WOUND RN PACU CONTINUES TO BE INTACT AND DRAINING GREENISH THIN DRAINAGE WITH LOW WALL SUCTION ATTACHED ANNELIESE SKIN INTACT AND CLEAN AND DRY Addendum: 12/26/19 at 1342 by Miguel A Prajapati RN Amended: Links added.
[2019-12-26] MEDS ORDERED: SUCCINYLCHOLINE CHLORIDE 20 MG/ML 10ML VIAL ONE (15:09)
[2019-12-26] MEDS ORDERED: ETOMIDATE 2 MG/ML 10 ML INJ IV ONE (15:09)
[2019-12-26] MEDS: ENOXAPARIN SOD INJ 40 MG/0.4 ML SYR SC SCH (17:50)
--- NOTE | 2019-12-26 18:00 | NUR ---
End of shift note. Pt with continued no BM, prob. illeus, distended abdomen, and orders to continue PO intake of ice chip, sips of water, and PO medications. All physicians have visited and remain with same plan of care.
[2019-12-26] MEDS: CENTRAL TPN FORMULA 1 BAG IV SCH (21:14)
[2019-12-27] VITALS (24 sets, daily range): BP systolic 82–181; BP diastolic 50–98
[2019-12-27] MEDS: PIPER-TAZ 3.375 GM 50 ML IV SCH ×2 (00:01→05:35)
[2019-12-27] MEDS: BENZONATATE 100 MG CAP PO SCH ×5 (00:01→20:26)
[2019-12-27] MEDS: INSULIN LISPRO 100 UNIT/1 ML 3ML VIAL SQ SCH ×4 (00:02→17:23)
--- NOTE | 2019-12-27 03:05 | NUR ---
Responded to pt call. He kept saying "Help me , Help me". Assisted pt to reposition and slide up in bed. Pt restless and asking for help. HR noted to be trending down from the 110s to 70s to 50s. 02 saturation trending down from the 90s to 70s. Pt was placed on BIPAP and vomited into it within minutes. BIPAP was dc'd. 210/112, 109 HR and trending down, 78% saturation, RR 23
[2019-12-27] MEDS: PROMETHAZINE 12.5MG/ NACL 0.9% 12.5 MG/50 ML BAG IV PRN (03:15)
--- NOTE | 2019-12-27 03:15 | NUR ---
Pt is now on 100% NRB Dr Camacho called. Dr Sheikh called Pt called. Dr Sheikh ordered CXR and Vapotherm. 204/119, 123 HR, 79% saturation and Trending upwards. RR 28. Pt is awake and responsive.
--- NOTE | 2019-12-27 03:20 | NUR ---
Pt now on Vapotherm 100%. CXR completed. Pt noted to be unresponsive. RR called. ER physician arrived within a minute.
--- NOTE | 2019-12-27 03:30 | NUR ---
ETT placed (Size 8, 23 @ Lip) OGT placed. Instatly got 700ml bile output. Family @ BS. 188/94, 131 HR, 99%, 22RR
[2019-12-27] MEDS: LEVALBUTEROL HCL SOLN NEBU 1.25 MG/3 ML NEB INH SCH ×6 (03:44→23:55)
[2019-12-27] MEDS: IPRATROPIUM BROMIDE 0.02% 2.5 ML NEB NEB SCH ×7 (03:44→23:55)
[2019-12-27] MEDS: PROPOFOL IV EMULSION 10MG/ML 100 ML IV PRN (04:00)
[2019-12-27] MEDS: FENTANYL CITRATE INJ 2,000 MCG in SODIUM CHLORIDE 0.9% 250ML 210 ML IV PRN ×2 (04:00→23:32)
--- NOTE | 2019-12-27 04:05 | NUR ---
Pt noted to be waking up, coughing and bucking the vent. B wrist restraints initiated. Sedation initiated (SEE MAR). 124/83, HR135, 100%, 20RR Family remain @ BS and updated of all events.
[2019-12-27] MEDS ORDERED: PROPOFOL IV EMULSION 10MG/ML 100 ML ONE (04:11)
[2019-12-27] MEDS ORDERED: SODIUM CHLORIDE 0.9% 250ML 250 ML ONE (04:15)
--- NOTE | 2019-12-27 04:19 | NUR ---
Propofol bottle pulled from [employer] and given to Génesis RN for administration. Fentanyl and NS pulled from [employer] and gtt mixed and given to Génesis RN for administration. Both per 's orders.
[2019-12-27 05:20] LABS: BASOPHILS % 0.1 % (0.0-1.0); EOSINOPHILS # (AUTO) 0.5 (0.0-0.4); EOSINOPHILS % 2.2 % (0.0-6.0); HEMATOCRIT 28.9 % (38.2-49.6); HEMOGLOBIN 8.6 g/dL (14.0-18.0); LYMPHOCYTES # (AUTO) 0.3 (1.0-3.2); LYMPHOCYTES % 1.3 % (18.0-39.1); MEAN CORPUSCULAR HEMOGLOBIN 27.9 pg (28-32); MEAN CORPUSCULAR HGB CONC 29.8 g/dL (31-35); MEAN CORPUSCULAR VOLUME 93.8 fL (81-99); MONOCYTES % 4.4 % (4.4-11.3); NEUTROPHILS # (AUTO) 19.5 (2.1-6.9); NEUTROPHILS % 90.8 % (38.7-80.0); PLATELET COUNT 497 x10e3/uL (140-360); RED BLOOD COUNT 3.08 x10e6/uL (4.3-5.7); RED CELL DISTRIBUTION WIDTH 15.2 % (11.7-14.4)
[2019-12-27] MEDS: HYDROCODONE/APAP 10MG-325MG TAB PO SCH ×3 (05:35→20:26)
[2019-12-27] MEDS: PANTOPRAZOLE 40 MG 10ML VIAL IV SCH (05:38)
[2019-12-27 05:42] LABS: ANION GAP 13.9 mmol/L (8-16); CALCIUM 8.2 mg/dL (8.4-10.2); CREATININE, SERUM 1.97 mg/dL (0.72-1.25); POTASSIUM 4.9 mmol/L (3.5-5.1)
[2019-12-27] MEDS: BUDESONIDE/FORMOTEROL 160/4.5MCG INHALER INH SCH ×2 (07:00→19:00)
[2019-12-27] MEDS: ACETYLCYSTEINE 200 MG/ML 4ML VIAL INH SCH ×2 (07:39→19:05)
--- NOTE | 2019-12-27 07:49 | NUR ---
PT ON Q15 MIN ROTATION BED. ASSESSMENT COMPLETED AND RECORDED. FAMILY UPDATED ON CURRENT POC.
[2019-12-27] MEDS: METOPROLOL TARTRATE 50 MG TAB PO SCH ×2 (08:24→20:25)
[2019-12-27] MEDS: MICAFUNGIN SODIUM 100 ML IV SCH (08:25)
--- NOTE | 2019-12-27 08:45 | Diagnostic Imaging Report ---
Chest, 1 view, 12/27/2019. History: Respiratory distress. Comparison: 12/25/2019. Findings: The cardiomediastinal silhouette is unchanged. There are new diffuse bilateral interstitial opacities. There is no focal consolidation or pleural effusion. Left upper extremity PICC is unchanged in position. Right upper extremity PICC is no longer visualized. There are no acute osseous or soft tissue abnormalities. Impression: Interval development of bilateral interstitial opacities which may represent edema or pneumonitis. Signed by: Will Francois on 12/27/2019 8:42 AM
--- NOTE | 2019-12-27 08:47 | Diagnostic Imaging Report ---
Chest, 1 view, 12/27/2019 at 0411. History: NG tube placement. Comparison: X-ray from today at 0338. Findings: A new ET tube is present terminating at the level of the clavicles. NG tube terminates below left hemidiaphragm. The cardiomediastinal silhouette is unchanged. There is no focal consolidation or pleural effusion. Mild diffuse bilateral interstitial opacities are unchanged. There are no acute osseous or soft tissue abnormalities. Impression: ET and NG tubes in adequate position. Signed by: Will Francois on 12/27/2019 8:45 AM
[2019-12-27 09:03] LABS: EOSINOPHILS % (MANUAL) 6 % (0-7); LYMPHOCYTES % (MANUAL) 3 % (19-48); MONOCYTES % (MANUAL) 4 % (3.4-9.0); NEUTROPHILS % (MANUAL) 87 % (40-74); PLATELET ESTIMATE ADEQUATE; PLATELET MORPHOLOGY COMMENT NORMAL; RBC MORPHOLOGY COMMENT NORMAL
--- NOTE | 2019-12-27 09:16 | NUR ---
Pt had RR called and vented overnight and regional guide hours; now on mechanical ventilation. Pt will be placed on PT hold at this time d/t change in status. Pt will need new PT orders to resume skilled PT when appropriate. Thank you. Addendum: 12/27/19 at 0918 by DALLAS OLSON SPRAY PILOT Amended: Links added.
[2019-12-27] MEDS: METRONIDAZOLE 500MG/NS 100ML 100 ML IV SCH ×2 (10:37→17:09)
[2019-12-27] MEDS ORDERED: FUROSEMIDE INJ 10 MG/ML 4 ML VIAL IV ONE (10:45)
[2019-12-27] MEDS: CEFEPIME 1GM/NS 0.9% 50 ML 50 ML IV SCH (12:15)
--- NOTE | 2019-12-27 12:30 | NUR ---
Nutrition Intervention Note RD Recommendation(s) for Physician: - Continue TPN @ 75 ml/hr and 25 g/day lipids with standard electrolytes as medically appropriate (1800 mL total volume, Dextrose 30% 500 ml/day, 270 gm Dextrose, AA 10% 500 ml, 90 gm protein/day) -provides 1528 kcal and 90 g protein - Additional IVF/fluid management per MD. -Propofol at current rate of 2.8 ml/hr provides the pt with an additional 8 grams lipids. -Recommend monitor BMP, mag and phos daily and replace low lytes as needed. -Recommend to retrieve TG level 2/2 to patient being on propofol and 25 gram lipids per day. - When medically appropriate, advance to GI soft diet Plan of Care: RD following, monitoring for tolerance and adequacy. TPN recs. Monitor for adequacy and tolerance. Nutrition reason for involvement: follow up RD Assessment 12/26: Follow up: Pt has been intubated and sedated on propofol and fentanly, no pressors. Pt is still receiving TPN per nurse, there is no plan to take pt off of TPN as of now. Noted-pt is on low rate of propofol, recommended to monitoring propofol rate d/t pt also being on lipids. Will continue to monitor. 12/24: Follow up. Pt continues on TPN at 75 ml/hr, current order is meeting estimated needs. Pt denies N/V. Plan for PICC exchange today. Pt discussed during MDR, pt with new fistula as of 12/22, currently to drainage- dark output noted at time of visit with total output decreasing per I&O documentation. Pt started on micafungin empirically. Pt and with no questions at time of visit. Continue TPN per current order. Will continue to monitor. 12/20: Follow up. Pt is still on TPN at a rate of 75 mL/hr. Pt is also on a clear liquid diet, pt but reports he has been having N/V. Insulin was ordered due to elevated blood glucose. Will continue to monitor. 12/17: Follow up. Pt continues on TPN at 65 ml/hr and remains NPO. Pt discussed during am MDR, per RN plan to start clear liquid diet today. TPN rec's placed in chart for , RN notified of recommendations. Pt with surgery yesterday, resting at time of visit. Chart reviewed. Will continue to monitor. 12/13: Follow up. Pt continues to receive TPN and it was increased to 65 mL/hr today. Pt was discussed during rounds and RN reported pts abdomen is still distended. Current TPN order meets > 75% of estimated kcal and protein needs. Will continue to monitor. 12/11: Follow up. Pt on TPN at 43 ml/hr and continues with NGT in place. Pt denies any abdominal pain, nausea, or hunger. Pt POD#1 for small bowel obstruction, exploratory laparotomy, lysis of adhesions, and release of small bowel obstruction. TPN discussed with RN and rec's placed in chart, MD ordered TPN for this evening. TPN per current rec's to meet > 75% of kcal and protein needs. Chart reviewed. Will continue to monitor. (12/09): Follow up/Consult: Received consult to initiate TPN and lipids. Pt had a KUB that showed a SBO and a lot of stool in his colon per MD. MD recommended TPN, pt has been NPO since 12/04 (5 days). Recommendations are provided above and reported to nurse. Pts labs appear WNL from 12/08 besides a low phos, will recommend starting the pt on standard and changing to custom if necessary and advancing as appropriate. Phos was replaced yesterday. Pt has NGT in place and has a PICC line per EMR, TPN is appropriate. No new labs recorded for 12/09. MD also reported within his note to use enemas for constipation. Pt reported he is hungry and he denies N/V, and state he had a small bowel movement. Surgery scheduled for tmrw per nurse. Will continue to monitor. (12/03) 69 YOM admitted for COPD exacerbation, PNA, and Flu A. Pt seen today for LOS. 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 Noted fluctuating po intake since admit, pt reports taste changes 2/2 IV medications and flushes given. Pt declined all supplements offered, stated "this happens every time I come to the hospital." Pt with no questions or concerns at time of visit. Chart reviewed. Labs and meds reviewed. Will continue to monitor. Principal Problems/Diagnoses: COPD exacerbation, PNA, and Flu PMH: Status post ileus. Status post laparoscopic cholecystectomy andstatus post umbilical hernia repair. Leukocytosis previously resolved. COPD with oxygen dependency, Lung disease GI: LBM: not recorded, pt with fistula as of 12/22 with tube to drainage- 700 ml output today Skin: abdominal incision- fistula with output Labs: 12/26: Cl 109, BUN 43, Creat 1.97, Gluc 134, POC GM: 136-199, Ca 8.2 12/24: Na 141, K 4.2, BUN 32, Cr 1.09, Gluc 141, POC Gluc 163-305 Meds: dilaudid,propofol , fentanyl, abx, protonix, dulcolax, zofran, norco, lispro, IV micafungin IVF: TPN at 75 ml/hr Ht: 67 in Wt: 209 (12/26) 207 lbs (12/20) 196 lbs (12/13), 198 lbs (12/10) BMI: 32.5 kg/m^2 IBW:148lbs Malnutrition Evaluation 12/20 The patient does not meet criteria for a specified degree of malnutrition at this time. Will re-evaluate at follow-up as appropriate. Energy intake: TPN is meeting >75% of estimated energy needs Weight loss: -no weight loss recorded Nutrition Prescription (Diet Order): NPO TPN: 75 ml/hr and 25 g/day lipids with standard electrolytes (1800 mL total volume, Dextrose 30% 500 ml/day, 270 gm Dextrose, AA 10% 500 ml, 90 gm protein/day) - provides 1528 kcal and 90 g protein Estimated Nutritional Needs: Calories: 7412-6247 kcal/day (22-25 kcal/kg/day) Weight used : IBW (67.2 kg) Protein : 80-134 g protein/day (1.2-2 gram/kg/day ) Weight used: IBW Diet Adequacy: Current TPN order meets >75% of estimated needs Diet Education Needs Assessment: Diet education not indicated, patient on temporary/transition diet. Nutrition Care Level: high Nutrition Diagnosis: Altered GI function related to SBO as evidenced by need for TPN Goal: Patient will meet 75-100% of estimated needs by follow up Progress: Progressing Interventions: - TPN - Composition, Rate, Route, Collaboration with other providers Monitoring/Evaluation: Total energy intake, Total protein intake, Formula/Solution Signed: Sussy Abbott RD, JOI
--- NOTE | 2019-12-27 12:57 | Diagnostic Imaging Report ---
History:Rule out CVA Comparison studies:None Technique: Axial images were obtained from the skull base to the vertex. Coronal and sagittal images reconstructed from the axial data. Intravenous contrast: None Dose modulation, iterative reconstruction, and/or weight based adjustment of the mA/kV was utilized to reduce the radiation dose to as low as reasonably achievable. Findings: Scalp/skull: No abnormalities. Extra-axial spaces: No masses. No fluid collections. Brain sulci: Mildly prominent. Ventricles: Mild compensatory dilatation. No hydrocephalus. Parenchyma: Few hypodensities in the supratentorial white matter are small vessel ischemic changes. No masses, hemorrhage, acute or chronic cortical vascular insults. Sellar/suprasellar region: No abnormalities. Craniocervical junction: Patent foramen magnum. No Chiari one malformation. Incidental findings: Atherosclerotic calcifications in the carotid siphons . Impression: No acute abnormalities. Chronic findings: 1. Mild generalized volume loss. 2. Mild supratentorial white matter small vessel ischemic changes. Signed by: DR Benito Barton M.D. on 12/27/2019 12:55 PM
[2019-12-27] MEDS: CENTRAL TPN FORMULA 1 BAG IV SCH (19:17)
[2019-12-28] VITALS (24 sets, daily range): BP systolic 96–165; BP diastolic 57–99
[2019-12-28] MEDS: INSULIN LISPRO 100 UNIT/1 ML 3ML VIAL SQ SCH ×4 (00:38→18:16)
[2019-12-28] MEDS: METRONIDAZOLE 500MG/NS 100ML 100 ML IV SCH ×3 (02:00→17:08)
[2019-12-28] MEDS: LEVALBUTEROL HCL SOLN NEBU 1.25 MG/3 ML NEB INH SCH ×6 (04:00→22:50)
[2019-12-28] MEDS: IPRATROPIUM BROMIDE 0.02% 2.5 ML NEB NEB SCH ×5 (04:00→19:10)
[2019-12-28] MEDS: HYDROCODONE/APAP 10MG-325MG TAB PO SCH ×4 (06:00→19:25)
[2019-12-28] MEDS: BENZONATATE 100 MG CAP PO SCH ×5 (06:00→19:25)
[2019-12-28] MEDS: FUROSEMIDE INJ 10 MG/ML 4 ML VIAL IV SCH ×2 (06:31→17:08)
[2019-12-28] MEDS: PANTOPRAZOLE 40 MG 10ML VIAL IV SCH (06:34)
[2019-12-28] MEDS: MICAFUNGIN SODIUM 100 ML IV SCH (07:29)
[2019-12-28] MEDS: ACETYLCYSTEINE 200 MG/ML 4ML VIAL INH SCH (07:30)
[2019-12-28] MEDS: BUDESONIDE/FORMOTEROL 160/4.5MCG INHALER INH SCH ×2 (07:30→19:10)
[2019-12-28] MEDS: PROPOFOL IV EMULSION 10MG/ML 100 ML IV PRN (07:35)
[2019-12-28] MEDS ORDERED: CEFEPIME HCL 1 GM VIAL IV SCH (09:00)
[2019-12-28] MEDS: METOPROLOL TARTRATE 50 MG TAB PO SCH ×2 (09:00→19:19)
[2019-12-28] MEDS: CEFEPIME 1GM/NS 0.9% 50 ML 50 ML IV SCH (10:22)
[2019-12-28] MEDS ORDERED: BENZOCAINE 20% SPR 60 ML CAN MT ONE (12:00)
--- NOTE | 2019-12-28 12:26 | Diagnostic Imaging Report ---
EXAMINATION: CHEST SINGLE (PORTABLE) INDICATION: Shortness of breath. COMPARISON: Chest radiograph 12/27/2019. FINDINGS: TUBES and LINES: ET tube terminates 7.7 cm above the guevara. Enteric tube courses into the stomach, the tip is not seen. Left arm PICC terminates near the cavoatrial junction. LUNGS: Lungs are moderately inflated. Persistent perihilar and interstitial opacities. Increasing patchy opacities of the left lung base. PLEURA: No pleural effusion or pneumothorax. HEART AND MEDIASTINUM: The cardiomediastinal silhouette is unremarkable. BONES AND SOFT TISSUES: No acute osseous lesion. Soft tissues are unremarkable. UPPER ABDOMEN: No free air under the diaphragm. IMPRESSION: Lines and tubes as above. No evidence of pneumothorax. Findings of pulmonary interstitial edema. Increased patchy opacity at the left lung base, which may represent atelectasis, pulmonary edema, or infection in the appropriate clinical setting. Signed by: Dr. Frank Rodríguez MD on 12/28/2019 12:24 PM
--- NOTE | 2019-12-28 12:57 | NUR ---
DICTATED [id number]
--- NOTE | 2019-12-28 13:28 | Diagnostic Imaging Report ---
Exam: Upper abdominal radiograph-1 view Clinical History: Status post NG tube placement. Comparison: KUB 12/25/2019. Findings: Limited examination secondary to technique and soft tissue attenuation. The left upper quadrant abdomen is imaged. Enteric tube terminates in the distal esophagus. Recommend advancement by approximately 9 cm. Please refer to same day chest radiograph for details of intrathoracic findings. Impression: Enteric tube terminates in the distal esophagus. Recommend advancement by approximately 9 cm. Signed by: Dr. Frank Rodríguez MD on 12/28/2019 1:25 PM
[2019-12-28] MEDS: HYDROMORPHONE 1MG/1ML INJ IV PRN ×3 (14:13→21:27)
[2019-12-28] MEDS ORDERED: SODIUM CHLORIDE 0.9% 250ML 250 ML IV NR (15:00)
--- NOTE | 2019-12-28 15:57 | Diagnostic Imaging Report ---
Exam: Upper abdominal radiograph-1 view Clinical History: Status post NG tube placement. Comparison: KUB 12/28/2019 at 12:29 PM. Findings: Limited examination secondary to technique and soft tissue attenuation. The left upper quadrant abdomen is imaged. Interval advancement of enteric tube, which terminates in the distal stomach. Please refer to same day chest radiograph for details of intrathoracic findings. Impression: Interval advancement of enteric tube, which terminates in the distal stomach. Signed by: Dr. Frank Rodríguez MD on 12/28/2019 3:54 PM
[2019-12-28] MEDS: ENOXAPARIN 30 MG/0.3 ML SYR SC SCH (16:25)
--- NOTE | 2019-12-28 16:48 | Progress Note ---
DATE: SUBJECTIVE: Mr. Marquez remains in intensive care unit. He has an OG tube, which is draining significant amount of bilious type of material. He remains weak. He is on a ventilator. The patient continued to have abdominal wound. The patient, who has history of smoking, stopped 8 years ago, COPD, and bilateral hernia repair. He is here for small bowel obstruction adhesions. Initially, came for the influenza pneumonia, got complicated with small bowel obstruction, underwent surgery. The patient had dehiscence of his wound and recurrent of an ileus and small bowel obstruction. He is currently on TPN. The patient, who have currently abdominal wound, which is about 11 x 3 x 3 cm, which is packed. The patient, who is weak in the intensive care unit. His blood culture showed yeast species recently, which felt probably due to the patient has been in the hospital for long time, on IV antibiotic with TPN and has central line, which we did change. This is day #31 of hospitalization. REVIEW OF SYSTEMS: He is just weak, but alert. LABORATORY DATA: White count 21.4. His hemoglobin 8.6. His sodium was 141, potassium 4.9, creatinine 1.97, with albumin 1.4. PHYSICAL EXAMINATION: GENERAL: He is currently alert and weak. Does not seem to be in acute distress. VITAL SIGNS: Stable, on the ventilator. Temperature 98.8. His T-max has been 101.1 on the 7th. HEENT: He is pale, on oral intubation. NECK: Supple. CHEST: Few crackles at the bases. HEART: S1, S2. No S3, S4, or murmur. ABDOMEN: Soft. Bowel sounds hypoactive, but present. The wound looks really good. IMPRESSION: 1. Small bowel obstruction with ileus. 2. PEG tube and the KUB showed it was in the distal esophagus, recommended to advance. 3. Fungemia since December 23. We will recheck blood cultures. Continue Mycamine. 4. Peritonitis, currently on cefepime and Flagyl. 5. Chronic kidney disease. 6. Diabetes mellitus with neuropathy. 7. History of smoking with atherosclerosis disease. 8. Dehiscence of abdominal wound. 9. Malnutrition. 10. Anemia of chronic disease. 11. Overall prognosis remains really poor. 12. Other medical issues, he has history of influenza recently, pneumonia recently, recurrent aspiration. We will follow. MD BRENDA Cho /[id number]
[2019-12-28] MEDS ORDERED: ACETAMINOPHEN 1000 MG/100 ML IV PRN (17:00)
[2019-12-28] MEDS: CENTRAL TPN FORMULA 1 BAG IV SCH (19:48)
[2019-12-28] MEDS ORDERED: SODIUM CHLORIDE 0.9% 250ML 250 ML ONE (22:07)
[2019-12-29] VITALS (23 sets, daily range): BP systolic 142–174; BP diastolic 71–90
[2019-12-29] MEDS: INSULIN LISPRO 100 UNIT/1 ML 3ML VIAL SQ SCH ×4 (00:21→17:15)
[2019-12-29] MEDS: HYDROMORPHONE 1MG/1ML INJ IV PRN ×6 (00:35→22:59)
[2019-12-29] MEDS: METRONIDAZOLE 500MG/NS 100ML 100 ML IV SCH ×3 (03:09→17:00)
[2019-12-29] MEDS: LEVALBUTEROL HCL SOLN NEBU 1.25 MG/3 ML NEB INH SCH ×5 (03:20→19:20)
[2019-12-29] MEDS: IPRATROPIUM BROMIDE 0.02% 2.5 ML NEB NEB SCH ×5 (03:20→19:20)
[2019-12-29] MEDS: FUROSEMIDE INJ 10 MG/ML 4 ML VIAL IV SCH (05:14)
[2019-12-29] MEDS: PANTOPRAZOLE 40 MG 10ML VIAL IV SCH (05:14)
[2019-12-29 05:42] LABS: BASOPHILS % 0.2 % (0.0-1.0); EOSINOPHILS # (AUTO) 0.4 (0.0-0.4); EOSINOPHILS % 2.2 % (0.0-6.0); HEMATOCRIT 26.9 % (38.2-49.6); HEMOGLOBIN 8.2 g/dL (14.0-18.0); LYMPHOCYTES # (AUTO) 0.5 (1.0-3.2); LYMPHOCYTES % 2.9 % (18.0-39.1); MEAN CORPUSCULAR HEMOGLOBIN 27.8 pg (28-32); MEAN CORPUSCULAR HGB CONC 30.5 g/dL (31-35); MEAN CORPUSCULAR VOLUME 91.2 fL (81-99); MONOCYTES # (AUTO) 1.2 (0.2-0.8); NEUTROPHILS # (AUTO) 14.5 (2.1-6.9); NEUTROPHILS % 86.9 % (38.7-80.0); PLATELET COUNT 435 x10e3/uL (140-360); RED BLOOD COUNT 2.95 x10e6/uL (4.3-5.7); RED CELL DISTRIBUTION WIDTH 15.3 % (11.7-14.4)
[2019-12-29 05:57] LABS: ANION GAP 12.6 mmol/L (8-16); CALCIUM 8.4 mg/dL (8.4-10.2); CREATININE, SERUM 3.08 mg/dL (0.72-1.25); POTASSIUM 4.6 mmol/L (3.5-5.1)
[2019-12-29 06:37] LABS: MAGNESIUM 3.2 MG/DL (1.3-2.1); PHOSPHORUS 5.8 MG/DL (2.3-4.7)
[2019-12-29] MEDS: BUDESONIDE/FORMOTEROL 160/4.5MCG INHALER INH SCH (07:20)
[2019-12-29] MEDS: MICAFUNGIN SODIUM 100 ML IV SCH (07:56)
[2019-12-29] MEDS: METOPROLOL TARTRATE 50 MG TAB PO SCH ×2 (08:04→18:55)
[2019-12-29] MEDS: CEFEPIME 1GM/NS 0.9% 50 ML 50 ML IV SCH (10:32)
[2019-12-29] MEDS ORDERED: SODIUM CHLORIDE 0.9% 250ML 250 ML IV ONE (11:15)
[2019-12-29] MEDS: BENZONATATE 100 MG CAP PO SCH ×4 (12:00→18:56)
[2019-12-29] MEDS: ENOXAPARIN 30 MG/0.3 ML SYR SC SCH (16:55)
[2019-12-29] MEDS: LORAZEPAM INJ 2 MG/ML VIAL IV PRN (19:13)
[2019-12-29] MEDS ORDERED: CENTRAL TPN FORMULA 1 BAG IV SCH (20:00)
[2019-12-30] VITALS (24 sets, daily range): BP systolic 114–183; BP diastolic 64–99
[2019-12-30] MEDS: INSULIN LISPRO 100 UNIT/1 ML 3ML VIAL SQ SCH ×4 (00:42→18:12)
[2019-12-30] MEDS: LORAZEPAM INJ 2 MG/ML VIAL IV PRN (00:54)
[2019-12-30] MEDS: METRONIDAZOLE 500MG/NS 100ML 100 ML IV SCH ×3 (02:19→18:11)
[2019-12-30] MEDS: HYDROMORPHONE 1MG/1ML INJ IV PRN ×6 (02:26→23:44)
[2019-12-30] MEDS ORDERED: CLONIDINE HCL 0.2 MG/24 HR 1 EA PATCH TOP ONE (02:30)
[2019-12-30] MEDS ORDERED: CLONIDINE HCL 0.1 MG/24 HR 1 EA PATCH TOP ONE ×2 (02:30→02:45)
[2019-12-30] MEDS ORDERED: CLONIDINE HCL 0.2 MG/24 HR 1 EA PATCH ONE (02:34)
[2019-12-30] MEDS: IPRATROPIUM BROMIDE 0.02% 2.5 ML NEB NEB SCH ×7 (03:45→23:10)
[2019-12-30] MEDS: LEVALBUTEROL HCL SOLN NEBU 1.25 MG/3 ML NEB INH SCH ×7 (03:45→23:10)
[2019-12-30] MEDS: PANTOPRAZOLE 40 MG 10ML VIAL IV SCH (04:56)
[2019-12-30] MEDS: MICAFUNGIN SODIUM 100 ML IV SCH (08:10)
[2019-12-30] MEDS: METOPROLOL TARTRATE 50 MG TAB PO SCH ×2 (08:11→20:27)
[2019-12-30 09:37] LABS: BASOPHILS % 0.1 % (0.0-1.0); EOSINOPHILS # (AUTO) 0.4 (0.0-0.4); HEMATOCRIT 29.9 % (38.2-49.6); HEMOGLOBIN 9.2 g/dL (14.0-18.0); LYMPHOCYTES # (AUTO) 0.4 (1.0-3.2); MEAN CORPUSCULAR HEMOGLOBIN 27.9 pg (28-32); MEAN CORPUSCULAR HGB CONC 30.8 g/dL (31-35); MEAN CORPUSCULAR VOLUME 90.6 fL (81-99); MONOCYTES % 5.9 % (4.4-11.3); NEUTROPHILS # (AUTO) 15.7 (2.1-6.9); NEUTROPHILS % 89.4 % (38.7-80.0); PLATELET COUNT 410 x10e3/uL (140-360); RED CELL DISTRIBUTION WIDTH 15.6 % (11.7-14.4)
[2019-12-30 09:55] LABS: ANION GAP 14.1 mmol/L (8-16); CALCIUM 8.6 mg/dL (8.4-10.2); CREATININE, SERUM 3.72 mg/dL (0.72-1.25); MAGNESIUM 3.5 MG/DL (1.3-2.1); PHOSPHORUS 6.8 MG/DL (2.3-4.7); POTASSIUM 5.1 mmol/L (3.5-5.1)
[2019-12-30 10:53] LABS: EOSINOPHILS % (MANUAL) 2 % (0-7); LYMPHOCYTES % (MANUAL) 3 % (19-48); MONOCYTES % (MANUAL) 4 % (3.4-9.0); NEUTROPHILS % (MANUAL) 91 % (40-74)
[2019-12-30] MEDS: CEFEPIME 1GM/NS 0.9% 50 ML 50 ML IV SCH (11:00)
[2019-12-30] MEDS: BENZONATATE 100 MG CAP PO SCH ×4 (12:00→20:58)
[2019-12-30] MEDS: HYDRALAZINE HCL 20 MG/ML VIAL IV PRN (13:28)
--- NOTE | 2019-12-30 15:10 | NUR ---
WOUND CARE CONSULT FOR REPLACEMENT OF WOUND BURRER MARKER AXLE AND DRAIN AROUND LOWER ABDOMINAL WOUND FISTULA Addendum: 12/30/19 at 1513 by Miguel A Prajapati RN Amended: Links added.
[2019-12-30 15:23] LABS: CLARITY,URINE SL CLOUDY (CLEAR); COLOR,URINE YELLOW (YELLOW); LEUKOCYTE ESTERASE ,URINE NEGATIVE (NEGATIVE); NITRITE,URINE NEGATIVE (NEGATIVE); PROTEIN,URINE DIPSTICK 1+ (NEGATIVE)
[2019-12-30 15:24] LABS: BILIRUBIN,URINE NEGATIVE (NEGATIVE); KETONES,URINE NEGATIVE (NEGATIVE); URINE UROBILINOGEN 0.2 mg/dL (0.2 - 1)
[2019-12-30 15:26] LABS: BACTERIA,URINE FEW /HPF; EPITHELIAL CELLS,URINE FEW /LPF
[2019-12-30 15:27] LABS: MUCUS,URINE RARE (RARE)
[2019-12-30] MEDS ORDERED: DEXMEDETOMIDINE HCL 200 MCG in SODIUM CHLORIDE 0.9% 50ML 48 ML IV PRN ×2 (15:45→19:15)
[2019-12-30 15:50] LABS: CREATININE,URINE RANDOM 22.03 mg/dL (63-166); SODIUM,URINE 83 mmol/L
--- NOTE | 2019-12-30 16:00 | NUR ---
Start precedex. Beginning dose at 0.3mcg/kg/hr = 6.6 ml/hr. Will monitor.
[2019-12-30] MEDS ORDERED: SODIUM CHLORIDE 0.9% 250ML 0 ML ONE (16:09)
[2019-12-30] MEDS: DILTIAZEM HCL 30 MG TAB PO SCH (17:02)
[2019-12-30] MEDS: ENOXAPARIN 30 MG/0.3 ML SYR SC SCH (17:02)
--- NOTE | 2019-12-30 19:52 | Consultation ---
DATE OF CONSULTATION: Renal Consult REASON FOR CONSULT: Acute kidney failure and hypernatremia. HISTORY OF PRESENT ILLNESS: This is a 69-year-old male patient. History is from the chart. The patient is on BiPAP currently. The patient has a history of longstanding smoking, stopped 8 years ago, diagnosed with COPD and he also had previous umbilical hernia repair. The patient was admitted on November 27 with left lower lobe pneumonia and pancreatitis, and was diagnosed with small bowel obstruction secondary to adhesions. The patient underwent first surgery on 12/10/2019. After that, he had an abdominal wall dehiscence. On 12/16, he had another surgery and had closure of the abdominal wound dehiscence. The patient had pus surgical wound at the lower abdomen. No signs of infection, but possible fistula currently with drainage from that wound. PAST MEDICAL HISTORY: Includes COPD and obesity. SOCIAL HISTORY: He has smoked several years, stopped 8 years ago. PAST SURGICAL HISTORY: 1. Cholecystectomy. 2. Umbilical hernia repair. 3. Vasectomy. 4. Two surgeries, one on 12/10/2019 for SBO. 5. On 12/16/2019, for abdominal wall dehiscence. REVIEW OF SYSTEMS: Unable to get from the patient. CURRENT MEDICATIONS: Include Micafungin, Atrovent, TPN, Protonix, Zofran, Lovenox, levalbuterol, Flagyl, cefepime, magnesium, benzonatate, metoprolol, insulin, bisacodyl, and alteplase. PHYSICAL EXAMINATION: GENERAL: The patient is on BiPAP and minimal response currently. HEENT: Pupils are equal and reactive to light and accommodation. NECK: No JVD. No bruit. LUNGS: Rhonchi. No rales. HEART: Tachycardic. No S3. No S4. ABDOMEN: Nontender and nondistended. No hepatomegaly or splenomegaly. Positive abdominal wound, 9 inches x 3 inches open and drainage at the bases. EXTREMITIES: No clubbing. No cyanosis. No edema. NEUROLOGICAL: No known neurological deficits. LABORATORY DATA: Sodium 154, potassium 5.1, BUN 78, creatinine 3.7, magnesium 3.5, and phosphorus 6.8. During this hospitalization, the patient was diagnosed with fungemia, aspiration pneumonia, respiratory failure, and malnutrition. ASSESSMENT AND PLAN: 1. Acute kidney failure. This can be secondary to acute tubular necrosis with sepsis, antibiotic. The patient was on vancomycin and Zosyn. We will check urine eosinophils. Currently, the patient is on Micafungin and Flagyl. Abdominal ultrasound was reviewed, currently negative, so it is most likely that acute tubular necrosis. 2. Hypernatremia, hyperkalemia, hypermagnesemia, and hyperphosphatemia. Adjustment to TPN was done. Discussed with pharmacy. We will start new TPN. We will re-evaluate labs in a.m. 3. Wound dehiscence, currently followed by Wound Care. 4. Sepsis, currently followed by ID. The patient was diagnosed with fungemia and aspiration pneumonia. 5. Malnutrition, currently on TPN. Saurav Almonte MD MA/SACHIN /[id number]
[2019-12-30] MEDS ORDERED: CENTRAL TPN FORMULA 1 BAG IV SCH (20:00)
[2019-12-30] MEDS: DEXMEDETOMIDINE 200MCG/NS 50ML 50 ML IV PRN (20:54)
[2019-12-30 22:56] LABS: EOSINOPHIL SMEAR,URINE NONE SEEN (NONE SEEN)
[2019-12-31] VITALS (24 sets, daily range): BP systolic 97–146; BP diastolic 57–83
[2019-12-31] MEDS: INSULIN LISPRO 100 UNIT/1 ML 3ML VIAL SQ SCH ×4 (01:03→18:00)
[2019-12-31] MEDS: METRONIDAZOLE 500MG/NS 100ML 100 ML IV SCH ×3 (02:21→17:02)
[2019-12-31] MEDS: LEVALBUTEROL HCL SOLN NEBU 1.25 MG/3 ML NEB INH SCH ×5 (02:47→23:25)
[2019-12-31] MEDS: IPRATROPIUM BROMIDE 0.02% 2.5 ML NEB NEB SCH ×6 (02:47→23:25)
[2019-12-31] MEDS: HYDROMORPHONE 1MG/1ML INJ IV PRN ×6 (04:29→21:40)
[2019-12-31] MEDS: PANTOPRAZOLE 40 MG 10ML VIAL IV SCH (05:30)
[2019-12-31 05:53] LABS: ANION GAP 13.3 mmol/L (8-16); CALCIUM 8.4 mg/dL (8.4-10.2); CREATININE, SERUM 3.91 mg/dL (0.72-1.25); MAGNESIUM 3.5 MG/DL (1.3-2.1); PHOSPHORUS 7.5 MG/DL (2.3-4.7); POTASSIUM 5.3 mmol/L (3.5-5.1)
[2019-12-31 05:56] LABS: BASOPHILS % 0.1 % (0.0-1.0); EOSINOPHILS # (AUTO) 0.3 (0.0-0.4); EOSINOPHILS % 2.1 % (0.0-6.0); HEMATOCRIT 29.1 % (38.2-49.6); HEMOGLOBIN 8.5 g/dL (14.0-18.0); LYMPHOCYTES # (AUTO) 0.6 (1.0-3.2); LYMPHOCYTES % 3.7 % (18.0-39.1); MEAN CORPUSCULAR HEMOGLOBIN 27.6 pg (28-32); MEAN CORPUSCULAR HGB CONC 29.2 g/dL (31-35); MEAN CORPUSCULAR VOLUME 94.5 fL (81-99); MONOCYTES # (AUTO) 0.9 (0.2-0.8); MONOCYTES % 5.9 % (4.4-11.3); NEUTROPHILS # (AUTO) 13.6 (2.1-6.9); NEUTROPHILS % 87.4 % (38.7-80.0); PLATELET COUNT 381 x10e3/uL (140-360); RED BLOOD COUNT 3.08 x10e6/uL (4.3-5.7); RED CELL DISTRIBUTION WIDTH 15.9 % (11.7-14.4)
[2019-12-31 06:48] LABS: ABG PH 7.29 (7.31-7.41)
[2019-12-31 06:49] LABS: ABG BASE EXCESS -0.5 mmol/L (-2 - 3); ABG HCO3 27 mmol/L (23-28); ABG OXYGEN SATURATION 99.5 % (95-98); ABG PCO2 59 mmHg (41-51); ABG PO2 261 mmHg (80-105)
[2019-12-31] MEDS: DILTIAZEM HCL 30 MG TAB PO SCH ×2 (07:30→16:30)
--- NOTE | 2019-12-31 07:45 | Diagnostic Imaging Report ---
EXAMINATION: CHEST SINGLE (PORTABLE) INDICATION: COPD exacerbation, pneumonia, follow-up. COMPARISON: Chest radiograph 12/28/2019. FINDINGS: TUBES and LINES: Interval extubation. Enteric tube courses into the stomach, the tip is not seen. Left arm PICC terminates in the lower SVC. LUNGS: Lungs are moderately inflated. Persistent perihilar and interstitial opacities. Persistent mild patchy left basilar opacity. PLEURA: No pleural effusion or pneumothorax. HEART AND MEDIASTINUM: The cardiomediastinal silhouette is unremarkable. BONES AND SOFT TISSUES: No acute osseous lesion. Soft tissues are unremarkable. UPPER ABDOMEN: No free air under the diaphragm. IMPRESSION: Interval extubation. Persistent patchy left basilar opacity which may represent atelectasis or pneumonia in the appropriate clinical setting. Mild pulmonary interstitial edema. Signed by: Dr. Frank Rodríguez MD on 12/31/2019 7:43 AM
[2019-12-31] MEDS: MICAFUNGIN SODIUM 100 ML IV SCH (08:26)
[2019-12-31] MEDS: METOPROLOL TARTRATE 50 MG TAB PO SCH ×2 (08:55→21:39)
[2019-12-31] MEDS: CEFEPIME 1GM/NS 0.9% 50 ML 50 ML IV SCH (10:45)
[2019-12-31] MEDS: DEXMEDETOMIDINE 200MCG/NS 50ML 50 ML IV PRN ×2 (10:46→16:48)
[2019-12-31] MEDS: BENZONATATE 100 MG CAP PO SCH ×4 (12:00→19:41)
[2019-12-31] MEDS: ENOXAPARIN 30 MG/0.3 ML SYR SC SCH (17:01)
--- NOTE | 2019-12-31 17:58 | NUR ---
Nutrition Intervention Note RD Recommendation(s) for Physician: - Continue TPN @ 75 ml/hr and 25 g/day lipid as medically appropriate. Electrolyte management per MD (1800 mL total volume, Dextrose 30% 500 ml/day, 270 gm Dextrose, AA 10% 500 ml, 90 gm protein/day) -provides 1528 kcal and 90 g protein - Recommend TG level be obtained - When medically appropriate, advance to GI soft diet Plan of Care: RD following, monitoring for tolerance and adequacy. TPN recs. Monitor for adequacy and tolerance. Nutrition reason for involvement: follow up RD Assessment 12/30: Follow up. Pt is no longer intubated. Pt continues to receive TPN @ 75 mL/hr and has an NG tube for suctioning per RN. The patient is now in acute kidney failure with hypernatremia, hyperkalemia, hypermagnesemia, and hyperphosphatemia per MD note. MD adjusted electrolytes in TPN. Will continue to monitor. 12/26: Follow up: Pt has been intubated and sedated on propofol and fentanly, no pressors. Pt is still receiving TPN per nurse, there is no plan to take pt off of TPN as of now. Noted-pt is on low rate of propofol, recommended to monitoring propofol rate d/t pt also being on lipids. Will continue to monitor. 12/24: Follow up. Pt continues on TPN at 75 ml/hr, current order is meeting estimated needs. Pt denies N/V. Plan for PICC exchange today. Pt discussed during MDR, pt with new fistula as of 12/22, currently to drainage- dark output noted at time of visit with total output decreasing per I&O documentation. Pt started on micafungin empirically. Pt and with no questions at time of visit. Continue TPN per current order. Will continue to monitor. 12/20: Follow up. Pt is still on TPN at a rate of 75 mL/hr. Pt is also on a clear liquid diet, pt but reports he has been having N/V. Insulin was ordered due to elevated blood glucose. Will continue to monitor. 12/17: Follow up. Pt continues on TPN at 65 ml/hr and remains NPO. Pt discussed during am MDR, per RN plan to start clear liquid diet today. TPN rec's placed in chart for , RN notified of recommendations. Pt with surgery yesterday, resting at time of visit. Chart reviewed. Will continue to monitor. 12/13: Follow up. Pt continues to receive TPN and it was increased to 65 mL/hr today. Pt was discussed during rounds and RN reported pts abdomen is still distended. Current TPN order meets > 75% of estimated kcal and protein needs. Will continue to monitor. 12/11: Follow up. Pt on TPN at 43 ml/hr and continues with NGT in place. Pt denies any abdominal pain, nausea, or hunger. Pt POD#1 for small bowel obstruction, exploratory laparotomy, lysis of adhesions, and release of small bowel obstruction. TPN discussed with RN and rec's placed in chart, MD ordered TPN for this evening. TPN per current rec's to meet > 75% of kcal and protein needs. Chart reviewed. Will continue to monitor. (12/09): Follow up/Consult: Received consult to initiate TPN and lipids. Pt had a KUB that showed a SBO and a lot of stool in his colon per MD. MD recommended TPN, pt has been NPO since 12/04 (5 days). Recommendations are provided above and reported to nurse. Pts labs appear WNL from 12/08 besides a low phos, will recommend starting the pt on standard and changing to custom if necessary and advancing as appropriate. Phos was replaced yesterday. Pt has NGT in place and has a PICC line per EMR, TPN is appropriate. No new labs recorded for 12/09. MD also reported within his note to use enemas for constipation. Pt reported he is hungry and he denies N/V, and state he had a small bowel movement. Surgery scheduled for tmrw per nurse. Will continue to monitor. (12/03) 69 YOM admitted for COPD exacerbation, PNA, and Flu A. Pt seen today for LOS. 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 Noted fluctuating po intake since admit, pt reports taste changes 2/2 IV medications and flushes given. Pt declined all supplements offered, stated "this happens every time I come to the hospital." Pt with no questions or concerns at time of visit. Chart reviewed. Labs and meds reviewed. Will continue to monitor. Principal Problems/Diagnoses: COPD exacerbation, PNA, and Flu PMH: Status post ileus. Status post laparoscopic cholecystectomy andstatus post umbilical hernia repair. Leukocytosis previously resolved. COPD with oxygen dependency, Lung disease GI: soft, distended, tender abdomen LBM: not recorded Skin: abdominal incision- fistula with output Labs: 12/30: Na 157, K 5.3, Cl 126, BUN 96, Creat 3.91, Glu 150, Phos 7.5, Mg 3.5 12/26: Cl 109, BUN 43, Creat 1.97, Gluc 134, POC GM: 136-199, Ca 8.2 12/24: Na 141, K 4.2, BUN 32, Cr 1.09, Gluc 141, POC Gluc 163-305 Meds: dexmedetomidine, metronidazole, metroprolol, protonix, lovenox, hydralazine, fentanyl, dulcolax,milk of magnesia, zofran, insulin, dulcolax Ht: 67 in Wt: 196 lbs (12/30) 209 lbs (12/26) 207 lbs (12/20) 196 lbs (12/13), 198 lbs (12/10) BMI: 30.7 kg/m^2 IBW:148lbs Malnutrition Evaluation 12/20 The patient does not meet criteria for a specified degree of malnutrition at this time. Will re-evaluate at follow-up as appropriate. Energy intake: TPN is meeting >75% of estimated energy needs Weight loss: -no weight loss recorded Nutrition Prescription (Diet Order): NPO TPN: 75 ml/hr and 25 g/day lipids with custom electrolytes (NaCl 10 mEq/L, Na acetate 0 mEq/L, KCl 10 mEq/L, K acetate 0 mEq/L, K phosphate 0 mEq/L, Ca Gluconate 4.6 mEq/L, Mg sulfate 4 mEq/L, Trace elements 3 mL/day, multivitamin 10 mL/day, thiamine 100 mg/day, folic acid 1 mg/day) (1800 mL total volume, Dextrose 30% 500 ml/day, 270 gm Dextrose, AA 10% 500 ml, 90 gm protein/day) - provides 1528 kcal and 90 g protein Estimated Nutritional Needs: Calories: 1699-1624 kcal/day (22-25 kcal/kg/day) Weight used : IBW (67.2 kg) Protein : 80-134 g protein/day (1.2-2 gram/kg/day ) Weight used: IBW Diet Adequacy: Current TPN order meets >75% of estimated needs Diet Education Needs Assessment: Diet education not indicated, patient on temporary/transition diet. Nutrition Care Level: high Nutrition Diagnosis: Altered GI function related to SBO as evidenced by need for TPN Goal: Patient will meet 75-100% of estimated needs by follow up Progress: Progressing Interventions: - TPN - Composition, Rate, Route, Collaboration with other providers Monitoring/Evaluation: Total energy intake, Total protein intake, Formula/Solution Signed: Selene Singh RD, LD
[2019-12-31] MEDS: ACETAMINOPHEN 325 MG TAB PO PRN (18:10)
[2019-12-31] MEDS ORDERED: CENTRAL TPN FORMULA 1 BAG IV SCH (20:00)
[2020-01-01] VITALS (26 sets, daily range): BP systolic 89–149; BP diastolic 51–99
[2020-01-01] MEDS: DEXMEDETOMIDINE 200MCG/NS 50ML 50 ML IV PRN ×5 (00:34→22:00)
[2020-01-01] MEDS: INSULIN LISPRO 100 UNIT/1 ML 3ML VIAL SQ SCH ×4 (00:36→18:00)
[2020-01-01] MEDS: HYDROMORPHONE 1MG/1ML INJ IV PRN ×3 (01:12→21:11)
[2020-01-01] MEDS: METRONIDAZOLE 500MG/NS 100ML 100 ML IV SCH ×3 (02:29→17:22)
[2020-01-01] MEDS: LEVALBUTEROL HCL SOLN NEBU 1.25 MG/3 ML NEB INH SCH ×6 (02:35→23:15)
[2020-01-01] MEDS: IPRATROPIUM BROMIDE 0.02% 2.5 ML NEB NEB SCH ×6 (02:35→23:15)
[2020-01-01 05:29] LABS: BASOPHILS % 0.1 % (0.0-1.0); EOSINOPHILS # (AUTO) 0.4 (0.0-0.4); EOSINOPHILS % 2.1 % (0.0-6.0); HEMATOCRIT 26.1 % (38.2-49.6); HEMOGLOBIN 7.6 g/dL (14.0-18.0); LYMPHOCYTES # (AUTO) 0.6 (1.0-3.2); LYMPHOCYTES % 3.6 % (18.0-39.1); MEAN CORPUSCULAR HEMOGLOBIN 27.6 pg (28-32); MEAN CORPUSCULAR HGB CONC 29.1 g/dL (31-35); MEAN CORPUSCULAR VOLUME 94.9 fL (81-99); MONOCYTES # (AUTO) 0.7 (0.2-0.8); MONOCYTES % 4.4 % (4.4-11.3); NEUTROPHILS # (AUTO) 14.7 (2.1-6.9); NEUTROPHILS % 89.1 % (38.7-80.0); PLATELET COUNT 354 x10e3/uL (140-360); RED BLOOD COUNT 2.75 x10e6/uL (4.3-5.7)
[2020-01-01] MEDS: PANTOPRAZOLE 40 MG 10ML VIAL IV SCH (05:49)
[2020-01-01 05:54] LABS: ANION GAP 13.2 mmol/L (8-16); CALCIUM 8.4 mg/dL (8.4-10.2); CREATININE, SERUM 4.2 mg/dL (0.72-1.25); MAGNESIUM 3.5 MG/DL (1.3-2.1); PHOSPHORUS 6.1 MG/DL (2.3-4.7); POTASSIUM 5.2 mmol/L (3.5-5.1)
--- NOTE | 2020-01-01 07:17 | NUR ---
PATIENT HAS CALLED 3 TIMES SO FAR THIS AM FOR ICE. I'VE ASKED HIM TO WAIT I AM GETTING ALL INFORMATION FOR PATIENT GATHERED FOR MY PATIENT TODAY. PATIENT CONTINUES TO CALL [employer] LIGHT DESPITE POLITELY ASKING HIM TO WAIT A FEW MINUTES
[2020-01-01] MEDS: DILTIAZEM HCL 30 MG TAB PO SCH ×2 (07:30→16:30)
[2020-01-01] MEDS: METOPROLOL TARTRATE 50 MG TAB PO SCH ×2 (09:00→21:00)
[2020-01-01 09:38] LABS: INR 1.33; PROTHROMBIN TIME 17.4 seconds (11.9-14.5)
[2020-01-01] MEDS: DEXTROSE 10% 1,000 ML IV SCH ×2 (09:40→21:06)
[2020-01-01] MEDS ORDERED: SODIUM CHLORIDE 0.9% 250ML 250 ML IV ONE (09:55)
[2020-01-01] MEDS ORDERED: LIDOCAINE HCL 1% LOCAL INJ 20 ML VIAL ONE (10:55)
[2020-01-01] MEDS ORDERED: HEPARIN SOD (PORCINE) 1000 UNIT/ML SDV ONE (11:40)
[2020-01-01] MEDS: BENZONATATE 100 MG CAP PO SCH ×3 (12:00→19:49)
--- NOTE | 2020-01-01 12:20 | NUR ---
PT TAVO AUTH RESTARTED. HD CATH TO BE INSERTED TODAY THEN WILL START HD. WBC 16.52, NA 158, H/H 7.6/26.1, K 5.2 WOUND CARE MANAGING DRAINING FISTULA W OSTOMY BAG.
--- NOTE | 2020-01-01 12:26 | Diagnostic Imaging Report ---
EXAMINATION: CHEST XRAY LINE PLACEMENT INDICATION: Line placement COMPARISON: Chest radiograph 12/31/2019 FINDINGS: LINES/TUBES:Left PICC line terminates in the superior vena cava. Right IJ central venous catheter terminates in the superior vena cava. LUNGS:The lungs are moderately inflated. Unchanged mild left basilar patchy opacity. PLEURA:No pleural effusion or pneumothorax. MEDIASTINUM:The cardiomediastinal silhouette appears normal in size and shape. BONES/SOFT TISSUES:No acute osseous injury. ABDOMEN:No free air under the diaphragm. IMPRESSION: Interval placement of right IJ central venous catheter terminating in the superior vena cava. Unchanged left PICC line. Otherwise, no significant interval change. Signed by: Alethea Ferguson MD on 01/01/2020 12:23 PM
--- NOTE | 2020-01-01 13:05 | NUR ---
per Dr Koenig, discontinued PICC line to left upper arm. pressure held until hemostasis and applied pressure dressing. New Right IJ trialysis catheter ready to use.
[2020-01-01] MEDS: CEFEPIME 1GM/NS 0.9% 50 ML 50 ML IV SCH (13:13)
[2020-01-01 13:15] LABS: ABG PCO2 35 mmHg (41-51)
[2020-01-01 13:16] LABS: ABG HCO3 19 mmol/L (23-28); ABG PO2 119 mmHg (80-105)
[2020-01-01 13:22] LABS: ABG HCO3 18 mmol/L (23-28); ABG PCO2 35 mmHg (41-51); ABG PO2 119 mmHg (80-105)
[2020-01-01] MEDS ORDERED: MANNITOL 25% 12.5GM/50 ML VIAL IV PRN (15:15)
[2020-01-01] MEDS ORDERED: SODIUM CHLORIDE 0.9% 1000ML 2,000 ML IV PRN (15:15)
[2020-01-01] MEDS ORDERED: HEPARIN SOD (PORCINE) 1000 UNIT/ML SDV IV PRN (15:15)
[2020-01-01] MEDS: ENOXAPARIN 30 MG/0.3 ML SYR SC SCH (17:22)
[2020-01-01] MEDS: CENTRAL TPN FORMULA 1 BAG IV SCH (19:49)
--- NOTE | 2020-01-01 23:19 | Progress Note ---
DATE: SUBJECTIVE: Mr. Marquez remains in intensive care unit. He is getting dialysis, seems a bit more alert. There are no new complaints at the present time. The patient has underwent cholecystectomy, hernia repair, small bowel obstruction on December 10, 2019, history of COPD, history of smoking. He is currently extremely debilitated with intra-abdominal infection, on TPN, but he is slowly getting better. No complaints at the present time. His blood cultures showing negative on December 27. He had Merlyn parapsilosis as mentioned above. REVIEW OF SYSTEMS: At the present time, he is just weak. MEDICATIONS: He is currently on metronidazole, cefepime, and Mycamine. LABORATORY DATA: His white count is 16.52. His sodium is 150, potassium 5.2, creatinine 4.20. PHYSICAL EXAMINATION: GENERAL: He is currently alert, oriented, does not seem in acute distress, weak. VITAL SIGNS: Stable, afebrile. There is no fever. HEENT: He is not icteric. NECK: Supple. CHEST: Few crackles bilateral. COR: S1 and S2. No murmurs. ABDOMEN: Soft. IMPRESSION: 1. Fungemia. The patient is on TPN. Continue with micafungin. Change all lines. Peritonitis getting better. To finish 2 weeks of cefepime and Flagyl. 2. Debility. 3. Chronic kidney disease, currently on dialysis. 4. Prognosis is guarded. We will follow. MD VIOLETTA Cho/SACHIN /[id number]
[2020-01-02] VITALS (26 sets, daily range): BP systolic 91–140; BP diastolic 59–95
[2020-01-02] MEDS: HYDROMORPHONE 1MG/1ML INJ IV PRN ×4 (02:10→21:12)
[2020-01-02] MEDS: METRONIDAZOLE 500MG/NS 100ML 100 ML IV SCH ×3 (02:11→17:31)
[2020-01-02] MEDS: DEXMEDETOMIDINE 200MCG/NS 50ML 50 ML IV PRN ×3 (02:31→10:25)
[2020-01-02] MEDS: IPRATROPIUM BROMIDE 0.02% 2.5 ML NEB NEB SCH ×6 (03:30→23:10)
[2020-01-02] MEDS: LEVALBUTEROL HCL SOLN NEBU 1.25 MG/3 ML NEB INH SCH ×6 (03:30→23:10)
[2020-01-02] MEDS: BENZONATATE 100 MG CAP PO SCH ×3 (05:06→15:43)
[2020-01-02] MEDS: PANTOPRAZOLE 40 MG 10ML VIAL IV SCH (05:47)
--- NOTE | 2020-01-02 06:22 | Diagnostic Imaging Report ---
EXAMINATION: CHEST SINGLE (PORTABLE) INDICATION: Altered mental status. COMPARISON: Chest radiograph 01/01/2020. FINDINGS: LINES/TUBES: Interval removal of left PICC. Enteric tube courses into the stomach, the tip is not seen. Right IJ central venous catheter terminates in the superior vena cava. LUNGS:The lungs are moderately inflated. Mild patchy left basilar opacity. Central vascular congestion. PLEURA:No pleural effusion or pneumothorax. MEDIASTINUM:The cardiomediastinal silhouette appears normal in size and shape. BONES/SOFT TISSUES:No acute osseous abnormality. ABDOMEN:No free air under the diaphragm. IMPRESSION: Lines and tubes as above. Interval removal of left PICC. Persistent patchy left basilar opacity which may represent atelectasis or pneumonia in the appropriate clinical setting. Signed by: Dr. Frank Rodríguez MD on 01/02/2020 6:19 AM
[2020-01-02] MEDS: INSULIN LISPRO 100 UNIT/1 ML 3ML VIAL SQ SCH ×4 (06:34→17:31)
[2020-01-02 06:35] LABS: BASOPHILS % 0.3 % (0.0-1.0); EOSINOPHILS # (AUTO) 0.7 (0.0-0.4); EOSINOPHILS % 4.4 % (0.0-6.0); HEMATOCRIT 26.5 % (38.2-49.6); HEMOGLOBIN 8.3 g/dL (14.0-18.0); LYMPHOCYTES # (AUTO) 0.7 (1.0-3.2); LYMPHOCYTES % 4.8 % (18.0-39.1); MEAN CORPUSCULAR HEMOGLOBIN 28.7 pg (28-32); MEAN CORPUSCULAR HGB CONC 31.3 g/dL (31-35); MEAN CORPUSCULAR VOLUME 91.7 fL (81-99); MONOCYTES # (AUTO) 0.6 (0.2-0.8); NEUTROPHILS # (AUTO) 12.8 (2.1-6.9); NEUTROPHILS % 86.1 % (38.7-80.0); PLATELET COUNT 298 x10e3/uL (140-360); RED BLOOD COUNT 2.89 x10e6/uL (4.3-5.7); RED CELL DISTRIBUTION WIDTH 15.6 % (11.7-14.4)
[2020-01-02 07:00] LABS: ALBUMIN 1.3 g/dL (3.5-5.0); ALBUMIN/GLOBULIN RATIO 0.3 (0.8-2.0); ANION GAP 11.3 mmol/L (8-16); CREATININE, SERUM 3.45 mg/dL (0.72-1.25); MAGNESIUM 2.7 MG/DL (1.3-2.1); PHOSPHORUS 5.2 MG/DL (2.3-4.7); POTASSIUM 4.3 mmol/L (3.5-5.1)
[2020-01-02] MEDS: DILTIAZEM HCL 30 MG TAB PO SCH ×2 (07:30→15:39)
[2020-01-02] MEDS: METOPROLOL TARTRATE 50 MG TAB PO SCH ×2 (09:45→21:12)
[2020-01-02] MEDS ORDERED: DEXTROSE 10% 1,000 ML IV PRN (10:15)
--- NOTE | 2020-01-02 10:57 | Diagnostic Imaging Report ---
PROCEDURE: Non-tunneled temporary dialysis catheter placement Procedural Personnel Attending physician(s): Alethea Ferguson MD Fellow physician(s): None Resident physician(s): None Advanced practice provider(s): None Pre-procedure diagnosis: Acute kidney injury Post-procedure diagnosis: Same Indication: Performance of hemodialysis Additional clinical history: None Complications: No immediate complications. IMPRESSION: Insertion of right-sided non-tunneled triple-lumen temporary dialysis catheter. Plan: Chest radiograph to confirm positioning prior to use. PROCEDURE SUMMARY: - Venous access with ultrasound guidance - Non-tunneled central venous catheter insertion - Additional procedure(s): None PROCEDURE DETAILS: Pre-procedure Consent: Informed consent for the procedure including risks, benefits and alternatives was obtained and time-out was performed prior to the procedure. Preparation (MIPS): The site was prepared and draped using all elements of maximal sterile barrier technique including sterile gloves, sterile gown, cap, mask, large sterile sheet, sterile ultrasound probe cover, hand hygiene and cutaneous antisepsis with 2% chlorhexidine. Medical reason for site preparation exception (MIPS): Not applicable Anesthesia/sedation Level of anesthesia/sedation: No sedation Access Local anesthesia was administered. The vessel was sonographically evaluated and determined to be patent. Real time ultrasound was used to visualize needle entry into the vessel and a permanent image was stored. Vein accessed: Internal jugular vein Access technique: Micropuncture set with 21 gauge needle Catheter placement The access site was dilated and the catheter was placed into the vein over a wire. A sterile dressing was applied. Catheter placed: Bard Power Trialysis Catheter size (Lithuanian): 13 Catheter length (cm): 15 Catheter flush: Heparin (1000 units/mL) Catheter securement technique: Non-absorbable suture Contrast Contrast agent: None Radiation Dose None. Ultrasound only. Additional Details Additional description of procedure: None Equipment details: None Specimens removed: None Estimated blood loss (mL): Less than 10 Standardized report: [email or web address] Attestation Signer name: Alethea Ferguson MD I attest that I was present for the entire procedure. I reviewed the stored images and agree with the report as written. Signed by: Alethea Ferguson MD on 01/02/2020 10:54 AM
--- NOTE | 2020-01-02 15:22 | NUR ---
patient tolerated 500 ml removal with HD Addendum: 01/02/20 at 1522 by Alcira Doyle RN Amended: Links added.
[2020-01-02] MEDS: CEFEPIME 1GM/NS 0.9% 50 ML 50 ML IV SCH (15:39)
--- NOTE | 2020-01-02 15:45 | NUR ---
NGT discontinued per Dr Camacho. Attempted to remove donavon (per Dr Camacho) to left abdomen but unable to.
--- NOTE | 2020-01-02 15:58 | NUR ---
donavon to left abdomen removed by Deneen RN
[2020-01-02] MEDS: ENOXAPARIN 30 MG/0.3 ML SYR SC SCH (17:31)
[2020-01-02] MEDS: CENTRAL TPN FORMULA 1 BAG IV SCH (19:54)
[2020-01-03] VITALS (24 sets, daily range): BP systolic 93–163; BP diastolic 54–84
[2020-01-03] MEDS: DEXMEDETOMIDINE 200MCG/NS 50ML 50 ML IV PRN
[2020-01-03] MEDS: HYDROMORPHONE 1MG/1ML INJ IV PRN ×6 (00:35→22:03)
[2020-01-03] MEDS: METRONIDAZOLE 500MG/NS 100ML 100 ML IV SCH ×3 (02:15→17:34)
[2020-01-03] MEDS: IPRATROPIUM BROMIDE 0.02% 2.5 ML NEB NEB SCH ×6 (02:25→23:10)
[2020-01-03] MEDS: LEVALBUTEROL HCL SOLN NEBU 1.25 MG/3 ML NEB INH SCH ×6 (02:25→23:10)
[2020-01-03] MEDS: BENZONATATE 100 MG CAP PO SCH ×4 (05:58→17:34)
[2020-01-03] MEDS: PANTOPRAZOLE 40 MG 10ML VIAL IV SCH (06:03)
[2020-01-03] MEDS: INSULIN LISPRO 100 UNIT/1 ML 3ML VIAL SQ SCH ×4 (06:18→17:34)
[2020-01-03 06:39] LABS: BASOPHILS % 0.1 % (0.0-1.0); EOSINOPHILS # (AUTO) 0.5 (0.0-0.4); EOSINOPHILS % 3.8 % (0.0-6.0); HEMATOCRIT 26.5 % (38.2-49.6); HEMOGLOBIN 8.4 g/dL (14.0-18.0); LYMPHOCYTES # (AUTO) 0.8 (1.0-3.2); LYMPHOCYTES % 5.7 % (18.0-39.1); MEAN CORPUSCULAR HEMOGLOBIN 28.6 pg (28-32); MEAN CORPUSCULAR HGB CONC 31.7 g/dL (31-35); MEAN CORPUSCULAR VOLUME 90.1 fL (81-99); MONOCYTES # (AUTO) 0.6 (0.2-0.8); MONOCYTES % 4.5 % (4.4-11.3); NEUTROPHILS # (AUTO) 11.5 (2.1-6.9); NEUTROPHILS % 85.3 % (38.7-80.0); PLATELET COUNT 247 x10e3/uL (140-360); RED BLOOD COUNT 2.94 x10e6/uL (4.3-5.7); RED CELL DISTRIBUTION WIDTH 15.1 % (11.7-14.4)
[2020-01-03 06:59] LABS: ANION GAP 10.6 mmol/L (8-16); CALCIUM 8.1 mg/dL (8.4-10.2); CREATININE, SERUM 2.91 mg/dL (0.72-1.25); MAGNESIUM 2.1 MG/DL (1.3-2.1); POTASSIUM 3.6 mmol/L (3.5-5.1)
[2020-01-03] MEDS: DILTIAZEM HCL 30 MG TAB PO SCH ×2 (07:30→16:30)
[2020-01-03] MEDS: METOPROLOL TARTRATE 50 MG TAB PO SCH ×2 (09:00→20:52)
[2020-01-03] MEDS: MICAFUNGIN SODIUM 100 ML IV SCH (09:52)
[2020-01-03] MEDS: CEFEPIME 1GM/NS 0.9% 50 ML 50 ML IV SCH (12:00)
--- NOTE | 2020-01-03 12:39 | NUR ---
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
[2020-01-03] MEDS: ENOXAPARIN 30 MG/0.3 ML SYR SC SCH (17:34)
--- NOTE | 2020-01-03 18:43 | NUR ---
Nutrition Intervention Note RD Recommendation(s) for Physician: - Continue TPN @ 75 ml/hr and 25 g lipid 3x/week as medically appropriate. Electrolyte management per MD (1800 mL total volume, Dextrose 30% 500 ml/day, 270 gm Dextrose, AA 10% 500 ml, 90 gm protein/day) -provides 1374 kcal and 90 g protein - Recommend TG level be obtained - When medically appropriate, advance to GI soft diet Plan of Care: RD following, monitoring for tolerance and adequacy. TPN recs. Monitor for adequacy and tolerance. Nutrition reason for involvement: follow up RD Assessment 01/02: Follow up. Pt continues to receive TPN @ 75 mL/hr. Lipids are now only being provided 3 days/week per current TPN order sheet. Pt is receiving dialysis due to acute kidney failure per MD note. NG tube was removed and pt was started on a clear liquid diet today. Will continue to monitor. 12/30: Follow up. Pt is no longer intubated. Pt continues to receive TPN @ 75 mL/hr and has an NG tube for suctioning per RN. The patient is now in acute kidney failure with hypernatremia, hyperkalemia, hypermagnesemia, and hyperphosphatemia per MD note. MD adjusted electrolytes in TPN. Will continue to monitor. 12/26: Follow up: Pt has been intubated and sedated on propofol and fentanly, no pressors. Pt is still receiving TPN per nurse, there is no plan to take pt off of TPN as of now. Noted-pt is on low rate of propofol, recommended to monitoring propofol rate d/t pt also being on lipids. Will continue to monitor. 12/24: Follow up. Pt continues on TPN at 75 ml/hr, current order is meeting estimated needs. Pt denies N/V. Plan for PICC exchange today. Pt discussed during MDR, pt with new fistula as of 12/22, currently to drainage- dark output noted at time of visit with total output decreasing per I&O documentation. Pt started on micafungin empirically. Pt and with no questions at time of visit. Continue TPN per current order. Will continue to monitor. 12/20: Follow up. Pt is still on TPN at a rate of 75 mL/hr. Pt is also on a clear liquid diet, pt but reports he has been having N/V. Insulin was ordered due to elevated blood glucose. Will continue to monitor. 12/17: Follow up. Pt continues on TPN at 65 ml/hr and remains NPO. Pt discussed during am MDR, per RN plan to start clear liquid diet today. TPN rec's placed in chart for MD, RN notified of recommendations. Pt with surgery yesterday, resting at time of visit. Chart reviewed. Will continue to monitor. 12/13: Follow up. Pt continues to receive TPN and it was increased to 65 mL/hr today. Pt was discussed during rounds and RN reported pts abdomen is still distended. Current TPN order meets > 75% of estimated kcal and protein needs. Will continue to monitor. 12/11: Follow up. Pt on TPN at 43 ml/hr and continues with NGT in place. Pt denies any abdominal pain, nausea, or hunger. Pt POD#1 for small bowel obstruction, exploratory laparotomy, lysis of adhesions, and release of small bowel obstruction. TPN discussed with RN and rec's placed in chart, ordered TPN for this evening. TPN per current rec's to meet > 75% of kcal and protein needs. Chart reviewed. Will continue to monitor. (12/09): Follow up/Consult: Received consult to initiate TPN and lipids. Pt had a KUB that showed a SBO and a lot of stool in his colon per MD. MD recommended TPN, pt has been NPO since 12/04 (5 days). Recommendations are provided above and reported to nurse. Pts labs appear WNL from 12/08 besides a low phos, will recommend starting the pt on standard and changing to custom if necessary and advancing as appropriate. Phos was replaced yesterday. Pt has NGT in place and has a PICC line per EMR, TPN is appropriate. No new labs recorded for 12/09. MD also reported within his note to use enemas for constipation. Pt reported he is hungry and he denies N/V, and state he had a small bowel movement. Surgery scheduled for tmrw per nurse. Will continue to monitor. (12/03) 69 YOM admitted for COPD exacerbation, PNA, and Flu A. Pt seen today for LOS. Pt reports good appetite and po intake [employer] and denies any wt loss. Noted fluctuating po intake since admit, pt reports taste changes 2/2 IV medications and flushes given. Pt declined all supplements offered, stated "this happens every time I come to the hospital." Pt with no questions or concerns at time of visit. Chart reviewed. Labs and meds reviewed. Will continue to monitor. Principal Problems/Diagnoses: COPD exacerbation, PNA, and Flu PMH: Status post ileus. Status post laparoscopic cholecystectomy andstatus post umbilical hernia repair. Leukocytosis previously resolved. COPD with oxygen dependency, Lung disease GI: soft, distended, tender abdomen, last recorded BM 01/02 Skin: abdominal incision- fistula with output Labs: 01/02: Na 145, K 3.6, Cl 111, BUN 65, Creat 2.91, Glu 130, Phos 4.0, Mg 2.1 12/30: Na 157, K 5.3, Cl 126, BUN 96, Creat 3.91, Glu 150, Phos 7.5, Mg 3.5 12/26: Cl 109, BUN 43, Creat 1.97, Gluc 134, POC GM: 136-199, Ca 8.2 12/24: Na 141, K 4.2, BUN 32, Cr 1.09, Gluc 141, POC Gluc 163-305 Meds: protonix, lovenox, hydralazine, zofran, insulin, metroprolol, mannitol Ht: 67 in Wt: 210 lbs (01/02) 196 lbs (12/30) 209 lbs (12/26) 207 lbs (12/20) 196 lbs (12/13), 198 lbs (12/10) BMI: 32.9 kg/m^2 IBW:148lbs Malnutrition Evaluation 12/20 The patient does not meet criteria for a specified degree of malnutrition at this time. Will re-evaluate at follow-up as appropriate. Energy intake: TPN is meeting >75% of estimated energy needs Weight loss: -no weight loss recorded Nutrition Prescription (Diet Order): NPO TPN: 75 ml/hr and 25 g lipids 3x/week with custom electrolytes (NaCl 10 mEq/L, Na acetate 0 mEq/L, KCl 0 mEq/L, K acetate 0 mEq/L, K phosphate 6 mEq/L, Ca Gluconate 4.6 mEq/L, Mg sulfate 4 mEq/L, Trace elements 3 mL/day, multivitamin 10 mL/day, thiamine 100 mg/day, folic acid 1 mg/day) (1800 mL total volume, Dextrose 30% 500 ml/day, 270 gm Dextrose, AA 10% 500 ml, 90 gm protein/day) - provides 1374 kcal and 90 g protein Estimated Nutritional Needs: Calories: 6215-3720 kcal/day (22-25 kcal/kg/day) Weight used : IBW (67.2 kg) Protein : 80-134 g protein/day (1.2-2 gram/kg/day ) Weight used: IBW Diet Adequacy: Current TPN order meets >75% of estimated needs Diet Education Needs Assessment: Diet education not indicated, patient on temporary/transition diet. Nutrition Care Level: high Nutrition Diagnosis: Altered GI function related to SBO as evidenced by need for TPN Goal: Patient will meet 75-100% of estimated needs by follow up Progress: Progressing Interventions: - TPN - Composition, Rate, Route, Collaboration with other providers Monitoring/Evaluation: Total energy intake, Total protein intake, Formula/Solution Signed: Selene Singh RD, LD
[2020-01-03] MEDS: CENTRAL TPN FORMULA 1 BAG IV SCH (20:04)
[2020-01-04] VITALS (24 sets, daily range): BP systolic 115–161; BP diastolic 61–80
[2020-01-04] MEDS: BENZONATATE 100 MG CAP PO SCH ×4 (00:13→17:44)
[2020-01-04] MEDS: ACETAMINOPHEN 325 MG TAB PO PRN ×3 (00:14→22:41)
[2020-01-04] MEDS: INSULIN LISPRO 100 UNIT/1 ML 3ML VIAL SQ SCH ×4 (00:15→17:37)
[2020-01-04] MEDS: HYDROMORPHONE 1MG/1ML INJ IV PRN ×6 (01:52→23:19)
[2020-01-04] MEDS: METRONIDAZOLE 500MG/NS 100ML 100 ML IV SCH ×3 (02:00→17:44)
[2020-01-04] MEDS: IPRATROPIUM BROMIDE 0.02% 2.5 ML NEB NEB SCH ×6 (03:15→23:18)
[2020-01-04] MEDS: LEVALBUTEROL HCL SOLN NEBU 1.25 MG/3 ML NEB INH SCH ×6 (03:15→23:18)
[2020-01-04 05:07] LABS: BASOPHILS % 0.2 % (0.0-1.0); EOSINOPHILS # (AUTO) 0.4 (0.0-0.4); HEMATOCRIT 29.1 % (38.2-49.6); HEMOGLOBIN 9.2 g/dL (14.0-18.0); LYMPHOCYTES # (AUTO) 0.7 (1.0-3.2); LYMPHOCYTES % 5.5 % (18.0-39.1); MEAN CORPUSCULAR HEMOGLOBIN 28.5 pg (28-32); MEAN CORPUSCULAR HGB CONC 31.6 g/dL (31-35); MEAN CORPUSCULAR VOLUME 90.1 fL (81-99); MONOCYTES # (AUTO) 0.7 (0.2-0.8); MONOCYTES % 4.8 % (4.4-11.3); NEUTROPHILS # (AUTO) 11.6 (2.1-6.9); NEUTROPHILS % 86.1 % (38.7-80.0); PLATELET COUNT 233 x10e3/uL (140-360); RED BLOOD COUNT 3.23 x10e6/uL (4.3-5.7)
[2020-01-04 05:23] LABS: ANION GAP 11.5 mmol/L (8-16); CALCIUM 8.4 mg/dL (8.4-10.2); CREATININE, SERUM 2.19 mg/dL (0.72-1.25); PHOSPHORUS 3.3 MG/DL (2.3-4.7); POTASSIUM 3.5 mmol/L (3.5-5.1)
[2020-01-04] MEDS: DILTIAZEM HCL 30 MG TAB PO SCH ×2 (07:30→16:39)
--- NOTE | 2020-01-04 07:30 | Diagnostic Imaging Report ---
Examination: Single AP view of the chest. COMPARISON: Portable chest 01/02/2020 INDICATION: Shortness of breath, COPD, pneumonia IMPRESSION: 1. Lines and Tubes: Partially visualized IJ dual-lumen catheter is stable. Previously visualized enteric tube has been removed. 2. Lungs are well-inflated. Interval improvement of patchy opacity in the left lower lung, likely reflecting improving atelectasis. 3. Cardiomediastinal silhouette is normal. Pulmonary vasculature is normal. 4. No acute bony abnormalities. Signed by: Dr. Peter Espinoza M.D. on 01/04/2020 7:26 AM
[2020-01-04] MEDS: MICAFUNGIN SODIUM 100 ML IV SCH (10:10)
[2020-01-04] MEDS: METOPROLOL TARTRATE 50 MG TAB PO SCH ×2 (10:14→20:05)
[2020-01-04] MEDS: SERTRALINE HCL 50 MG TAB PO SCH (11:19)
[2020-01-04] MEDS: CEFEPIME 1GM/NS 0.9% 50 ML 50 ML IV SCH (11:27)
[2020-01-04] MEDS: PANTOPRAZOLE 40 MG 10ML VIAL IV SCH (11:27)
[2020-01-04] MEDS: ONDANSETRON HCL 4 MG ORAL DISINTEGRATING TAB PO PRN (12:57)
[2020-01-04] MEDS ORDERED: SERTRALINE HCL 50 MG TAB PO ONE (13:00)
--- NOTE | 2020-01-04 13:10 | NUR ---
picc line documented on wrong pt placed as inactive line nurse informed no picc line placed on this pt
[2020-01-04] MEDS ORDERED: ENOXAPARIN 30 MG/0.3 ML SYR SC ONE (18:00)
--- NOTE | 2020-01-04 20:11 | NUR ---
dictate [id number]
[2020-01-04] MEDS: CENTRAL TPN FORMULA 1 BAG IV SCH (20:13)
--- NOTE | 2020-01-04 21:48 | Progress Note ---
DATE: 01/04/2020 Medicine Progress Note I am covering for Dr. Jose Alberto Kuhn. SUBJECTIVE: The patient has been ill for approximately five and half weeks here in the hospital. He has a prolonged hospital stay. Information being obtained from the nursing staff. The patient today is doing well. He is tolerating diet well. He is afebrile and normotensive. We are awaiting for LTAC approval to [facility]. LABORATORY FINDINGS: Show white count 13.5, hemoglobin 9.2, hematocrit 29, and platelets of 233. Coagulation; PT 17, INR 1.33. Chemistry; sodium 143, potassium 3.5, chloride 107, bicarb 20, anion gap of 11, BUN 44, creatinine is 2.19. Urinalysis seems to be negative. Hepatitis panel negative. He was flu positive on admission on 11/27/2019. Group A strep was negative. MICROBIOLOGY: He had several blood cultures, majority were negative, but one of the blood cultures showed Merlyn parapsilosis. Repeat blood cultures after that on 12/28/2019 was found to be negative. IMAGING STUDIES: The patient has several imaging studies, but of note, today's 01/04/2020 chest x-ray shows lungs are well inflated. There is some patchy opacity in the left lower lung, likely atelectasis. Cardiomediastinal silhouette is normal. Normal vascularity. PHYSICAL EXAMINATION: VITAL SIGNS: His temperature is 99.8, his pulse is 101, respiratory rate is 20, blood pressure 150/65, and pulse ox 99% on 3 L nasal cannula. GENERAL: Not in acute distress. Alert and oriented x3. Cooperative on examination. HEENT: Head; normocephalic and atraumatic. Eyes; pupils are equal, round, and reactive to light bilaterally. Extraocular movements are intact bilaterally. Throat; no evidence of erythema or exudates in the posterior pharynx. Has poor dentition. NECK: Supple. Good range of motion. PULMONARY: Clear to auscultation bilaterally. No wheezing, no rales, no rhonchi, no crackles appreciated. CARDIOVASCULAR: Positive S1 and S2. No murmurs, rubs, or gallops. GI: Abdomen is soft. Nondistended. Nontender to palpation. Bowel sounds present. MUSCULOSKELETAL: Strength is 5/5 throughout. No evidence of any muscle deficits on examination. No weakness appreciated. NEUROLOGIC: Cranial nerves 2 through 12 grossly intact. No evidence of any neurological deficits on exam. SKIN: Intact. Warm to touch. Good cap refill. PSYCHIATRIC: Normal affect and mood. EXTREMITIES: No edema. Good range of motion throughout. IMPRESSION: 1. Status post small bowel obstruction with exploratory laparotomy with subsequent wound dehiscence. 2. Acute kidney injury with underlying acute tubular necrosis, now on hemodialysis. 3. Sepsis with underlying fungemia. 4. Pneumonia. 5. Acute exacerbation of chronic obstructive pulmonary disease, improving. PLAN: At this time, the patient is doing well postoperatively, being managed by General Surgery. He does have an actual wound dehiscence and has a bag in front of the wound, but being managed and monitored by General Surgery and Wound Care physician. In relation to his acute kidney injury, he is actually producing good amount of urine and his electrolytes are stable, being managed by Nephrology. In relation to his fungemia, he is being managed by Infectious Disease and is currently on micafungin as well as Flagyl including cefepime. In relation to his COPD management, Pulmonary was consulted. Overall, the patient is very weak and he is working with PT and OT. For nutrition, the patient is on IV TPN. He is on Lovenox for DVT prophylaxis. CONSULTANTS INVOLVED: 1. Nephrology for his acute kidney injury. 2. Wound care, Dr. Segovia for his wound care and wound dehiscence. 3. General Surgery, Dr. Camacho for his surgery. 4. Pulmonary, Dr. Sheikh for his COPD. We will continue to monitor very closely. Once again, I am covering for Dr. Jose Alberto Kuhn and overall plan of care is to discharge to [facility] for further management and care. MD AMANDA Gomez/MODL /[id number]
[2020-01-05] VITALS (25 sets, daily range): BP systolic 122–161; BP diastolic 60–78
--- NOTE | 2020-01-05 01:43 | Consultation ---
DATE OF CONSULTATION: Mr. Judson Marquez remains in intensive care unit. He seems to be doing a little better. More alert, comfortable. His wound seems to be better. LABORATORY DATA: Reviewed. His white count is 13.5, hemoglobin 9.2. Sodium 143, potassium 3.5, creatinine 2.19. Blood cultures from the 7th is negative. PHYSICAL EXAMINATION: GENERAL: He is currently alert, oriented, follows commands. VITAL SIGNS: Vital stable. Currently afebrile. Temperature 100, heart rate 82, respiration of 20, and blood pressure 150/65. HEENT: Normocephalic. NECK: Supple. CHEST: Few crackles at the bases. HEART: S1-S2. No murmur. ABDOMEN: Soft. Bowel sounds present. No tenderness. EXTREMITIES: No edema. SKIN: No rash. IMPRESSION: 1. Fungemia, line infection, doing better, resolved. 2. Abdominal wound infection. Continue with local care for malnutrition. 3. Small bowel obstruction with ileus, seems to be better. 4. Status post PEG tube. 5. Peritonitis, improving. 6. Chronic kidney disease, seems to be better. This patient came urgently with influenza, pneumonia and pancreatitis, developed ileus, now with complicated course. Continue metronidazole, cefepime and micafungin. Continue with supportive care. We will follow. MD VIOLETTA Cho/MODL /[id number]
[2020-01-05] MEDS: IPRATROPIUM BROMIDE 0.02% 2.5 ML NEB NEB SCH ×6 (02:55→23:00)
[2020-01-05] MEDS: LEVALBUTEROL HCL SOLN NEBU 1.25 MG/3 ML NEB INH SCH ×6 (02:55→23:00)
[2020-01-05] MEDS: METRONIDAZOLE 500MG/NS 100ML 100 ML IV SCH ×3 (04:42→17:45)
[2020-01-05] MEDS: BENZONATATE 100 MG CAP PO SCH ×5 (05:17→23:21)
[2020-01-05] MEDS: HYDROMORPHONE 1MG/1ML INJ IV PRN ×4 (05:30→20:53)
[2020-01-05] MEDS: INSULIN LISPRO 100 UNIT/1 ML 3ML VIAL SQ SCH ×5 (06:13→23:22)
[2020-01-05 06:26] LABS: BASOPHILS % 0.2 % (0.0-1.0); EOSINOPHILS # (AUTO) 0.4 (0.0-0.4); EOSINOPHILS % 3.2 % (0.0-6.0); HEMATOCRIT 28.2 % (38.2-49.6); HEMOGLOBIN 8.7 g/dL (14.0-18.0); LYMPHOCYTES # (AUTO) 0.6 (1.0-3.2); LYMPHOCYTES % 4.6 % (18.0-39.1); MEAN CORPUSCULAR HEMOGLOBIN 28.2 pg (28-32); MEAN CORPUSCULAR HGB CONC 30.9 g/dL (31-35); MEAN CORPUSCULAR VOLUME 91.6 fL (81-99); MONOCYTES # (AUTO) 0.7 (0.2-0.8); MONOCYTES % 5.1 % (4.4-11.3); NEUTROPHILS # (AUTO) 11.2 (2.1-6.9); NEUTROPHILS % 86.4 % (38.7-80.0); PLATELET COUNT 196 x10e3/uL (140-360); RED BLOOD COUNT 3.08 x10e6/uL (4.3-5.7); RED CELL DISTRIBUTION WIDTH 15.2 % (11.7-14.4)
[2020-01-05 06:41] LABS: ANION GAP 12.5 mmol/L (8-16); CALCIUM 8.3 mg/dL (8.4-10.2); CREATININE, SERUM 2.68 mg/dL (0.72-1.25); POTASSIUM 3.5 mmol/L (3.5-5.1)
[2020-01-05] MEDS ORDERED: BISACODYL 10 MG SUPP PR ONE (07:15)
[2020-01-05] MEDS: MICAFUNGIN SODIUM 100 ML IV SCH (08:48)
[2020-01-05] MEDS: DILTIAZEM HCL 30 MG TAB PO SCH ×2 (08:49→17:45)
[2020-01-05] MEDS: PANTOPRAZOLE 40 MG 10ML VIAL IV SCH (08:49)
[2020-01-05] MEDS: SERTRALINE HCL 50 MG TAB PO SCH (08:50)
[2020-01-05] MEDS: METOPROLOL TARTRATE 50 MG TAB PO SCH ×2 (08:50→20:53)
[2020-01-05 09:16] LABS: EOSINOPHILS % (MANUAL) 2 % (0-7); LYMPHOCYTES % (MANUAL) 6 % (19-48); MONOCYTES % (MANUAL) 4 % (3.4-9.0); NEUTROPHILS % (MANUAL) 88 % (40-74)
[2020-01-05] MEDS: ONDANSETRON HCL 4 MG ORAL DISINTEGRATING TAB PO PRN (09:38)
[2020-01-05] MEDS: CEFEPIME 1GM/NS 0.9% 50 ML 50 ML IV SCH (11:16)
[2020-01-05] MEDS: HYDROCODONE/APAP 5MG-325MG TAB PO PRN ×2 (12:17→23:21)
--- NOTE | 2020-01-05 16:03 | NUR ---
Called to notify dialysis to place patient on schedule tomorrow 01/05/20. Spoke with
[2020-01-05] MEDS: ENOXAPARIN 30 MG/0.3 ML SYR SC SCH (18:13)
[2020-01-05] MEDS: CENTRAL TPN FORMULA 1 BAG IV SCH (20:00)
--- NOTE | 2020-01-05 20:01 | Progress Note ---
DATE: 01/05/2020 Medicine Progress Note I am covering for Dr. Kuhn. SUBJECTIVE: The patient is doing well today with no complaints. I discussed the plan of care with the nursing staff. Apparently, he has been doing well with no other issues today. PHYSICAL EXAMINATION: VITAL SIGNS: Temperature is 98.3, pulse 82, respirations 14, blood pressure 144/69, and pulse ox 98% on 3 L nasal cannula. GENERAL: Not in acute distress. Alert and oriented x3. Cooperative on examination. HEENT: Head; normocephalic, atraumatic. Eyes; pupils are equal, round, and reactive to light bilaterally. Extraocular movements intact bilaterally. Throat; no evidence of erythema or exudates in the posterior pharynx. Has poor dentition. NECK: Supple. Good range of motion. PULMONARY: Clear to auscultation bilaterally. No wheezing, no rales, no rhonchi, no crackles appreciated. CARDIOVASCULAR: Positive S1 and S2. No murmurs, rubs, or gallops appreciated. ABDOMEN: Soft, nondistended, and nontender to palpation. Bowel sounds present. MUSCULOSKELETAL: Strength is 5/5 throughout. No evidence of any muscle deficits on examination. No weakness appreciated. NEUROLOGIC: Cranial nerves 2 through 12 grossly intact. No evidence of any neurological deficits on exam. SKIN: Intact. Warm to touch. Good cap refill. PSYCHIATRIC: Normal affect and mood. EXTREMITIES: No edema. Good range of motion throughout. LABORATORY DATA: Show CBC; white count 12.9, hemoglobin 8.7, hematocrit is 28.2, and platelets of 196. His chemistry; sodium 144, potassium 3.5, chloride 109, bicarb 26, anion gap of 12, BUN is 69, creatinine is 2.68, glucose 141, and calcium is 8.3. MICROBIOLOGY: Noted yeast in the blood. IMAGING STUDIES: No new studies today. IMPRESSION: 1. Small bowel obstruction, status post exploratory laparotomy with subsequent wound dehiscence. 2. Acute kidney injury with underlying acute tubular necrosis, now on hemodialysis. 3. Sepsis with underlying fungemia. 4. Pneumonia. 5. Acute exacerbation of chronic obstructive pulmonary disease-improving. PLAN: At this time, he is doing well postoperatively. General Surgery is following. As for his actual wound dehiscence, he is getting local wound care and being monitored by the wound care physician and General Surgery. As for his acute kidney injury, he is still producing good amount of urine. His electrolytes are stable. His labs are stable and Nephrology is following. He is given antifungal Micafungin for his fungemia, in which ID is following. He is also on IV Flagyl and cefepime per ID. His respiratory status, he is doing well. He is being treated for underlying COPD and Pulmonary is following very closely. He has worked with PT and OT. He is on IV TPN for nutrition. He is on Lovenox for DVT prophylaxis. We are still waiting for LTAC placement via case management and insurance approval. Consultants involved Nephrology for acute kidney injury, wound care, Dr. Segovia for wound care and wound dehiscence, General Surgery, Dr. Camacho for surgery. Pulmonary doctor, Dr. Sheikh for COPD. Otherwise, we will continue same plan of care and monitor closely. MD AMANDA Gomez/SACHIN /[id number]
[2020-01-06] VITALS (21 sets, daily range): BP systolic 109–151; BP diastolic 57–92
[2020-01-06] MEDS: HYDROMORPHONE 1MG/1ML INJ IV PRN ×3 (00:17→06:38)
[2020-01-06] MEDS: METRONIDAZOLE 500MG/NS 100ML 100 ML IV SCH (02:43)
[2020-01-06] MEDS: IPRATROPIUM BROMIDE 0.02% 2.5 ML NEB NEB SCH ×6 (03:00→22:55)
[2020-01-06] MEDS: LEVALBUTEROL HCL SOLN NEBU 1.25 MG/3 ML NEB INH SCH ×6 (03:00→22:55)
[2020-01-06 05:21] LABS: BASOPHILS % 0.2 % (0.0-1.0); EOSINOPHILS # (AUTO) 0.5 (0.0-0.4); EOSINOPHILS % 3.5 % (0.0-6.0); HEMATOCRIT 28.4 % (38.2-49.6); HEMOGLOBIN 8.7 g/dL (14.0-18.0); LYMPHOCYTES # (AUTO) 0.7 (1.0-3.2); LYMPHOCYTES % 5.1 % (18.0-39.1); MEAN CORPUSCULAR HEMOGLOBIN 28.4 pg (28-32); MEAN CORPUSCULAR HGB CONC 30.6 g/dL (31-35); MEAN CORPUSCULAR VOLUME 92.8 fL (81-99); MONOCYTES # (AUTO) 0.7 (0.2-0.8); MONOCYTES % 5.2 % (4.4-11.3); NEUTROPHILS # (AUTO) 11.2 (2.1-6.9); NEUTROPHILS % 85.5 % (38.7-80.0); PLATELET COUNT 228 x10e3/uL (140-360); RED BLOOD COUNT 3.06 x10e6/uL (4.3-5.7)
[2020-01-06 05:40] LABS: ANION GAP 10.8 mmol/L (8-16); CALCIUM 8.5 mg/dL (8.4-10.2); CREATININE, SERUM 2.86 mg/dL (0.72-1.25); MAGNESIUM 2.2 MG/DL (1.3-2.1); PHOSPHORUS 5.7 MG/DL (2.3-4.7); POTASSIUM 3.8 mmol/L (3.5-5.1)
[2020-01-06] MEDS: BENZONATATE 100 MG CAP PO SCH (06:30)
[2020-01-06] MEDS: INSULIN LISPRO 100 UNIT/1 ML 3ML VIAL SQ SCH ×4 (06:39→23:56)
[2020-01-06] MEDS: PANTOPRAZOLE 40 MG 10ML VIAL IV SCH (07:59)
[2020-01-06] MEDS: MICAFUNGIN SODIUM 100 ML IV SCH (07:59)
[2020-01-06] MEDS: DILTIAZEM HCL 30 MG TAB PO SCH ×2 (07:59→15:34)
[2020-01-06] MEDS: METOPROLOL TARTRATE 50 MG TAB PO SCH ×2 (07:59→21:00)
[2020-01-06] MEDS: SERTRALINE HCL 50 MG TAB PO SCH (08:00)
--- NOTE | 2020-01-06 09:40 | NUR ---
ASSESSMENT: Spiritual distress Pt indifferent concerning recovery. Pt states he is "tired" and "has given up." Pt's at bedside. Intervention: Provided empathic listening and prayer. Facilitated illness review. Encouraged pt's in self-care. Outcome: Pt & expressed appreciation for visit. Will continue follow as able. [facility] O: [phone]
[2020-01-06] MEDS: CEFEPIME 1GM/NS 0.9% 50 ML 50 ML IV SCH (10:28)
--- NOTE | 2020-01-06 14:22 | NUR ---
WOUND CARE CONSULTATION: THIS PATIENT IS A FOLLOW UP CONSULT FOR WOUND CARE TO REASSESS WOUND & DRAINAGE MANAGEMENT. NO NEW CONCERNS, MINIMUM SEROUS DRAINAGE NOTED WITH PINK GRANULAR WOUND BASE. 01/04/20 DR BATES HAS ORDERS FOR WET TO DRY DAILY TO ABD WOUND SITE. WILL CONTINUE TO FOLLOW UP IF NEEDED, NURSING DEPT AWARE. Addendum: 01/06/20 at 1425 by Alesia Squires RN Amended: Links added.
[2020-01-06] MEDS: HYDROCODONE/APAP 5MG-325MG TAB PO PRN ×2 (15:34→22:25)
[2020-01-06] MEDS: ENOXAPARIN 30 MG/0.3 ML SYR SC SCH (16:17)
--- NOTE | 2020-01-06 20:42 | Progress Note ---
DATE: 01/06/2020 Medicine Progress Note SUBJECTIVE: The patient is doing well today with no other issues. He is currently in the ICU, but he is stable to be transferred as per Pulmonary. He does get anxious. He has been here for several weeks now. I did agree to give him some oral Ativan. He does report he is very anxious. PHYSICAL EXAMINATION: VITAL SIGNS: Temperature is 98.1, pulse 89, respiratory rate is 20, blood pressure 132/74, and pulse ox is 97% on 3 L nasal cannula. GENERAL: Not in acute distress. Alert and oriented x3. Cooperative on examination. HEENT: Head; normocephalic, atraumatic. Eyes; pupils are equal, round, and reactive to light bilaterally. Extraocular movements intact bilaterally. Throat; no evidence of erythema or exudates in the posterior pharynx. Has poor dentition. NECK: Supple. Good range of motion. PULMONARY: Clear to auscultation bilaterally. No wheezing, no rales, no rhonchi, no crackles appreciated. CARDIOVASCULAR: Positive S1 and S2. No murmurs, rubs, or gallops appreciated. ABDOMEN: Soft, nondistended, and nontender to palpation. Bowel sounds present. MUSCULOSKELETAL: Strength is 5/5 throughout. No evidence of any muscle deficits on examination. No weakness appreciated. NEUROLOGIC: Cranial nerves 2 through 12 grossly intact. No evidence of any neurological deficits on exam. SKIN: Intact. Warm to touch. Good cap refill. PSYCHIATRIC: Normal affect and mood. EXTREMITIES: No edema. Good range of motion throughout. LABORATORY FINDINGS: Show white count is 13.1, hemoglobin 8.7, hematocrit is 28, and platelets of 228. Coagulation; PT 17 and INR 1.33. Chemistry; sodium is 146, potassium 3.8, chloride 114, bicarb 25, anion gap of 10, BUN is 80, creatinine is 2.86, and glucose is 143. Magnesium is 2.2 and phosphorus 5.7. Albumin is 1.3. MICROBIOLOGY: Noted. IMPRESSION: 1. Small bowel obstruction, status post exploratory laparotomy with subsequent wound dehiscence. 2. Acute kidney injury from underlying acute tubular necrosis, now on hemodialysis. 3. Sepsis with underlying fungemia, being managed by ID. 4. Pneumonia. 5. Acute exacerbation of chronic obstructive pulmonary disease-improving. 6. Anxiety. PLAN: As this time, continue with postop care and follow with General Surgery recommendations. He is getting local wound care by the wound care physician and General Surgery. As for his acute kidney injury, it is felt to be ATN. He is making good urine output. Electrolytes are stable. He is being managed by Nephrology. As for his infection, he is currently on Micafungin for fungemia, in which ID is following. He is also on IV Flagyl and cefepime. His respiratory status improved, which is being managed by Pulmonary. Continue with PT and OT. He is on IV TPN for hydration. Lovenox for DVT prophylaxis. Consultants: Involved Nephrology, Wound Care, ID, General Surgery and Pulmonary. MD AMANDA Gomez/SACHIN /[id number]
--- NOTE | 2020-01-06 21:20 | NUR ---
Report called to LUTHER Kurtz. Pt being transferred to room 298. notified at 2041.
--- NOTE | 2020-01-06 21:25 | NUR ---
Received patient from ICU. Alert and oriented. CVC to right intact. Call light within reach.
[2020-01-06] MEDS: CENTRAL TPN FORMULA 1 BAG IV SCH (22:30)
[2020-01-07] MEDS: LORAZEPAM 0.5 MG TAB PO PRN ×2 (01:34→19:40)
[2020-01-07] MEDS: ACETAMINOPHEN 325 MG TAB PO PRN (01:53)
[2020-01-07] MEDS: IPRATROPIUM BROMIDE 0.02% 2.5 ML NEB NEB SCH ×6 (03:10→22:50)
[2020-01-07] MEDS: LEVALBUTEROL HCL SOLN NEBU 1.25 MG/3 ML NEB INH SCH ×6 (03:10→22:50)
[2020-01-07 05:00] VITALS: BP 146/69
[2020-01-07] MEDS: HYDROCODONE/APAP 5MG-325MG TAB PO PRN ×3 (05:11→22:34)
[2020-01-07] MEDS: INSULIN LISPRO 100 UNIT/1 ML 3ML VIAL SQ SCH ×3 (05:51→18:00)
[2020-01-07 06:51] LABS: ANION GAP 12.3 mmol/L (8-16); CALCIUM 8.5 mg/dL (8.4-10.2); CREATININE, SERUM 2.11 mg/dL (0.72-1.25); POTASSIUM 3.3 mmol/L (3.5-5.1)
[2020-01-07 07:46] VITALS: BP 151/69
[2020-01-07 07:48] LABS: BASOPHILS % 0.3 % (0.0-1.0); EOSINOPHILS # (AUTO) 0.4 (0.0-0.4); EOSINOPHILS % 2.7 % (0.0-6.0); LYMPHOCYTES # (AUTO) 0.8 (1.0-3.2); LYMPHOCYTES % 5.2 % (18.0-39.1); MEAN CORPUSCULAR HEMOGLOBIN 28.6 pg (28-32); MEAN CORPUSCULAR VOLUME 92.1 fL (81-99); MONOCYTES # (AUTO) 0.8 (0.2-0.8); MONOCYTES % 5.4 % (4.4-11.3); NEUTROPHILS # (AUTO) 13.2 (2.1-6.9); NEUTROPHILS % 85.9 % (38.7-80.0); PLATELET COUNT 263 x10e3/uL (140-360); RED BLOOD COUNT 3.15 x10e6/uL (4.3-5.7)
[2020-01-07] MEDS: MICAFUNGIN SODIUM 100 ML IV SCH (09:03)
[2020-01-07] MEDS: SERTRALINE HCL 50 MG TAB PO SCH (09:03)
[2020-01-07] MEDS: PANTOPRAZOLE 40 MG 10ML VIAL IV SCH (09:03)
--- NOTE | 2020-01-07 09:20 | NUR ---
ASSESSMENT: Spiritual distress Pt resolved concerning mortality. Pt states he hopes to "go peacefully and painlessly." Pt's at bedside. Intervention: Provided unhurried pastoral support. Provided prayer. Outcome: Will continue to follow. Followed up w/ LUTHER. HONG SAVAGE Information Technology Data Analyst Spiritual Care Department O: [phone]
--- NOTE | 2020-01-07 10:27 | NUR ---
SPOKE WITH DR. CHAUDHRY REGARDING PATIENT'S DIALYSIS DAYS. PATIENT HAD DIALYSIS YESTERDAY. DR. CHAUDHRY STATED DIALYSIS DAYS ARE ON .
[2020-01-07] MEDS: DILTIAZEM HCL 30 MG TAB PO SCH ×2 (10:33→16:30)
[2020-01-07] MEDS: METOPROLOL TARTRATE 50 MG TAB PO SCH ×2 (10:33→21:00)
[2020-01-07] MEDS: ONDANSETRON HCL 4 MG ORAL DISINTEGRATING TAB PO PRN (11:15)
[2020-01-07 11:40] VITALS: BP 163/76
[2020-01-07 15:19] VITALS: BP 163/71
[2020-01-07] MEDS: ENOXAPARIN 30 MG/0.3 ML SYR SC SCH (16:30)
[2020-01-07] MEDS: HYDRALAZINE HCL 20 MG/ML VIAL IV PRN (16:30)
--- NOTE | 2020-01-07 17:48 | NUR ---
Nutrition Intervention Note RD Recommendation(s) for Physician: - TPN Rec's: TV 1800 ml/day, Dextrose 30% 500 ml/L, AA10% 500ml/L, Lipids 25 g/day, NaCl 10 mEq/L, K Acetate 10 mEq/L, Ca Gluconate 4.6 mEq/L, Mg Sulfate 5 mEq/L, MVI, trace, thiamine, folic acid (provides 1528 kcal and 90 gm protein). - Please monitor BMP with Mg and Phos closely, replace low lytes as needed. - Check TG with am labs and once weekly - When medically appropriate, advance to GI soft diet Plan of Care: RD following, monitoring for tolerance and adequacy. TPN recs. Monitor for adequacy and tolerance. Nutrition reason for involvement: follow up RD Assessment 01/06: Follow up. Pt continues on TPN at 75 ml/hr, advanced to clear liquids. Pt sleeping at time of visit- did not disturb. Pt eating 10-25% of clear liquids x 4 days. Pt continues with abdominal wound. Pt continues with HD tx. TPN rec's provided in chart, MD approval pending. Will continue to monitor. 01/02: Follow up. Pt continues to receive TPN @ 75 mL/hr. Lipids are now only being provided 3 days/week per current TPN order sheet. Pt is receiving dialysis due to acute kidney failure per MD note. NG tube was removed and pt was started on a clear liquid diet today. Will continue to monitor. 12/30: Follow up. Pt is no longer intubated. Pt continues to receive TPN @ 75 mL/hr and has an NG tube for suctioning per RN. The patient is now in acute kidney failure with hypernatremia, hyperkalemia, hypermagnesemia, and hyperphosphatemia per MD note. MD adjusted electrolytes in TPN. Will continue to monitor. 12/26: Follow up: Pt has been intubated and sedated on propofol and fentanly, no pressors. Pt is still receiving TPN per nurse, there is no plan to take pt off of TPN as of now. Noted-pt is on low rate of propofol, recommended to monitoring propofol rate d/t pt also being on lipids. Will continue to monitor. 12/24: Follow up. Pt continues on TPN at 75 ml/hr, current order is meeting estimated needs. Pt denies N/V. Plan for PICC exchange today. Pt discussed during MDR, pt with new fistula as of 12/22, currently to drainage- dark output noted at time of visit with total output decreasing per I&O documentation. Pt started on micafungin empirically. Pt and with no questions at time of visit. Continue TPN per current order. Will continue to monitor. 12/20: Follow up. Pt is still on TPN at a rate of 75 mL/hr. Pt is also on a clear liquid diet, pt but reports he has been having N/V. Insulin was ordered due to elevated blood glucose. Will continue to monitor. 12/17: Follow up. Pt continues on TPN at 65 ml/hr and remains NPO. Pt discussed during am MDR, per RN plan to start clear liquid diet today. TPN rec's placed in chart for , RN notified of recommendations. Pt with surgery yesterday, resting at time of visit. Chart reviewed. Will continue to monitor. 12/13: Follow up. Pt continues to receive TPN and it was increased to 65 mL/hr today. Pt was discussed during rounds and RN reported pts abdomen is still distended. Current TPN order meets > 75% of estimated kcal and protein needs. Will continue to monitor. 12/11: Follow up. Pt on TPN at 43 ml/hr and continues with NGT in place. Pt denies any abdominal pain, nausea, or hunger. Pt POD#1 for small bowel obstruction, exploratory laparotomy, lysis of adhesions, and release of small bowel obstruction. TPN discussed with RN and rec's placed in chart, ordered TPN for this evening. TPN per current rec's to meet > 75% of kcal and protein needs. Chart reviewed. Will continue to monitor. (12/09): Follow up/Consult: Received consult to initiate TPN and lipids. Pt had a KUB that showed a SBO and a lot of stool in his colon per . recommended TPN, pt has been NPO since 12/04 (5 days). Recommendations are provided above and reported to nurse. Pts labs appear WNL from 12/08 besides a low phos, will recommend starting the pt on standard and changing to custom if necessary and advancing as appropriate. Phos was replaced yesterday. Pt has NGT in place and has a PICC line per EMR, TPN is appropriate. No new labs recorded for 12/09. MD also reported within his note to use enemas for constipation. Pt reported he is hungry and he denies N/V, and state he had a small bowel movement. Surgery scheduled for tmrw per nurse. Will continue to monitor. (12/03) 69 YOM admitted for COPD exacerbation, PNA, and Flu A. Pt seen today for LOS. Pt reports good appetite and po intake ECOLOGIST and denies any wt loss. Noted fluctuating po intake since admit, pt reports taste changes 2/2 IV medications and flushes given. Pt declined all supplements offered, stated "this happens every time I come to the hospital." Pt with no questions or concerns at time of visit. Chart reviewed. Labs and meds reviewed. Will continue to monitor. Principal Problems/Diagnoses: COPD exacerbation, PNA, and Flu PMH: Status post ileus. Status post laparoscopic cholecystectomy andstatus post umbilical hernia repair. Leukocytosis previously resolved. COPD with oxygen dependency, Lung disease GI: soft, distended, tender abdomen, last recorded BM 01/05 x 2 Skin: abdominal incision- fistula with output Labs: 01/06: Na 141, K 3.3, Cl 107, CO2 25, BUN 53, Cr 2.11, Gluc 157, Ca 8.5, Mg 1.9, POC Gluc 137-167, 01/05: Phos 5.7 01/02: Na 145, K 3.6, Cl 111, BUN 65, Creat 2.91, Glu 130, Phos 4.0, Mg 2.1 12/30: Na 157, K 5.3, Cl 126, BUN 96, Creat 3.91, Glu 150, Phos 7.5, Mg 3.5 Meds: lispro, norco, protonix, micafungin IV Ht: 67 in Wt: 210 lbs (01/02) 196 lbs (12/30) 209 lbs (12/26) 207 lbs (12/20) 196 lbs (12/13), 198 lbs (12/10) BMI: 32.9 kg/m^2 IBW:148lbs Malnutrition Evaluation 01/06 The patient does not meet criteria for a specified degree of malnutrition at this time. Will re-evaluate at follow-up as appropriate. Energy intake: TPN is meeting >75% of estimated energy needs Weight loss: -no weight loss recorded Nutrition Prescription (Diet Order): Clear Liquids TPN: 75 ml/hr and 25 g lipids 3x/week with custom electrolytes (NaCl 10 mEq/L, Na acetate 0 mEq/L, KCl 0 mEq/L, K acetate 0 mEq/L, K phosphate 6 mEq/L, Ca Gluconate 4.6 mEq/L, Mg sulfate 4 mEq/L, Trace elements 3 mL/day, multivitamin 10 mL/day, thiamine 100 mg/day, folic acid 1 mg/day) (1800 mL total volume, Dextrose 30% 500 ml/day, 270 gm Dextrose, AA 10% 500 ml, 90 gm protein/day) - provides 1374 kcal and 90 g protein Estimated Nutritional Needs: Calories: 4009-4748 kcal/day (22-25 kcal/kg/day) Weight used : IBW (67.2 kg) Protein : 80-134 g protein/day (1.2-2 gram/kg/day ) Weight used: IBW Diet Adequacy: Current TPN order meets >75% of estimated needs Diet Education Needs Assessment: Diet education not indicated, patient on temporary/transition diet. Nutrition Care Level: high Nutrition Diagnosis: Altered GI function related to SBO as evidenced by need for TPN Goal: Patient will meet 75-100% of estimated needs by follow up Progress: Progressing Interventions: - TPN - Composition, Rate, Route, Fluid/fiber modified diet, Liquid supplement, Collaboration with other providers Monitoring/Evaluation: Total energy intake, Total protein intake, Formula/Solution Signed: Salud Escobar RD, LD, [facility]
--- NOTE | 2020-01-07 18:58 | NUR ---
PATIENT IN STABLE CONDITION WITH NO S/S RESPIRATORY DISTRESS. NO PAIN VOICED. TELEMETRY APPLIED. MONTALVO INTACT AND DRAINING. DRESSING TO ABD IS C/D/I. BED ALARM APPLIED. CALL LIGHT IS WITHIN REACH, PATIENT INSTRUCTED TO CALL FOR ASSISTANCE NEEDED. BEDSIDE SHIFT REPORT GIVEN TO ONCOMING NURSE.
[2020-01-07 19:40] VITALS: BP 148/70
[2020-01-07] MEDS ORDERED: POTASSIUM CHLORIDE 20 MEQ TAB CR PO SCH (20:00)
--- NOTE | 2020-01-07 20:17 | Progress Note ---
DATE: 01/07/2020 Medicine Progress Note SUBJECTIVE: The patient is doing well today with no complaints. Still pending LTAC approval. He has been denied already. We have to talk to the medical accountant, [id number] review. PHYSICAL EXAMINATION: VITAL SIGNS: Temperature is 97.8, pulse 76, respiratory rate is 18, blood pressure 162/71, and pulse ox 99% on 3 L nasal cannula. GENERAL: Not in acute distress. Alert and oriented x3. Cooperative on examination. HEENT: Head; normocephalic, atraumatic. Eyes; pupils are equal, round, and reactive to light bilaterally. Extraocular movements intact bilaterally. Throat; no evidence of erythema or exudates in the posterior pharynx. Has poor dentition. NECK: Supple. Good range of motion. PULMONARY: Clear to auscultation bilaterally. No wheezing, no rales, no rhonchi, no crackles appreciated. CARDIOVASCULAR: Positive S1 and S2. No murmurs, rubs, or gallops appreciated. ABDOMEN: Soft, nondistended, and nontender to palpation. Bowel sounds present. MUSCULOSKELETAL: Strength is 5/5 throughout. No evidence of any muscle deficits on examination. No weakness appreciated. NEUROLOGIC: Cranial nerves 2 through 12 grossly intact. No evidence of any neurological deficits on exam. SKIN: Intact. Warm to touch. Good cap refill. PSYCHIATRIC: Normal affect and mood. EXTREMITIES: No edema. Good range of motion throughout. LABORATORY DATA: Show white count of 15.3, hemoglobin 9, hematocrit is 29, and platelets of 263. Sodium 141, potassium 3.3, chloride 107, bicarb 25, anion gap of 12, BUN is 53, creatinine is 2.11, glucose is 157, magnesium 1.9, and calcium is 8.5. Blood culture still shows fungemia. Repeat blood cultures were no growth. IMAGING STUDIES: Nothing new. IMPRESSION: 1. Small bowel obstruction, status post exploratory laparotomy with subsequent wound dehiscence, currently on IV antibiotic therapy. 2. Acute kidney injury with acute tubular necrosis, now on hemodialysis. 3. Sepsis with underlying fungemia, being managed by ID. 4. Pneumonia. 5. Acute exacerbation of chronic obstructive pulmonary disease. 6. Anxiety. 7. Prolonged hospital stay. PLAN: At this time, continue with postop care. He is being managed by General Surgery as well as wound care for his local wound care needs. In relation to his acute kidney injury, he is still receiving dialysis, has ATN. Nephrology is following. Electrolytes are stable. He still has fungemia, still on Micafungin for his overall infection. Nutritional status is very poor. He is still on TPN. His diet has been advanced to full liquids, but still not eating much. Continue with IV Flagyl and cefepime per ID. Pulmonary is monitoring his respiratory status. Continue with PT and OT. Lovenox for DVT prophylaxis. I will go ahead and add Megace to stimulate his appetite. Consultants involved; Nephrology, Wound Care, ID, General Surgery, and Pulmonary. MD AMANDA Gomez/MODL /[id number]
[2020-01-07 20:24] VITALS: BP 148/70
[2020-01-07] MEDS: CENTRAL TPN FORMULA 1 BAG IV SCH (21:29)
[2020-01-08] VITALS (8 sets, daily range): BP systolic 124–164; BP diastolic 58–75
[2020-01-08] MEDS: INSULIN LISPRO 100 UNIT/1 ML 3ML VIAL SQ SCH ×4 (00:15→17:55)
[2020-01-08] MEDS: LEVALBUTEROL HCL SOLN NEBU 1.25 MG/3 ML NEB INH SCH ×6 (02:30→23:30)
[2020-01-08] MEDS: IPRATROPIUM BROMIDE 0.02% 2.5 ML NEB NEB SCH ×6 (02:30→23:30)
[2020-01-08 05:59] LABS: BASOPHILS % 0.2 % (0.0-1.0); EOSINOPHILS # (AUTO) 0.4 (0.0-0.4); EOSINOPHILS % 2.5 % (0.0-6.0); HEMATOCRIT 30.1 % (38.2-49.6); HEMOGLOBIN 9.4 g/dL (14.0-18.0); LYMPHOCYTES # (AUTO) 0.8 (1.0-3.2); LYMPHOCYTES % 5.2 % (18.0-39.1); MEAN CORPUSCULAR HEMOGLOBIN 28.4 pg (28-32); MEAN CORPUSCULAR HGB CONC 31.2 g/dL (31-35); MEAN CORPUSCULAR VOLUME 90.9 fL (81-99); MONOCYTES % 6.5 % (4.4-11.3); NEUTROPHILS # (AUTO) 12.4 (2.1-6.9); PLATELET COUNT 304 x10e3/uL (140-360); RED BLOOD COUNT 3.31 x10e6/uL (4.3-5.7); RED CELL DISTRIBUTION WIDTH 14.9 % (11.7-14.4)
[2020-01-08 06:16] LABS: ANION GAP 14.5 mmol/L (8-16); CALCIUM 8.8 mg/dL (8.4-10.2); CREATININE, SERUM 2.46 mg/dL (0.72-1.25); MAGNESIUM 2.1 MG/DL (1.3-2.1); PHOSPHORUS 4.7 MG/DL (2.3-4.7); POTASSIUM 3.5 mmol/L (3.5-5.1)
--- NOTE | 2020-01-08 07:00 | NUR ---
received bedside report. pt is alert resting in bed, no s/s of distress. call light within reach and bed alarm is on
[2020-01-08] MEDS ORDERED: MEGACE 400MG/ 10ML CUP PO SCH (09:00)
--- NOTE | 2020-01-08 09:32 | NUR ---
ASSESSMENT: Spiritual distress Pt continues in state despair. Pt not as verbal as in previous visits. Pt's at bedside. Intervention: Provided unhurried empathic listening. Provided prayer and encouragement. Outcome: Pt stated, "Thanks for stopping by." Will continue to follow. HONG SAVAGE Care Analyst Spiritual Care Department O: [phone]
[2020-01-08] MEDS: DILTIAZEM HCL 30 MG TAB PO SCH ×2 (09:35→17:55)
[2020-01-08] MEDS: SERTRALINE HCL 50 MG TAB PO SCH (09:35)
[2020-01-08] MEDS: METOPROLOL TARTRATE 50 MG TAB PO SCH ×2 (09:35→20:34)
[2020-01-08] MEDS: PANTOPRAZOLE 40 MG 10ML VIAL IV SCH (09:44)
[2020-01-08] MEDS: MICAFUNGIN SODIUM 100 ML IV SCH (09:45)
[2020-01-08] MEDS: HYDROCODONE/APAP 5MG-325MG TAB PO PRN ×2 (10:05→18:22)
[2020-01-08] MEDS: LORAZEPAM 0.5 MG TAB PO PRN ×2 (13:46→21:30)
[2020-01-08] MEDS: ENOXAPARIN 30 MG/0.3 ML SYR SC SCH (17:56)
--- NOTE | 2020-01-08 19:24 | NUR ---
Received change of shift report from AM nurse. Walking rounds completed.
--- NOTE | 2020-01-08 20:00 | Progress Note ---
DATE: 01/08/2020 Medicine Progress Note SUBJECTIVE: I spoke with the insurance company today. He was denied LTAC. TPN has been discontinued. We are going to work on fdc versus inpatient rehab. PHYSICAL EXAMINATION: VITAL SIGNS: Temperature is 97.6, pulse 80, respiratory rate is 18, blood pressure 139/65, and pulse ox 99% with 3 L nasal cannula. GENERAL: Not in acute distress. Alert and oriented x3. Cooperative on examination. HEENT: Head; normocephalic, atraumatic. Eyes; pupils are equal, round, and reactive to light bilaterally. Extraocular movements intact bilaterally. Throat; no evidence of erythema or exudates in the posterior pharynx. Has poor dentition. NECK: Supple. Good range of motion. PULMONARY: Clear to auscultation bilaterally. No wheezing, no rales, no rhonchi, no crackles appreciated. CARDIOVASCULAR: Positive S1 and S2. No murmurs, rubs, or gallops appreciated. ABDOMEN: Soft, nondistended, and nontender to palpation. Bowel sounds present. MUSCULOSKELETAL: Strength is 5/5 throughout. No evidence of any muscle deficits on examination. No weakness appreciated. NEUROLOGIC: Cranial nerves 2 through 12 grossly intact. No evidence of any neurological deficits on exam. SKIN: Intact. Warm to touch. Good cap refill. PSYCHIATRIC: Normal affect and mood. EXTREMITIES: No edema. Good range of motion throughout. LABORATORY DATA: Show white count 14.6, hemoglobin 9.4, hematocrit is 30.1, and platelets of 304. Chemistry; sodium 143, potassium 3.5, chloride 110, bicarb 22, anion gap of 14, BUN is 71, and creatinine is 2.46. Magnesium 2.1, phosphorus 4.7, and calcium is 8.8. MICROBIOLOGY: Blood cultures repeat were no growth to date. IMAGING STUDIES: None today. IMPRESSION: 1. Small bowel obstruction, status post exploratory laparotomy with subsequent wound dehiscence, currently on IV antibiotic therapy. 2. Acute kidney injury with acute tubular necrosis, now on hemodialysis. 3. Sepsis secondary to underlying fungemia, being managed by Infectious Disease. 4. Pneumonia. 5. Acute exacerbation of chronic obstructive pulmonary disease. 6. Anxiety. 7. Prolonged hospital stay. 8. Medically debilitated with max assistance. PLAN: At this time, continue with postop care. General Surgery is following with the wound care as well. Local wound care is being provided. As for his acute kidney injury, he is still receiving hemodialysis secondary to his ATN, in which Nephrology is following very closely. His electrolytes are stable today. As for his fungemia, he is still on micafungin and antibiotics. ID is following very closely on that. In terms of his nutritional status, TPN has been discontinued. He is on oral Megace and we are encouraging oral feeds. As for pulmonary status, he is stable. No other workup needed. We will continue with aggressive PT and OT. He is on Lovenox for DVT prophylaxis. Consultants involved are Nephrology, Wound Care, ID, General Surgery, and Pulmonary. I had a long discussion with the insurance company today [id number], in which they denied in any sort of LTAC placement. Of note, they stated that he could stay here longer in order for him to get a little better, which makes no sense that the patient has been here for several weeks already. On any rate at this time, we will go ahead and discontinue TPN. We got him on IV micafungin, which ID is monitoring very closely. I think truly he would benefit from an inpatient rehab due to his medically debilitated. We will go ahead and get a rehab consultation. I did speak to the medical record transcriber, they seemed to have agreed more with inpatient rehab, but he would have to go through the process. I do not think fdc facility can provide this gentleman anymore treatment. I feel like that he truly should benefit from an LTAC. Unfortunately, he is being denied by the insurance company. At this time, we will work on fdc as well as inpatient rehab and see how he would do. MD AMANDA Gomez/ANNETTEL /[id number]
[2020-01-08] MEDS: ACETAMINOPHEN 325 MG TAB PO PRN (20:35)
[2020-01-09] VITALS (7 sets, daily range): BP systolic 127–153; BP diastolic 64–82
[2020-01-09] MEDS: IPRATROPIUM BROMIDE 0.02% 2.5 ML NEB NEB SCH ×5 (04:00→23:35)
[2020-01-09] MEDS: LEVALBUTEROL HCL SOLN NEBU 1.25 MG/3 ML NEB INH SCH ×5 (04:00→23:35)
--- NOTE | 2020-01-09 04:25 | NUR ---
Patient resting quitly with no c/o at this time. Continue monitor.
[2020-01-09] MEDS: HYDROCODONE/APAP 5MG-325MG TAB PO PRN ×3 (04:58→21:42)
--- NOTE | 2020-01-09 05:08 | NUR ---
Patient c/o pain given pain meds as ordered by MD. Continue monitor.
--- NOTE | 2020-01-09 07:00 | NUR ---
ASSESSMENT: Spiritual distress Pt requested Commodities Trader visit via RN. Pt anxious about being alone. Pt questioning why he hasn't . Intervention: Provided unhurried pastoral presence and compassionate touch. Facilitated identification of emotions. Provided prayer. Outcome: Pt expressed appreciation for visit and support. Will continue to follow as able. HONG SAVAGE Commodities Trader Spiritual Care Department O: [phone]
--- NOTE | 2020-01-09 08:30 | NUR ---
pt is here spoke with case toby. and social service assistant.
[2020-01-09] MEDS: METOPROLOL TARTRATE 50 MG TAB PO SCH ×2 (09:09→21:00)
[2020-01-09] MEDS: PANTOPRAZOLE 40 MG 10ML VIAL IV SCH (09:09)
[2020-01-09] MEDS: DILTIAZEM HCL 30 MG TAB PO SCH ×2 (09:10→17:13)
[2020-01-09] MEDS: SERTRALINE HCL 50 MG TAB PO SCH (09:30)
[2020-01-09] MEDS ORDERED: MIRTAZAPINE 15 MG TAB PO SCH (09:30)
[2020-01-09] MEDS: MICAFUNGIN SODIUM 100 ML IV SCH (10:00)
--- NOTE | 2020-01-09 10:32 | NUR ---
WAS LET KNOW THE LTAC DENIED. WENT WITH CM TO SPEAK WITH PT AND , DISCUSSED ALL OPTIONS, AND LET KNOW IN ORDER TO QUALIFY FOR SNF HAVE TO PARTICIPATE. OR GO HALFWAY HALF-WAY FOR MEDICAID PENDING. LEFT SNF LIST WITH AND WILL FOLLOW UP FOR CHOICE.
--- NOTE | 2020-01-09 17:05 | Diagnostic Imaging Report ---
History:AMS Comparison studies: None Technique: Axial images were obtained from the skull base to the vertex. Coronal and sagittal images reconstructed from the axial data. Dose modulation, iterative reconstruction, and/or weight based adjustment of the mA/kV was utilized to reduce the radiation dose to as low as reasonably achievable. Intravenous contrast: None Findings: Scalp/skull: No abnormalities. Extra-axial spaces: No masses. No fluid collections. Brain sulci: Mildly prominent. The sylvian fissures are not dilated. Ventricles: Moderately dilated but no acute hydrocephalus. Parenchyma: No abnormal densities. No masses, hemorrhage, acute or chronic cortical vascular insults. Sellar/suprasellar region: No abnormalities. Craniocervical junction: Patent foramen magnum. No Chiari one malformation. Incidental findings: Subtle atherosclerotic calcifications in the carotid siphons . Non-specific opacification of the right middle ear and mastoids Impression: No acute abnormalities. Chronic findings: 1. Mild generalized volume loss 2. Moderately dilated ventricles but no acute hydrocephalus. The sylvian fissures are not dilated in order to radiographically suggest normal pressure hydrocephalus. Signed by: Dr. Marvel Bolaños M.D. on 01/09/2020 5:01 PM
[2020-01-09] MEDS: ENOXAPARIN 30 MG/0.3 ML SYR SC SCH (17:06)
--- NOTE | 2020-01-09 17:06 | NUR ---
Nutrition Intervention Note RD Recommendation(s) for Physician: - Continue current diet as ordered -Recommend an appetite stimulant -Ensure Enlive BID for added nutrition Plan of Care: RD following, monitoring for tolerance and adequacy. Monitor for adequacy and tolerance. Nutrition reason for involvement: follow up RD Assessment 01/08: Follow up. Pts TPN was discontinued yesterday and is now on a cardiac diet. Attempted to speak to pt, but he did not participate in assessment. RN reports pt has poor intake. It is recorded that pt consumed 50% of breakfast this morning and 25% of dinner meal yesterday. Recommend an appetite stimulant and Ensure Enlive BID for added nutrition. Will continue to monitor. 01/06: Follow up. Pt continues on TPN at 75 ml/hr, advanced to clear liquids. Pt sleeping at time of visit- did not disturb. Pt eating 10-25% of clear liquids x 4 days. Pt continues with abdominal wound. Pt continues with HD tx. TPN rec's provided in chart, MD approval pending. Will continue to monitor. 01/02: Follow up. Pt continues to receive TPN @ 75 mL/hr. Lipids are now only being provided 3 days/week per current TPN order sheet. Pt is receiving dialysis due to acute kidney failure per MD note. NG tube was removed and pt was started on a clear liquid diet today. Will continue to monitor. 12/30: Follow up. Pt is no longer intubated. Pt continues to receive TPN @ 75 mL/hr and has an NG tube for suctioning per RN. The patient is now in acute kidney failure with hypernatremia, hyperkalemia, hypermagnesemia, and hyperphosphatemia per MD note. adjusted electrolytes in TPN. Will continue to monitor. 12/26: Follow up: Pt has been intubated and sedated on propofol and fentanly, no pressors. Pt is still receiving TPN per nurse, there is no plan to take pt off of TPN as of now. Noted-pt is on low rate of propofol, recommended to monitoring propofol rate d/t pt also being on lipids. Will continue to monitor. 12/24: Follow up. Pt continues on TPN at 75 ml/hr, current order is meeting estimated needs. Pt denies N/V. Plan for PICC exchange today. Pt discussed during MDR, pt with new fistula as of 12/22, currently to drainage- dark output noted at time of visit with total output decreasing per I&O documentation. Pt started on micafungin empirically. Pt and with no questions at time of visit. Continue TPN per current order. Will continue to monitor. 12/20: Follow up. Pt is still on TPN at a rate of 75 mL/hr. Pt is also on a clear liquid diet, pt but reports he has been having N/V. Insulin was ordered due to elevated blood glucose. Will continue to monitor. 12/17: Follow up. Pt continues on TPN at 65 ml/hr and remains NPO. Pt discussed during am MDR, per RN plan to start clear liquid diet today. TPN rec's placed in chart for , RN notified of recommendations. Pt with surgery yesterday, resting at time of visit. Chart reviewed. Will continue to monitor. 12/13: Follow up. Pt continues to receive TPN and it was increased to 65 mL/hr today. Pt was discussed during rounds and RN reported pts abdomen is still distended. Current TPN order meets > 75% of estimated kcal and protein needs. Will continue to monitor. 12/11: Follow up. Pt on TPN at 43 ml/hr and continues with NGT in place. Pt denies any abdominal pain, nausea, or hunger. Pt POD#1 for small bowel obstruction, exploratory laparotomy, lysis of adhesions, and release of small bowel obstruction. TPN discussed with RN and rec's placed in chart, ordered TPN for this evening. TPN per current rec's to meet > 75% of kcal and protein needs. Chart reviewed. Will continue to monitor. (12/09): Follow up/Consult: Received consult to initiate TPN and lipids. Pt had a KUB that showed a SBO and a lot of stool in his colon per MD. recommended TPN, pt has been NPO since 12/04 (5 days). Recommendations are provided above and reported to nurse. Pts labs appear WNL from 12/08 besides a low phos, will recommend starting the pt on standard and changing to custom if necessary and advancing as appropriate. Phos was replaced yesterday. Pt has NGT in place and has a PICC line per EMR, TPN is appropriate. No new labs recorded for 12/09. MD also reported within his note to use enemas for constipation. Pt reported he is hungry and he denies N/V, and state he had a small bowel movement. Surgery scheduled for tmrw per nurse. Will continue to monitor. (12/03) 69 YOM admitted for COPD exacerbation, PNA, and Flu A. Pt seen today for LOS. 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 Noted fluctuating po intake since admit, pt reports taste changes 2/2 IV medications and flushes given. Pt declined all supplements offered, stated "this happens every time I come to the hospital." Pt with no questions or concerns at time of visit. Chart reviewed. Labs and meds reviewed. Will continue to monitor. Principal Problems/Diagnoses: COPD exacerbation, PNA, and Flu PMH: Status post ileus. Status post laparoscopic cholecystectomy andstatus post umbilical hernia repair. Leukocytosis previously resolved. COPD with oxygen dependency, Lung disease GI: round, tender abdomen, last recorded BM 01/05 x 2 Skin: abdominal incision- fistula with output Labs: 01/08: BUN 71, Creat 2.46, Glu 155 01/06: Na 141, K 3.3, Cl 107, CO2 25, BUN 53, Cr 2.11, Gluc 157, Ca 8.5, Mg 1.9, POC Gluc 137-167, 01/05: Phos 5.7 01/02: Na 145, K 3.6, Cl 111, BUN 65, Creat 2.91, Glu 130, Phos 4.0, Mg 2.1 12/30: Na 157, K 5.3, Cl 126, BUN 96, Creat 3.91, Glu 150, Phos 7.5, Mg 3.5 Meds: metroprolol, hydralazine, lovenox, zofran, mannitol Ht: 67 in Wt: 209 lbs (01/04) 210 lbs (01/02) 196 lbs (12/30) 209 lbs (12/26) 207 lbs (12/20) 196 lbs (12/13), 198 lbs (12/10) BMI: 32.7 kg/m^2 IBW:148lbs Malnutrition Evaluation 01/08 The patient does not meet criteria for a specified degree of malnutrition at this time. Will re-evaluate at follow-up as appropriate. Energy intake: poor PO intake per RN Weight loss: no weight loss recorded Nutrition Prescription (Diet Order): cardiac diet Estimated Nutritional Needs: Calories: 6914-2638 kcal/day (22-25 kcal/kg/day) Weight used : IBW (67.2 kg) Protein : 80-134 g protein/day (1.2-2 gram/kg/day ) Weight used: IBW Diet Adequacy: Not meeting calorie needs, not meeting protein needs Diet Education Needs Assessment: Diet education not indicated Nutrition Care Level: high Nutrition Diagnosis: Inadequate energy intake related to decreased ability to consume sufficient energy secondary to decreased appetite as evidenced by pt eating < 50% of meals. Goal: Patient will meet 75-100% of estimated needs by follow up Progress: Not progressing Interventions: -fat and sodium modified diet, Commercial beverage, Prescription medications, Collaboration with other providers Monitoring/Evaluation: Total energy intake, Total protein intake, Liquid supplement, Prescription medication, weight change Signed: Selene Singh RD, LD
--- NOTE | 2020-01-09 17:50 | NUR ---
pt had ct at this time
--- NOTE | 2020-01-09 19:45 | NUR ---
walking rounds complete, report given to oncoming nurse.
--- NOTE | 2020-01-09 20:00 | NUR ---
Received change of shift report from AM nurse. Walking rounds completed.
--- NOTE | 2020-01-09 20:26 | Consultation ---
DATE OF CONSULTATION: 01/09/2020 REASON FOR CONSULTATION: 1. Severely debilitated state following cholecystectomy and wound dehiscence with peritonitis. 2. History of ileus. 3. Recent history of influenza A. HISTORY OF PRESENT ILLNESS: The patient is a 69-year-old male who had gallstone pancreatitis, underwent laparoscopic cholecystectomy and also hernia repair. He went home and then the next day, on followup, he was evaluated, had some congestion and found later to have influenza A positive. CT of the chest showed that he had left lower lobe consolidation. He was admitted here. He has been admitted since November 27. In the meantime, the patient had developed small-bowel obstruction and had exploratory laparotomy and then had wound dehiscence with peritonitis, on IV antibiotic. The patient had acute kidney injury, sepsis, pneumonia as well. He has been very debilitated and according to the for the past three days he has been having trouble with his leaning. He has weakness but does not follow a pattern. I am being asked to evaluate for rehab needs. PAST MEDICAL HISTORY: Includes history of ileus, COPD with O2 dependency. PAST SURGICAL HISTORY: Include laparoscopic cholecystectomy and umbilical hernia repair. ALLERGIES: LATEX. HABITS: Quit smoking. Nondrinker. SOCIAL HISTORY: Lives with his in one-story home, was otherwise independent prior to his admission. FAMILY HISTORY: Denies. REVIEW OF SYSTEMS: Essentially negative except for the above findings according to the . LABORATORY DATA: White cell count of 14.6, hemoglobin 9.4, hematocrit 30.1, platelets of 304. Chemistry: Sodium 142, potassium 3.5, BUN of 71, creatinine 2.46. Rehab lópez, the patient was seen by therapy and all he did was really lean. He sat for about 20 minutes and difficulty with moving his legs and arms consistently. PHYSICAL EXAMINATION: GENERAL: The patient is lying in bed, very tired, tends to lean more toward the right-hand side. EYES: Gaze is somewhat conjugate. ORAL: Could not get him to protrude his tongue. NECK: No JVD. HEART: Regular. LUNGS: Diminished breath sounds throughout. ABDOMEN: Nondistended, but he had recent surgery. EXTREMITIES: He seems to be weak overall, somewhat slightly weaker on left leg compared to right leg, but basically 2-3/5 strength bilaterally. On upper extremities, he could squeeze my hands, flex his elbow a little bit, but he had weakness with shoulder flexion and extension. IMPRESSION: 1. Severely debilitated state. 2. Recent gallstone pancreatitis with cholecystectomy. 3. Ileus, status post exploratory laparotomy with wound dehiscence and peritonitis. 4. Acute kidney injury. 5. Sepsis. 6. Pneumonia. PLAN: I agree at this time, the patient is too low level to tolerate 3 hours of rehab. He barely tolerates sitting up 20 minutes. Skilled may not be able to provide as much care as this patient needs. I totally agree with LTAC and hopefully at some point, he will be able to build up to go to inpatient rehab. In the meantime, his has noted that he has had some changes in his overall functioning over the past few days. His last CT of the brain was December 26, and she says that this is somewhat new now, although the weakness in his upper extremities is very limited. We will go ahead and order another CT of the brain just to rule out any kind of intracranial deficits at this point. Thank you once again for allowing me to participate in the care of this pleasant, but unfortunate patient. Eomry Metcalf DO RPL/MODL /[id number]
[2020-01-09] MEDS: MIRTAZAPINE 15 MG TAB PO SCH (21:43)
[2020-01-10] VITALS (9 sets, daily range): BP systolic 102–149; BP diastolic 58–82
[2020-01-10] MEDS: LORAZEPAM 0.5 MG TAB PO PRN (02:45)
[2020-01-10] MEDS: ACETAMINOPHEN 325 MG TAB PO PRN (02:45)
[2020-01-10] MEDS: IPRATROPIUM BROMIDE 0.02% 2.5 ML NEB NEB SCH ×5 (03:25→19:30)
[2020-01-10] MEDS: LEVALBUTEROL HCL SOLN NEBU 1.25 MG/3 ML NEB INH SCH ×5 (03:25→19:30)
--- NOTE | 2020-01-10 04:26 | NUR ---
Patient noted pooling blood in mouth. Patient suctioned with no noted injury to tongue or mouth. Dr Kuhn called received orders. Orders completed. Waiting for lab result to call back to Dr Kuhn.
[2020-01-10 04:30] LABS: INR 1.13; PARTIAL THROMBOPLASTIN TIME 28.6 seconds (23.8-35.5); PROTHROMBIN TIME 15.2 seconds (11.9-14.5)
--- NOTE | 2020-01-10 06:07 | NUR ---
Called Dr Kuhn with lab result of PT, PTT. aware. No new orders.
[2020-01-10 06:15] LABS: BASOPHILS % 0.3 % (0.0-1.0); EOSINOPHILS # (AUTO) 0.5 (0.0-0.4); EOSINOPHILS % 4.1 % (0.0-6.0); HEMATOCRIT 31.5 % (38.2-49.6); HEMOGLOBIN 9.8 g/dL (14.0-18.0); LYMPHOCYTES # (AUTO) 0.6 (1.0-3.2); LYMPHOCYTES % 4.8 % (18.0-39.1); MEAN CORPUSCULAR HEMOGLOBIN 28.6 pg (28-32); MEAN CORPUSCULAR HGB CONC 31.1 g/dL (31-35); MEAN CORPUSCULAR VOLUME 91.8 fL (81-99); MONOCYTES # (AUTO) 0.9 (0.2-0.8); MONOCYTES % 7.2 % (4.4-11.3); NEUTROPHILS # (AUTO) 10.2 (2.1-6.9); PLATELET COUNT 505 x10e3/uL (140-360); RED BLOOD COUNT 3.43 x10e6/uL (4.3-5.7); RED CELL DISTRIBUTION WIDTH 15.8 % (11.7-14.4)
[2020-01-10 06:32] LABS: ANION GAP 15.8 mmol/L (8-16); CALCIUM 9.2 mg/dL (8.4-10.2); CREATININE, SERUM 2.66 mg/dL (0.72-1.25); POTASSIUM 3.8 mmol/L (3.5-5.1)
[2020-01-10 06:53] LABS: MAGNESIUM 2.1 MG/DL (1.3-2.1); PHOSPHORUS 4.9 MG/DL (2.3-4.7)
[2020-01-10] MEDS ORDERED: ALTEPLASE RECOMBINANT 2 MG/2 ML VIAL IV PRN (09:00)
[2020-01-10] MEDS: PANTOPRAZOLE SOD 40 MG TABEC PO SCH (09:41)
[2020-01-10] MEDS: SERTRALINE HCL 50 MG TAB PO SCH (09:41)
[2020-01-10] MEDS: CYANOCOBALAMIN INJ 1,000 MCG/ML VIAL IM SCH (09:41)
[2020-01-10] MEDS: MICAFUNGIN SODIUM 100 ML IV SCH (09:43)
[2020-01-10] MEDS: METOPROLOL TARTRATE 50 MG TAB PO SCH ×2 (09:43→22:10)
[2020-01-10] MEDS: DILTIAZEM HCL 30 MG TAB PO SCH ×2 (09:43→18:13)
[2020-01-10] MEDS: DEXTROSE 5%/0.45% SOD CHL 1,000 ML IV SCH ×2 (09:54→23:34)
[2020-01-10] MEDS: HYDROCODONE/APAP 5MG-325MG TAB PO PRN ×2 (10:06→15:44)
--- NOTE | 2020-01-10 10:32 | NUR ---
SIGNED CHOICE FOR [facility], FILED IN CHART AND COMPLETED PASRR AND FAXED CLINICALS TO FACILITY. COMPLETED RTF AND PUT ON CHART.
--- NOTE | 2020-01-10 11:16 | NUR ---
CALL TO KANDIS RODRIGUEZ; REE @ [phone]. 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 LEFT REGARDING SNF AUTH AND DENIAL RECEIVED FROM 01/04/2020
--- NOTE | 2020-01-10 11:55 | Diagnostic Imaging Report ---
EXAMINATION: CHEST 2 VIEWS INDICATION: Fever COMPARISON: Chest radiograph 01/04/2020 FINDINGS: LINES/TUBES:Right IJ temporary dialysis catheter terminates in the superior vena cava. EKG leads overlie the chest. LUNGS:The lungs are hyperinflated. No focal consolidation or pulmonary edema. Mild left basilar subsegmental atelectasis PLEURA:No pleural effusion or pneumothorax. MEDIASTINUM:The cardiomediastinal silhouette appears unchanged in size and shape. BONES/SOFT TISSUES:No acute osseous injury. ABDOMEN:No free air under the diaphragm. IMPRESSION: Hyperinflated lungs. No focal pneumonia or pulmonary edema. Mild left basilar subsegmental atelectasis. Signed by: Alethea Ferguson MD on 01/10/2020 11:51 AM
--- NOTE | 2020-01-10 22:00 | NUR ---
PATIENT RESTING IN BED IN STABLE CONDITION, NO SIGNS OF DISTRESS NOTED. IV FLUIDS ARE RUNNING AT ORDERED RATE AND PATIENT VOICES NO PAIN AT THIS TIME. DRESSING AT MIDLINE INCISION IS CLEAN DRY AND INTACT, NO DRAINAGE NOTED. MONTALVO IS PATENT AND INTACT, URINE IS YELLOW AND CLEAR. PATIENT IS SUCTIONING RED COLORED SALIVA WITH SUCTION, PATIENT WOULD NOT VOICE ANY INFORMATION ON THAT. BED IS IN LOWEST POSITION, BOTH SIDE RAILS ARE UP, CALL LIGHT IS WITHIN REACH, WILL CONTINUE TO MONITOR.
[2020-01-10] MEDS: HEPARIN SOD (PORCINE) 5,000 UNIT/ML VIAL SC SCH (22:05)
[2020-01-10] MEDS: MIRTAZAPINE 15 MG TAB PO SCH (22:10)
[2020-01-11] VITALS (8 sets, daily range): BP systolic 96–158; BP diastolic 54–83
[2020-01-11] MEDS: LEVALBUTEROL HCL SOLN NEBU 1.25 MG/3 ML NEB INH SCH ×6 (02:40→23:50)
[2020-01-11] MEDS: IPRATROPIUM BROMIDE 0.02% 2.5 ML NEB NEB SCH ×6 (02:40→23:50)
[2020-01-11] MEDS: PANTOPRAZOLE SOD 40 MG TABEC PO SCH (08:30)
[2020-01-11] MEDS: METOPROLOL TARTRATE 50 MG TAB PO SCH ×2 (08:30→21:16)
[2020-01-11] MEDS: HEPARIN SOD (PORCINE) 5,000 UNIT/ML VIAL SC SCH ×2 (08:30→21:15)
[2020-01-11] MEDS: SERTRALINE HCL 50 MG TAB PO SCH ×2 (08:30→12:23)
[2020-01-11] MEDS: CYANOCOBALAMIN INJ 1,000 MCG/ML VIAL IM SCH (08:30)
[2020-01-11] MEDS: DILTIAZEM HCL 30 MG TAB PO SCH ×2 (08:30→16:28)
[2020-01-11] MEDS: MICAFUNGIN SODIUM 100 ML IV SCH (09:00)
[2020-01-11 11:29] LABS: BASOPHILS # (AUTO) 0.1 (0.0-0.1); BASOPHILS % 0.4 % (0.0-1.0); EOSINOPHILS # (AUTO) 0.7 (0.0-0.4); EOSINOPHILS % 5.7 % (0.0-6.0); HEMATOCRIT 32.6 % (38.2-49.6); LYMPHOCYTES # (AUTO) 0.7 (1.0-3.2); LYMPHOCYTES % 5.5 % (18.0-39.1); MEAN CORPUSCULAR HEMOGLOBIN 28.7 pg (28-32); MEAN CORPUSCULAR HGB CONC 30.7 g/dL (31-35); MEAN CORPUSCULAR VOLUME 93.4 fL (81-99); MONOCYTES # (AUTO) 0.9 (0.2-0.8); MONOCYTES % 7.6 % (4.4-11.3); NEUTROPHILS # (AUTO) 9.5 (2.1-6.9); PLATELET COUNT 561 x10e3/uL (140-360); RED BLOOD COUNT 3.49 x10e6/uL (4.3-5.7); RED CELL DISTRIBUTION WIDTH 16.3 % (11.7-14.4)
[2020-01-11 11:47] LABS: ANION GAP 12.9 mmol/L (8-16); CREATININE, SERUM 2.61 mg/dL (0.72-1.25); POTASSIUM 3.9 mmol/L (3.5-5.1)
[2020-01-11] MEDS: HYDROCODONE/APAP 5MG-325MG TAB PO PRN ×2 (12:47→21:22)
[2020-01-11] MEDS: DEXTROSE 5%/0.45% SOD CHL 1,000 ML IV SCH (13:28)
[2020-01-11] MEDS: ACETAMINOPHEN 325 MG TAB PO PRN (14:20)
--- NOTE | 2020-01-11 16:44 | NUR ---
Nutrition Intervention Note RD Recommendation(s) for Physician: -Liberalize diet to regular -Recommend an appetite stimulant -Rec changing to Glucerna x4/day to promote protein-calorie intake Plan of Care: RD following, monitoring for tolerance and adequacy Nutrition reason for involvement: follow up RD Assessment 01/10: Follow up. RD was consulted for poor PO intake. Visited pt in the room. on bedside to provide info as pt was sleeping. Pt was started on cardiac diet for lunch today. Pt ate ~25% of lunch (1/4 hamburger, 1 bite of brownie, grapes and coke). Pt complained of fullness after lunch. Pt tried Ensure and didnt like it as it was too sweet. RD rec to switch to Glucerna, communicated with RN. has been assisting pt with meals. is also encouraged to bring foods from home. Will continue to monitor and follow. 01/08: Follow up. Pts TPN was discontinued yesterday and is now on a cardiac diet. Attempted to speak to pt, but he did not participate in assessment. RN reports pt has poor intake. It is recorded that pt consumed 50% of breakfast this morning and 25% of dinner meal yesterday. Recommend an appetite stimulant and Ensure Enlive BID for added nutrition. Will continue to monitor. 01/06: Follow up. Pt continues on TPN at 75 ml/hr, advanced to clear liquids. Pt sleeping at time of visit- did not disturb. Pt eating 10-25% of clear liquids x 4 days. Pt continues with abdominal wound. Pt continues with HD tx. TPN rec's provided in chart, approval pending. Will continue to monitor. 01/02: Follow up. Pt continues to receive TPN @ 75 mL/hr. Lipids are now only being provided 3 days/week per current TPN order sheet. Pt is receiving dialysis due to acute kidney failure per MD note. NG tube was removed and pt was started on a clear liquid diet today. Will continue to monitor. 12/30: Follow up. Pt is no longer intubated. Pt continues to receive TPN @ 75 mL/hr and has an NG tube for suctioning per RN. The patient is now in acute kidney failure with hypernatremia, hyperkalemia, hypermagnesemia, and hyperphosphatemia per MD note. MD adjusted electrolytes in TPN. Will continue to monitor. 12/26: Follow up: Pt has been intubated and sedated on propofol and fentanly, no pressors. Pt is still receiving TPN per nurse, there is no plan to take pt off of TPN as of now. Noted-pt is on low rate of propofol, recommended to monitoring propofol rate d/t pt also being on lipids. Will continue to monitor. 12/24: Follow up. Pt continues on TPN at 75 ml/hr, current order is meeting estimated needs. Pt denies N/V. Plan for PICC exchange today. Pt discussed during MDR, pt with new fistula as of 12/22, currently to drainage- dark output noted at time of visit with total output decreasing per I&O documentation. Pt started on micafungin empirically. Pt and with no questions at time of visit. Continue TPN per current order. Will continue to monitor. 12/20: Follow up. Pt is still on TPN at a rate of 75 mL/hr. Pt is also on a clear liquid diet, pt but reports he has been having N/V. Insulin was ordered due to elevated blood glucose. Will continue to monitor. 12/17: Follow up. Pt continues on TPN at 65 ml/hr and remains NPO. Pt discussed during am MDR, per RN plan to start clear liquid diet today. TPN rec's placed in chart for , RN notified of recommendations. Pt with surgery yesterday, resting at time of visit. Chart reviewed. Will continue to monitor. 12/13: Follow up. Pt continues to receive TPN and it was increased to 65 mL/hr today. Pt was discussed during rounds and RN reported pts abdomen is still distended. Current TPN order meets > 75% of estimated kcal and protein needs. Will continue to monitor. 12/11: Follow up. Pt on TPN at 43 ml/hr and continues with NGT in place. Pt denies any abdominal pain, nausea, or hunger. Pt POD#1 for small bowel obstruction, exploratory laparotomy, lysis of adhesions, and release of small bowel obstruction. TPN discussed with RN and rec's placed in chart, ordered TPN for this evening. TPN per current rec's to meet > 75% of kcal and protein needs. Chart reviewed. Will continue to monitor. (12/09): Follow up/Consult: Received consult to initiate TPN and lipids. Pt had a KUB that showed a SBO and a lot of stool in his colon per MD. MD recommended TPN, pt has been NPO since 12/04 (5 days). Recommendations are provided above and reported to nurse. Pts labs appear WNL from 12/08 besides a low phos, will recommend starting the pt on standard and changing to custom if necessary and advancing as appropriate. Phos was replaced yesterday. Pt has NGT in place and has a PICC line per EMR, TPN is appropriate. No new labs recorded for 12/09. MD also reported within his note to use enemas for constipation. Pt reported he is hungry and he denies N/V, and state he had a small bowel movement. Surgery scheduled for tmrw per nurse. Will continue to monitor. (12/03) 69 YOM admitted for COPD exacerbation, PNA, and Flu A. Pt seen today for LOS. 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 Noted fluctuating po intake since admit, pt reports taste changes 2/2 IV medications and flushes given. Pt declined all supplements offered, stated "this happens every time I come to the hospital." Pt with no questions or concerns at time of visit. Chart reviewed. Labs and meds reviewed. Will continue to monitor. Principal Problems/Diagnoses: COPD exacerbation, PNA, and Flu PMH: Status post ileus. Status post laparoscopic cholecystectomy andstatus post umbilical hernia repair. Leukocytosis previously resolved. COPD with oxygen dependency, Lung disease GI: round, soft, non-tender abdomen, last recorded BM 01/09 Skin: abdominal incision Labs: 01/10: Na 149 H, Cl 119 H, BUN 70 H, Creatinine 2.61 H, Glucose 151 H 01/08: BUN 71, Creat 2.46, Glu 155 01/06: Na 141, K 3.3, Cl 107, CO2 25, BUN 53, Cr 2.11, Gluc 157, Ca 8.5, Mg 1.9, POC Gluc 137-167, 01/05: Phos 5.7 01/02: Na 145, K 3.6, Cl 111, BUN 65, Creat 2.91, Glu 130, Phos 4.0, Mg 2.1 12/30: Na 157, K 5.3, Cl 126, BUN 96, Creat 3.91, Glu 150, Phos 7.5, Mg 3.5 Meds: dextrose, norco, Zoloft, vitamin B12, heparin, lopressor Ht: 67 in Wt: 209 lbs (01/04) 210 lbs (01/02) 196 lbs (12/30) 209 lbs (12/26) 207 lbs (12/20) 196 lbs (12/13), 198 lbs (12/10) BMI: 32.7 kg/m^2 IBW:148lbs Malnutrition Evaluation 01/08 The patient does not meet criteria for a specified degree of malnutrition at this time. Will re-evaluate at follow-up as appropriate. Nutrition Prescription (Diet Order): cardiac diet Estimated Nutritional Needs: Calories: 8839-7573 kcal/day (22-25 kcal/kg/day) Weight used : IBW (67.2 kg) Protein : 80-134 g protein/day (1.2-2 gram/kg/day ) Weight used: IBW Diet Adequacy: Not meeting calorie needs, not meeting protein needs Diet Education Needs Assessment: Diet education not indicated Nutrition Care Level: high Nutrition Diagnosis: Inadequate energy intake related to decreased ability to consume sufficient energy secondary to decreased appetite as evidenced by pt eating < 50% of meals. Goal: Patient will meet 75-100% of estimated needs by follow up Progress: Not progressing Interventions: General healthful diet, Commercial beverage, Prescription medications, Collaboration with other providers Monitoring/Evaluation: Total energy intake, Total protein intake, Liquid supplement, Prescription medication, weight change Signed: Yanet Gonzalez, MS, RD, LD
--- NOTE | 2020-01-11 19:24 | NUR ---
REPORT GIVEN TO LUTHER NAIDU. PT ACYANOTIC. RESTING IN BED WITH RECEIVING NEB TX. NO DISTRESS NOTED. RESPIRATORY THERAPIST AT BEDSIDE.
[2020-01-11] MEDS: MIRTAZAPINE 15 MG TAB PO SCH (21:15)
--- NOTE | 2020-01-11 21:15 | NUR ---
PATIENT RESTING IN BED IN STABLE CONDITION, NO SIGNS OF DISTRESS NOTED. IV FLUIDS ARE RUNNING AT ORDERED RATE AND PATIENT VOICES NO PAIN AT THIS TIME. DRESSING AT MIDLINE INCISION IS CLEAN DRY AND INTACT, NO DRAINAGE NOTED. MONTALVO IS PATENT AND INTACT, URINE IS YELLOW AND CLEAR. BED IS IN LOWEST POSITION, BOTH SIDE RAILS ARE UP, CALL LIGHT IS WITHIN REACH, WILL CONTINUE TO MONITOR.
[2020-01-12] VITALS (8 sets, daily range): BP systolic 125–165; BP diastolic 64–92
[2020-01-12] MEDS: ACETAMINOPHEN 325 MG TAB PO PRN ×3 (01:22→19:33)
[2020-01-12] MEDS: DEXTROSE 5%/0.45% SOD CHL 1,000 ML IV SCH (01:25)
[2020-01-12] MEDS: LEVALBUTEROL HCL SOLN NEBU 1.25 MG/3 ML NEB INH SCH ×6 (03:05→23:00)
[2020-01-12] MEDS: IPRATROPIUM BROMIDE 0.02% 2.5 ML NEB NEB SCH ×6 (03:05→23:00)
[2020-01-12 06:50] LABS: ANION GAP 13.7 mmol/L (8-16); CALCIUM 8.8 mg/dL (8.4-10.2); CREATININE, SERUM 2.44 mg/dL (0.72-1.25); POTASSIUM 3.7 mmol/L (3.5-5.1)
[2020-01-12] MEDS: PANTOPRAZOLE SOD 40 MG TABEC PO SCH (07:22)
--- NOTE | 2020-01-12 07:23 | NUR ---
Assumed care at 0700. Pt resting in bed. Awake and alert. Acyanotic. No distress noted. Tylenol given for pain 3/10 reported in coccyx.
[2020-01-12] MEDS: METOPROLOL TARTRATE 50 MG TAB PO SCH ×2 (08:17→20:50)
[2020-01-12] MEDS: CYANOCOBALAMIN INJ 1,000 MCG/ML VIAL IM SCH (08:18)
[2020-01-12] MEDS: DILTIAZEM HCL 30 MG TAB PO SCH ×2 (08:18→17:12)
[2020-01-12] MEDS: HEPARIN SOD (PORCINE) 5,000 UNIT/ML VIAL SC SCH ×2 (08:18→20:50)
[2020-01-12] MEDS: SERTRALINE HCL 50 MG TAB PO SCH (08:19)
--- NOTE | 2020-01-12 08:56 | NUR ---
Patient's body temperature re-evaluated at 0855 and now is 97.7 degrees F axillary. Pt resting in bed. No distress noted. Spouse present at bedside.
[2020-01-12] MEDS: MICAFUNGIN SODIUM 100 ML IV SCH (09:41)
[2020-01-12] MEDS: DEXTROSE 5% 1,000 ML IV SCH (12:08)
[2020-01-12] MEDS: LORAZEPAM 0.5 MG TAB PO PRN (14:23)
[2020-01-12] MEDS: HYDROCODONE/APAP 5MG-325MG TAB PO PRN ×2 (15:01→21:02)
--- NOTE | 2020-01-12 19:13 | NUR ---
Pt awake alert and oriented. No distress noted. Call light in reach. Report given to LUTHER Simms
[2020-01-12] MEDS: SIMETHICONE 80 MG CHEW PO PRN (19:33)
[2020-01-12] MEDS: MIRTAZAPINE 15 MG TAB PO SCH (20:50)
--- NOTE | 2020-01-12 20:50 | NUR ---
PATIENT RESTING IN BED IN STABLE CONDITION, NO SIGNS OF DISTRESS NOTED. IV FLUIDS ARE RUNNING AT ORDERED RATE AND PATIENT VOICES PAIN AT A LEVEL OF 8 IN LOWER BACK, WILL BE MEDICATED ORDERED. DRESSING AT MIDLINE INCISION IS CLEAN DRY AND INTACT, NO DRAINAGE NOTED. MONTALVO IS PATENT AND INTACT, URINE IS YELLOW AND CLEAR. BED IS IN LOWEST POSITION, BOTH SIDE RAILS ARE UP, CALL LIGHT IS WITHIN REACH, WILL CONTINUE TO MONITOR.
[2020-01-13] VITALS (9 sets, daily range): BP systolic 132–166; BP diastolic 65–81
[2020-01-13] MEDS: DEXTROSE 5% 1,000 ML IV SCH (01:32)
[2020-01-13] MEDS: IPRATROPIUM BROMIDE 0.02% 2.5 ML NEB NEB SCH ×6 (03:00→23:18)
[2020-01-13] MEDS: LEVALBUTEROL HCL SOLN NEBU 1.25 MG/3 ML NEB INH SCH ×6 (03:00→23:18)
[2020-01-13] MEDS: HYDROCODONE/APAP 5MG-325MG TAB PO PRN ×3 (05:35→20:08)
--- NOTE | 2020-01-13 06:38 | NUR ---
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 Pt asked, "[place] with me." Intervention: Provided compassionate touch and prayer. Following prayer pt stated, "I need to nap now." Provided blessing. Outcome: Will continue to follow. HONG SAVAGE Premium Service Representative Spiritual Care Department O: [phone]
[2020-01-13] MEDS ORDERED: DEXTROSE 5% 1,000 ML IV SCH (08:15)
[2020-01-13] MEDS: HEPARIN SOD (PORCINE) 5,000 UNIT/ML VIAL SC SCH ×2 (09:11→20:08)
[2020-01-13] MEDS: SERTRALINE HCL 50 MG TAB PO SCH (09:33)
[2020-01-13] MEDS: PANTOPRAZOLE SOD 40 MG TABEC PO SCH (09:33)
[2020-01-13] MEDS: DILTIAZEM HCL 30 MG TAB PO SCH ×2 (09:33→17:55)
[2020-01-13] MEDS: METOPROLOL TARTRATE 50 MG TAB PO SCH ×2 (09:33→20:20)
--- NOTE | 2020-01-13 11:21 | NUR ---
Dressing changed, patient tolerated well, not in any distress, refused breakfast, at bedside
--- NOTE | 2020-01-13 12:15 | NUR ---
CALL TO SAVANAH @ [facility] NILSA ROTHMAN @ OFF: [phone] / FAX [phone]. STATES THEY ARE STILL AWAITING AUTH.
--- NOTE | 2020-01-13 12:34 | NUR ---
Received call from RN regarding a calorie count for the patient. A 3-day (01/12-01/14) calorie count form with instructions was placed in a clear sheet protector and taped on the back of the patients door. Informed RN to document the % of all food and beverages consumed on the meal ticket for each meal and place in the clear sheet protector. RD will collect the meal tickets each day to calculate calories and protein consumed. Will continue to monitor.
[2020-01-13] MEDS: SIMETHICONE 80 MG CHEW PO PRN (14:09)
--- NOTE | 2020-01-13 17:06 | NUR ---
Calorie Count Day 1: (01/13/20) Breakfast: Pt refused breakfast Calories: 0 Protein: 0 Lunch: 1 bite of Gelatin Calories: --- Protein: -- Dinner: 1 spoonful of Gelatin, 3 Precious Calories: 300 kcal, Protein: 0 Total: 300 kcal, Protein: 0 Pt did not meet calorie and protein needs
--- NOTE | 2020-01-13 19:26 | NUR ---
Received change of shift report from AM shift. Walking rounds completed.
[2020-01-13] MEDS: MIRTAZAPINE 15 MG TAB PO SCH (20:08)
--- NOTE | 2020-01-13 20:49 | NUR ---
Patient in bed. C/O pain =5 gen. Given pain meds as ordered by MD. Dressing to abd dry and intact. Patient on right side on specialty bed.
--- NOTE | 2020-01-13 23:59 | NUR ---
Patient resting quitly with no c/o at this time. Continue monitor.
--- NOTE | 2020-01-13 23:59 | NUR ---
Patient resting quitly with no c/o at this time. Continue monitor. Turned on left side.
[2020-01-14] VITALS (7 sets, daily range): BP systolic 133–166; BP diastolic 65–82
[2020-01-14] MEDS: HYDROCODONE/APAP 5MG-325MG TAB PO PRN ×4 (02:03→19:50)
--- NOTE | 2020-01-14 02:09 | NUR ---
Patient requested another pain pill, given as ordered by MD. Lopez. pian =5-6.
[2020-01-14] MEDS: IPRATROPIUM BROMIDE 0.02% 2.5 ML NEB NEB SCH ×6 (03:23→23:00)
[2020-01-14] MEDS: LEVALBUTEROL HCL SOLN NEBU 1.25 MG/3 ML NEB INH SCH ×6 (03:23→23:00)
[2020-01-14 06:09] LABS: BASOPHILS % 0.3 % (0.0-1.0); EOSINOPHILS # (AUTO) 1.2 (0.0-0.4); EOSINOPHILS % 10.4 % (0.0-6.0); HEMATOCRIT 26.8 % (38.2-49.6); HEMOGLOBIN 8.5 g/dL (14.0-18.0); LYMPHOCYTES # (AUTO) 1.1 (1.0-3.2); LYMPHOCYTES % 9.3 % (18.0-39.1); MEAN CORPUSCULAR HEMOGLOBIN 28.9 pg (28-32); MEAN CORPUSCULAR HGB CONC 31.7 g/dL (31-35); MEAN CORPUSCULAR VOLUME 91.2 fL (81-99); MONOCYTES # (AUTO) 0.6 (0.2-0.8); MONOCYTES % 5.5 % (4.4-11.3); NEUTROPHILS # (AUTO) 8.3 (2.1-6.9); NEUTROPHILS % 73.9 % (38.7-80.0); PLATELET COUNT 463 x10e3/uL (140-360); RED BLOOD COUNT 2.94 x10e6/uL (4.3-5.7); RED CELL DISTRIBUTION WIDTH 15.9 % (11.7-14.4)
[2020-01-14 06:28] LABS: ANION GAP 11.2 mmol/L (8-16); CALCIUM 8.2 mg/dL (8.4-10.2); CREATININE, SERUM 1.87 mg/dL (0.72-1.25); POTASSIUM 3.2 mmol/L (3.5-5.1)
--- NOTE | 2020-01-14 07:10 | NUR ---
ASSESSMENT: Spiritual distress Pt scared and lonely. Pt states he doesn't like to be alone and it makes him "scared." Pt states he feels better when his is present. Pt states he doesn't like the food and it "has a chemical smell." Pt states if he ate anything it would be "a Sonic hotdog and Pepsi." Intervention: Provided unhurried, non judgmental presence. Facilitated conversation about nutrition. Provided prayer. Outcome: Pt expressed thanks for visit and support. Will continue to follow. HONG SAVAGE Cut Off Machine Operator Spiritual Care Department O: [phone]
[2020-01-14] MEDS: PANTOPRAZOLE SOD 40 MG TABEC PO SCH (08:16)
[2020-01-14] MEDS: SERTRALINE HCL 50 MG TAB PO SCH (08:18)
[2020-01-14] MEDS: DILTIAZEM HCL 30 MG TAB PO SCH ×2 (08:18→17:18)
[2020-01-14] MEDS ORDERED: POTASSIUM CHLORIDE 20 MEQ TAB CR PO ONE (08:30)
--- NOTE | 2020-01-14 08:32 | NUR ---
Patient was not eating well. Dr Koenig was recommending feeding tube/TPN, Patient refused it
[2020-01-14] MEDS: HEPARIN SOD (PORCINE) 5,000 UNIT/ML VIAL SC SCH ×2 (09:27→21:00)
--- NOTE | 2020-01-14 09:56 | NUR ---
PUT COVID ASSESSMENT IN PACKET AND CHART
[2020-01-14] MEDS: FOLIC ACID 1 MG TAB PO SCH (11:44)
[2020-01-14] MEDS: CYANOCOBALAMIN INJ 1,000 MCG/ML VIAL IM SCH (11:44)
[2020-01-14] MEDS: MAGNESIUM OXIDE 400 MG TAB PO SCH ×2 (11:44→17:18)
[2020-01-14] MEDS: ACETAMINOPHEN 325 MG TAB PO PRN (11:48)
--- NOTE | 2020-01-14 13:28 | NUR ---
Received BID PT Orders. Patient refusing to participate with physical therapy twice a day. He currently is only agreeable to once a day. Will keep plan of care for once a day until patient agrees to increase frequency. Thank You. Addendum: 01/14/20 at 1329 by JOHNATHON DOHERTY PT Amended: Links added.
--- NOTE | 2020-01-14 13:39 | NUR ---
CALL RECEIVED FROM BJ RODRIGUEZ. STATES AUTH WAS GIVEN FOR THE PT ON TODAY FOR 8 DAYS. CALL TO CECILIA JEREZ. STATES SHE WILL CALL [facility] FOR BED.
--- NOTE | 2020-01-14 13:55 | NUR ---
SPOKE WITH DEBORAH ROTHMAN, PT IS APPROVED TO MOVE TO NEXT LEVEL OF CARE. FACILITY STATES THEY HAVE SPOKEN TO AND LET HER KNOW 20 DAYS AT 100% THEN DAY 21 WILL BE COPAY AT 178$ A DAY. SHE STATES SHE IS NOT WILLING TO GIVE UP HER SAVINGS. INFORMED HER THAT SHE HAS BEEN GIVEN A WEEK TO SPEAK WITH HER CHILDREN TO GET ASSISTANCE FROM THEM AND WE ARE AT THE POINT WE NEED TO DISCHARGE TO NEXT LEVEL OF CARE. SHE STATES SHE WILL CALL HER SON AND LET HIM KNOW. FACILITY WILL NOT GIVE MOT UNTIL SHE COMPLETES PAPERWORK. ADVISED CM OF PROGRESS.
--- NOTE | 2020-01-14 14:34 | NUR ---
Calorie Count Day 2: (01/14/20) Breakfast 01/13: No meal ticket recorded, approx 25% intake reported Calories: KOMAL Protein: KOMAL Lunch 01/13: No meal ticket recorded, pt reports a few bites of rice and peas Calories: KOMAL Protein: KOMAL Dinner 01/12: No meal ticket recorded Calories: KOMAL Protein: KOMAL Total: unable to assess 11/24 no record available Pt did not meet calorie and protein needs per limited report of intake Salud Escobar RD, LD, CNSC
--- NOTE | 2020-01-14 16:06 | NUR ---
Dr Reaves here for rounds, order recvd to DC Temporary Dialysis catheter, DC d catheter, pressure bandage applied, no bleeding or hematoma noted.
--- NOTE | 2020-01-14 17:01 | NUR ---
dressing changed on abdomen, patient tolerated well, not in any distress
[2020-01-14] MEDS: MIRTAZAPINE 15 MG TAB PO SCH (21:42)
[2020-01-15] VITALS: BP 147/71
[2020-01-15] MEDS: LEVALBUTEROL HCL SOLN NEBU 1.25 MG/3 ML NEB INH SCH ×4 (03:00→14:15)
[2020-01-15] MEDS: IPRATROPIUM BROMIDE 0.02% 2.5 ML NEB NEB SCH ×4 (03:00→14:15)
[2020-01-15] MEDS: HYDROCODONE/APAP 5MG-325MG TAB PO PRN ×3 (03:15→15:55)
[2020-01-15 04:00] VITALS: BP 147/70
[2020-01-15] MEDS ORDERED: CITRATE OF MAGNESIA 300ML BOTTLE PO ONE ×2 (04:15→07:30)
[2020-01-15 06:54] LABS: ANION GAP 8.7 mmol/L (8-16); CALCIUM 8.2 mg/dL (8.4-10.2); CREATININE, SERUM 1.77 mg/dL (0.72-1.25); POTASSIUM 3.7 mmol/L (3.5-5.1)
[2020-01-15 07:16] LABS: MAGNESIUM 1.6 MG/DL (1.3-2.1); PHOSPHORUS 3.2 MG/DL (2.3-4.7)
[2020-01-15 07:30] VITALS: BP 132/74
--- NOTE | 2020-01-15 07:30 | NUR ---
PATIENT IN BED RESTING WITH HEAD OF BED ELEVATED, O2 IN PLACE VIA N/C. BED IN LOWER POSITION, CALL LIGHT AT REACH.
[2020-01-15] MEDS: DILTIAZEM HCL 30 MG TAB PO SCH ×2 (07:51→16:46)
[2020-01-15] MEDS: PANTOPRAZOLE SOD 40 MG TABEC PO SCH (07:51)
[2020-01-15 08:19] VITALS: BP 132/74
--- NOTE | 2020-01-15 09:07 | NUR ---
RESIDENTIAL FACILITY DISCHARGE INFORMATION PATIENT HAS BEEN ACCEPTED TO: NAME: DEBORAH ROTHMAN ADDRESS:[address] [facility] MD: MARICRUZ ROOM: 40B NURSE CALL REPORT TO: [phone] IMM SIGNED AND OBTAINED (if applicable): IMM THE FOLLOWING DOCUMENTS MUST ACCOMPANY PATIENT FOR TRANSFER: COPIED CHART: PACKET
--- NOTE | 2020-01-15 09:11 | NUR ---
EDUCATED ABOUT IMM, SIGNED, FILED IN CHART, WITH COPY LEFT WITH FAMILY AT BEDSIDE.
[2020-01-15] MEDS: MAGNESIUM OXIDE 400 MG TAB PO SCH ×2 (09:18→16:46)
[2020-01-15] MEDS: CYANOCOBALAMIN INJ 1,000 MCG/ML VIAL IM SCH (09:18)
[2020-01-15] MEDS: FOLIC ACID 1 MG TAB PO SCH (09:18)
[2020-01-15] MEDS: SERTRALINE HCL 50 MG TAB PO SCH (09:18)
[2020-01-15] MEDS: HEPARIN SOD (PORCINE) 5,000 UNIT/ML VIAL SC SCH (09:24)
--- NOTE | 2020-01-15 09:40 | NUR ---
MONTALVO CATHETER DISCONTINUE ORDERED. PATIENT IS DUE TO VOID, PO FLUID ENCOURAGED.
[2020-01-15] MEDS: ONDANSETRON HCL 4 MG ORAL DISINTEGRATING TAB PO PRN (09:55)
[2020-01-15 11:43] VITALS: BP 132/71
[2020-01-15] MEDS: SIMETHICONE 80 MG CHEW PO PRN (14:22)
--- NOTE | 2020-01-15 15:56 | NUR ---
PATIENT ASSISTED WITH DIAPER CHANGE. HAD A BM AND VOIDED. REPOSITIONED IN BED. CALL LIGHT AT REACH.
[2020-01-15 16:02] VITALS: BP 127/82
--- NOTE | 2020-01-15 16:26 | NUR ---
Calorie Count Day 3: (01/15/20) Dinner: 01/13: No meal ticket recorded Breakfast 01/14: No meal ticket recorded, nursing staff stated pt did not eat breakfast Lunch 01/14: nursing staff stated pt refused lunch tray at time of visit
--- NOTE | 2020-01-15 16:30 | NUR ---
Nutrition Intervention Note RD Recommendation(s) for Physician: -Liberalize diet to regular -Recommend an appetite stimulant -Encourage nutrition supplements Plan of Care: RD following, monitoring for tolerance and adequacy Nutrition reason for involvement: follow up RD Assessment 01/14: Follow up. Pt was sleeping at time of visit. A calorie count was completed between 01/12-01/14. Pt is not meeting calorie and protein needs. Per nursing staff, pt did not eat anything for breakfast and refused lunch today. Pt has refused alternative means of nutrition per nursing note as well. Recommend an appetite stimulant and encourage oral intake. Will continue to monitor. 01/10: Follow up. RD was consulted for poor PO intake. Visited pt in the room. on bedside to provide info as pt was sleeping. Pt was started on cardiac diet for lunch today. Pt ate ~25% of lunch (1/4 hamburger, 1 bite of brownie, grapes and coke). Pt complained of fullness after lunch. Pt tried Ensure and didnt like it as it was too sweet. RD rec to switch to Glucerna, communicated with RN. has been assisting pt with meals. is also encouraged to bring foods from home. Will continue to monitor and follow. 01/08: Follow up. Pts TPN was discontinued yesterday and is now on a cardiac diet. Attempted to speak to pt, but he did not participate in assessment. RN reports pt has poor intake. It is recorded that pt consumed 50% of breakfast this morning and 25% of dinner meal yesterday. Recommend an appetite stimulant and Ensure Enlive BID for added nutrition. Will continue to monitor. 01/06: Follow up. Pt continues on TPN at 75 ml/hr, advanced to clear liquids. Pt sleeping at time of visit- did not disturb. Pt eating 10-25% of clear liquids x 4 days. Pt continues with abdominal wound. Pt continues with HD tx. TPN rec's provided in cj, approval pending. Will continue to monitor. 01/02: Follow up. Pt continues to receive TPN @ 75 mL/hr. Lipids are now only being provided 3 days/week per current TPN order sheet. Pt is receiving dialysis due to acute kidney failure per MD note. NG tube was removed and pt was started on a clear liquid diet today. Will continue to monitor. 12/30: Follow up. Pt is no longer intubated. Pt continues to receive TPN @ 75 mL/hr and has an NG tube for suctioning per RN. The patient is now in acute kidney failure with hypernatremia, hyperkalemia, hypermagnesemia, and hyperphosphatemia per MD note. MD adjusted electrolytes in TPN. Will continue to monitor. 12/26: Follow up: Pt has been intubated and sedated on propofol and fentanly, no pressors. Pt is still receiving TPN per nurse, there is no plan to take pt off of TPN as of now. Noted-pt is on low rate of propofol, recommended to monitoring propofol rate d/t pt also being on lipids. Will continue to monitor. 12/24: Follow up. Pt continues on TPN at 75 ml/hr, current order is meeting estimated needs. Pt denies N/V. Plan for PICC exchange today. Pt discussed during MDR, pt with new fistula as of 12/22, currently to drainage- dark output noted at time of visit with total output decreasing per I&O documentation. Pt started on micafungin empirically. Pt and with no questions at time of visit. Continue TPN per current order. Will continue to monitor. 12/20: Follow up. Pt is still on TPN at a rate of 75 mL/hr. Pt is also on a clear liquid diet, pt but reports he has been having N/V. Insulin was ordered due to elevated blood glucose. Will continue to monitor. 12/17: Follow up. Pt continues on TPN at 65 ml/hr and remains NPO. Pt discussed during am MDR, per RN plan to start clear liquid diet today. TPN rec's placed in chart for , RN notified of recommendations. Pt with surgery yesterday, resting at time of visit. Chart reviewed. Will continue to monitor. 12/13: Follow up. Pt continues to receive TPN and it was increased to 65 mL/hr today. Pt was discussed during rounds and RN reported pts abdomen is still distended. Current TPN order meets > 75% of estimated kcal and protein needs. Will continue to monitor. 12/11: Follow up. Pt on TPN at 43 ml/hr and continues with NGT in place. Pt denies any abdominal pain, nausea, or hunger. Pt POD#1 for small bowel obstruction, exploratory laparotomy, lysis of adhesions, and release of small bowel obstruction. TPN discussed with RN and rec's placed in chart, MD ordered TPN for this evening. TPN per current rec's to meet > 75% of kcal and protein needs. Chart reviewed. Will continue to monitor. (12/09): Follow up/Consult: Received consult to initiate TPN and lipids. Pt had a KUB that showed a SBO and a lot of stool in his colon per MD. MD recommended TPN, pt has been NPO since 12/04 (5 days). Recommendations are provided above and reported to nurse. Pts labs appear WNL from 12/08 besides a low phos, will recommend starting the pt on standard and changing to custom if necessary and advancing as appropriate. Phos was replaced yesterday. Pt has NGT in place and has a PICC line per EMR, TPN is appropriate. No new labs recorded for 12/09. MD also reported within his note to use enemas for constipation. Pt reported he is hungry and he denies N/V, and state he had a small bowel movement. Surgery scheduled for tmrw per nurse. Will continue to monitor. (12/03) 69 YOM admitted for COPD exacerbation, PNA, and Flu A. Pt seen today for LOS. 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 Noted fluctuating po intake since admit, pt reports taste changes 2/2 IV medications and flushes given. Pt declined all supplements offered, stated "this happens every time I come to the hospital." Pt with no questions or concerns at time of visit. Chart reviewed. Labs and meds reviewed. Will continue to monitor. Principal Problems/Diagnoses: COPD exacerbation, PNA, and Flu PMH: Status post ileus. Status post laparoscopic cholecystectomy andstatus post umbilical hernia repair. Leukocytosis previously resolved. COPD with oxygen dependency, Lung disease GI: soft, tender abdomen, last recorded BM 01/13 Skin: abdominal incision Labs: 01/14 BUN 28, Creat 1.77, Ca 8.2 01/10: Na 149 H, Cl 119 H, BUN 70 H, Creatinine 2.61 H, Glucose 151 H 01/08: BUN 71, Creat 2.46, Glu 155 01/06: Na 141, K 3.3, Cl 107, CO2 25, BUN 53, Cr 2.11, Gluc 157, Ca 8.5, Mg 1.9, POC Gluc 137-167, 01/05: Phos 5.7 01/02: Na 145, K 3.6, Cl 111, BUN 65, Creat 2.91, Glu 130, Phos 4.0, Mg 2.1 12/30: Na 157, K 5.3, Cl 126, BUN 96, Creat 3.91, Glu 150, Phos 7.5, Mg 3.5 Meds: dextrose, norco, Zoloft, vitamin B12, heparin, lopressor Ht: 67 in Wt: 209 lbs (01/04) 210 lbs (01/02) 196 lbs (12/30) 209 lbs (12/26) 207 lbs (12/20) 196 lbs (12/13), 198 lbs (12/10) BMI: 32.7 kg/m^2 IBW:148lbs Malnutrition Evaluation 01/08 The patient does not meet criteria for a specified degree of malnutrition at this time. Will re-evaluate at follow-up as appropriate. Energy intake: <50% of estimated energy requirements for >5 days Weight loss: Weight loss is not evident per weights in chart during admission Fat loss: unable to evaluate Muscle loss: unable to evaluate Supporting Evidence: Fluid accumulation: unable to evaluate Functional Status: unable to evaluate Nutrition Prescription (Diet Order): cardiac diet Estimated Nutritional Needs: Calories: 5025-6560 kcal/day (22-25 kcal/kg/day) Weight used : IBW (67.2 kg) Protein : 80-134 g protein/day (1.2-2 gram/kg/day ) Weight used: IBW Diet Adequacy: Not meeting calorie needs, not meeting protein needs Diet Education Needs Assessment: Diet education not indicated Nutrition Care Level: high Nutrition Diagnosis: Inadequate energy intake related to decreased ability to consume sufficient energy secondary to decreased appetite as evidenced by pt eating < 50% of meals. Goal: Patient will meet 75-100% of estimated needs by follow up Progress: Not progressing Interventions: General healthful diet, Commercial beverage, Prescription medications, Collaboration with other providers Monitoring/Evaluation: Total energy intake, Total protein intake, Liquid supplement, weight change Signed: Selene Singh RD, JOI
--- NOTE | 2020-01-15 18:02 | NUR ---
PATIENT TRANSFERRED TO [facility]. REPORT CALLED AND GIVEN TO RECEIVING NURSE. IV TO LEFT WRIST REMOVED WITH TIP INTACT. ALL PERSONAL ITEMS TAKEN WITH PATIENT. PATIENT'S NOTIFIED OF TRANSFER. LEFT UNIT ON STRETCHER PER AMBULANCE IN STABLE CONDITION.
--- NOTE | 2020-01-15 18:17 | NUR ---
LUTHER OLIVIA NOTIFIED THAT PATIENT HAS TO FOLLOW UP WITH DR CAILIN KRISHNAN IN 7-10 DAYS AT [phone].
--- NOTE | 2020-01-16 00:28 | NUR ---
SPOKE TO [facility] WITH SIZE CISNEROS RENTALS. 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 CONFIRMATION #[id number]. BED TO BE PICKED UP ON 01/16/20 DURING THE DAY.
== END 2020-01-15 18:15 | DRG 853 ==
LOC: ER 07:13 → ERHOLD 08:26 → ICU 10:32 → MED/SURG2 11-29 12:24 → ACU 12-10 11:07 → IMCU 12-10 11:09 → ICU 12-10 14:28 → IMCU 12-14 22:52 → ICU 12-18 19:00 → MED/SURG3 01-06 21:45
PROVIDERS: ADMIT Internal Medicine; ATTEND Internal Medicine
PROC: 02HV33Z Insertion of Infusion Device into Superior Vena Cava, Percutaneous Approach (ICD-10-PCS; 2019-11-27)
PROC: B548ZZA Ultrasonography of Superior Vena Cava, Guidance (ICD-10-PCS; 2019-11-27)
PROC: 0DNL0ZZ Release Transverse Colon, Open Approach (ICD-10-PCS; 2019-12-10)
PROC: 0DN80ZZ Release Small Intestine, Open Approach (ICD-10-PCS; 2019-12-10)
PROC: 0DJD4ZZ Inspection of Lower Intestinal Tract, Percutaneous Endoscopic Approach (ICD-10-PCS; principal; 2019-12-10 09:50)
PROC: 0WQF0ZZ Repair Abdominal Wall, Open Approach (ICD-10-PCS; 2019-12-16)
PROC: 02HV33Z Insertion of Infusion Device into Superior Vena Cava, Percutaneous Approach (ICD-10-PCS; 2019-12-25)
PROC: B548ZZA Ultrasonography of Superior Vena Cava, Guidance (ICD-10-PCS; 2019-12-25)
PROC: 5A1945Z Respiratory Ventilation, 24-96 Consecutive Hours (ICD-10-PCS; 2019-12-27)
PROC: 0BH17EZ Insertion of Endotracheal Airway into Trachea, Via Natural or Artificial Opening (ICD-10-PCS; 2019-12-27)
PROC: 30233N1 Transfusion of Nonautologous Red Blood Cells into Peripheral Vein, Percutaneous Approach (ICD-10-PCS; 2019-12-28)
PROC: 02HV33Z Insertion of Infusion Device into Superior Vena Cava, Percutaneous Approach (ICD-10-PCS; 2020-01-01)
PROC: B548ZZA Ultrasonography of Superior Vena Cava, Guidance (ICD-10-PCS; 2020-01-01)
PROC: 5A1D70Z Performance of Urinary Filtration, Intermittent, Less than 6 Hours Per Day (ICD-10-PCS; 2020-01-03)
PROC: 3E0436Z Introduction of Nutritional Substance into Central Vein, Percutaneous Approach (ICD-10-PCS; 2020-01-07)
DX: A41.9 Sepsis, unspecified organism (principal); J96.21 Acute and chronic respiratory failure with hypoxia; J15.9 Unspecified bacterial pneumonia; K85.90 Acute pancreatitis without necrosis or infection, unspecified; N17.0 Acute kidney failure with tubular necrosis; J69.0 Pneumonitis due to inhalation of food and vomit; K65.8 Other peritonitis; J09.X1 Influenza due to identified novel influenza A virus with pneumonia; E43 Unspecified severe protein-calorie malnutrition; T80.211A Bloodstream infection due to central venous catheter, initial encounter; K56.50 Intestinal adhesions [bands], unspecified as to partial versus complete obstruction; J44.1 Chronic obstructive pulmonary disease with (acute) exacerbation; J44.0 Chronic obstructive pulmonary disease with (acute) lower respiratory infection; T81.32XA Disruption of internal operation (surgical) wound, not elsewhere classified, initial encounter; E87.0 Hyperosmolality and hypernatremia; E46 Unspecified protein-calorie malnutrition; F11.20 Opioid dependence, uncomplicated; K63.2 Fistula of intestine; B37.89 Other sites of candidiasis; Z90.49 Acquired absence of other specified parts of digestive tract; Z87.891 Personal history of nicotine dependence; Z82.49 Family history of ischemic heart disease and other diseases of the circulatory system; E66.9 Obesity, unspecified; R53.81 Other malaise; Z91.040 Latex allergy status; Z99.81 Dependence on supplemental oxygen; L89.312 Pressure ulcer of right buttock, stage 2; E87.5 Hyperkalemia; E83.41 Hypermagnesemia; E83.39 Other disorders of phosphorus metabolism; N18.9 Chronic kidney disease, unspecified; D63.8 Anemia in other chronic diseases classified elsewhere; F41.9 Anxiety disorder, unspecified; Z68.31 Body mass index [BMI] 31.0-31.9, adult; W06.XXXA Fall from bed, initial encounter; Y93.89 Activity, other specified; Y92.230 Patient room in hospital as the place of occurrence of the external cause; I27.20 Pulmonary hypertension, unspecified; T38.0X5A Adverse effect of glucocorticoids and synthetic analogues, initial encounter; D64.9 Anemia, unspecified; Z91.19 Patient's noncompliance with other medical treatment and regimen; F32.9 Major depressive disorder, single episode, unspecified; K13.79 Other lesions of oral mucosa; I12.9 Hypertensive chronic kidney disease with stage 1 through stage 4 chronic kidney disease, or unspecified chronic kidney disease
CPT/HCPCS: 36415; 36556; 36569; 36600; 70450; 71045; 71046; 71250; 71260; 74018; 74019; 74176; 74177; 74470; 76937; 80048; 80053; 80202; 81001; 81015; 82150; 82550; 82553; 82570; 82746; 82805; 82948; 83518; 83605; 83690; 83735; 83880; 84100; 84134; 84156; 84300; 84484; 85007; 85025; 85027; 85379; 85610; 85730; 86704; 86705; 86706; 86850; 86900; 86920; 87040; 87070; 87071; 87086; 87205; 87340; 87400; 90962; 93005; 93970; 93971; 94002; 94003; 94640; 94660; 94664; 96361; 96365; 96366; 96372; 97139; 97605; 99251; 99285; J0330; J0360; J0461; J0692; J0694; J1100; J1170; J1644; J1650; J1885; J1940; J2001; J2060; J2248; J2250; J2270; J2370; J2405; J2543; J2550; J2710; J2920; J2997; J3010; J3370; J3420; J3480; J7030; J7050; J7070; P9016; Q0162; Q9967

== ENCOUNTER 2020-02-14 16:14 | Inpatient (IN) | payer MEDICARE, OTHER ==
[~2020-02-14] VITALS: Ht 170.2 cm; Wt 94.8 kg
[2020-02-14] MEDS: METHYLPREDNISOLONE SOD SUCC 40 MG/ML VIAL 1ML IV SCH (00:30)
[2020-02-14] MEDS: MONTELUKAST SODIUM 10 MG TAB PO SCH (00:30)
[2020-02-14] MEDS: DILTIAZEM HCL 180 MG CAP ER PO SCH (00:30)
[2020-02-14] MEDS: SOD CHL 0.45%/POT CHL 20MEQ 1,000 ML IV SCH (02:00)
[2020-02-14] MEDS ORDERED: CEFTRIAXONE SOD 1 GM/NS 50 ML 50 ML IV ONE (16:30)
--- NOTE | 2020-02-14 16:56 | Diagnostic Imaging Report ---
EXAMINATION: CHEST SINGLE (PORTABLE) INDICATION: Chest pain COMPARISON: Chest radiograph 01/20/2020 FINDINGS: LINES/TUBES:None LUNGS:The lungs are well-inflated. No focal consolidation or pulmonary edema. PLEURA:No pleural effusion or pneumothorax. MEDIASTINUM:The cardiomediastinal silhouette appears normal in size and shape. BONES/SOFT TISSUES:No acute osseous injury. ABDOMEN:No free air under the diaphragm. IMPRESSION: No focal pneumonia or pulmonary edema. Signed by: Alethea Ferguson MD on 02/14/2020 4:53 PM
[2020-02-14 17:09] LABS: BASOPHILS # (AUTO) 0.1 (0.0-0.1); BASOPHILS % 0.5 % (0.0-1.0); EOSINOPHILS # (AUTO) 0.1 (0.0-0.4); EOSINOPHILS % 0.5 % (0.0-6.0); HEMATOCRIT 28.7 % (38.2-49.6); HEMOGLOBIN 8.8 g/dL (14.0-18.0); LYMPHOCYTES # (AUTO) 1.4 (1.0-3.2); LYMPHOCYTES % 8.7 % (18.0-39.1); MEAN CORPUSCULAR HEMOGLOBIN 27.7 pg (28-32); MEAN CORPUSCULAR HGB CONC 30.7 g/dL (31-35); MEAN CORPUSCULAR VOLUME 90.3 fL (81-99); MONOCYTES # (AUTO) 1.4 (0.2-0.8); MONOCYTES % 8.9 % (4.4-11.3); NEUTROPHILS # (AUTO) 12.3 (2.1-6.9); NEUTROPHILS % 78.4 % (38.7-80.0); PLATELET COUNT 370 x10e3/uL (140-360); RED BLOOD COUNT 3.18 x10e6/uL (4.3-5.7); RED CELL DISTRIBUTION WIDTH 16.2 % (11.7-14.4)
[2020-02-14] MEDS ORDERED: SODIUM CHLORIDE 0.9% 1000ML 1,000 ML IV SCH ×2 (17:15)
[2020-02-14 17:17] LABS: CLARITY,URINE SL CLOUDY (CLEAR); COLOR,URINE YELLOW (YELLOW); LEUKOCYTE ESTERASE ,URINE SMALL (NEGATIVE); NITRITE,URINE NEGATIVE (NEGATIVE)
[2020-02-14 17:18] LABS: BILIRUBIN,URINE NEGATIVE (NEGATIVE); KETONES,URINE NEGATIVE (NEGATIVE); PROTEIN,URINE DIPSTICK 2+ (NEGATIVE); URINE UROBILINOGEN 0.2 mg/dL (0.2 - 1)
[2020-02-14 17:28] LABS: ALBUMIN 2.2 g/dL (3.5-5.0); ALBUMIN/GLOBULIN RATIO 0.4 (0.8-2.0); ANION GAP 12.2 mmol/L (8-16); CALCIUM 9.4 mg/dL (8.4-10.2); CREATININE, SERUM 1.36 mg/dL (0.72-1.25); POTASSIUM 3.2 mmol/L (3.5-5.1)
[2020-02-14 17:32] LABS: BACTERIA,URINE FEW /HPF; EPITHELIAL CELLS,URINE RARE /LPF; WBC,URINE (MAN) >50 /HPF (0-5)
[2020-02-14 17:33] LABS: YEAST,URINE FEW
[2020-02-14 17:34] LABS: CREATINE KINASE MB 2.3 ng/mL (0-5.0)
[2020-02-14] MEDS: MEROPENEM 1GM 100 ML IV SCH (19:03)
--- NOTE | 2020-02-14 20:30 | NUR ---
Patient resting with no distress at this time. Patient states he is always short of breath. Will continue to monitor patient.
--- NOTE | 2020-02-14 22:00 | NUR ---
Patient received via stretcher from ER. AAO x 3. Patient had no complaints of pain. Respirations even and non-labored on 2L NC. Admission history obtained from patient's via telephone and medical chart. Initial physical assessment performed. Wound dressing noted on vertical abdominal incision and stage 2 sacral ulcer. Safety measures in place. Patient instructed to call for assistance when needed. Call light within reach.
[2020-02-14 22:30] VITALS: BP 170/80
[2020-02-14 22:35] VITALS: BP 170/80
--- NOTE | 2020-02-14 23:35 | NUR ---
Patient's BP elevated (170/80) with HR of 112. Dr. Kuhn paged. A message was left on his voice-mail requesting blood pressure medication, breathing treatment and Tylenol (in case of fever). Awaiting call back.
[2020-02-14] MEDS ORDERED: ALBUTEROL/IPRATROPIUM 3 ML NEB NEB PRN (23:45)
[2020-02-14] MEDS ORDERED: ONDANSETRON HCL INJ 2MG/ML 2ML 2 MG/ML VIAL IV PRN (23:45)
[2020-02-14] MEDS ORDERED: ACETAMINOPHEN 1000 MG/100 ML IV PRN (23:45)
[2020-02-14] MEDS: ALBUTEROL/IPRATROPIUM 3 ML NEB NEB SCH (23:45)
[2020-02-14] MEDS ORDERED: HYDRALAZINE HCL 20 MG/ML VIAL IV PRN (23:45)
[2020-02-14] MEDS ORDERED: ASPIRIN 325 MG TAB PO PRN (23:45)
[2020-02-14 23:58] VITALS: BP 170/80
[2020-02-15] VITALS (7 sets, daily range): BP systolic 122–143; BP diastolic 65–79
[2020-02-15] MEDS ORDERED: DIATRIZOATE MEGL/DIATRIZOA SOD 30 ML BTL PO ONE (00:02)
--- NOTE | 2020-02-15 00:07 | NUR ---
New order received from Dr. Kuhn to change patient's dietary status from NPO to mechanical soft diet.
[2020-02-15] MEDS ORDERED: SODIUM CHLORIDE 0.9% 1000ML 1,000 ML ONE (00:28)
[2020-02-15] MEDS: ALBUTEROL/IPRATROPIUM 3 ML NEB NEB SCH ×4 (01:00→19:16)
--- NOTE | 2020-02-15 01:11 | NUR ---
CT Chest and CT ABD/PEL WO completed. Patient back to floor. Patient refused CT ABD/PEL with contrast. Dr. Kuhn informed.
[2020-02-15] MEDS ORDERED: SERTRALINE HCL100 MG PO (02:07)
[2020-02-15] MEDS ORDERED: LACTULOSE10 GM/15 M (02:07)
[2020-02-15] MEDS ORDERED: VITAMIN B-121000 MCG IM (02:07)
[2020-02-15] MEDS ORDERED: SIMETHICONE80 MG PO (02:07)
[2020-02-15] MEDS ORDERED: REMERON15 M1 PO (02:07)
[2020-02-15] MEDS ORDERED: SOD CHL 0.45%/POT CHL 20MEQ 1,000 ML ONE (02:13)
--- NOTE | 2020-02-15 05:00 | NUR ---
Blood specimen sent to lab for analysis.
[2020-02-15 05:39] LABS: BASOPHILS # (AUTO) 0.1 (0.0-0.1); BASOPHILS % 0.4 % (0.0-1.0); EOSINOPHILS % 0.3 % (0.0-6.0); HEMATOCRIT 26.6 % (38.2-49.6); LYMPHOCYTES # (AUTO) 1.1 (1.0-3.2); MEAN CORPUSCULAR HEMOGLOBIN 27.7 pg (28-32); MEAN CORPUSCULAR HGB CONC 30.1 g/dL (31-35); MONOCYTES # (AUTO) 0.3 (0.2-0.8); MONOCYTES % 2.1 % (4.4-11.3); PLATELET COUNT 320 x10e3/uL (140-360); RED BLOOD COUNT 2.89 x10e6/uL (4.3-5.7); RED CELL DISTRIBUTION WIDTH 16.2 % (11.7-14.4)
[2020-02-15 05:57] LABS: ALANINE AMINOTRANSFERASE 18 IU/L (0-55); ALBUMIN 2.1 g/dL (3.5-5.0); ALBUMIN/GLOBULIN RATIO 0.4 (0.8-2.0); ALKALINE PHOSPHATASE 95 IU/L (40-150); ANION GAP 12.7 mmol/L (8-16); BLOOD UREA NITROGEN 11 mg/dL (7-26); BUN/CREATININE RATIO 10 (6-25); CALCIUM 8.7 mg/dL (8.4-10.2); CARBON DIOXIDE 25 mmol/L (22-29); CHLORIDE 109 mmol/L (98-107); EST GLOMERULAR FILTRATION RATE > 60 ML/MIN (60-); GLUCOSE 144 mg/dL (74-118); POTASSIUM 3.7 mmol/L (3.5-5.1); SODIUM 143 mmol/L (136-145)
[2020-02-15] MEDS: MEROPENEM 1GM 100 ML IV SCH (06:18)
--- NOTE | 2020-02-15 06:18 | NUR ---
Dr. Chavis and Jhonatan Carney paged regarding "Routine Consults". Awaiting call back.
--- NOTE | 2020-02-15 07:00 | NUR ---
Walking rounds done. BSSR given to oncoming nurse regarding patient's status.
--- NOTE | 2020-02-15 07:05 | NUR ---
ROUNDS COMPLETE, NO DISTRESS NOTED, PT SLEEPING WILL NOT OPEN EYES, BUT RESPONDS TO STIMULUS TOUCH AND VOICE, PT UPDATED ON POC, L HAND 20G SL, IVF INFUSING TO R AC 20G, DSG NOTED TO ABDOMEN C/D/I, NO OTHER CO VOICED CALL LIGHT IN REACH WILL CONTINUE TO MONITOR
--- NOTE | 2020-02-15 07:31 | Diagnostic Imaging Report ---
TECHNIQUE: CT of the chest, abdomen and pelvis without intravenous contrast. INDICATION: Sepsis. COMPARISON: Chest radiograph 02/14/2020. KUB 12/28/2019. CT abdomen/pelvis 12/23/2019. CT chest 12/18/2019. TECHNIQUE: Chest, Abdomen and pelvis were scanned utilizing a multidetector helical scanner from the thoracic inlet to the pubic symphysis without administration of IV or oral contrast. Coronal and sagittal reformations were obtained. Routine protocol was performed. Lack of intravenous contrast limits sensitivity for evaluation of vascular or visceral structures. COMPLICATIONS: None RADIATION DOSE: Total DLP: 1083 mGy*cm Dose modulation, iterative reconstruction, and/or weight based adjustment of the mA/kV was utilized to reduce the radiation dose to as low as reasonably achievable. FINDINGS: LINES/TUBES: None. LUNGS AND AIRWAYS: Interval improvement of bilateral nodular and groundglass opacities and dependent subsegmental atelectasis. Improved bilateral lower lobe tree in bud nodules. There are scattered residual ground glass nodular opacities, for example in the left upper lobe on series 3, image 12, left lower lobe on image 49, right middle lobe on image 40, right lower lobe on image 40 and right upper lobe on image 17. Mild consolidative/nodular 1.2 cm opacity within the left lower lobe on image 54. Previously noted 1.2 cm posterior right upper lobe nodule is now faintly visible is groundglass opacity. Previously noted 8 mm right medial upper lobe solid nodule now measures 5 mm and is groundglass. Decreased size of lingular solid nodule, now measuring 2 mm on series 3, image 43, previously 6 mm. Previously noted triangular opacity in the super segment of the right lower lobe has resolved. The central airways are patent. Mild bronchial wall thickening. PLEURA: No pleural effusion or pneumothorax. HEART AND MEDIASTINUM: The thyroid gland is normal. Heart size is normal. No pericardial effusion. Atherosclerotic calcification of the coronary arteries and thoracic aorta. Aorta is nonaneurysmal. Main pulmonary artery is borderline enlarged measuring 3 cm. Interval resolution of previously noted mediastinal lymphadenopathy, likely reactive. No evidence of axillary or hilar lymphadenopathy. HEPATOBILIARY: No focal hepatic lesions. No biliary ductal dilatation. Status post cholecystectomy. SPLEEN: No splenomegaly. PANCREAS: No focal masses or ductal dilatation. Small peripancreatic fluid collections are not well characterized in the absence of contrast, but may reflect pseudocysts as noted on CT from 12/23/2019. ADRENALS: No adrenal nodules. KIDNEYS/URETERS: Unchanged left renal cyst and nonobstructing 4 mm left lower pole renal calculus. No evidence of hydronephrosis. PELVIC ORGANS/BLADDER: Unremarkable. PERITONEUM / RETROPERITONEUM: Interval resolution of pneumoperitoneum. No free fluid. LYMPH NODES: No lymphadenopathy. VESSELS: Moderate atherosclerotic calcifications of the abdominal aorta and branch vessels. GI TRACT: No distention or wall thickening. Interval resolution of small bowel obstruction. Colonic diverticulosis without evidence of diverticulitis. There is moderate amount of stool and fluid contents throughout the colon. The rectum is mildly distended with contrast, stool contents, and pills, measuring up to 7 cm with mild surrounding wall thickening. BONES AND SOFT TISSUES: There are small endplate erosions at L1-L2 and L4-L5 which appear new compared to CT on 12/23/2019. Degenerative disc changes in the lumbar spine. Diastases of the anterior lower abdominal wall. IMPRESSION: 1. Improved bilateral nodular and groundglass opacities with scattered residual groundglass opacities, likely infectious or inflammatory. Mild consolidative opacity in the left lower lobe may represent atelectasis or a small focus of pneumonia. Interval resolution of mediastinal lymphadenopathy, likely reactive. Recommend follow-up chest CT in 3 months. 2. Small endplate erosions at L1-L2 and L4-L5 which appear new compared to CT on 12/23/2019. Findings may represent osteomyelitis/discitis. Recommend lumbar spine MRI for further evaluation. 3. Interval resolution of findings of small bowel obstruction. 4. Stool and fluid contents within the colon, which may represent infectious or inflammatory etiology. Suggest correlation for possible diarrhea. The distal rectum appears mildly distended with stool with mild wall thickening, likely inflammatory. 5. Small peripancreatic fluid collections are not well characterized in the absence of contrast, but may reflect pseudocysts as noted on CT from 12/23/2019. RECOMMENDATIONS: Follow-up chest CT in 3 months. Lumbar Spine MRI. Signed by: Dr. Frank Rodríguez MD on 02/15/2020 7:28 AM
[2020-02-15] MEDS: METHYLPREDNISOLONE SOD SUCC 40 MG/ML VIAL 1ML IV SCH ×2 (08:44→19:57)
[2020-02-15] MEDS: LORATADINE 10 MG TAB PO SCH (08:44)
[2020-02-15] MEDS: DILTIAZEM HCL 180 MG CAP ER PO SCH (09:00)
[2020-02-15] MEDS: THEOPHYLLINE 200 MG TABCR PO SCH ×2 (09:00→18:31)
[2020-02-15] MEDS: BUDESONIDE/FORMOTEROL 160/4.5MCG INHALER INH SCH ×2 (11:00→17:00)
--- NOTE | 2020-02-15 11:31 | NUR ---
consult patient is seen and examined chart reviewed . Severely debilitated state following cholecystectomy and wound dehiscence with peritonitis. 2. History of ileus. 3. Recent history of influenza A. HISTORY OF PRESENT ILLNESS: The patient is a 69-year-old male who had gallstone pancreatitis, underwent laparoscopic cholecystectomy and also hernia repair. He went home and then the next day, on followup, he was evaluated, had some congestion and found later to have influenza A positive. CT of the chest showed that he had left lower lobe consolidation. He was admitted here. He has been admitted since November 27. In the meantime, the patient had developed small-bowel obstruction and had exploratory laparotomy and then had wound dehiscence with peritonitis, on IV antibiotic. The patient had acute kidney injury, sepsis, pneumonia as well. He has been very debilitated and according to the for the past three days he has been having trouble with his leaning. He has weakness but does not follow a pattern. I am being asked to evaluate for rehab needs. PAST MEDICAL HISTORY: Includes history of ileus, COPD with O2 dependency. PAST SURGICAL HISTORY: Include laparoscopic cholecystectomy and umbilical hernia repair. ALLERGIES: LATEX. HABITS: Quit smoking. Nondrinker. [id number]
[2020-02-15] MEDS: VANCOMYCIN 250MG/5ML ORAL SOLN PO SCH ×3 (12:18→23:20)
[2020-02-15] MEDS ORDERED: GADOBENATE DIMEGLUMINE 1 ML IV ONE (12:57)
[2020-02-15] MEDS: SOD CHL 0.45%/POT CHL 20MEQ 1,000 ML IV SCH (13:05)
--- NOTE | 2020-02-15 13:09 | NUR ---
down to mri, left in stable condition
[2020-02-15] MEDS ORDERED: LORAZEPAM INJ 2 MG/ML VIAL IV ONE (13:30)
--- NOTE | 2020-02-15 13:30 | NUR ---
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 Kuhn new orders given and carried out.
--- NOTE | 2020-02-15 13:31 | History and Physical ---
CHIEF COMPLAINT: Shortness of breath. HISTORY OF PRESENT ILLNESS: This patient is well known to me. He is a 69-year-old. Recently, in November, he was in the hospital. He came in with influenza pneumonia, which was complicated by pancreatitis and then he had healthcare associated pneumonia and then he had cholecystitis with cholecystectomy and then had small bowel obstruction. It was a very prolonged course. He went to the skilled care facility. He was there for a few weeks. He is coming now with shortness of breath. The patient is a little bit confused. The patient was sent here. He had a CAT scan, which showed still bilateral infiltrate diffuse, suggestive of pneumonia. His COVID-19 was checked and came back negative. The patient was seen and examined. He is telling me there was no fever. No chills. He is lying in bed comfortably as mentioned above, but he is little bit confused. PAST MEDICAL HISTORY: 1. COPD. 2. Abdominal hernia repair. 3. Umbilical hernia repair. 4. History of obesity. 5. History of coronary artery disease. 6. History of cholecystectomy. SOCIAL HISTORY: There is no smoking, drug abuse, or alcohol abuse. FAMILY HISTORY: Noncontributory. REVIEW OF SYSTEMS: GENERAL:at the present time, he is just weak, little bit confused. He knows where he is. When he first came in, he was running fever HEENT: Not icteric. NECK: Supple CHEST: Few crackles bilateral. HEART: S1, S2. No S3, S4, or murmur. ABDOMEN: Soft. Bowel sounds present. Nontender. EXTREMITIES: No edema SKIN: No rash. PHYSICAL EXAMINATION: GENERAL: He is currently alert, oriented, does not seem to be in acute distress. VITALS: Stable, currently afebrile. HEENT: Not icteric. NECK: Supple. CHEST: Clear bilateral. HEART: S1, S2. No S3, S4, or murmur. ABDOMEN: Soft. Bowel sounds present. No tenderness. No hepatosplenomegaly. EXTREMITIES: No edema. SKIN: No rash. LABORATORY DATA: Reviewed, his white count 15.13, hemoglobin of 8. His COVID was negative as mentioned above. His CTA of abdomen and pelvis was done. He had improved bilateral nodular ground-glass opacity was noted. IMPRESSION: 1. Shortness of breath present on admission. We will concern about pneumonia and will put him on Rocephin 1 g daily. 2. Abnormal CAT scan. We will get an MRI of the lumbar spine. Recheck CBC. Recheck Chem panel. We will discontinue meropenem for the time being. He is also currently on oral vancomycin for presumptive Clostridium difficile I suppose. We will follow up the patient clinically. MD VIOLETTA Cho/SACHIN /[id number]
--- NOTE | 2020-02-15 14:49 | NUR ---
BACK FROM MRI, PT TRANSFERRED TO 298 NOTIFIED OF RM NUMBER AND UPDATED ON PT STATUS
--- NOTE | 2020-02-15 15:28 | Diagnostic Imaging Report ---
Examination: MRI SPINE LUMBAR WITHOUT AND WITH CONTRAST History: Back pain; sepsis. Comparison studies: None Technique: Pre-contrast: Sagittal and axial T2 , sagittal T1 and IR, axial spin density oblique. Post contrast: Axial and sagittal fat saturated sequences. Intravenous contrast: 20 mL of MultiHance. Findings: Number of lumbar vertebral bodies:Five. Alignment: Normal lordosis. No scoliosis. Soft tissues: Several T2 hyperintense lesions int eh bilateral kidney with the largest measuring 2.0 cm (craniocaudal dimension) in the upper pole of the left kidney. Paraspinal muscles: No signal abnormalities. Well-preserved. No atrophic changes Lower thoracic cord: Normal in signal and morphology. The tip of the conus is at T12-L1 . Cauda equina: No masses. No arachnoiditis. Vertebrae: No compression fractures, or neoplasm. Increased T2 and STIR signal with associated enhancement of the L1-L2 and L4-L5 with mild irregularity of the endplates at the disc spaces. No associated abscess. Loss of normal fat medial to the bilateral psoas muscles due to enhancing soft tissue concerning for phlegmonous change. Degenerative changes: L1-L2: Diffuse disc bulge and bilateral facet arthropathy results in mild left foraminal narrowing and mild canal stenosis. No right foraminal narrowing. L2-L3: Asymmetric to the left disc bulge and bilateral facet arthropathy results in mild left foraminal narrowing and mild canal stenosis. No right foraminal narrowing. L3-L4: Asymmetric to the right disc bulge and bilateral facet arthropathy results in mild right foraminal narrowing. No canal or left foraminal stenosis. L4-L5: Asymmetric to the left disc bulge and bilateral facet arthropathy results in mild left foraminal narrowing. No canal or right foraminal stenosis. L5-S1: Diffuse disc bulge and bilateral facet arthropathy. No canal or foraminal stenosis. IMPRESSION: 1. Findings at L1-L2 and L4-L5 are concerning for discitis osteomyelitis with adjacent phlegmonous change. No abscess. 2. Degenerative change from L1-L2 through L5-S1 with mild canal stenosis at L1-L2 and L2-L3. No significant (not moderate or severe) foraminal stenosis. Signed by: Dr. Mallory Zarate M.D. on 02/15/2020 3:25 PM
--- NOTE | 2020-02-15 16:22 | Consultation ---
DATE OF CONSULTATION: Pulmonary Critical Care Consultation REASON FOR CONSULT: Shortness of breath. HISTORY OF PRESENT ILLNESS: Mr. Marquez is a 69-year-old male, well known to me from recent admission at [facility]. He was discharged on January 14. He had a prolonged hospital course. The patient had nonhealing wound bowel obstruction. He improved gradually and was discharged to subacute senior care. He was also diagnosed with influenza, developed acute kidney injury requiring hemodialysis, all of these problems resolved and he was discharged to [facility] for rehabilitation. The patient was sent back for shortness of breath and fever. His COVID testing was done and it was negative. His T-max here was 101.4. He underwent a CT of the chest which showed resolving finding from previous pneumonia and plate erosion of L1, L2, L4, L5 as well. Interval resolution of small bowel obstruction and hence a lumbar spine MRI was done to rule out diskitis. REVIEW OF SYSTEMS: GENERAL: Denies any fever or chills. HEAD: Denies any head trauma. ENT: Denies any earache. CVS: Denies any chest pain or shortness of breath. The rest of the review of systems are negative except as in HPI. PAST MEDICAL HISTORY: COPD, hypertension, and alndn-rx-tujwamh hypoxic respiratory failure due to COPD. FAMILY AND SOCIAL HISTORY: Ex-smoker. Does not smoke anymore. PHYSICAL EXAMINATION: VITAL SIGNS: Temperature 96.5, pulse of 88, blood pressure 142/72, respiratory rate of 18, and O2 saturation 99% on 2 L. HEENT: Head is atraumatic and normocephalic. NECK: Supple. CHEST: Clear to auscultation bilaterally. No wheezing. HEART: S1 and S2 audible. ABDOMEN: Soft. EXTREMITIES: No pedal edema. NEUROLOGIC: Awake and alert. LABORATORY DATA: Reviewed. White cell count 15,000, hemoglobin 8.8, and platelets 370. Chemistry reviewed. Creatinine is 1.10, was 1.36. COVID was negative. ASSESSMENT/PLAN: Mr. Marquez is a 69-year-old male, who came in with shortness of breath. COVID is negative. The patient's fever is 101, possibility of diskitis or spine involvement MRIs pending. ID is following the patient. Continue antibiotics. The patient has been started on IV steroids, theophylline, oxygen and nebulizer treatment for chronic obstructive pulmonary disease. Currently very stable. Breathing well, markedly improved than last time. Continue nebulizer treatment. Thank you for this consult. MD VALORIE Leonard/MODL /[id number]
--- NOTE | 2020-02-15 18:18 | NUR ---
Nutrition Intervention Note RD Recommendation(s) for Physician: -If PO continues to be <50% in 5 days or GI is not feasible, consider alternative source of nutrition -If GI is ok to feed, continue diet as ordered with Glucerna QID to promote protein-calorie intake -Encourage PO intake and hydration -Rec appetite stimulant Plan of Care: RD following, monitoring for tolerance and adequacy Nutrition reason for involvement: Nutrition risk trigger MST RD Assessment (02/14) 69yo M, who is admitted for shortness of breath. He was discharged on January [address] [facility]. He had a prolonged hospital course with pancreatitis s/p lap cholecystectomy and hernia repair, positive flu, PNA, SBO and peritonitis s/p ex-lap. Pt was eating poorly during last admissions. Visited pt in the room. Pt was very sleepy and unable to provide any history. Per RN, pt ate very little. No episode of nausea or vomiting reported. Weight has been stable per medical history. Will continue to monitor and follow. Principal Problems/Diagnoses: Shortness of breath present on admission PMH: 1. COPD. 2. Abdominal hernia repair. 3. Umbilical hernia repair. 4. History of obesity. 5. History of coronary artery disease. 6. History of cholecystectomy. GI: abdomen flat, soft, +flatus Skin: surgical wound on abdomen Labs: (02/14) Glucose 144 H Meds: vancomycin, solu-medrol, Claritin, NaCl, KCl Ht: 67in Wt: 209lb BMI: 32.7kg/m2 IBW: 148lb +/- 10% Malnutrition Evaluation (02/14) Unable to assess. Will re-evaluate at follow-up as appropriate. Nutrition Prescription (Diet Order): GI soft diet Estimated Nutritional Needs: Calories: 2375 - 2850kcal (25-30kcal/kg/d) Weight used: CBW Protein: 95 143g (1-1.5g/kg/d) Weight used: CBW Diet Adequacy: Not meeting calorie needs, Not meeting protein needs Tolerance: Tolerance pending Diet Education Needs Assessment: Diet education indicated, but patient not appropriate for education at this time. Nutrition Care Level: moderate Nutrition Diagnosis: Inadequate oral intake related to current medical status as evidenced by poor PO intake <25%. Goal: Patient will meet 75-100% of estimated needs by follow up Progress: N/A Interventions: Fiber-modified diet, Commercial beverage, Composition, Rate, Route, Prescription medications Monitoring/Evaluation: Total energy intake, Total protein intake, Formula/Solution, Modified diet, Liquid supplement, Weight change Signed: Yanet Gonzalez, MS, RD, LD
[2020-02-15] MEDS: SENNA-S TABLET PO SCH (18:31)
[2020-02-15] MEDS: MONTELUKAST SODIUM 10 MG TAB PO SCH (19:57)
[2020-02-15] MEDS: HYDROCODONE/APAP 7.5MG-325MG 1 EA TAB PO PRN (19:58)
[2020-02-16] VITALS (8 sets, daily range): BP systolic 122–148; BP diastolic 71–88
[2020-02-16] MEDS: ALBUTEROL/IPRATROPIUM 3 ML NEB NEB SCH ×4 (00:32→19:37)
[2020-02-16] MEDS: SOD CHL 0.45%/POT CHL 20MEQ 1,000 ML IV SCH (04:39)
[2020-02-16] MEDS: VANCOMYCIN 250MG/5ML ORAL SOLN PO SCH ×3 (05:22→18:15)
--- NOTE | 2020-02-16 06:43 | NUR ---
PATIENT IS RESTING IN BED. NO SIGNS OF DISTRESS NOTED. BED IS IN LOWEST POSITION AND CALL LIGHT IS WITHIN REACH.
[2020-02-16] MEDS: BUDESONIDE/FORMOTEROL 160/4.5MCG INHALER INH SCH ×2 (06:59→17:00)
[2020-02-16 07:10] LABS: BASOPHILS % 0.2 % (0.0-1.0); HEMATOCRIT 22.6 % (38.2-49.6); HEMOGLOBIN 7.1 g/dL (14.0-18.0); LYMPHOCYTES # (AUTO) 0.8 (1.0-3.2); LYMPHOCYTES % 5.8 % (18.0-39.1); MEAN CORPUSCULAR HEMOGLOBIN 28.1 pg (28-32); MEAN CORPUSCULAR HGB CONC 31.4 g/dL (31-35); MEAN CORPUSCULAR VOLUME 89.3 fL (81-99); MONOCYTES # (AUTO) 0.3 (0.2-0.8); MONOCYTES % 1.9 % (4.4-11.3); NEUTROPHILS # (AUTO) 11.7 (2.1-6.9); NEUTROPHILS % 88.6 % (38.7-80.0); PLATELET COUNT 267 x10e3/uL (140-360); RED BLOOD COUNT 2.53 x10e6/uL (4.3-5.7); RED CELL DISTRIBUTION WIDTH 15.5 % (11.7-14.4)
[2020-02-16 07:32] LABS: ANION GAP 11.6 mmol/L (8-16); BLOOD UREA NITROGEN 15 mg/dL (7-26); BUN/CREATININE RATIO 18 (6-25); CALCIUM 8.4 mg/dL (8.4-10.2); CARBON DIOXIDE 25 mmol/L (22-29); CHLORIDE 105 mmol/L (98-107); CREATININE, SERUM 0.85 mg/dL (0.72-1.25); EST GLOMERULAR FILTRATION RATE > 60 ML/MIN (60-); GLUCOSE 162 mg/dL (74-118); POTASSIUM 3.6 mmol/L (3.5-5.1); SODIUM 138 mmol/L (136-145)
[2020-02-16 07:48] LABS: MAGNESIUM 1.9 MG/DL (1.3-2.1); PHOSPHORUS 2.2 MG/DL (2.3-4.7)
[2020-02-16] MEDS: LORATADINE 10 MG TAB PO SCH (08:46)
[2020-02-16] MEDS: METHYLPREDNISOLONE SOD SUCC 40 MG/ML VIAL 1ML IV SCH (08:46)
[2020-02-16] MEDS: ASPIRIN 81 MG CHEW TAB PO SCH (08:46)
[2020-02-16] MEDS: THEOPHYLLINE 200 MG TABCR PO SCH ×2 (08:46→18:15)
[2020-02-16] MEDS: SENNA-S TABLET PO SCH ×2 (08:46→18:15)
[2020-02-16] MEDS: DILTIAZEM HCL 180 MG CAP ER PO SCH (08:46)
[2020-02-16] MEDS: HYDROCODONE/APAP 7.5MG-325MG 1 EA TAB PO PRN (11:51)
--- NOTE | 2020-02-16 12:40 | NUR ---
INFECTIOUS DISEASE PROGRESS NOTE 02/16/20 CHIEF COMPLAINT: Shortness of breath. PAST MEDICAL HISTORY: 1. COPD. 2. Abdominal hernia repair. 3. Umbilical hernia repair. 4. History of obesity. 5. History of coronary artery disease. 6. History of cholecystectomy. REVIEW OF SYSTEMS: GENERAL: weak, AAOX2 HEENT: Not icteric. NECK: Supple CHEST: Few crackles bilateral. HEART: S1, S2. No S3, S4, or murmur. ABDOMEN: Soft. Bowel sounds present. Nontender. EXTREMITIES: No edema SKIN: No rash. PHYSICAL EXAMINATION: GENERAL: He is currently alert, oriented, does not seem to be in acute distress. VITALS: Stable, currently afebrile. HEENT: Not icteric. NECK: Supple. CHEST: Clear bilateral. HEART: S1, S2. No S3, S4, or murmur. ABDOMEN: Soft. Bowel sounds present. No tenderness. No hepatosplenomegaly. EXTREMITIES: No edema. SKIN: No rash. LABORATORY DATA: Reviewed, his white count 15.13, hemoglobin of 8. His COVID was negative as mentioned above. His CTA of abdomen and pelvis was done. He had improved bilateral nodular ground-glass opacity was noted. IMPRESSION: 69 year old male admitted with SOB. c/o of lumbar pain with radiculopathy. Ordered MRI of lumbar spine 1. Diskitis 2. SOB 3. Pnuemonia 4. small bowel obstruction PLAN: 02/16/20: Neurosurgeon called for evaluation. cultures needed if possible. will plan for 8 weeks of IV ABT pending on culture results and neurosurgeon eval and reqs. supportive care and pain management.
[2020-02-16] MEDS: ALPRAZOLAM 0.25 MG TAB PO PRN ×2 (13:05→22:42)
--- NOTE | 2020-02-16 18:23 | NUR ---
Patient resting in bed, not in any distress, call light in reach,keep monitoring
--- NOTE | 2020-02-16 19:30 | NUR ---
RECEIVED REPORT FROM DAY NURSE. PATIENT IS RESTING COMFORTABLY IN THE BED. BED IS IN THE LOWEST POSITION AND CALL FUNEZ IS WITHIN REACH. WILL CONTINUE TO MONITOR PATIENT.
[2020-02-16] MEDS: MONTELUKAST SODIUM 10 MG TAB PO SCH (20:31)
[2020-02-17] VITALS (7 sets, daily range): BP systolic 131–143; BP diastolic 71–87
[2020-02-17] MEDS: VANCOMYCIN 250MG/5ML ORAL SOLN PO SCH ×4 (00:34→17:19)
[2020-02-17] MEDS: ALBUTEROL/IPRATROPIUM 3 ML NEB NEB SCH ×4 (01:25→19:48)
[2020-02-17] MEDS: SOD CHL 0.45%/POT CHL 20MEQ 1,000 ML IV SCH ×3 (03:26→17:49)
[2020-02-17 06:03] LABS: BASOPHILS # (AUTO) 0.1 (0.0-0.1); BASOPHILS % 0.2 % (0.0-1.0); HEMATOCRIT 24.4 % (38.2-49.6); HEMOGLOBIN 7.9 g/dL (14.0-18.0); LYMPHOCYTES # (AUTO) 0.8 (1.0-3.2); LYMPHOCYTES % 3.8 % (18.0-39.1); MEAN CORPUSCULAR HEMOGLOBIN 28.3 pg (28-32); MEAN CORPUSCULAR HGB CONC 32.4 g/dL (31-35); MEAN CORPUSCULAR VOLUME 87.5 fL (81-99); MONOCYTES # (AUTO) 0.9 (0.2-0.8); NEUTROPHILS # (AUTO) 18.4 (2.1-6.9); NEUTROPHILS % 87.1 % (38.7-80.0); PLATELET COUNT 352 x10e3/uL (140-360); RED BLOOD COUNT 2.79 x10e6/uL (4.3-5.7); RED CELL DISTRIBUTION WIDTH 15.4 % (11.7-14.4)
[2020-02-17] MEDS: BUDESONIDE/FORMOTEROL 160/4.5MCG INHALER INH SCH ×2 (07:06→19:48)
[2020-02-17] MEDS ORDERED: METHYLPREDNISOLONE SOD SUCC 40 MG/ML VIAL 1ML IV SCH (07:30)
--- NOTE | 2020-02-17 07:50 | NUR ---
PATIENT IS ALERT TO SELF AND PLACE- PATIENT IN STABLE CONDITION WITH NO S/S OF RESPIRATORY DISTRESS. NO PAIN VOICED. IV FLUIDS INFUSING. ALLEVYN APPLIED TO SACRUM AREA; DIAPER APPLIED. BED ALARM APPLIED. CALL LIGHT IS WITHIN REACH, INSTRUCTED TO CALL FOR ASSISTANCE NEEDED.
[2020-02-17] MEDS: ASPIRIN 81 MG CHEW TAB PO SCH (08:39)
[2020-02-17] MEDS: THEOPHYLLINE 200 MG TABCR PO SCH ×2 (08:39→16:00)
[2020-02-17] MEDS: SENNA-S TABLET PO SCH ×2 (08:39→16:00)
[2020-02-17] MEDS: HYDROCODONE/APAP 7.5MG-325MG 1 EA TAB PO PRN ×2 (08:39→15:54)
[2020-02-17] MEDS: LORATADINE 10 MG TAB PO SCH (08:39)
[2020-02-17] MEDS: DILTIAZEM HCL 180 MG CAP ER PO SCH (08:40)
[2020-02-17] MEDS: VANCOMYCIN 1GM/NS 250 ML 250 ML IV SCH (12:11)
--- NOTE | 2020-02-17 12:48 | Progress Note ---
DATE: SUBJECTIVE: The patient is seen and evaluated. Available labs and notes and medication list reviewed. Discussed with Dr. Chavis in details. REVIEW OF SYSTEMS: Complains of back pain. No nausea, no vomiting, no fever, no chills. No chest pain or shortness of breath. PHYSICAL EXAMINATION: VITAL SIGNS: Temperature is 97.3, pulse is 118, blood pressure is 131/71 with a respiration of 18. GENERAL: Alert and oriented, no acute distress. CV: S1, S2. CHEST: Equal expansion, clear to auscultation. No acute distress. ABDOMEN: Soft and nontender. No distention. HEENT: Moist. No pallor. No JVD. EXTREMITIES: Very weak, moves all. However, movement is limited secondary to back pain, he cannot rotate in the bed. MEDICATIONS: Medications list reviewed. Chronic pneumonia, vancomycin p.o. LABORATORY STUDIES: White 21.1 from 13.19, hemoglobin 7.9, platelet is 352. Sodium is 138, potassium 3.6, creatinine 0.85. Serology; COVID-19 not detected on 02/14/2020. Influenza A and B antigen are negative. MICROBIOLOGY: Blood cultures negative for 48 hours. RADIOLOGY STUDIES: MRI of the L-spine showed a L1-L2 and L4-L5 concerning for diskitis, osteomyelitis with abscess and phlegmonous changes with no abscess. Also, showed degenerative changes from L1-L2 through L5-S1 with mild canal stenosis at L1-L2 and L2-L3. No significant foraminal stenosis. ASSESSMENT AND PLAN: 1. Diskitis as mentioned above as seen on lumbar spine MRI. 2. Shortness of breath. 3. Pneumonia. 4. Leukocytosis. 5. Severe debility. 6. Restart vancomycin IV, cefepime and micafungin. Await neurosurgery eval and recommendation. Discussed with Dr. Chavis in details. Thank you for this dictation. Please refer to chart for further information. Dictated by Ming Prabhakar PA-C (Al) Alisha Chavis MD /MODL /[id number]
--- NOTE | 2020-02-17 13:15 | NUR ---
ASSESSMENT: Spiritual concern Pt requested regional property manager visit. Pt pondering mortality and God. Intervention: Provided unhurried empathic listening and facilitated illness review. Provided prayer. Outcome: Pt requested daily visits to "talk about God." Will continue to follow as able. HONG SAVAGE [employer] Translator Spiritual Care Department O: [phone]
[2020-02-17] MEDS: CEFEPIME 1GM/NS 0.9% 50 ML 50 ML IV SCH ×2 (13:52→22:59)
[2020-02-17] MEDS ORDERED: CEFEPIME HCL 1 GM VIAL IV SCH (14:00)
[2020-02-17] MEDS: MICAFUNGIN SODIUM 100 ML IV SCH (16:23)
[2020-02-17 17:16] LABS: INR 1.04; PROTHROMBIN TIME 14.2 seconds (11.9-14.5)
[2020-02-17 17:17] LABS: PARTIAL THROMBOPLASTIN TIME 30.6 seconds (23.8-35.5)
--- NOTE | 2020-02-17 18:24 | Operative Report ---
DATE OF PROCEDURE: 02/17/2020 SURGEON: Lm Jacob MD REASON FOR CONSULTATION: Lumbar diskitis. HISTORY OF PRESENT ILLNESS: The patient is a 69-year-old man, who has an extensive recent history of multiple medical problems that has been summarized in his chart by Dr. Chavis. He has a history of recent multiple infections including fungemia, for which he had been extensively treated and was then recovering in a longterm. He was readmitted back from the longterm on the with markedly elevated white blood count greater than 20,000 and shortness of breath. He was found to have markedly elevated erythrocyte sedimentation rate greater than 140. Workup included a CT of the chest and abdomen, which revealed suspicion of lumbar diskitis. This was followed by an MRI of the lumbar spine, which confirms the presence of diskitis at L1-2 and L4-5. There is an epidural phlegmon at L4-5, but no epidural abscess. In the meanwhile, the patient is being treated with broad-spectrum antibacterial and antifungal treatment starting over the weekend. He has been extremely debilitated and deconditioned in the longterm and has not been out of bed or walking for long periods of time. PHYSICAL EXAMINATION: On examination, the patient is awake and alert, moderately confused, but follows commands. He speaks very softly, but is able to tell me his name and asks me some simple questions. He moves his arms well. He is able to move his feet well against resistance. When asked to lift his legs off the bed, he is only able to lift the heel of the right leg about one inch off the bed and is unable to lift the left leg. This appears to be due to extreme deconditioning. Sensation appears to be preserved in the legs to light touch. He recognizes my touch on his right and left legs appropriately with his eyes closed. He is wearing a diaper. Straight leg raising provokes low back pain and severe hamstrings tightness bilaterally at 30 degrees. Lumbar spine is diffusely tender to palpation. DIAGNOSTIC DATA: MRI of the lumbar spine reveals a hyperintense disk spaces at L1-2 and L4-5, associated with extensive enhancement of the endplates on postcontrast images consistent with diskitis. There is an epidural phlegmon at L4-5, but no epidural abscess or spinal stenosis. IMPRESSION: L1-2 and L4-5 diskitis. PLAN: We planned to proceed with L4-5 laminotomy and microsurgical diskectomy tomorrow. The goal of the operation is twofold. First is to obtain a microbiological diagnosis for subsequent antimicrobial treatment. This would have a great yield that a CT-guided biopsy or aspiration. The second is to evacuate any pus that would be found within the L4-5 disk space. At the present time, we do not plan to operate at the L1-2 disk and would leave it to antimicrobial treatment. These plans were discussed with Dr. Chavis, who is in agreement. I called the patient's son, Willy Marquez, and spoke to him on the phone and explained all of these issues. I explained the risks of surgery including persistent infection, CSF leakage, meningitis, persistent pain, worsening osteomyelitis, and worsening weakness, numbness, and leg pain. Also, explained that because of his great deconditioning, it is not at all guarantee that he will walk at any point in the future. The son understands and accepts all these issues and gives informed consent to proceed with surgery. Lm Jacob MD PP/SACHIN /[id number]
--- NOTE | 2020-02-17 19:28 | NUR ---
BEDSIDE REPORT RECEIVED FROM DAY RN.PT CONFUSED - ALERT AND ORIENTED X1. RESPIRATIONS ARE EVEN AND UNLABORED. O2 ON AT 2 L PER N/C. DRESSING TO MID ABDOMEN DRY AND INTACT. PT INCONTINENT OF BLADDER. PERICARE GIVEN AND DIAPER CHANGED. PIV 20G SITE HEALTHY.1/2 NS + 20 kcl AT 75 ML/HR. 22 G SL IN LEFT HAND.PT HAVING SMEAR OF BM. NO DIARRHEA. PT RESTING IN BED WATCHING TV. CALL LIGHT WITHIN REACH. BED LOCKED AND BED IN LOW POSITION. PT TO HAVE SURG IN AM AND WILL BE NPO AFTER 12MN.
--- NOTE | 2020-02-17 19:28 | NUR ---
PATIENT IN STABLE CONDITION WITH NO S/S OF RESPIRATORY DISTRESS. NO PAIN VOICED. TELEPHONE CONSENT SIGNED. BED ALARM APPLIED. CALL LIGHT IS WITHIN REACH, INSTRUCTED TO CALL FOR ASSISTANCE NEEDED. BEDSIDE SHIFT REPORT GIVEN TO ONCOMING NURSE.
[2020-02-17] MEDS: MONTELUKAST SODIUM 10 MG TAB PO SCH (22:06)
[2020-02-18] VITALS (16 sets, daily range): BP systolic 130–159; BP diastolic 75–102
[2020-02-18] MEDS: VANCOMYCIN 1GM/NS 250 ML 250 ML IV SCH ×3 (00:15→23:15)
[2020-02-18] MEDS: VANCOMYCIN 250MG/5ML ORAL SOLN PO SCH ×3 (00:15→11:44)
[2020-02-18] MEDS: ALBUTEROL/IPRATROPIUM 3 ML NEB NEB SCH ×4 (01:05→19:45)
--- NOTE | 2020-02-18 02:00 | NUR ---
IV IN RT ARM 20G LEAKING. IV D/C WITH CATHETER INTACT. PRESSURE GAUZE DRESSING TO SITE. PT C/O OF PAIN WHEN FLUSH SL IN LEFT HAND. IV /C WITH CATHETER INTACT. 22 G IV STARTED IN LEFT HAND. SITE HEALTHY. PT TOLERATED PROCEDURE WELL. WILL CONTINUE TO MONITOR IV SITE CLOSELY. PT DENIES PAIN. PT REMAINS NPO.
[2020-02-18] MEDS: CEFEPIME 1GM/NS 0.9% 50 ML 50 ML IV SCH ×3 (06:33→19:58)
--- NOTE | 2020-02-18 07:20 | NUR ---
BEDSIDE SHIFT REPORT RECEIVED FROM THE STEEL PLATE PRINTER RN. CALL LIGHT WITH IN EASY REACH. BED IS LOW AND LOCKED. SIDE RAILS X2. BED ALARM IS ON. PT IS ON NPO. PT DENIES NEEDS AT THIS TIME.
[2020-02-18] MEDS: BUDESONIDE/FORMOTEROL 160/4.5MCG INHALER INH SCH ×2 (07:27→17:00)
[2020-02-18] MEDS ORDERED: METHYLPREDNISOLONE SOD SUCC 40 MG/ML VIAL 1ML IV SCH (07:30)
--- NOTE | 2020-02-18 07:30 | NUR ---
PAGED DR. EDMOND REGARDING LAB ORDERS AND PT HGB 7.9. UNABLE TO LEFT MESSAGE. NO ANSWER.
--- NOTE | 2020-02-18 07:45 | NUR ---
ASSESSMENT: Spiritual distress Pt fearful. Pt states he is unable to sleep because he is "terrified" of the unknown. Pt states he is scheduled for a procedure today. Intervention: Provided unhurried pastoral presence and empathic listening. Facilitated identification of emotions. Provided prayer. Outcome: Pt expressed appreciation for visit. Will continue to follow. HONG SAVAGE [employer] Sales Merchandiser Development Spiritual Care Department O: [phone]
[2020-02-18] MEDS ORDERED: BUPIVACAINE 0.5%/EPI 30 ML SDV INJ ONE (07:58)
[2020-02-18] MEDS ORDERED: BACITRACIN 50,000 UNIT VIAL ONE (07:58)
--- NOTE | 2020-02-18 08:30 | NUR ---
PAGED DR. EDMOND OFFICE AND LEFT MESSAGE REGARDING LABS. WAITING FOR THE RESPONSE FROM THE
--- NOTE | 2020-02-18 09:15 | NUR ---
CALL RECEIVED FROM OR. INFORMED PT LABS. 2 UNITS BLOOD TO HOLD PER LAB. REPORTED THE SAME TO DR. VAUGHAN. PAGED LAB REGARDING LABS.
--- NOTE | 2020-02-18 09:20 | NUR ---
GIVE MORNING PO MEDS PER
[2020-02-18] MEDS: SENNA-S TABLET PO SCH ×2 (09:25→16:07)
[2020-02-18] MEDS: THEOPHYLLINE 200 MG TABCR PO SCH ×2 (09:25→16:07)
[2020-02-18] MEDS: DILTIAZEM HCL 180 MG CAP ER PO SCH (09:25)
[2020-02-18] MEDS: HYDROCODONE/APAP 7.5MG-325MG 1 EA TAB PO PRN ×3 (09:25→23:16)
[2020-02-18] MEDS: LORATADINE 10 MG TAB PO SCH (09:25)
[2020-02-18] MEDS: SOD CHL 0.45%/POT CHL 20MEQ 1,000 ML IV SCH (09:39)
[2020-02-18] MEDS ORDERED: THROMBIN FOR SOLN 5,000 UNIT VIAL ONE (10:35)
--- NOTE | 2020-02-18 10:51 | Progress Note ---
DATE: SUBJECTIVE: The patient is seen, evaluated, clinically seems to be better. More alert today. REVIEW OF SYSTEMS: Wants to go home. No nausea, no vomiting, no fever, no chills. No chest pain. No shortness of breath. Remains with back pain and limited range of motion and movement in the bed. MEDICATIONS: The patient is on vancomycin IV, cefepime, and micafungin, started on 02/17/2020. LABORATORY STUDIES: No new CBC or BMP available: Recheck CBC was ordered yesterday. For today, however, is not available. SEROLOGY: COVID-19, PCR negative on 02/14/2020. Influenza type A and B antigen negative on 02/15/2020. MICROBIOLOGY: Blood culture negative, 72 hours. RADIOLOGY STUDIES: The patient has venous Doppler in bilateral lower extremities, which showed no venous thrombosis in either legs. PHYSICAL EXAMINATION: VITAL SIGNS: Temperature is 97.6, pulse 115, blood pressure 146/86, respirations 19. GENERAL: Alert and oriented, in no acute distress. CV: S1, S2. CHEST: Equal expansion. Clear to auscultation. No acute distress. ABDOMEN: Soft and nontender. No distention. Wound on local care. HEENT: Moist. No pallor. NECK: No JVD. EXTREMITIES: Weak, had limited range of motion secondary to back pain. ASSESSMENT AND PLAN: 1. Diskitis. 2. Leukocytosis. 3. Anemia. 4. Shortness of breath, resolved. 5. Pneumonia by history. 6. Severe debility. 7. Continue vancomycin IV, set for micafungin, plan for Neurosurgery today. Discussed with the nurse. Discussed with Dr. Chavis. Please refer to chart for more information. Dictated by Ming Prabhakar PA-C (Al) Alisha Chavis MD /MODL /[id number]
--- NOTE | 2020-02-18 11:30 | NUR ---
RORY CAMACHO AND INFORMED PT IS ON VANCOMYCIN IV 1 GM Q12 HR AND VANCOMYCIN PO 250 MG Q6. CALL BACK RECEIVED FROM TIMO ACUÑA TO ADMINISTER BOTH PER TIMO BLACK
--- NOTE | 2020-02-18 11:35 | NUR ---
PT OFF UNIT FOR PROCEDURE IN SAFE CONDITION.
--- NOTE | 2020-02-18 13:00 | NUR ---
PT TRANSFERRING TO ICU FROM OR PER THE BAND TIER.
[2020-02-18] MEDS ORDERED: MAGNESIUM/ALUMINUM/SIMETHICONE 30 ML UDC PO PRN (13:30)
[2020-02-18] MEDS ORDERED: PROMETHAZINE HCL (IM) 25 MG/ML VIAL IM PRN (13:30)
[2020-02-18] MEDS ORDERED: OXYCODONE/ACETAMINOPHEN 5-325 1 EACH TABLET PO PRN (13:30)
[2020-02-18] MEDS ORDERED: ONDANSETRON HCL INJ 2MG/ML 2ML 2 MG/ML VIAL IV PRN (13:30)
--- NOTE | 2020-02-18 14:29 | NUR ---
Patient to OR today for L4-L5 laminectomy with discectomy. Will need new PT orders to resume therapy when appropriate. Thank You. Addendum: 02/18/20 at 1430 by JOHNATHON DOHERTY PT Amended: Links added.
--- NOTE | 2020-02-18 14:52 | Operative Report ---
DATE OF PROCEDURE: 02/18/2020 SURGEON: Lm Jacob MD PREOPERATIVE DIAGNOSIS: L4-L5 diskitis. POSTOPERATIVE DIAGNOSIS: L4-L5 diskitis. PROCEDURE: Left L4-L5 laminotomy and microsurgical diskectomy for evacuation of intradiscal abscess. ANESTHESIA: General. INDICATIONS: The patient is a 69-year-old man, who presents with markedly elevated white blood cell count and sedimentation rate, and evidence of diskitis at L4-L5 and L1-L2 disk spaces with epidural abscess. He was taken to surgery for left L4-L5 microsurgical diskectomy for purpose of diagnosis and treatment. DESCRIPTION OF PROCEDURE: After induction of general anesthesia, the patient was placed on the operating table in prone position over Chidi frame. Lumbar region was prepped and draped in sterile fashion. A 1-inch incision was created over the L4-L5 interspace along the midline. A subperiosteal dissection was carried out on the left and the left L4 lamina was exposed. The 2nd x-ray confirmed correct localization. The operating microscope was brought in. A high-speed drill equipped with chaparro bur was used to drill the inferior aspect of the lamina of L4 and the medial rim of the L4-L5 facet joint. The ligamentum flavum was resected and dural sac, and the L5 traversing nerve root were exposed. The nerve root was retracted medially and the epidural veins were bipolar coagulated to expose the L4-L5 disk anulus. The anulus of the disk was incised with a #11 blade. Immediately, a large amount of liquid yellow pus emanated from the disk space. This was cultured and the cultures were sent for aerobic, anaerobic, fungal, and AFB cultures. The disk space was then thoroughly evacuated with curettes and pituitary instruments. The disk space was then thoroughly irrigated with bacitracin saline solution. The lumbar fascia was closed with 0 Vicryl suture. Subcutaneous layer was closed with 2-0 Vicryl sutures. The skin was closed with 3-0 Monocryl sutures in subcuticular fashion. Steri-Strips and dressing were applied. The patient was awakened, extubated, and taken to postanesthesia care unit in stable condition. No intraoperative complications were encountered. Estimated blood loss was minimal. Lmkimani Jacob MD PP/MODL /[id number]
[2020-02-18] MEDS: LACTATED RINGER'S 1,000 ML IV SCH ×2 (15:18→21:47)
--- NOTE | 2020-02-18 15:22 | Diagnostic Imaging Report ---
EXAM: SPINE 1 VW LUMBAR, SPINE 1 VW LUMBAR DATE: 02/18/2020 12:30 PM INDICATION: Intraoperative examination COMPARISON: None FINDINGS/IMPRESSION: 2 intraoperative crosstable lateral views are obtained of the lumbar spine. The radiologist was not present for the examination. An intraoperative verbal report was not requested. Localization instrument projects towards the posterior aspect of the L4-L5 disc space. No acute osseous abnormality is identified. Signed by: Dr. Ike Kruse MD on 02/18/2020 3:18 PM
[2020-02-18] MEDS: MICAFUNGIN SODIUM 100 ML IV SCH (15:56)
[2020-02-18 16:11] LABS: % IRON SATURATION 25 % (15-50); IRON 50 ug/dL (65-175); TOTAL IRON BINDING CAPACITY 202 ug/dL (261-478); TRANSFERRIN 144 mg/dL (174-364)
--- NOTE | 2020-02-18 17:03 | NUR ---
notified Dr Koenig of [facility] result
[2020-02-18] MEDS: ALPRAZOLAM 0.25 MG TAB PO PRN (17:43)
[2020-02-18] MEDS ORDERED: ROCURONIUM BROMIDE 10 MG/ML 5ML VIAL IV ONE (19:21)
[2020-02-18] MEDS ORDERED: DEXAMETHASONE SOD PHOS INJ 4 MG/ML VIAL ONE (19:21)
[2020-02-18] MEDS ORDERED: SEVOFLURANE INHAL SOLN 250 ML PEN BTL ONE (19:21)
[2020-02-18] MEDS ORDERED: PROPOFOL IV EMULSION 10 MG/ML 20 ML VIAL ONE (19:21)
[2020-02-18] MEDS ORDERED: ONDANSETRON HCL INJ 2MG/ML 2ML 2 MG/ML VIAL ONE (19:21)
[2020-02-18] MEDS ORDERED: LIDOCAINE HCL 2% LOCAL INJ 5 ML SDV VIAL INJ ONE (19:21)
[2020-02-18] MEDS ORDERED: PHENYLEPHRINE HCL 1% 10 MG/ML VIAL ONE (19:21)
[2020-02-18] MEDS ORDERED: FENTANYL CITRATE/PF 100MCG/2 ML INJ ONE (19:30)
--- NOTE | 2020-02-18 19:33 | Progress Note ---
DATE: SUBJECTIVE: Mr. Marquez came from surgery today. Discussed with Dr. Jacob, underwent laminectomy and microsurgical diskectomy at L4-L5 diskitis. The patient is currently in the ICU. The patient is comfortable at present time. Cultures still pending. His blood cultures are negative. His wound culture is still pending. The patient is currently comfortable. LABORATORY DATA: Reviewed. Sodium 143 and creatinine of 1.1. White count is 21. PHYSICAL EXAMINATION: GENERAL: He is comfortable. VITAL SIGNS: Stable, afebrile. HEENT: He is not icteric. NECK: Supple. CHEST: Clear. COR: S1 and S2. No S3, S4, or murmurs. ABDOMEN: Soft. IMPRESSION: 1. Diskitis, status post surgery. Continue vancomycin, cefepime, and Mycamine. We are awaiting for culture and sensitivity. 2. History of fungemia. 3. History of influenza. 4. History of complicated to hospital course recently. We will follow. MD VIOLETTA Cho/MODL /[id number]
[2020-02-18] MEDS: MONTELUKAST SODIUM 10 MG TAB PO SCH (19:58)
[2020-02-19] VITALS (16 sets, daily range): BP systolic 141–167; BP diastolic 81–99
[2020-02-19] MEDS: MORPHINE SULFATE 2 MG/ML SYR 1ML IV PRN ×2 (01:04→21:45)
[2020-02-19] MEDS: ALBUTEROL/IPRATROPIUM 3 ML NEB NEB SCH ×4 (02:45→20:50)
[2020-02-19 05:04] LABS: BASOPHILS % 0.2 % (0.0-1.0); HEMATOCRIT 26.2 % (38.2-49.6); HEMOGLOBIN 8.1 g/dL (14.0-18.0); LYMPHOCYTES # (AUTO) 0.8 (1.0-3.2); LYMPHOCYTES % 4.3 % (18.0-39.1); MEAN CORPUSCULAR HEMOGLOBIN 27.5 pg (28-32); MEAN CORPUSCULAR HGB CONC 30.9 g/dL (31-35); MEAN CORPUSCULAR VOLUME 88.8 fL (81-99); MONOCYTES # (AUTO) 0.9 (0.2-0.8); MONOCYTES % 4.7 % (4.4-11.3); NEUTROPHILS # (AUTO) 15.7 (2.1-6.9); NEUTROPHILS % 85.6 % (38.7-80.0); PLATELET COUNT 302 x10e3/uL (140-360); RED BLOOD COUNT 2.95 x10e6/uL (4.3-5.7); RED CELL DISTRIBUTION WIDTH 15.7 % (11.7-14.4)
[2020-02-19] MEDS: CEFEPIME 1GM/NS 0.9% 50 ML 50 ML IV SCH ×3 (05:22→21:22)
[2020-02-19] MEDS: HYDROCODONE/APAP 7.5MG-325MG 1 EA TAB PO PRN (05:23)
[2020-02-19] MEDS: ALPRAZOLAM 0.25 MG TAB PO PRN ×2 (05:23→21:45)
[2020-02-19 05:27] LABS: ANION GAP 10.4 mmol/L (8-16); BLOOD UREA NITROGEN 12 mg/dL (7-26); BUN/CREATININE RATIO 16 (6-25); CALCIUM 8.6 mg/dL (8.4-10.2); CARBON DIOXIDE 25 mmol/L (22-29); CHLORIDE 105 mmol/L (98-107); CREATININE, SERUM 0.77 mg/dL (0.72-1.25); EST GLOMERULAR FILTRATION RATE > 60 ML/MIN (60-); GLUCOSE 103 mg/dL (74-118); POTASSIUM 3.4 mmol/L (3.5-5.1); SODIUM 137 mmol/L (136-145)
--- NOTE | 2020-02-19 06:11 | NUR ---
PATIENT NOTED TO HAVE EXCORIATED GROIN AREA DUE TO HEAVY DIAPER WETTING. NURSE CLEANED PT'S SKIN AND APPLIED CONDOM CATHETER AND CALAZIME OINTMENT TO THE EXCORIATION WELL CHANGED THE ABD BANDAGE THAT HAD DRAINAGE THROUGH BANDAGE. PT HAD NO COMPLAINTS OF DISCOMFORT TO THE CLEANING BUT MOVEMENT FROM CHANGING PATIENT HAS CAUSED BACK PAIN SO ADMINISTERED ORDERED PAIN MEDICATION. WILL CONT TO MONITOR.
[2020-02-19] MEDS ORDERED: PREDNISONE 10 MG TAB PO SCH (09:00)
[2020-02-19] MEDS: BUDESONIDE/FORMOTEROL 160/4.5MCG INHALER INH SCH ×2 (09:00→20:50)
[2020-02-19] MEDS: LORATADINE 10 MG TAB PO SCH (10:00)
[2020-02-19] MEDS: SERTRALINE HCL 50 MG TAB PO SCH (10:00)
[2020-02-19] MEDS: SENNA-S TABLET PO SCH ×2 (10:00→17:15)
[2020-02-19] MEDS: DILTIAZEM HCL 180 MG CAP ER PO SCH (10:00)
[2020-02-19] MEDS: THEOPHYLLINE 200 MG TABCR PO SCH ×2 (10:00→17:15)
[2020-02-19] MEDS: VANCOMYCIN 1GM/NS 250 ML 250 ML IV SCH (12:00)
[2020-02-19] MEDS: LACTATED RINGER'S 1,000 ML IV SCH ×3 (12:30→21:48)
--- NOTE | 2020-02-19 13:12 | NUR ---
Follow up visit. No specific emotional/spiritual concerns expressed. Provided prayer. Will continue to follow as able. HONG SAVAGE Petroleum Sampler Spiritual Care Department O: [phone]
[2020-02-19] MEDS: MICAFUNGIN SODIUM 100 ML IV SCH (17:14)
--- NOTE | 2020-02-19 19:17 | NUR ---
Bedside report completed with morning nurse. Pt alert to name, lying in bed HOB 45 degrees. Pt denies pain at this time. Bed low and locked. Call light within reach. Bed alarm on.
[2020-02-19] MEDS: MONTELUKAST SODIUM 10 MG TAB PO SCH (21:00)
[2020-02-20] VITALS (8 sets, daily range): BP systolic 123–168; BP diastolic 73–94
[2020-02-20] MEDS: ALBUTEROL/IPRATROPIUM 3 ML NEB NEB SCH ×4 (01:00→19:00)
[2020-02-20] MEDS: CEFEPIME 1GM/NS 0.9% 50 ML 50 ML IV SCH ×3 (05:55→22:14)
[2020-02-20] MEDS: LACTATED RINGER'S 1,000 ML IV SCH ×2 (05:55→18:39)
[2020-02-20] MEDS: BUDESONIDE/FORMOTEROL 160/4.5MCG INHALER INH SCH ×2 (07:19→20:30)
[2020-02-20] MEDS: SERTRALINE HCL 50 MG TAB PO SCH (09:05)
[2020-02-20] MEDS: THEOPHYLLINE 200 MG TABCR PO SCH ×2 (09:05→17:48)
[2020-02-20] MEDS: SENNA-S TABLET PO SCH ×2 (09:05→17:48)
[2020-02-20] MEDS: LORATADINE 10 MG TAB PO SCH (09:05)
[2020-02-20] MEDS: DILTIAZEM HCL 180 MG CAP ER PO SCH (09:05)
--- NOTE | 2020-02-20 09:19 | Progress Note ---
DATE: Infectious Disease Progress Note SUBJECTIVE: The patient is seen and examined and discussed with the nurse. REVIEW OF SYSTEMS: No nausea, vomiting, fever, chills, chest pain, shortness of breath, headache, dysuria, polyuria, or rash. OBJECTIVE: VITAL SIGNS: Temperature 98.9, pulse 119, respirations 19, blood pressure 152/82. GENERAL: Alert and oriented. CV: S1 and S2. CHEST: Equal expansion. Clear to auscultation. No acute distress. ABDOMEN: Soft and nontender. No distention. HEENT: Moist. No pallor. No JVD. EXTREMITIES: No acute findings. MEDICATIONS: Medication list reviewed as far as Infectious Disease point of view. Patient is on cefepime, vancomycin, and micafungin. LABORATORY STUDIES: No new CBC or BMP; however, white count improved to 18.3 yesterday from 21.1. Microbiology: Wound culture on 02/18/2020 showed yeast however surgical AFB and fungal cultures still pending. Blood culture was negative on 02/14/2020. IMAGING: There are no new radiology studies available. ASSESSMENT AND PLAN: 1. Diskitis-status post L4-5 laminectomy, vasectomy with cultures sent in for anaerobic fungal and AFB. We will follow with culture results, so far showed some yeast, however, final results are pending. 2. History of fungemia. The patient is on micafungin. 3. Anemia. 4. Shortness of breath, resolved. 5. Severe debility. 6. History of pneumonia. 7. Continue with vancomycin, IV cefepime and micafungin, follow with a surgical sample for culture sensitivity as mentioned above. 8. We will get vancomycin trough soon, recent vancomycin trough was 25.3 yesterday, vancomycin IV was re-dosed. Discussed with Dr. Chavis and discussed with the nurse. Please refer to chart for more information. MD VIOLETTA Cho/SACHIN /[id number]
[2020-02-20] MEDS: HYDROCODONE/APAP 7.5MG-325MG 1 EA TAB PO PRN ×2 (09:22→13:33)
--- NOTE | 2020-02-20 09:35 | NUR ---
ASSESSMENT: Spiritual distress Pt in despair. Pt states he has been "sad" for days. Pt requests continued visits from pump room operator. Intervention: Provided pastoral presence and facilitated identification of emotions. Outcome: Pt expressed appreciation for visit. Will continue to follow. HONG SAVAGE Rug Touch Up Painter Spiritual Care Department O: [phone]
--- NOTE | 2020-02-20 10:34 | Progress Note ---
DATE: ADDENDUM: I talked to director corporate communications, Nazia Awais to follow up on the identification and sensitivity on a yeast that was collected during the surgery. I discussed with Dr. Chavis in details. Dictated by Ming Prabhakar PA-C (Al) Alisha Chavis MD /SACHIN /[id number]
[2020-02-20] MEDS ORDERED: VANCOMYCIN 1GM/NS 250 ML 250 ML IV SCH (12:00)
[2020-02-20] MEDS: MICAFUNGIN SODIUM 100 ML IV SCH (15:15)
--- NOTE | 2020-02-20 16:20 | NUR ---
Nutrition Intervention Note RD Recommendation(s) for Physician: - Continue regular diet - Recommend Glucerna with meals for added nutrition - Encourage PO intake and hydration Plan of Care: RD following, monitoring for tolerance and adequacy Nutrition reason for involvement: follow up RD Assessment 02/19: Follow up. Unable to obtain information from pt since he stated he was not able to hear well. Spoke to RN, who stated pt is eating about half of his meals. Pt has varied intake ranging from 0-100% of meals during admission. Recommend Glucerna nutrition supplement with meals. No N/V/D/C issues at this time. Will continue to monitor. (02/14) 69yo M, who is admitted for shortness of breath. He was discharged on January 15 2020 from [facility]. He had a prolonged hospital course with pancreatitis s/p lap cholecystectomy and hernia repair, positive flu, PNA, SBO and peritonitis s/p ex-lap. Pt was eating poorly during last admissions. Visited pt in the room. Pt was very sleepy and unable to provide any history. Per RN, pt ate very little. No episode of nausea or vomiting reported. Weight has been stable per medical history. Will continue to monitor and follow. Principal Problems/Diagnoses: Shortness of breath present on admission PMH: 1. COPD. 2. Abdominal hernia repair. 3. Umbilical hernia repair. 4. History of obesity. 5. History of coronary artery disease. 6. History of cholecystectomy. GI: last recorded BM 02/17 Skin: surgical wound on abdomen Labs: Glu 162 (02/15) K 3.4 (02/18) (02/14) Glucose 144 H Meds: cefepime, vancomycin, senokot, zofran Ht: 67in Wt: 209lb BMI: 32.7kg/m2 IBW: 148lb +/- 10% Malnutrition Evaluation (02/14) Unable to assess. Will re-evaluate at follow-up as appropriate. Nutrition Prescription (Diet Order): regular diet Estimated Nutritional Needs: Calories: 2375 - 2850kcal (25-30kcal/kg/d) Weight used: CBW Protein: 95 143g (1-1.5g/kg/d) Weight used: CBW Diet Adequacy: Not meeting calorie needs, Not meeting protein needs Tolerance: tolerating PO Diet Education Needs Assessment: Diet education is not indicated at this time, pt is on a regular diet Nutrition Care Level: moderate Nutrition Diagnosis: Inadequate oral intake related to current medical status as evidenced by pt eating 50% of meals per RN Goal: Patient will meet 75-100% of estimated needs by follow up Progress: progressing Interventions: General, healthful diet, Commercial beverage Monitoring/Evaluation: Total energy intake, Total protein intake, Liquid supplement, Weight change Signed: Selene Singh RD, LD
--- NOTE | 2020-02-20 19:00 | NUR ---
RECEIVED PATIENT IN BEDSIDE SHIFT REPORT. PATIENT RESTING IN BED AT THIS TIME. PAIN REPORTED 7/10 TO BACK, BUT PATIENT IS UNSURE IF HE WANTS PAIN MEDICATION, WILL CONTINUE TO ASSESS PAIN AND OFFER PAIN MANAGEMENT. NO S&S OF DISTRESS NOTED. O2@2L VIA NC. IV TO L HAND 22G, LR @ 120ML/HR. BED ALARM ACTIVE. BED LOCKED IN LOWEST POSITION, SIDE RIALS UPX2, CALL LIGHT IN REACH.
--- NOTE | 2020-02-20 20:00 | NUR ---
ATTEMPTED TO TURN PATIENT AT THIS TIME, PATIENT REFUSED. EXPLAINED NEED TO CHANGE POSITIONS TO PRESERVE SKIN, PATIENT STILL REFUSING. WILL CONTINUE TO ATTEMPT.
[2020-02-20] MEDS: MONTELUKAST SODIUM 10 MG TAB PO SCH (20:19)
--- NOTE | 2020-02-20 21:50 | NUR ---
ALTERNATING PRESSURE BED PUMP APPLIED TO MATTRESS AT THIS TIME.
[2020-02-20] MEDS: MORPHINE SULFATE 2 MG/ML SYR 1ML IV PRN (22:28)
--- NOTE | 2020-02-20 23:48 | NUR ---
SPOKE WITH MD VAUGHAN CONCERNING PATIENT'S SUSTAINED HR IN 130S, SINUS TACH, DESPITE PRN PAIN MEDS AND PRN HYDRALAZINE FOR ELEVATED BP. LAST TEMP 99.0. NEW ORDER FOR 1GRAM IV TYLENOL FOR LOW GRADE FEVER (>99.0) Q6H PRN. ORDERS ENTERED. NO NEW ORDER FOR ELEVATED HR AT THIS TIME.
[2020-02-21] VITALS (7 sets, daily range): BP systolic 128–157; BP diastolic 81–96
[2020-02-21] MEDS ORDERED: ACETAMINOPHEN 1000 MG/100 ML IV PRN
[2020-02-21] MEDS: ALBUTEROL/IPRATROPIUM 3 ML NEB NEB SCH ×4 (01:00→19:00)
--- NOTE | 2020-02-21 02:20 | NUR ---
PATIENT REQUESTED BS BE CHECKED, STATING HE IS DIABETIC. BLOOD SUGAR NOTED TO BE 129. PATIENT STATED HE FELT BETTER KNOWING IT WAS NOT TOO HIGH OR LOW. STATED HE DID NOT KNOW WHAT MEDICATION HE TAKES FOR DIABETES.
[2020-02-21] MEDS: CEFEPIME 1GM/NS 0.9% 50 ML 50 ML IV SCH (06:10)
[2020-02-21] MEDS: LACTATED RINGER'S 1,000 ML IV SCH (06:10)
[2020-02-21] MEDS: LORATADINE 10 MG TAB PO SCH (08:23)
[2020-02-21] MEDS: DILTIAZEM HCL 180 MG CAP ER PO SCH (08:23)
[2020-02-21] MEDS: HYDROCODONE/APAP 7.5MG-325MG 1 EA TAB PO PRN (08:24)
[2020-02-21] MEDS: SENNA-S TABLET PO SCH ×2 (08:24→17:00)
[2020-02-21] MEDS: SERTRALINE HCL 50 MG TAB PO SCH (08:24)
[2020-02-21] MEDS: THEOPHYLLINE 200 MG TABCR PO SCH ×2 (08:24→17:00)
[2020-02-21 08:52] LABS: BASOPHILS % 0.1 % (0.0-1.0); EOSINOPHILS % 0.2 % (0.0-6.0); HEMATOCRIT 27.9 % (38.2-49.6); HEMOGLOBIN 8.7 g/dL (14.0-18.0); LYMPHOCYTES # (AUTO) 1.1 (1.0-3.2); MEAN CORPUSCULAR HEMOGLOBIN 27.8 pg (28-32); MEAN CORPUSCULAR HGB CONC 31.2 g/dL (31-35); MEAN CORPUSCULAR VOLUME 89.1 fL (81-99); MONOCYTES # (AUTO) 0.8 (0.2-0.8); MONOCYTES % 4.9 % (4.4-11.3); NEUTROPHILS # (AUTO) 13.3 (2.1-6.9); NEUTROPHILS % 85.2 % (38.7-80.0); PLATELET COUNT 247 x10e3/uL (140-360); RED BLOOD COUNT 3.13 x10e6/uL (4.3-5.7)
[2020-02-21 09:04] LABS: ANION GAP 9.8 mmol/L (8-16); BLOOD UREA NITROGEN 10 mg/dL (7-26); BUN/CREATININE RATIO 12 (6-25); CARBON DIOXIDE 27 mmol/L (22-29); CHLORIDE 99 mmol/L (98-107); CREATININE, SERUM 0.81 mg/dL (0.72-1.25); EST GLOMERULAR FILTRATION RATE > 60 ML/MIN (60-); GLUCOSE 116 mg/dL (74-118); SODIUM 133 mmol/L (136-145)
[2020-02-21 09:06] LABS: POTASSIUM 2.8 mmol/L (3.5-5.1)
[2020-02-21] MEDS ORDERED: POTASSIUM CHLORIDE 20MEQ/100ML 200 ML IV ONE (09:15)
[2020-02-21 09:30] LABS: MAGNESIUM 1.6 MG/DL (1.3-2.1); PHOSPHORUS 2.8 MG/DL (2.3-4.7)
--- NOTE | 2020-02-21 10:20 | NUR ---
ASSESSMENT: Spiritual distress Pt fearful that his is near. Pt states he has a "feeling" that his is imminent. Intervention: Provided unhurried compassionate touch and empathic listening. Facilitated identification of emotions. Provided prayer. Outcome: Pt expressed appreciation for visit. Will continue to follow as able. HONG SAVAGE Director Of Music Spiritual Care Department O: [phone]
--- NOTE | 2020-02-21 10:38 | Progress Note ---
DATE: SUBJECTIVE: The patient is seen and evaluated. REVIEW OF SYSTEMS: No nausea, no vomiting, no fever, no chills, no chest pain, no shortness of breath. He wants to go home and has poor appetite. He is not hungry this morning. PHYSICAL EXAMINATION: VITAL SIGNS: Temperature 97.9, pulse 111, respiration 20, and blood pressure 128/81. GENERAL: Alert and oriented. CV: S1, S2. CHEST: Equal expansion, clear to auscultation. No acute distress. ABDOMEN: Soft, surgical wound with some scab over and local care. HEENT: Moist. No pallor. NECK: No JVD. EXTREMITIES: Weak. MEDICATIONS: Medications reviewed, as far as Infectious Disease point of view, the patient is on cefepime, micafungin, and vancomycin IV. LABORATORY STUDIES: CBC and BMP are pending from today, however, leukocytosis improved yesterday. We will follow with the CBC today and BMP as well. ESR was greater than 140 on 02/15. Estimated GFR was greater than 60. Microbiology; wound culture showed Merlyn albicans with fungal pending. Bronchial wash, AFB and fungal pending. Pathology showed fibrocartilaginous and fibrotendinous pieces of the tissue with acute inflammation, fibrin, and necroinflammatory debris. No new radiology studies available. ASSESSMENT AND PLAN: 1. Diskitis-status post L4-L5 laminectomy, culture sensitivity showed Merlyn albicans. 2. History of fungemia. 3. Anemia. 4. Shortness of breath, resolved. 5. Debility. 6. History of pneumonia. 7. The patient is currently on vancomycin, IV cefepime and micafungin. We will change the micafungin to Diflucan 400 mg IV piggyback daily. Discussed with Dr. Chavis in details. The patient was recommended to have another MRI next week for evaluation of his surgical site. Continue with PT/OT. Please refer to chart for more information. Discussed with Dr. Chavis in details. Dictated by Ming Prabhakar PA-C (Al) Alisha Chavis MD /MODL /[id number]
[2020-02-21] MEDS: FLUCONAZOLE 400MG/200ML BAG 200 ML IV SCH (11:00)
[2020-02-21] MEDS: BUDESONIDE/FORMOTEROL 160/4.5MCG INHALER INH SCH ×2 (13:26→17:00)
[2020-02-21] MEDS ORDERED: SODIUM CHLORIDE 0.9% 500ML 500 ML ONE (14:43)
[2020-02-21] MEDS: ALPRAZOLAM 0.25 MG TAB PO PRN (15:03)
--- NOTE | 2020-02-21 16:15 | NUR ---
WOUND CARE SCREENING/CONSULT FOR 69 YO MALE HX OF ABDOMINAL/UMBILICAL HERNIA REPAIR, COPD, LAMINECTOMY. NYLA 13 ON MODERATE PUP STATUS AND INTERVENTIONS AND ALTERNATING PRESSURE MATTRESS. LABS: WBC-15.61 HGB- 8.7 GLUCOSE-116 SKIN ASSESSMENT COMPLETE PATIENT PRESENTS WITH: 1)STAGE II PRESSURE ULCER TO POSTERIOR SACREAL AREA; MEASURING 1.5 CM X 1.0 CM X 0.1 CM WITH MINIMAL SEROUSANGUINEOUS DRAINAGE, AND 100 % PINK GRANULATION, WITH DARK PURPLE NON BLANCHABLE PERIWOUND AREA MEASURING 4CM X 2 CM . 2)SUPERFICIAL SURGICAL DEHICENSE WOUND FROM HEARNIA REPAIR TO MEDIAL ABDOMEN MEASURING 4 CM X 1 CM X 0.1 CM. MINIMAL SEROUSANGUINAL DRAINAGE. 3)SURGICAL WOUND TO POSTERIOR LOWER BACK FROM CURRENT LAMINECTOMY; UNABLE TO MEASEURE AND TO ASSESS WOUND DUE TO STERI STRIPS IN PLACE. PERIOWOUND DRY AND INTACT, AND PINK. NO DRAINAGE PRESENT. RECOMMENDATIONS: NURSING TO CONTINUE TO MONITOR PATIENT AND TO FOLLOW MODERATE PUP INTERVENTIONS NURSING TO CONTINUE TO GET PATIENT OUT OF BED FOR MEALS AND MUCH TOLERATED NURSING TO CLEAN STAGE II PRESSURE POSTERIOR SACREAL AREA WITH NORMAL SALINE, PAT DRY WITH 4X4 GAUZE, APPLY FIBRACOL TO WOUND BED AND APPLY VENELEX OINTMENT TO DTI AND PERIWOUND COVER WITH ALLEVYN FOAM DRESSING DAILY AND NEEDED. NURSING TO CLEAN WOUND TO MIDLINE ABDOMEN WITH NORMAL SALINE, PAT DRY WITH 4X4 GAUZE, APPLY MAXORB AG, COVER WITH 4X4 GAUZE, AND SECURE WITH PAPER TAPE DAILY. NURSING TO CONTINUE TO ASSIST PATIENT NEEDED WITH MEALS AND NUTRITIONAL SUPPLEMENTS TO ENSURE PROPER REQUIREMENTS FOR HEALING NURSING TO CONTINUE TO OFFLOAD FEET AND HEELS NEEDED WITH PILLOW SUSPENSION WHEN IN BED. NURSING TO APPLY BILATERAL HEEL PROTECTORS WHILE IN BED. NURSING TO REPOSITION PATIENT SIDE TO SIDE Q2H AND PRN. NURSING TO CONSULT WOUND CARE NEEDED. Addendum: 02/21/20 at 1632 by Rhonda Townsend RN Amended: Links added.
--- NOTE | 2020-02-21 19:00 | NUR ---
RECEIVED PATIENT IN BEDSIDE SHIFT REPORT. PATIENT RESTING IN BED AT THIS TIME, EYES CLOSED, BREATHING EVEN AND NONLABORED. NO PAIN NOTED. NO S&S OF DISTRESS NOTED. BED LOCKED IN LOWEST POSITION, SIDE RAILS UPX2, CALL LIGHT IN REACH.
[2020-02-21] MEDS: MONTELUKAST SODIUM 10 MG TAB PO SCH (20:13)
[2020-02-22] VITALS (8 sets, daily range): BP systolic 107–154; BP diastolic 72–92
--- NOTE | 2020-02-22 | NUR ---
NEW CONDOM CATHETER APPLIED D/T HEAVY WETTING. PATIENT TOLERATED WELL. CONDOM CATHETER WORKING AT THIS TIME. WILL CONTINUE TO MONITOR.
[2020-02-22] MEDS: ALBUTEROL/IPRATROPIUM 3 ML NEB NEB SCH ×4 (01:00→19:30)
[2020-02-22 05:37] LABS: BASOPHILS % 0.1 % (0.0-1.0); EOSINOPHILS % 0.2 % (0.0-6.0); HEMATOCRIT 26.3 % (38.2-49.6); HEMOGLOBIN 8.2 g/dL (14.0-18.0); LYMPHOCYTES # (AUTO) 0.7 (1.0-3.2); LYMPHOCYTES % 4.7 % (18.0-39.1); MEAN CORPUSCULAR HEMOGLOBIN 27.8 pg (28-32); MEAN CORPUSCULAR HGB CONC 31.2 g/dL (31-35); MEAN CORPUSCULAR VOLUME 89.2 fL (81-99); MONOCYTES # (AUTO) 0.8 (0.2-0.8); MONOCYTES % 5.4 % (4.4-11.3); NEUTROPHILS # (AUTO) 13.7 (2.1-6.9); NEUTROPHILS % 87.5 % (38.7-80.0); PLATELET COUNT 257 x10e3/uL (140-360); RED BLOOD COUNT 2.95 x10e6/uL (4.3-5.7); RED CELL DISTRIBUTION WIDTH 15.9 % (11.7-14.4)
--- NOTE | 2020-02-22 07:00 | NUR ---
RECEIVED PATIENT AWAKE AT THIS TIME. NO S/S OF DISTRESS. BED LOW, WHEELS LOCKED, SIDE RAILS X2. CALL LIGHT IN REACH WILL CONTINUE TO MONITOR PATIENT.
[2020-02-22] MEDS: BUDESONIDE/FORMOTEROL 160/4.5MCG INHALER INH SCH ×2 (07:34→19:30)
[2020-02-22] MEDS: SERTRALINE HCL 50 MG TAB PO SCH (08:23)
[2020-02-22] MEDS: THEOPHYLLINE 200 MG TABCR PO SCH ×2 (08:23→16:50)
[2020-02-22] MEDS: DILTIAZEM HCL 180 MG CAP ER PO SCH (08:23)
[2020-02-22] MEDS: FLUCONAZOLE 400MG/200ML BAG 200 ML IV SCH (08:23)
[2020-02-22] MEDS: LORATADINE 10 MG TAB PO SCH (08:23)
[2020-02-22] MEDS: SENNA-S TABLET PO SCH ×3 (09:00→16:50)
[2020-02-22] MEDS: BALSAM PERU/CASTOR OIL 60 GM OINT...G. TP SCH (09:11)
[2020-02-22] MEDS ORDERED: POTASSIUM CHLORIDE 20MEQ/15ML UDC PO PRN (09:15)
[2020-02-22] MEDS ORDERED: POTASSIUM CHLORIDE 10MEQ EA PO PRN (09:15)
[2020-02-22] MEDS ORDERED: MAGNESIUM SULFATE 2GM/50ML IV ONE (09:15)
[2020-02-22] MEDS: MORPHINE SULFATE 2 MG/ML SYR 1ML IV PRN ×2 (09:16→15:04)
[2020-02-22] MEDS ORDERED: POTASSIUM PHOSPHATE 20 MM in SODIUM CHLORIDE 0.9% 250ML 250 ML IV ONE (09:30)
[2020-02-22 09:37] LABS: ANION GAP 17.5 mmol/L (8-16); BLOOD UREA NITROGEN 9 mg/dL (7-26); BUN/CREATININE RATIO 12 (6-25); CALCIUM 8.8 mg/dL (8.4-10.2); CARBON DIOXIDE 23 mmol/L (22-29); CHLORIDE 100 mmol/L (98-107); CREATININE, SERUM 0.78 mg/dL (0.72-1.25); EST GLOMERULAR FILTRATION RATE > 60 ML/MIN (60-); GLUCOSE 100 mg/dL (74-118); POTASSIUM 3.5 mmol/L (3.5-5.1); SODIUM 137 mmol/L (136-145)
[2020-02-22] MEDS: MONTELUKAST SODIUM 10 MG TAB PO SCH (21:00)
[2020-02-23] VITALS (7 sets, daily range): BP systolic 135–152; BP diastolic 73–83
[2020-02-23] MEDS: ALBUTEROL/IPRATROPIUM 3 ML NEB NEB SCH ×4 (00:31→20:25)
[2020-02-23 05:43] LABS: BASOPHILS % 0.1 % (0.0-1.0); EOSINOPHILS # (AUTO) 0.1 (0.0-0.4); EOSINOPHILS % 0.3 % (0.0-6.0); HEMATOCRIT 26.1 % (38.2-49.6); HEMOGLOBIN 8.3 g/dL (14.0-18.0); LYMPHOCYTES # (AUTO) 0.7 (1.0-3.2); LYMPHOCYTES % 5.1 % (18.0-39.1); MEAN CORPUSCULAR HEMOGLOBIN 28.2 pg (28-32); MEAN CORPUSCULAR HGB CONC 31.8 g/dL (31-35); MEAN CORPUSCULAR VOLUME 88.8 fL (81-99); MONOCYTES # (AUTO) 0.9 (0.2-0.8); MONOCYTES % 6.3 % (4.4-11.3); NEUTROPHILS # (AUTO) 12.4 (2.1-6.9); NEUTROPHILS % 86.1 % (38.7-80.0); PLATELET COUNT 272 x10e3/uL (140-360); RED BLOOD COUNT 2.94 x10e6/uL (4.3-5.7); RED CELL DISTRIBUTION WIDTH 15.8 % (11.7-14.4)
[2020-02-23 06:00] LABS: ANION GAP 12.9 mmol/L (8-16); BLOOD UREA NITROGEN 8 mg/dL (7-26); BUN/CREATININE RATIO 10 (6-25); CALCIUM 8.4 mg/dL (8.4-10.2); CARBON DIOXIDE 26 mmol/L (22-29); CHLORIDE 101 mmol/L (98-107); EST GLOMERULAR FILTRATION RATE > 60 ML/MIN (60-); GLUCOSE 117 mg/dL (74-118); SODIUM 137 mmol/L (136-145)
[2020-02-23 06:03] LABS: POTASSIUM 2.9 mmol/L (3.5-5.1)
--- NOTE | 2020-02-23 06:14 | NUR ---
POTASSIUM READING 2.9, PRN PO POTASSIUM GIVEN
[2020-02-23 06:18] LABS: MAGNESIUM 2.2 MG/DL (1.3-2.1); PHOSPHORUS 2.7 MG/DL (2.3-4.7)
--- NOTE | 2020-02-23 06:35 | NUR ---
CALLED THE CELL PHONE OF DR. VAUGHAN AND LEFT A MESSAGE REGARDING POTASSIUM READING 2.9, AWAITING CALL BACK
--- NOTE | 2020-02-23 07:00 | NUR ---
RECEIVED PATIENT RESTING AT THIS TIME. NO S/S OF DISTRESS. BED LOW, WHEELS LOCKED, SIDE RAILS X2. CALL LIGHT IN REACH WILL CONTINUE TO MONITOR PATIENT.
[2020-02-23] MEDS: BUDESONIDE/FORMOTEROL 160/4.5MCG INHALER INH SCH ×2 (07:45→20:25)
[2020-02-23] MEDS: BALSAM PERU/CASTOR OIL 60 GM OINT...G. TP SCH (08:55)
[2020-02-23] MEDS ORDERED: SERTRALINE HCL 50 MG TAB PO SCH (09:00)
[2020-02-23] MEDS: LORATADINE 10 MG TAB PO SCH (09:06)
[2020-02-23] MEDS: DILTIAZEM HCL 180 MG CAP ER PO SCH (09:06)
[2020-02-23] MEDS: THEOPHYLLINE 200 MG TABCR PO SCH ×2 (09:06→16:43)
[2020-02-23] MEDS: SENNA-S TABLET PO SCH ×2 (09:06→16:43)
[2020-02-23] MEDS: FLUCONAZOLE 400MG/200ML BAG 200 ML IV SCH (09:07)
[2020-02-23] MEDS ORDERED: POTASSIUM PHOSPHATE 20 MM in SODIUM CHLORIDE 0.9% 250ML 250 ML IV ONE (09:30)
[2020-02-23] MEDS ORDERED: POTASSIUM CHLORIDE 10MEQ EA PO NR (09:30)
[2020-02-23] MEDS ORDERED: SODIUM CHLORIDE 0.9% 500ML 500 ML ONE (14:15)
[2020-02-23] MEDS: MORPHINE SULFATE 2 MG/ML SYR 1ML IV PRN (17:04)
[2020-02-23] MEDS: MONTELUKAST SODIUM 10 MG TAB PO SCH (21:09)
[2020-02-24 00:59] VITALS: BP 132/74
[2020-02-24] MEDS: ALBUTEROL/IPRATROPIUM 3 ML NEB NEB SCH ×4 (01:15→20:02)
[2020-02-24 04:57] VITALS: BP 132/73
[2020-02-24 06:03] LABS: ANION GAP 12.7 mmol/L (8-16); BLOOD UREA NITROGEN 8 mg/dL (7-26); BUN/CREATININE RATIO 10 (6-25); CALCIUM 8.5 mg/dL (8.4-10.2); CARBON DIOXIDE 25 mmol/L (22-29); CHLORIDE 104 mmol/L (98-107); CREATININE, SERUM 0.81 mg/dL (0.72-1.25); EST GLOMERULAR FILTRATION RATE > 60 ML/MIN (60-); GLUCOSE 101 mg/dL (74-118); POTASSIUM 3.7 mmol/L (3.5-5.1); SODIUM 138 mmol/L (136-145)
[2020-02-24] MEDS: BUDESONIDE/FORMOTEROL 160/4.5MCG INHALER INH SCH ×2 (07:30→20:02)
[2020-02-24 08:00] VITALS: BP 141/84
--- NOTE | 2020-02-24 08:16 | NUR ---
PT WAS SNF AT [facility].
[2020-02-24] MEDS: DILTIAZEM HCL 180 MG CAP ER PO SCH (09:13)
[2020-02-24] MEDS: SERTRALINE HCL 50 MG TAB PO SCH (09:13)
[2020-02-24] MEDS: THEOPHYLLINE 200 MG TABCR PO SCH ×2 (09:13→17:36)
[2020-02-24] MEDS: LORATADINE 10 MG TAB PO SCH (09:13)
[2020-02-24] MEDS: SENNA-S TABLET PO SCH ×2 (09:13→17:36)
--- NOTE | 2020-02-24 10:25 | Progress Note ---
DATE: SUBJECTIVE: The patient is seen and evaluated. Available labs and notes reviewed. REVIEW OF SYSTEMS: No nausea. No vomiting. No fever. No chills. No chest pain. No shortness of breath. PHYSICAL EXAMINATION: VITAL SIGNS: Temperature 97.4, pulse 113, blood pressure 141/84 with a respiration of 22, and temperature reviewed. T-max is 99.6 midnight last night. GENERAL: Alert and oriented, no acute distress. CV: S1 and S2. CHEST: Equal expansion. Clear to auscultation. No acute distress. ABDOMEN: Soft and nontender. No distention. HEENT: Moist. No pallor. No JVD. EXTREMITIES: With MARY hose. No significant edema. BACK: Surgical site seen on local care. No obvious drainage noted and no erythema or edema noted. MEDICATIONS: Medication list reviewed and as far as Infectious Disease point of view, the patient is on Diflucan. LABORATORY STUDIES: No new CBC from today, however, today sodium was 138, potassium 3.7, and creatinine was 0.81. No new toxicology and no new serology available. MICROBIOLOGY: No new microbiology studies. Last blood culture negative on 02/20. Surgical wound culture with Merlyn albicans. RADIOLOGY: No new radiology studies available. ASSESSMENT AND PLAN: 1. A 69-year-old gentleman, status post L4-L5 laminectomy. 2. Diskitis. 3. Culture from operating room is growing Melryn albicans. 4. History of fungemia. 5. History of shortness of breath-resolved. 6. Debility. 7. Leukocytosis, improving. No new CBC from today. 8. Depression. 9. Hyperkalemia. 10. Continue with Diflucan. 11. Continue with wound care. Continue with PT/OT. Continue to monitor the patient clinically. We will follow up with the labs. Discussed with Dr. Chavis in details. Please refer to chart for more information. Dictated by Ming Prabhakar PA-C (Al) Alisha Chavis MD /MODL /[id number]
[2020-02-24] MEDS: FLUCONAZOLE 400MG/200ML BAG 200 ML IV SCH (10:42)
[2020-02-24 11:45] VITALS: BP 145/84
[2020-02-24] MEDS: BALSAM PERU/CASTOR OIL 60 GM OINT...G. TP SCH (16:11)
--- NOTE | 2020-02-24 16:34 | NUR ---
Nutrition Intervention Note RD Recommendation(s) for Physician: -Continue regular diet -Recommend Glucerna with meals for added nutrition -Encourage PO intake and hydration, assist with meals -Consider an appetite stimulant Pt meets criteria for moderate protein calorie malnutrition Plan of Care: RD following, monitoring for tolerance and adequacy. Diet, supplement, and appetite stimulant rec's. Nutrition reason for involvement: follow up, MD consult RD Assessment 02/23: Follow up. Pt seen today per consult and f/u. Pt not eating for the past 3 days, lunch tray untouched at time of visit. Pt states that he has no appetite and does not want to eat. Pt with several tila at bedside and requesting more at time of visit, per RN pt only wants to drink cola and has not eaten today. Pt declined all supplements offered and stated "maybe some other time, I'll be here awhile." Encouraged po intake with pt and discussed recommendation of appetite stimulant with RN. Chart reviewed. Will continue to monitor. 02/19: Follow up. Unable to obtain information from pt since he stated he was not able to hear well. Spoke to RN, who stated pt is eating about half of his meals. Pt has varied intake ranging from 0-100% of meals during admission. Recommend Glucerna nutrition supplement with meals. No N/V/D/C issues at this time. Will continue to monitor. (02/14) 69yo M, who is admitted for shortness of breath. He was discharged on January [address] [facility]. He had a prolonged hospital course with pancreatitis s/p lap cholecystectomy and hernia repair, positive flu, PNA, SBO and peritonitis s/p ex-lap. Pt was eating poorly during last admissions. Visited pt in the room. Pt was very sleepy and unable to provide any history. Per RN, pt ate very little. No episode of nausea or vomiting reported. Weight has been stable per medical history. Will continue to monitor and follow. Principal Problems/Diagnoses: Shortness of breath present on admission PMH: 1. COPD. 2. Abdominal hernia repair. 3. Umbilical hernia repair. 4. History of obesity. 5. History of coronary artery disease. 6. History of cholecystectomy. GI: last recorded BM 02/22 Skin: stage II PU sacrum, surgical dehiscence of abd- hernia repair, lower back incision site Labs: 02/23: Na 138, k 3.7, BUN 8, Cr 0.81, Gluc 101, Ca 8.5 Glu 162 (02/15) K 3.4 (02/18) (02/14) Glucose 144 H Meds: senokot s, percocet, morphine, KCl, zofran, phenergan, maalox Ht: 67in Wt: 209lb BMI: 32.7kg/m2 IBW: 148lb +/- 10% Malnutrition Evaluation (02/14) Pt meets criteria for moderate protein calorie malnutrition. Energy intake: Moderate <50% of meals > 5 days Wt loss: Severe- 18% wt loss in 3- 6 months >10% wt loss with in 6 months Fat loss: moderate, somewhat hollow look Muscle loss: moderate, clavicle visible, some methodist hollowing No edema functional status- not assessed Nutrition Prescription (Diet Order): regular diet Estimated Nutritional Needs: Calories: 2375 - 2850kcal (25-30kcal/kg/d) Weight used: CBW Protein: 95 143g (1-1.5g/kg/d) Weight used: CBW Diet Adequacy: Not meeting calorie needs, Not meeting protein needs Tolerance: tolerating PO Diet Education Needs Assessment: Diet education is not indicated at this time, pt is on a regular diet Nutrition Care Level: high Nutrition Diagnosis: Inadequate oral intake related to current medical status as evidenced by pt eating 50% of meals per RN Goal: Patient will meet 75-100% of estimated needs by follow up Progress: not progressing Interventions: General, healthful diet, Commercial beverage, prescription medication- appetite stimulant, collaboration with other providers Monitoring/Evaluation: Total energy intake, Total protein intake, Liquid supplement, Weight change Signed: Salud Escobar RD, LD, [facility]
--- NOTE | 2020-02-24 18:34 | NUR ---
dressings changed earlier during shift. patient did not eat anything today, only drank cokes. encouraged to eat meals & family updated on my shift.
--- NOTE | 2020-02-24 19:00 | NUR ---
RECEIVED PATIENT IN BEDSIDE SHIFT REPORT. PATIENT RESTING IN BED AT THIS TIME, BREATHING EVEN AND NON-LABORED. NO PAIN REPORTED OR NOTED. NO S&S OF DISTRESS NOTED. BED ALARM ACTIVE. BED LOCKED IN LOWEST POSITION, SIDE RAILS UPX2, CALL LIGHT IN REACH.
[2020-02-24 20:00] VITALS: BP 150/86
--- NOTE | 2020-02-24 20:30 | NUR ---
PATIENT REFUSING Q2 TURNS AT THIS TIME, STATING HE IS COMFORTABLE AND DOES NOT WANT TO MOVE. EXPLAINED NECESSITY OF TURNING TO PREVENT SKIN DAMAGE, PATIENT CONTINUES TO REFUSE. WILL CONTINUE TO ATTEMPT TO TURN.
[2020-02-24 20:49] VITALS: BP 150/86
[2020-02-24] MEDS: MONTELUKAST SODIUM 10 MG TAB PO SCH (21:36)
[2020-02-25] VITALS (9 sets, daily range): BP systolic 134–153; BP diastolic 71–84
--- NOTE | 2020-02-25 00:20 | NUR ---
L HAND 22G IV NOTED TO BE LEAKING. REMOVED AT THIS TIME. CATHETER TIP INTACT, PRESSURE DRESSING APPLIED. R WRIST 20G IV ASYMPTOMATIC.
[2020-02-25] MEDS: ALBUTEROL/IPRATROPIUM 3 ML NEB NEB SCH ×4 (01:10→19:50)
[2020-02-25 06:46] LABS: ALANINE AMINOTRANSFERASE 12 IU/L (0-55); ALBUMIN 2.2 g/dL (3.5-5.0); ALBUMIN/GLOBULIN RATIO 0.5 (0.8-2.0); ALKALINE PHOSPHATASE 96 IU/L (40-150); ANION GAP 13.6 mmol/L (8-16); BLOOD UREA NITROGEN 8 mg/dL (7-26); BUN/CREATININE RATIO 10 (6-25); CALCIUM 9.1 mg/dL (8.4-10.2); CARBON DIOXIDE 25 mmol/L (22-29); CHLORIDE 100 mmol/L (98-107); CREATININE, SERUM 0.81 mg/dL (0.72-1.25); EST GLOMERULAR FILTRATION RATE > 60 ML/MIN (60-); GLUCOSE 87 mg/dL (74-118); POTASSIUM 3.6 mmol/L (3.5-5.1); SODIUM 135 mmol/L (136-145)
[2020-02-25] MEDS: BUDESONIDE/FORMOTEROL 160/4.5MCG INHALER INH SCH ×2 (07:29→17:31)
--- NOTE | 2020-02-25 09:34 | Progress Note ---
DATE: SUBJECTIVE: The patient is seen and evaluated. Discussed with the nurse. Uneventful night last night. REVIEW OF SYSTEMS: No nausea, vomiting, fever, chills, chest pain, shortness of breath, cough, headache, dysuria, polyuria, or rash. OBJECTIVE: VITAL SIGNS: Temperature 98.8, pulse is 111, respirations 16, and blood pressure 134/72. GENERAL: Alert and oriented, in no acute distress. CV: S1 and S2. CHEST: Equal expansion, clear to auscultation. No acute distress. ABDOMEN: Soft and nontender. No distention. HEENT: Moist. No pallor. No JVD. MEDICATIONS: Medication list reviewed. As far as Infectious Disease point of view, the patient is on Diflucan. LABORATORY STUDIES: No new CBC from today; however, BMP from today showed sodium of 135, potassium 3.6, and creatinine of 0.81. TOXICOLOGY: No new toxicology studies. SEROLOGY: No new serology studies. MICROBIOLOGY: Recheck blood culture negative on 02/21/2020. Wound culture was Merlyn albicans on 02/18/2020. AFB smear was negative from body fluid from the operating room. RADIOLOGY STUDIES: No new radiology studies available. ASSESSMENT: A pleasant 69-year-old gentleman with: 1. Diskitis. 2. Status post L4-L5 laminectomy. 3. Cultures as above. 4. Shortness of breath, resolved. 5. Leukocytosis, improving. 6. Depression. 7. Electrolyte abnormalities. PLAN: 1. Continue with Diflucan and monitor the patient clinically. Follow with the labs. 2. PT/OT. 3. Encourage oral intake. 4. Please refer to chart for information. Discussed with Dr. Chavis in detail. Dictated by Ming Prabhakar PA-C (Al) Alisha Chavis MD /MODL /[id number]
[2020-02-25] MEDS: THEOPHYLLINE 200 MG TABCR PO SCH ×2 (10:14→17:31)
[2020-02-25] MEDS: DILTIAZEM HCL 180 MG CAP ER PO SCH (10:14)
[2020-02-25] MEDS: SENNA-S TABLET PO SCH ×2 (10:14→17:31)
[2020-02-25] MEDS: LORATADINE 10 MG TAB PO SCH (10:14)
[2020-02-25] MEDS: FLUCONAZOLE 400MG/200ML BAG 200 ML IV SCH (10:15)
[2020-02-25] MEDS: SERTRALINE HCL 50 MG TAB PO SCH (10:15)
[2020-02-25] MEDS: BALSAM PERU/CASTOR OIL 60 GM OINT...G. TP SCH (10:15)
--- NOTE | 2020-02-25 11:00 | NUR ---
Follow up visit. Provided comfort and space to allow pt to express emotions. Provided prayer and assurance. HONG SAVAGE Director Digital Strategy Spiritual Care Department O: [phone]
[2020-02-25] MEDS ORDERED: ONDANSETRON HCL 4 MG ORAL DISINTEGRATING TAB PO PRN (13:15)
--- NOTE | 2020-02-25 13:46 | NUR ---
ORDERS FOR [facility] EVAL PT CONFUSED AND UNABLE TO SIGN CONSENTS CM CALLED AND SPOKE WITH HENRIQUE PITT AT [phone] CHOICE LETTER TAKEN OVER PHONE AND PLACED IN CHART CLINICAL INFORMATION PAPERFAXED TO KIANNA AT [facility] AT [phone] TAYLOR TO COME EVNINFA PT
--- NOTE | 2020-02-25 13:50 | NUR ---
1:50 WAITING FOR P.T. NOTES TO BE AVAILABLE TO FAX TO [facility]
--- NOTE | 2020-02-25 19:00 | NUR ---
RECEIVED PATIENT IN BEDSIDE SHIFT REPORT. O2@2L VIA NC. PATIENT RESTING IN BED AT THIS TIME. NO S&S OF DISTRESS NOTED. BED ALARM, BED PUMP, AND SCD MACHINE ACTIVE. BED LOCKED IN LOWEST POSITION, SIDE RAILS UPX2, CALL LIGHT IN REACH.
[2020-02-25] MEDS: ARIPIPRAZOLE 2 MG TABLET PO SCH (20:45)
[2020-02-25] MEDS: MONTELUKAST SODIUM 10 MG TAB PO SCH (20:45)
--- NOTE | 2020-02-25 23:17 | Consultation ---
DATE OF CONSULTATION: 02/25/2020 I would like to thank Dr. Kuhn for asking me to see Mr. Marquez in consultation. REASONS FOR CONSULTATION: 1. Lumbar diskitis, status post lumbar laminectomy and need for IV antibiotics. 2. COPD. HISTORY: Mainly from medical records on the chart, the patient cannot give much history. A 69-year-old male pneumonia type symptoms in the past, went to prison facility and then came back into this hospital. Apparently, patient was not able to cooperate with care over there. He came here, got evaluated, and found to have diskitis, underwent L4-L5 laminectomy. I am being asked to evaluate for rehab needs. PAST MEDICAL HISTORY: COPD. PAST SURGICAL HISTORY: Include cholecystectomy, coronary artery disease, and hernia repair. SOCIAL HISTORY: Lives with his , cannot tell me he ambulated. He most recently had been over the prison facility. HABITS: Nonsmoker, nondrinker. FAMILY HISTORY: Noncontributory. REVIEW OF SYSTEMS: Constitutional review of systems essentially negative except for the above findings. He really did not elaborate much at all. LABORATORY DATA: White cell count of 14.3, hemoglobin 8.2, hematocrit 26.1, and platelets of 272. Sodium is 135 and potassium 3.6. BUN of 8 and creatinine 0.81. Lumbar spine MRI from 02/14, showed diskitis and osteomyelitis of L1-L2 and L4-L5, degenerative changes from L1-L2 through L5-S1. There are no updated therapy notes at this time. PHYSICAL EXAMINATION: GENERAL: When I came into the room, the patient was lying in bed, spoke with him, introduced myself. I asked him about therapy, he shouted "no." He is lying in bed. He was cooperative to a certain degree. EYES: Gaze IS conjugate. He is lying in bed. NECK: No JVD. HEART: Regular. LUNGS: Diminished breath sounds. ABDOMEN: Nondistended. EXTREMITIES: He can wiggle his toes a bit. He can flex his hips and knees a bit, but now within full range of motion. He moves his arms, but did not resist against. strength in the upper extremity. Lower extremities 1 to 2/5 strength. More importantly, he is resistant to participation. I asked him to really resist against me, he did not want to do so. He states that he does not. He just wants to go home and lay in bed. He does not want to get up. He absolutely does not want to participate in therapy. IMPRESSION: Lumbar diskitis. PLAN: At this point, patient does not want to participate in any therapy. Hopefully, his family or somebody can try to convince the patient to participate more to try to get into a higher level of function. Discussed with Dr. Kuhn. Thank you once again for allowing me to participate in the care of this unfortunate patient. Emory Metcalf DO RPL/MODL /[id number]
[2020-02-26] MEDS: ALBUTEROL/IPRATROPIUM 3 ML NEB NEB SCH ×4 (02:50→20:55)
[2020-02-26 04:34] VITALS: BP 134/71
[2020-02-26] MEDS: BUDESONIDE/FORMOTEROL 160/4.5MCG INHALER INH SCH ×2 (06:46→20:55)
--- NOTE | 2020-02-26 06:58 | NUR ---
RECEIVED BEDSIDE SHIFT REPORT FROM OFF GOING NURSE. PATIENT IS RESTING IN BED, NO ACUTE DISTRESS NOTED AT THIS TIME. CALL LIGHT WITHIN REACH. BED IN THE LOWEST POSITION. BED ALARM ON.
[2020-02-26 08:03] VITALS: BP 151/82
[2020-02-26] MEDS: DILTIAZEM HCL 180 MG CAP ER PO SCH (08:21)
[2020-02-26] MEDS: THEOPHYLLINE 200 MG TABCR PO SCH ×2 (08:21→17:00)
[2020-02-26] MEDS: LORATADINE 10 MG TAB PO SCH (08:21)
[2020-02-26] MEDS: SERTRALINE HCL 50 MG TAB PO SCH (08:21)
[2020-02-26] MEDS: SENNA-S TABLET PO SCH ×2 (08:21→17:00)
[2020-02-26] MEDS ORDERED: MORPHINE SULFATE 2 MG/ML SYR 1ML IV PRN (08:45)
[2020-02-26] MEDS: FLUCONAZOLE 400MG/200ML BAG 200 ML IV SCH ×2 (08:45→09:00)
--- NOTE | 2020-02-26 08:51 | NUR ---
CM REC'D CALL YESTERDAY FROM BETI AT [facility] WHO STATES PT HAS BEEN DENIED BY DR TAYLOR AND ADMINISTRATIVELY ; NOT PARTICIPATING WITH P.T. P.T. RECOMMENDS SNF D/W DR VAUGHAN THIS AM AND ASKED FOR SNF EVAL DR VAUGHAN ENQUIRING ABOUT [facility] EXPLAINED TO DR VAUGHAN THAT IF PT IS NOT PARTICIPATING WITH PHYSICAL THERAPY HE WILL NOT QUALIFY FOR ACUTE REHAB
[2020-02-26 08:52] VITALS: BP 151/82
[2020-02-26] MEDS: BALSAM PERU/CASTOR OIL 60 GM OINT...G. TP SCH (09:29)
[2020-02-26] MEDS: HYDROCODONE/APAP 5MG-325MG TAB PO SCH ×3 (09:29→17:58)
[2020-02-26] MEDS: CELECOXIB 100 MG CAP PO SCH ×2 (09:29→17:00)
--- NOTE | 2020-02-26 09:40 | NUR ---
PAGED DR. EDMOND TO OBTAIN ORDER FOR SEDATIVE FOR MRI.
--- NOTE | 2020-02-26 09:41 | NUR ---
ORDER FOR [facility] CM SPOKE WITH PT'S OVER PHONE AND NOTIFIED HER THAT [facility] DENIED DUE TO PT NOT PARTICIPATING CHOICE LETTER SIGNED OVER PHONE CM CALLED [facility] [phone]; FAXED CLINICAL TO [phone] CONFIRMATION REC'D
[2020-02-26] MEDS ORDERED: PANTOPRAZOLE SOD 40 MG TABEC PO ONE (09:45)
--- NOTE | 2020-02-26 10:25 | NUR ---
SECOND PAGE TO DR. EDMOND TO OBTAIN ORDER FOR SEDATIVE FOR MRI.
[2020-02-26] MEDS ORDERED: LORAZEPAM INJ 2 MG/ML VIAL IV ONE (11:30)
[2020-02-26 11:33] VITALS: BP 126/59
--- NOTE | 2020-02-26 11:39 | Progress Note ---
DATE: SUBJECTIVE: The patient is seen and evaluated. Available labs and notes reviewed. Discussed with Dr. Chavis in details. REVIEW OF SYSTEMS: No nausea, vomiting, fever, chills, chest pain, shortness of breath, headache, rash, dysuria. PHYSICAL EXAMINATION: VITAL SIGNS: Temperature is 99.1, pulse 114, respiration 18, blood pressure 151/82. GENERAL: Alert and oriented, slightly confused, seems to be. CV: S1, S2. CHEST: Equal expansion. Clear to auscultation. No acute distress. ABDOMEN: Soft and nontender. No distention. Abdominal wound on local care. HEENT: Moist. No pallor. No JVD. EXTREMITIES: Weak. BACK: Surgical wound on local care. MEDICATIONS: Medication is reviewed. I do not see Diflucan on a medication list. LABORATORY STUDIES: No new CBC or BMP available. Serology; no new serology available. MICROBIOLOGY: Blood culture from 02/21/2020 is negative. No new microbiology studies available. IMAGING DATA: No new imaging available. ASSESSMENT AND PLAN: 1. Diskitis/osteomyelitis. 2. Status post L4-L5 laminectomy. 3. Culture grew Merlyn albicans. 4. Leukocytosis, improving. 5. Depression. 6. Shortness of breath, resolved. 7. Electrolyte abnormalities. 8. Renew Diflucan. Continue PT/OT. Increased/encourage oral intake and optimize calorie protein intake. 9. Refer to chart please for more information. Discussed with Dr. Chavis in details. Further management of this patient based on daily findings, on laboratory and physical examination. Thank you for this dictation. Dictated by Ming Prabhakar PA-C (Al) Alisha Chavis MD /MODL /[id number]
[2020-02-26] MEDS ORDERED: GADOBENATE DIMEGLUMINE 1 ML IV ONE (11:41)
--- NOTE | 2020-02-26 12:02 | NUR ---
PATIENT OFF UNIT FOR MRI AT THIS TIME.
--- NOTE | 2020-02-26 12:26 | Diagnostic Imaging Report ---
EXAMINATION: CT of the lumbar spine HISTORY: Persistent low back pain. Recent spine surgery 02/18/2020. COMPARISON: Lumbar spine MRI 02/15/2020 and operative X ray 02/18/2020 TECHNIQUE: Multidetector helical axial images were obtained with contrast from L1 to S1. The images were reconstructed using bone and soft tissue algorithms and were viewed in axial, sagittal, and coronal planes. Dose modulation, iterative reconstruction, and/or weight based adjustment of the mA/kV was utilized to reduce the radiation dose to as low as reasonably achievable. Intravenous contrast: 100 mL isovue 370 mg. FINDINGS: Alignment: Normal alignment and lordosis. Vertebral bodies: Normal height and density. Paraspinal soft tissues: Nonspecific, likely postsurgical swelling of the soft tissues overlying the left L4 laminectomy site, which also contains an expected tiny focus of air. No discrete organized fluid collection at this time, if clinical concern 4 superimposed infection consider follow-up MRI without and with contrast. Intervertebral disks: L1-L2: -Persistent intervertebral disc space narrowing and irregularity of the endplates as well as paraspinal soft tissue phlegmonous changes and possible tiny subcentimeter paraspinal fluid collections, for instance a 7 mm one seen on axial plane image 25. -Persistent mild canal and foraminal narrowing due to disc degeneration and facet arthrosis. L2-L3: Unchanged mild symmetric disc bulge and facet arthrosis, associated mild canal and foraminal narrowing. L3-L4: Symmetric disc bulge, ligamenta flava thickening and bilateral facet arthrosis. Persistent moderate right and mild left foraminal stenoses L4-L5: Again noted decreased disc height, significant disc bulge, endplate irregularity, facet arthrosis and paraspinal soft tissue phlegmon changes. Grossly unchanged approximately 1.7 cm peripherally enhancing fluid collection in the left paraspinal soft tissues underneath the psoas muscle. Interval left-sided laminectomy. L5-S1: Moderate bilateral facet arthrosis. No canal or foraminal stenosis. Sacroiliac joints: Mild degenerative changes. IMPRESSION: 1. No significantly changed previously described findings consistent with discitis osteomyelitis at L1-L2 and L4-L5. Stable small paraspinal abscess on the left side at L5-S1 without intraspinal extension. 2. Interval left-sided laminectomy at L4-5 and expected postoperative changes in the overlying soft tissues as detail above. 3. Unchanged scattered degenerative changes throughout the lumbar spine. Signed by: Dr. Flori Jeffries M.D. on 02/26/2020 12:22 PM
--- NOTE | 2020-02-26 12:56 | NUR ---
PATIENT BACK TO UNIT AT THIS TIME.
--- NOTE | 2020-02-26 13:18 | Diagnostic Imaging Report ---
EXAMINATION: MRI of the lumbar spine without contrast HISTORY: Follow-up L1-L2 discitis. Persistent back pain. COMPARISON: Lumbar spine MRI 02/15/[address] 02/26/2020. TECHNIQUE: Sagittal T1, T2, STIR; axial T2 and proton density. Post contrast axial and sagittal T1 fat sat. Intravenous contrast: 20 mL of MultiHance. FINDINGS: It is assumed that there are 5 lumbar vertebrae. Curvature/Alignment: Normal lordosis. Vertebrae: No evidence of recent fracture, infection, or neoplasm. Conus: Normal, terminating at T12-L1 Cauda equina: Unremarkable, no abnormal enhancement. Lower thoracic: Unremarkable. Paraspinal soft tissues: Partially visualized T2 hyperintense probable cysts in both kidneys. Atrophy of the paraspinal muscles. Degenerative changes: L1-L2: Persistent increased T2 signal intensity within the disc, endplate irregularity and adjacent subchondral endplate enhancing bone marrow edema. Also grossly unchanged paraspinal soft tissue swelling with small subcentimeter paraspinal abscesses underneath the psoas muscles bilaterally. Unchanged mild degenerative canal and foraminal narrowing. L2-L3: Stable mild disc bulge and facet arthrosis. Mild canal and foraminal narrowing. L3-L4: Symmetric disc bulge, ligamenta flava thickening and facet arthrosis. Moderate right and mild left foraminal stenoses. L4-L5: Persistent findings of discitis osteomyelitis with enhancing subchondral bone marrow edema, irregular endplates and paraspinal phlegmonous changes, small paraspinal fluid collections, largest one measures about 1.6 cm and the left paraspinal soft tissues underneath the psoas muscle. Interval left-sided laminectomy. Suspected postoperative changes at the laminectomy site with a small amount of fluid, no discrete extension within the spinal canal. Unchanged prominent facet arthrosis in the left and moderate left neural foraminal stenosis. L5-S1: Persistent moderate bilateral facet arthroses. No canal or foraminal stenosis. Sacroiliac joints: No abnormalities. IMPRESSION: 1. Unchanged discitis osteomyelitis at L1-L2 and L4-L5 and tiny paraspinal abscesses when compared to MRI of 02/15/2020. No intraspinal canal infection extension is seen, particularly no epidural abscess. 2. Interval left L4 laminectomy and expected postoperative changes as detail above. 3. Stable degenerative changes as detailed above. Signed by: Dr. Flori Jeffries M.D. on 02/26/2020 1:15 PM
--- NOTE | 2020-02-26 14:21 | NUR ---
REC'D MOT FROM [facility] CALL REPORT TO [phone] ELECTRIFICATION ADVISER MELVIN MONTGOMERY ACCEPTING MD MADELINE GAXIOLA ROOM ASSIGNED UPON ADMISSION MOT INITIATED AND PLACED IN PACKET CALLED DR VAUGHAN FOR DC ORDERS WANTS TO HOLD UNTIL MRI RESULTS ARE BACK FROM TODAY
[2020-02-26] MEDS ORDERED: SODIUM CHLORIDE 0.9% 50ML 50 ML ONE (15:09)
[2020-02-26] MEDS ORDERED: IOPAMIDOL 370 MG/ML 200 ML INFUS..BTL INJ ONE (15:09)
[2020-02-26 15:51] VITALS: BP 106/68
--- NOTE | 2020-02-26 19:29 | NUR ---
BEDSIDE SHIFT REPORT GIVEN TO ONCOMING NURSE. PATIENT IS RESTING IN BED. NO ACUTE DISTRESS NOTED. CALL LIGHT WITHIN REACH. BED IN THE LOWEST POSITION.
[2020-02-26 20:00] VITALS: BP 120/61
[2020-02-26] MEDS: ARIPIPRAZOLE 2 MG TABLET PO SCH (21:22)
[2020-02-26] MEDS: MONTELUKAST SODIUM 10 MG TAB PO SCH (21:22)
[2020-02-27] VITALS: BP 142/81
[2020-02-27] MEDS: ALBUTEROL/IPRATROPIUM 3 ML NEB NEB SCH ×3 (02:30→14:13)
[2020-02-27 04:00] VITALS: BP 121/77
[2020-02-27] MEDS: HYDROCODONE/APAP 5MG-325MG TAB PO SCH ×2 (06:19→12:16)
--- NOTE | 2020-02-27 07:00 | NUR ---
Received bedside shift report from off going nurse. Patient in stable condition, no s/s of distress noted. No pain voiced. Oxygen 2lpm/NC applied. Bed in lowest position and locked. Call light within reach. All personal items within reach.
[2020-02-27] MEDS ORDERED: PANTOPRAZOLE SOD 40 MG TABEC PO SCH (07:30)
[2020-02-27] MEDS: BUDESONIDE/FORMOTEROL 160/4.5MCG INHALER INH SCH (07:30)
[2020-02-27 08:03] VITALS: BP 134/63
[2020-02-27 08:23] VITALS: BP 134/63
[2020-02-27] MEDS: CELECOXIB 100 MG CAP PO SCH ×2 (08:53→16:37)
[2020-02-27] MEDS: DILTIAZEM HCL 180 MG CAP ER PO SCH (08:54)
[2020-02-27] MEDS: LORATADINE 10 MG TAB PO SCH (08:55)
[2020-02-27] MEDS: THEOPHYLLINE 200 MG TABCR PO SCH ×2 (08:55→16:37)
[2020-02-27] MEDS: SENNA-S TABLET PO SCH ×2 (08:55→16:37)
[2020-02-27] MEDS: SERTRALINE HCL 50 MG TAB PO SCH (08:55)
[2020-02-27] MEDS ORDERED: FLUCONAZOLE 400MG/200ML BAG 200 ML IV SCH (09:00)
[2020-02-27] MEDS: FLUCONAZOLE 400MG/200ML BAG 200 ML IV SCH (10:23)
--- NOTE | 2020-02-27 10:30 | NUR ---
Follow up visit. Provided support through prayer. Pt requested follow up visit tomorrow. HONG SAVAGE [facility] O: [phone]
--- NOTE | 2020-02-27 10:43 | Progress Note ---
DATE: SUBJECTIVE: The patient is seen and evaluated. Available labs and notes reviewed with the attending and discussed with Dr. Chavis. REVIEW OF SYSTEMS: The patient is weak, states that still with back pain, but he states that it is not any more than before. MEDICATIONS: Medication list reviewed as far as Infectious Disease point of view. The patient is on Diflucan. MICROBIOLOGY: No new microbiology studies available. RADIOLOGIC DATA: The patient had a followup CT of the L-spine, no significantly changed, previously described findings consistent with diskitis, osteomyelitis at L1-L2 and L4-L5. Stable and small paraspinal abscess on the left side of the L5-S1 without intraspinal extension. Interval left-sided laminectomy at L4-5 and expected postoperative changes in the overlying soft tissue as detailed in the body of the report. Overall, unchanged scattered degenerative changes throughout the lumbar spine. The patient also had MRI of the L-spine saying unchanged diskitis, osteomyelitis at the L1-L2 and L4-L5 and tiny paraspinal abscess, when compared to MRI of 02/11/2020. No intraspinal canal infection extension is seen, particularly on epidural abscess. Interval left L4 laminectomy and expected postoperative changes as mentioned in the body of the report. Stable degenerative changes as described in the body of the report. OBJECTIVE: VITAL SIGNS: Temperature 96.3, pulse 116, respirations 18, and blood pressure 134/63. GENERAL: Weak, but alert, in no acute distress. CV: S1, S2. CHEST: Equal expansion, clear to auscultation, in no acute distress. ABDOMEN: Soft, nontender, no distention. HEENT: Moist. No pallor. No JVD. EXTREMITIES: Weak. No significant edema. ASSESSMENT AND PLAN: 1. Diskitis/osteomyelitis. 2. Status post laminectomy. 3. Followup MRI/CT as mentioned above. 4. Concern abscess. 5. Leukocytosis. 6. Depression. 7. Shortness of breath, resolved. 8. Electrolyte abnormalities. 9. Continue with Diflucan, pending Neurosurgery input. 10. Optimize protein-calorie intake. Monitor the patient clinically. Follow up with the labs. 11. PT and OT/as tolerated. Discussed with Dr. Chavis. Please refer to chart for more information. Dictated by Ming Prabhakar PA-C (Al) MD [place] Cho/SACHIN /[id number]
[2020-02-27 11:58] VITALS: BP 124/74
--- NOTE | 2020-02-27 12:07 | NUR ---
Nutrition Intervention Note RD Recommendation(s) for Physician: -Continue regular diet -Continue Ensure Enlive with meals -Encourage PO intake and hydration, assist with meals -Consider an appetite stimulant Pt meets criteria for moderate protein calorie malnutrition Plan of Care: RD following, monitoring for tolerance and adequacy. Diet, supplement, and appetite stimulant rec's. Nutrition reason for involvement: follow up RD Assessment 02/26: Follow up. Pt discussed during MDR. Pt continues with very poor po intake, no meal intake and preferring to drink multiple cans of cola per day. Ensure Enlive ordered, per pt he drank one earlier today and RN reports intake of half. Encouraged supplement and meal intake with pt, he verbalized understanding. Reiterated rec's of appetite stimulant with RN. Will continue to monitor. 02/23: Follow up. Pt seen today per consult and f/u. Pt not eating for the past 3 days, lunch tray untouched at time of visit. Pt states that he has no appetite and does not want to eat. Pt with several tila at bedside and requesting more at time of visit, per RN pt only wants to drink cola and has not eaten today. Pt declined all supplements offered and stated "maybe some other time, I'll be here awhile." Encouraged po intake with pt and discussed recommendation of appetite stimulant with RN. Chart reviewed. Will continue to monitor. 02/19: Follow up. Unable to obtain information from pt since he stated he was not able to hear well. Spoke to RN, who stated pt is eating about half of his meals. Pt has varied intake ranging from 0-100% of meals during admission. Recommend Glucerna nutrition supplement with meals. No N/V/D/C issues at this time. Will continue to monitor. (02/14) 69yo M, who is admitted for shortness of breath. He was discharged on January 15 2020 from [facility]. He had a prolonged hospital course with pancreatitis s/p lap cholecystectomy and hernia repair, positive flu, PNA, SBO and peritonitis s/p ex-lap. Pt was eating poorly during last admissions. Visited pt in the room. Pt was very sleepy and unable to provide any history. Per RN, pt ate very little. No episode of nausea or vomiting reported. Weight has been stable per medical history. Will continue to monitor and follow. Principal Problems/Diagnoses: Shortness of breath present on admission PMH: 1. COPD. 2. Abdominal hernia repair. 3. Umbilical hernia repair. 4. History of obesity. 5. History of coronary artery disease. 6. History of cholecystectomy. GI: last recorded BM 02/22 Skin: stage II PU sacrum, surgical dehiscence of abd- hernia repair, lower back incision site Labs: 02/26: Na 135, K 3.6, BUN 8, Cr 0.81, Gluc 87 02/23: Na 138, k 3.7, BUN 8, Cr 0.81, Gluc 101, Ca 8.5 Glu 162 (02/15) K 3.4 (02/18) (02/14) Glucose 144 H Meds: abx, senokot-s, protonix, norco, morphine, KCl IVPB, zofran, phenergan, maalox Ht: 67in Wt: 209lb BMI: 32.7kg/m2 IBW: 148lb +/- 10% Malnutrition Evaluation (02/14) Pt meets criteria for moderate protein calorie malnutrition. Energy intake: Moderate <50% of meals > 5 days Wt loss: Severe- 18% wt loss in 3- 6 months >10% wt loss with in 6 months Fat loss: moderate, somewhat hollow look Muscle loss: moderate, clavicle visible, some taoism hollowing No edema functional status- not assessed Nutrition Prescription (Diet Order): regular diet Estimated Nutritional Needs: Calories: 2375 - 2850kcal (25-30kcal/kg/d) Weight used: CBW Protein: 95 143g (1-1.5g/kg/d) Weight used: CBW Diet Adequacy: Not meeting calorie needs, Not meeting protein needs Tolerance: tolerating PO Diet Education Needs Assessment: Diet education is not indicated at this time, pt is on a regular diet Nutrition Care Level: high Nutrition Diagnosis: Inadequate oral intake related to current medical status as evidenced by pt eating 50% of meals per RN Goal: Patient will meet 75-100% of estimated needs by follow up Progress: not progressing Interventions: General, healthful diet, Commercial beverage, prescription medication- appetite stimulant, collaboration with other providers Monitoring/Evaluation: Total energy intake, Total protein intake, Liquid supplement, Weight change Signed: Salud Escobar RD, LD, CNSC
[2020-02-27] MEDS: BALSAM PERU/CASTOR OIL 60 GM OINT...G. TP SCH (13:26)
[2020-02-27] MEDS ORDERED: HYDROCODONE/APAP 5MG-325MG TAB PO PRN (13:45)
--- NOTE | 2020-02-27 14:46 | NUR ---
Called Dr. Chavis to ask duration of IV Diflucan, per MD 8 weeks.
[2020-02-27 15:44] VITALS: BP 91/54
--- NOTE | 2020-02-27 18:25 | NUR ---
Patient discharged to [facility]. Patient off the unit at 1800 via stretcher with EMS x2. Patient in stable condition, no s/s of distress noted. No pain voiced. Patient discharged with right forearm 20G and right wrist 20G both asymptomatic and patent flushed with a saline flush. Transparent dress to the IV sites C/D/I. All personal Belongings taken with the patient. Report was given to Whitney FRANCIS. Transfer paperwork given to EMS.
== END 2020-02-27 17:58 | DRG 853 ==
LOC: ER 16:14 → ERHOLD 17:54 → IMCU 21:50 → MED/SURG3 02-15 14:49 → ICU 02-18 14:23 → MED/SURG 02-19 14:18
PROVIDERS: ADMIT Internal Medicine; ATTEND Internal Medicine
PROC: 0ST20ZZ Resection of Lumbar Vertebral Disc, Open Approach (ICD-10-PCS; 2020-02-18)
PROC: 00NY0ZZ Release Lumbar Spinal Cord, Open Approach (ICD-10-PCS; principal; 2020-02-18 12:00)
DX: A41.9 Sepsis, unspecified organism (principal); G93.41 Metabolic encephalopathy; J44.1 Chronic obstructive pulmonary disease with (acute) exacerbation; B37.89 Other sites of candidiasis; M46.26 Osteomyelitis of vertebra, lumbar region; Z03.818 Encounter for observation for suspected exposure to other biological agents ruled out; M46.46 Discitis, unspecified, lumbar region; E87.6 Hypokalemia; F32.9 Major depressive disorder, single episode, unspecified; E87.8 Other disorders of electrolyte and fluid balance, not elsewhere classified; Z99.81 Dependence on supplemental oxygen; Z66 Do not resuscitate
CPT/HCPCS: 36415; 36600; 71045; 71250; 72020; 72132; 72158; 74176; 80048; 80053; 80198; 80202; 81001; 82140; 82533; 82550; 82553; 82948; 83540; 83605; 83735; 84100; 84466; 84484; 85025; 85610; 85651; 85730; 86850; 86900; 86920; 87040; 87071; 87075; 87102; 87116; 87205; 87206; 87400; 87635; 88304; 93005; 93970; 94640; 94664; 96361; 97139; 99251; 99284; J0360; J0692; J0696; J1100; J1450; J2001; J2060; J2248; J2270; J2370; J2405; J2920; J3010; J3370; J3475; J3480; J7030; J7040; J7050; J7121; J7512; Q9967